=== PATIENT | male | born 1970 | race Caucasian/White ===

== ENCOUNTER 2016-07-13 14:16 | Inpatient (IN) ==
[2016-07-13] MEDS ORDERED: *HR* HYDROmorphone (PF) 1 MG/ML SYRINGE IVP ONE ×3 (14:40→16:44)
[2016-07-13] MEDS ORDERED: Ondansetron 4 MG/2 ML VIAL IVP ONE (14:40)
[2016-07-13] MEDS ORDERED: 0.9 % Sodium Chloride 1,000 ML IVC ONE ×2 (14:41→16:11)
[2016-07-13 15:25] LABS: Basophils % 0.3 %; Hematocrit 45.1 % (37.5-50.1); Hemoglobin 15.1 g/dL (12.9-16.9); Immature Granulocytes % 0.3 % (0-4); Lymphocytes # 0.5 K/mcL (0.6-4.6); Lymphocytes % 5.9 %; Mean Corpuscular HGB Conc 33.5 g/dL (31.6-35.5); Mean Corpuscular Hemoglobin 30.3 pg (28.0-33.3); Mean Corpuscular Volume 90.4 fL (83.0-100.0); Monocytes # 0.3 K/mcL (0.0-1.3); Neutrophils # 7.1 K/mcL (1.6-8.9); Platelet Count 102 K/mcL (140-400); Red Blood Count 4.99 M/mcL (4.19-5.50); Red Cell Distribution Width 13.8 % (11.5-14.5); Segmented Neutrophils % 89.5 %
[2016-07-13 15:40] LABS: Alanine Aminotransferase 288 Units/L (0-55); Albumin 4.1 g/dL (3.5-5.0); Albumin/Globulin Ratio 1.1 (1.1-2.2); Alkaline Phosphatase 495 Units/L (38-126); Aspartate Amino Transferase 506 Units/L (5-34); BUN/Creatinine Ratio 13 (6-26); Bilirubin,Direct 2.6 mg/dL (0.0-0.5); Bilirubin,Indirect 1.1 mg/dL (0.0-1.2); Bilirubin,Total 3.7 mg/dL (0.2-1.2); Blood Urea Nitrogen 11 mg/dL (8-26); Calcium 9.6 mg/dL (8.6-10.8); Carbon Dioxide 24 mEq/L (19-29); Chloride 96 mEq/L (98-109); Globulin 3.6 g/dL (2.4-3.5); Glucose 137 mg/dL (70-99); Lipase 956 Units/L (8-78); Osmolality,Calculated 286 (280-300); Potassium 4.1 mEq/L (3.5-4.5); Sodium 137 mEq/L (136-145); Total Protein 7.7 g/dL (6.0-8.3); eGFR For African Americans > 60 (> 60); eGFR For Non-African Americans > 60 (> 60)
--- NOTE | 2016-07-13 16:20 | Emergency Department Note ---
START Narrative - START START: I personally interviewed and examined this patient and my medical decision- making was reviewed with the ED Resident Physician, Dr. Oconnor. I agree with the documented findings, disposition and treatment plan as described except to the extent set forth below. Patient is a 46-year-old white male with a history of chronic pancreatitis who comes into the emergency department today complaining of a 2 day onset of gradually worsening epigastric pain radiating through to his back. Patient arrives tachycardic and hypertensive, appears uncomfortable with moderate epigastric pain associated with nausea vomiting. Patient states he has had his gallbladder out remotely in the past. Patient's rating pain 10 out of 10 in severity. He is on blood pressure medicine states he has taken his medications but difficult to tell if he absorbed these with the vomiting that he has had home. Patient got moderate tenderness to palpation in the epigastric area with mild guarding. Patient has good bowel sounds. Heart rate is tachycardic but regular , lungs are clear to auscultation bilaterally patient has good pulses throughout equal bilaterally in the upper and lower extremities. Remainder of exams unremarkable. Patient's received 2 L of IV fluids at up to this point has had 2 rounds of IV pain medications has had mild relief but still uncomfortable with pain. His labs show a normal white count, lipase significantly elevated at almost 1000 with elevated LFTs and total bili, this appears as an obstructive picture suggestive of a gallstone pancreatitis although patient has gallbladder out. CT does not show any complications in regards to the pancreatitis but does show stranding and inflammation around the pancreas. No other abnormality seen on CT scan. Case with Dr. Daugherty who is on for GI who states that they will start with an MRCP for further evaluation. Patient will be admitted to the medicine service, for acute pancreatitis, transaminitis, hyperbilirubinemia, sinus tachycardia, elevated blood pressure with history of hypertension..
--- NOTE | 2016-07-13 16:21 | Emergency Department Note ---
Disposition Clinical Impression: Abdominal pain Qualifiers: Abdominal location: epigastric Qualified Code(s): R10.13 - Epigastric pain Acute appendicitis Qualifiers: Acute appendicitis type: unspecified acute appendicitis type Qualified Code(s) : K35.80 - Unspecified acute appendicitis Disposition: Admitted As Inpatient Condition: Good Referrals: Kalia Sheppard MD [Primary Care Provider] - Forms: Work/School Release, ED Satisfaction Letter Time of Disposition: 16:43 Abdominal Pain HPI - General Chief Complaint: ED Abdominal Pain Stated Complaint: "pancreas and kidneys" Time Seen by Provider: 07/13/16 14:28 Source: patient Limitations: no limitations Nursing Notes Reviewed: Yes Vital Signs Reviewed: Yes - History of Present Illness HPI Narrative: Patient presents emergency room with complaint of severe abdominal pain. History of pancreatitis secondary to history of alcohol use and obstructed gallbladder stone. Patient denies any fevers or chills he has had intermittent nausea vomiting and abdominal pain. Denied diarrhea. No other significant medical history according to him. Symptom onset was yesterday and progressively getting worse. Denies any alcohol use or other trauma or injuries. Pt Subjective Complaint: abdominal pain Onset (ago): day(s) Consistency: constant Location: epigastric Pain Severity: severe Pain Scale: 10 Quality: stabbing Migration to: epigastric Improves with: nothing Worsens with: eating, vomiting, movement Associated symptoms: Reports: nausea, vomiting, chills. Denies: diarrhea, fever Treatments prior to arrival: none - Related Data Home Medications Medication Instructions Recorded Confirmed Omeprazole [PriLOSEC] 40 mg PO BID #0 10/23/14 01/18/16 Gabapentin [Neurontin] 300 mg PO TID PRN 02/07/15 01/18/16 Metoprolol Succinate 100 mg PO DAILY 07/13/16 07/13/16 Allergies Allergy/AdvReac Type Severity Reaction Status Date / Time No Known Allergies Allergy Verified 07/13/16 14:22 All systems ED: reviewed and negative except as stated. Constitutional: Denies: fever, chills Cardiovascular: Denies: chest pain, palpitations Gastrointestinal: Reports: abdominal pain, nausea, vomiting. Denies: diarrhea Musculoskeletal: Denies: back pain, neck pain Abdominal Pain PMH - Past Medical History Medical history: Reports: GERD, hypertension, renal disease, other Male Surgical History: Reports: other Psychiatric history: Reports: anxiety - Social History Smoking status: Current some day smoker Alcohol use: Reports: none Drug use: Reports: none Physical Exam - General Limitations: no limitations General appearance: alert, in no apparent distress - Cardiovascular Cardiovascular exam: Present: normal rhythm, tachycardia, normal heart sounds - Abdominal Exam Abdominal exam: Present: soft, tenderness, guarding, normal bowel sounds. Absent: distention, rebound, rigidity, Guerrero's sign, Rovsing's sign, tenderness at McBurney's Point - Extremities Exam Extremities exam: Present: normal inspection, full ROM, normal capillary refill - Neurological Exam Neurological exam: Present: alert, oriented X3 - Skin Skin exam: Present: warm, dry, intact, normal color Course Course Narrative: Patient seen and examined at the time of arrival. See history of present illness. 46-year-old male presents emergency room with evaluation of nausea vomiting abdominal pain. Similar to his previous history of pancreatitis. Patient has had this multiple times the past secondary to previous alcohol abuse and gallstone pancreatitis secondary to cholecystitis. Patient vital signs at presentation are tachycardic he is afebrile. Blood pressure is elevated secondary discomfort. Physical exam shows clear lungs at this regular but tachycardia. Abdomen is tender diffusely with mild guarding no rigidity no peritoneal symptoms. No presents with symptoms on the back. Patient is concerning for an exacerbation of her toes. Previous evaluations reviewed. No recent CT imaging. CT of the abdomen fluids pain control nausea medication labs including lipase and troponin ordered this time. EKG. Patient be provided with fluids and nausea medication pain control. Repeat evaluation is completed. Patient currently denying chest pain shortness of breath headaches vision changes vomiting or diarrhea at this time. Main complaint is of poorly controlled nausea and abdominal pain. Disposition pending treatment course. - Reevaluation(s) Reevaluation #1: Patient found to have elevated lipase and 969. He also is instructed pathology based on elevated to the 2.7 and LFTs. Patient has no gallbladder or visible stone on CT imaging the abdomen. Mild to moderate pancreatitis uncomplicated noted on CT read. Fluids and pain medication to be repeated this time. Patient made nothing by mouth. Consultation placed to the on-call heating unit mechanic Dr. cowan. We reviewed the case he does not think the patient needs any emergent procedure. Recommended conservative therapy including nausea medication and fluids along with pain control. Patient will be admitted to hospitals. Patient was discussed with the hospitalist Dr. anthony reviewed the patient's presentation symptoms medical intervention and presentation here to this emergency room. There have been except in the hospital for treatment of what appears to be pancreatitis. Patient made nothing by mouth and second dose of pain medication given. Patient is stable resting comfortably in the bed. Routine monitors workup and treatment course are completed. Patient to have admission process completed this time. No other recommendations from the hospitalist prior to admission. Time: 16:41 Vital Signs Temperature 97.4 F L 07/13/16 14:19 Pulse Rate 120 07/13/16 14:19 Respiratory Rate 18 07/13/16 14:19 Blood Pressure 181/110 07/13/16 14:19 O2 Sat by Pulse Oximetry 99 07/13/16 14:19 Temperature 97.4 F L 07/13/16 14:19 Pulse Rate 120 07/13/16 14:19 Respiratory Rate 18 07/13/16 14:19 Blood Pressure 181/110 07/13/16 14:19 O2 Sat by Pulse Oximetry 99 07/13/16 14:19 Oxygen Delivery Oxygen Delivery Room Air Abdominal Pain - MDM Narrative Medical decision making narrative: Pancreatitis, abdominal pain, nausea vomiting diarrhea - Medical Records Medical records reviewed: Yes I reviewed the patient's medical records. - Lab Data Lab results reviewed: Yes I reviewed the patient's lab results. Result diagrams: 07/13/16 15:19 07/13/16 15:19 Lab Results 07/13/16 07/13/16 07/13/16 Range/Units 15:19 15:19 15:19 WBC 7.9 (4.3-11.1) K/mcL RBC 4.99 (4.19-5.50) M/mcL Hgb 15.1 (12.9-16.9) g/dL Hct 45.1 (37.5-50.1) % MCV 90.4 (83.0-100.0) fL MCH 30.3 (28.0-33.3) pg MCHC 33.5 (31.6-35.5) g/dL RDW 13.8 (11.5-14.5) % Plt Count 102 L (140-400) K/mcL MPV 12.0 (9.4-12.4) fL Immature Gran % 0.3 (0-4) % Seg Neutrophils % 89.5 % Lymphocytes % 5.9 % Monocytes % 4.0 % Eosinophils % 0.0 % Basophils % 0.3 % Neutrophils # 7.1 (1.6-8.9) K/mcL Lymphocytes # 0.5 L (0.6-4.6) K/mcL Monocytes # 0.3 (0.0-1.3) K/mcL Eosinophils # 0.0 (0.0-0.6) K/mcL Basophils # 0.0 (0.0-0.2) K/mcL Sodium 137 (136-145) mEq/L Potassium 4.1 (3.5-4.5) mEq/L Chloride 96 L (98-109) mEq/L Carbon Dioxide 24 (19-29) mEq/L BUN 11 (8-26) mg/dL Creatinine 0.82 (0.72-1.25) mg/dL Est GFR ( Amer) > 60 (> 60) Est GFR (Non-Af Amer) > 60 (> 60) BUN/Creatinine Ratio 13 (6-26) Glucose 137 H (70-99) mg/dL Calculated Osmolality 286 (280-300) Lactic Acid 0.9 (0.5-2.2) mmol/L Calcium 9.6 (8.6-10.8) mg/dL Total Bilirubin 3.7 H (0.2-1.2) mg/dL Direct Bilirubin 2.6 H (0.0-0.5) mg/dL Indirect Bilirubin 1.1 (0.0-1.2) mg/dL AST 506 H (5-34) Units/L ALT 288 H (0-55) Units/L Alkaline Phosphatase 495 H (38-126) Units/L Troponin I (0-0.03) ng/mL Serum Total Protein 7.7 (6.0-8.3) g/dL Albumin 4.1 (3.5-5.0) g/dL Globulin 3.6 H (2.4-3.5) g/dL Albumin/Globulin Ratio 1.1 (1.1-2.2) Lipase 956 H (8-78) Units/L 07/13/16 Range/Units 15:19 WBC (4.3-11.1) K/mcL RBC (4.19-5.50) M/mcL Hgb (12.9-16.9) g/dL Hct (37.5-50.1) % MCV (83.0-100.0) fL MCH (28.0-33.3) pg MCHC (31.6-35.5) g/dL RDW (11.5-14.5) % Plt Count (140-400) K/mcL MPV (9.4-12.4) fL Immature Gran % (0-4) % Seg Neutrophils % % Lymphocytes % % Monocytes % % Eosinophils % % Basophils % % Neutrophils # (1.6-8.9) K/mcL Lymphocytes # (0.6-4.6) K/mcL Monocytes # (0.0-1.3) K/mcL Eosinophils # (0.0-0.6) K/mcL Basophils # (0.0-0.2) K/mcL Sodium (136-145) mEq/L Potassium (3.5-4.5) mEq/L Chloride (98-109) mEq/L Carbon Dioxide (19-29) mEq/L BUN (8-26) mg/dL Creatinine (0.72-1.25) mg/dL Est GFR ( Amer) (> 60) Est GFR (Non-Af Amer) (> 60) BUN/Creatinine Ratio (6-26) Glucose (70-99) mg/dL Calculated Osmolality (280-300) Lactic Acid (0.5-2.2) mmol/L Calcium (8.6-10.8) mg/dL Total Bilirubin (0.2-1.2) mg/dL Direct Bilirubin (0.0-0.5) mg/dL Indirect Bilirubin (0.0-1.2) mg/dL AST (5-34) Units/L ALT (0-55) Units/L Alkaline Phosphatase (38-126) Units/L Troponin I 0.00 (0-0.03) ng/mL Serum Total Protein (6.0-8.3) g/dL Albumin (3.5-5.0) g/dL Globulin (2.4-3.5) g/dL Albumin/Globulin Ratio (1.1-2.2) Lipase (8-78) Units/L - Radiology Data Radiology results reviewed: Yes I reviewed the patient's radiology results. CT head is consistent with pancreatitis and no obstructive pathology - EKG Data EKG attestation: Yes I reviewed and interpreted this EKG. EKG shows normal: sinus rhythm, axis, intervals, QRS complexes, ST-T waves Rate: tachycardia Rhythm: NSR [place]/QRS: normal When compared to previous EKG there are: no significant changes Interpretation: no acute changes, unchanged when compared to prior tracing (date ) (09/03/15)
[2016-07-13] MEDS ORDERED: Famotidine 20 MG/2 ML VIAL IVP ONE (16:44)
[2016-07-13] MEDS ORDERED: Naloxone 0.4 MG/ML INJ IVP PRN (17:14)
[2016-07-13] MEDS ORDERED: *HR* Morphine 2 MG/ML SYRINGE IVP PRN (17:14)
[2016-07-13] MEDS ORDERED: *HR* LORazepam 2 MG/ML VIAL IVP ONE (17:53)
[2016-07-13] MEDS ORDERED: *HR* HYDROmorphone 2 MG/ML SYRINGE IVP PRN (17:59)
[2016-07-13] MEDS ORDERED: Ketorolac 30 MG/ML VIAL IVP PRN (18:00)
[2016-07-13] MEDS ORDERED: *HR* Promethazine 25 MG/ML VIAL IVP PRN ×2 (18:04→23:29)
[2016-07-13] MEDS: 0.9 % Sodium Chloride 1,000 ML IVC SCH (18:04)
--- NOTE | 2016-07-13 18:15 | Internal Med History&Physical ---
Date of Encounter: 07/13/16 Time of Encounter: 17:45 Assessment and Plan (1) Acute pancreatitis Current visit: Yes Status: Acute Patient with acute pancreatitis and severe intractable abdominal pain. Place patient on hospital. Keep nothing by mouth. IV fluids. We will get MRCP. Patient has had previous cholecystectomy. IV narcotic medications to control pain. High risk for complications due to use of IV narcotic medications. Monitor vital signs closely. Monitor input and output. Qualifiers: Pancreatitis type: other Acute pancreatitis complication: no infection or necrosis Qualified Code(s): K85.80 - Other acute pancreatitis without necrosis or infection (2) Accelerated hypertension Current visit: Yes Status: Acute Blood pressure is severely elevated. Likely due to severe pain. Monitor blood pressure for now and if persistently greater than 160 systolic, will give intravenous medications to control blood pressure. (3) Essential hypertension Current visit: No Status: Chronic (4) Intractable epigastric abdominal pain Current visit: Yes Status: Acute Internal Medicine - H&P: HPI Chief complaint: Abdominal pain Admitted From: Emergency Dept Plans for Post Hospital Care: Home History of present illness: Mr. Howard is a 46 year old male is with a history of prior pancreatitis status post cholecystectomy, essential hypertension who presented to the ER with complaints of severe abdominal pain. This began 3 days back and has been progressively getting worse. Currently it is 10 out of 10 in severity and not responding to her narcotic medications at the patient received in the ER, it radiates to the back and is associated with nausea and vomiting. No fever chills or night sweats. No hemoptysis. No recent alcohol use. Past Med Surg Social Fam HX - Past Medical History Attestation: Yes The following information was validated with the patient. Source: patient Medical history: GERD, hypertension, other (Pancreatitis) Psychiatric history: anxiety - Past Surgical History Surgical History: appendectomy, cholecystectomy, other - Social History Smoking Status: Current some day smoker Smokeless Tobacco Status: No Alcohol use: none Drug use: none - Family History Mother Family Member Ethnicity: Non- Living Status: Hx Family Cardiac Disorders: Yes Hx Family Respiratory Disorders: Yes Hx Family Cancer: Yes Hx Family GI Disorders: Yes Hx Family Endocrine Disorder: No Hx Family Neuromuscular Disorders: No Hx Family Neurologic Disorders: No Hx Family HEENT Disorders: No Hx Family Autoimmune Disorders: No Internal Medicine - H&P: Meds Omeprazole [PriLOSEC] 40 mg PO BID #0 10/23/14 [History] Gabapentin [Neurontin] 300 - 600 mg PO TID 02/07/15 [History] Metoprolol Succinate 100 mg PO DAILY 07/13/16 [History] Allergies No Known Allergies Allergy (Verified 07/13/16 14:22) All Systems PM: A 10-system review of systems was performed and is negative for pertinent findings except as documented above in the HPI. - Constitutional Constitutional: malaise ( ), no chills, no fever(s), no night sweats - EENT Eyes: no change in vision, no discharge, no pain, no photophobia Nose, mouth and throat: no dysphagia, no nasal discharge, no neck pain, no sore throat - Cardiovascular Cardiovascular ROS IM: no chest pain, no diaphoresis, no dyspnea, no lightheadedness, no palpitations, no syncope - Respiratory Respiratory: no cough, no dyspnea, no wheezing, no excessive phlegm production - Gastrointestinal Gastrointestinal: abdominal pain, nausea, vomiting, no diarrhea, no hematemesis , no hematochezia, no melena - Musculoskeletal Musculoskeletal ROS IM: no numbness, no tingling - Integumentary Integumentary IM: no rash, no unusual bruising - Neurological Neurological ROS: no confusion, no convulsions, no focal weakness, no numbness, no tingling, no tremor(s) - Hematologic/Lymphatic Hematologic/Lymphatic: no easy bruising - Constitutional Vitals: Temp Pulse Resp BP Pulse Ox 97.4 F L 114 19 201/119 97 07/13/16 17:38 07/13/16 17:38 07/13/16 17:38 07/13/16 17:38 07/13/16 17:38 General appearance: Present: A&O X 3, severe distress, answers questions appropriately - Eye Eye exam: Present: EOMI, PERRL, conjuntiva pink, sclera anicteric - Neck Neck exam general surgery: Present: supple, trachea midline. Absent: lymphadenopathy - Respiratory Respiratory exam: Present: CTAB. Absent: accessory muscle use, rales, rhonchi, wheezes - Cardiovascular Cardiovascular exam: Present: RRR, +S1, +S2, tachycardia. Absent: diastolic murmur, gallop, rubs, systolic murmur - GI/Abdominal GI/Abdominal exam: Present: normal bowel sounds, tenderness (Epigastric), no peritoneal signs. Absent: distended - Extremities Exam Extremities exam: Present: warm, radial pulses palpable and symetrical. Absent : calf tenderness, cyanotic, pedal edema - Neurological Exam Neurological exam: Present: CN II-XII intact, oriented X3, no focal deficits. Absent: facial droop, speech deficit - Skin Skin exam: Present: dry, intact Internal Med - H&P Results - Labs CBC & Chem 7: 07/13/16 15:19 07/13/16 15:19 - Impressions Impressions Abdomen/Pelvis CT 07/13/16 14:40 IMPRESSION: [id number] uncomplicated acute pancreatitis. D/ / Oral Solorzano MD / Oral Solorzano MD Interpreting Provider: Oral Solorzano MD - Attending Attestation This document has been at least partially created by [employer] voice recognition technology by Dr. Almonte. Errors in grammar, wording or other phrases may exist. If errors are found after the documentation is signed, they will be addressed individually in the addendum section of this document when appropriate.
[2016-07-13] MEDS: Pantoprazole 40 MG VIAL IVP SCH (20:49)
[2016-07-13] MEDS: Gabapentin 300 MG CAPSULE PO SCH (20:50)
[2016-07-13] MEDS: Promethazine 12.5 MG in 0.9 % Sodium Chloride 50 ML IVPB PRN (21:09)
[2016-07-13] MEDS ORDERED: Ipratropium/Albuterol Neb 3 ML IH PRN (23:37)
[2016-07-13] MEDS ORDERED: Benzonatate 100 MG CAPSULE PO PRN (23:37)
[2016-07-13] MEDS ORDERED: traZODone 50 MG TABLET PO PRN (23:37)
[2016-07-13] MEDS: *HR* LORazepam 2 MG/ML VIAL IVP PRN (23:45)
[2016-07-14 00:22] LABS: Basophils % 0.2 %; Hematocrit 39.9 % (37.5-50.1); Hemoglobin 13.8 g/dL (12.9-16.9); Immature Granulocytes % 0.3 % (0-4); Lymphocytes # 0.4 K/mcL (0.6-4.6); Lymphocytes % 3.8 %; Mean Corpuscular HGB Conc 34.6 g/dL (31.6-35.5); Mean Corpuscular Hemoglobin 31.3 pg (28.0-33.3); Mean Corpuscular Volume 90.5 fL (83.0-100.0); Mean Platelet Volume 11.3 fL (9.4-12.4); Monocytes # 0.5 K/mcL (0.0-1.3); Monocytes % 5.4 %; Neutrophils # 8.3 K/mcL (1.6-8.9); Red Blood Count 4.41 M/mcL (4.19-5.50); Red Cell Distribution Width 14.3 % (11.5-14.5); Segmented Neutrophils % 90.3 %
[2016-07-14 00:23] LABS: Platelet Count 79 K/mcL (140-400)
[2016-07-14 00:28] LABS: INR 1.1; Prothrombin Time 11.6 Seconds (9.4-12.1)
[2016-07-14 00:32] LABS: Magnesium 1.6 mg/dL (1.6-2.6)
[2016-07-14 00:38] LABS: BUN/Creatinine Ratio 12 (6-26); Blood Urea Nitrogen 9 mg/dL (8-26); Calcium 8.8 mg/dL (8.6-10.8); Carbon Dioxide 25 mEq/L (19-29); Chloride 99 mEq/L (98-109); Glucose 137 mg/dL (70-99); Osmolality,Calculated 285 (280-300); Potassium 3.9 mEq/L (3.5-4.5); Sodium 137 mEq/L (136-145); eGFR For African Americans > 60 (> 60); eGFR For Non-African Americans > 60 (> 60)
[2016-07-14 00:59] LABS: Thyroid Stimulating Hormone 1.064 mcIU/mL (0.350-4.840)
[2016-07-14 01:01] LABS: Hepatitis A Antibody IgM Nonreactive (Nonreactive); Hepatitis B Core IgM Nonreactive (Nonreactive); Hepatitis B Surface Antigen Nonreactive (Nonreactive); Hepatitis C Virus Antibody Nonreactive (Nonreactive)
[2016-07-14] MEDS: *HR* LORazepam 2 MG/ML VIAL IVP PRN ×9 (01:07→22:37)
[2016-07-14] MEDS: Haloperidol Lactate 5 MG/ML VIAL IVP PRN ×2 (02:24→21:27)
[2016-07-14] MEDS: Melatonin 3 MG TABLET PO SCH ×2 (02:30→20:12)
[2016-07-14 02:49] LABS: Bilirubin,Urine Moderate (Negative); Blood,Urine Negative (Negative); Clarity,Urine Cloudy (Clear); Color,Urine Dark Yellow (Yellow); Glucose,Urine (UA) Normal (Normal); Ketones,Urine 80 mg/dL (Negative); Leukocyte Esterase,Urine Negative (Negative); Nitrite,Urine Negative (Negative); Protein,Urine Trace mg/dL (Neg-Trace); Specific Gravity,Urine 1.022 (1.010-1.025); Urobilinogen,Urine Normal (Normal)
[2016-07-14 02:51] LABS: Hyaline Casts,Urine None Seen per lpf (None-Few); RBC,Urine 0-3 per hpf (0-3); Squamous Epithelial Cell,Urine Few per lpf (None-Few); WBC,Urine 0-3 per hpf (0-3)
[2016-07-14 02:56] LABS: Amphetamine Screen,Urine Negative ng/mL (Cutoff=1000); Barbiturate Screen,Urine Negative ng/mL (Cutoff=200); Benzodiazepines Screen,Urine Negative ng/mL (Cutoff=200); Cannabinoid Screen,Urine Negative ng/mL (Cutoff = 50); Cocaine Screen,Urine Negative ng/mL (Cutoff= 300); Opiate Screen,Urine Positive ng/mL (Cutoff=300); Phencyclidine Screen,Urine Negative ng/mL (Cutoff=25)
[2016-07-14] MEDS ORDERED: Haloperidol Lactate 5 MG/ML VIAL IVP STA (02:56)
[2016-07-14] MEDS ORDERED: PHENobarbital 15 MG TABLET PO STA (02:57)
[2016-07-14 03:00] LABS: Bacteria,Urine Few per hpf (None-Few)
[2016-07-14] MEDS ORDERED: PHENobarbital 65 MG/ML VIAL IVP STA (03:18)
[2016-07-14] MEDS: 0.9 % Sodium Chloride 1,000 ML IVC SCH ×5 (03:48→23:27)
[2016-07-14] MEDS ORDERED: Water for inj. (sterile) 10 ML IV ONE ×2 (04:54→04:55)
[2016-07-14] MEDS ORDERED: Magnesium Sulfate 2 GM in D5% in Water 100 ML IVPB ONE (05:28)
[2016-07-14] MEDS: *HR* Metoprolol 5 MG/5 ML VIAL IVP SCH ×2 (06:58→12:00)
[2016-07-14] MEDS ORDERED: *HR* LORazepam 2 MG/ML VIAL IVP ONE ×2 (07:31→07:41)
--- NOTE | 2016-07-14 07:51 | Internal Med Progress Note ---
Date of Encounter: 07/14/16 Time of Encounter: 07:49 - Assessment and plan (1) Withdrawal symptoms, alcohol Current Visit: Yes Status: Acute Assessment and plan: acute alcohol withdrawal ativan 10 mg stat fall precautions might not be able to take precedex ( too altered) start precedex drip and send to ICU ( Dr Pichardo aware of case) time spent on critical care: 40 min Qualifiers: Complication of substance-induced condition: with delirium Qualified Code(s ): F10.231 - Alcohol dependence with withdrawal delirium (2) Hypokalemia Current Visit: Yes Status: Acute Assessment and plan: replete as needed (3) Hypomagnesemia Current Visit: Yes Status: Acute Assessment and plan: replete as needed (4) Pancreatitis, acute Current Visit: No Status: Acute Assessment and plan: NPO, increase IVF to 250 cc/h Qualifiers: Pancreatitis type: alcohol induced Qualified Code(s): K85.20 - Alcohol induced acute pancreatitis without necrosis or infection (5) Accelerated hypertension Current Visit: Yes Status: Acute Assessment and plan: likely related to DTs (6) History of alcoholism Current Visit: No Status: Chronic - Subjective Interval history: Agitated, hallucinating, tachycardic and unable to provide any history. Review of systems not able to be completed due to patient's confusion - Constitutional Vitals: Temp Pulse Resp BP Pulse Ox 98.7 F 143 26 158/111 95 07/14/16 02:07 07/14/16 05:17 07/14/16 05:17 07/14/16 05:17 07/14/16 05:17 General appearance: Present: A&O X 0, severe distress, answers questions appropriately - Head Head exam: Present: atraumatic, normocephalic - Eye Eye exam: Present: PERRL, conjuntiva pink, sclera anicteric. Absent: EOMI Pupils: Present: PERRL - Neck Neck exam general surgery: Present: supple, trachea midline. Absent: lymphadenopathy - Respiratory Respiratory exam: Present: CTAB. Absent: accessory muscle use, rales, rhonchi, wheezes - Cardiovascular Cardiovascular exam: Present: RRR, +S1, +S2, tachycardia. Absent: diastolic murmur, gallop, rubs, systolic murmur - GI/Abdominal GI/Abdominal exam: Present: normal bowel sounds, soft, no peritoneal signs. Absent: distended, tenderness - Extremities Exam Extremities exam: Present: warm, radial pulses palpable and symetrical. Absent : calf tenderness, cyanotic, pedal edema - Neurological Exam Neurological exam: Present: CN II-XII intact, no focal deficits. Absent: oriented X3, pronater drift, facial droop, speech deficit Additional comments: tremors, agitated. - Skin Skin exam: Present: dry, intact Internal Medicine: Result - Labs CBC & Chem 7: 07/14/16 00:12 07/14/16 00:12 Labs: Short CBC 07/14/16 Range/Units 00:12 WBC 9.2 (4.3-11.1) K/mcL Hgb 13.8 (12.9-16.9) g/dL Hct 39.9 (37.5-50.1) % Plt Count 79 L (140-400) K/mcL Neutrophils # 8.3 (1.6-8.9) K/mcL BMP 07/14/16 00:12 Sodium 137 Potassium 3.9 Chloride 99 Carbon Dioxide 25 BUN 9 Creatinine 0.74 Glucose 137 H Calcium 8.8 Urine 07/14/16 Range/Units 02:30 Urine Color Dark Yellow (Yellow) Urine Clarity Cloudy A (Clear) Urine pH 6.0 (5.0-8.0) pH Units Ur Specific [place] 1.022 (1.010-1.025) Urine Protein Trace (Neg-Trace) mg/dL Urine Glucose (UA) Normal (Normal) mg/dL - ABG Interpretation ABG results: PT/INR, D-dimer PT 11.6 Seconds (9.4-12.1) 07/14/16 00:12 - Impressions Impressions Abdomen MRI 07/13/16 17:19 IMPRESSION: 1. Acute pancreatitis with extensive edema, better characterized by a recent CT. 2. Slight prominence of the biliary ducts likely a result of inflammation at the pancreas. No evidence of intraluminal filling defect. 3. Stable dilatation of proximal pancreatic duct since 2014. This may represent IPMN. A cystic pancreatic lesion cannot be definitively excluded but would be considered less likely. Given prior history, the possibility of chronic pseudocyst may be considered. D/ / Ronn Engel MD / Ronn Engel MD Interpreting Provider: Ronn Engel MD Consult Discharge Plan - Plan Referrals: Kaila Sheppard MD [Primary Care Provider] -
[2016-07-14] MEDS: *HR* Enoxaparin 40 MG/0.4 ML SYRINGE SQ SCH (08:07)
[2016-07-14] MEDS ORDERED: Pantoprazole 40 MG VIAL IVP SCH (09:00)
[2016-07-14] MEDS ORDERED: PHENobarbital 32.4 MG TABLET PO SCH (09:00)
[2016-07-14] MEDS: Gabapentin 300 MG CAPSULE PO SCH ×2 (09:51→16:11)
[2016-07-14] MEDS: Metoprolol XL (24 HR) Succ 50 MG TAB.ER.24H PO SCH (09:51)
[2016-07-14] MEDS: Nicotine 21 MG PATCH.TD24 TD SCH (11:58)
[2016-07-14] MEDS: Pantoprazole 40 MG VIAL IVP SCH ×2 (11:59→20:02)
[2016-07-14] MEDS: Dexmedetomidine HCl 400 MCG/100 ML MLS IVC SCH ×3 (13:30→23:26)
--- NOTE | 2016-07-14 17:06 | Pulmonology Consult Note ---
Date of Encounter: 07/14/16 Time of Encounter: 11:55 Assessment and Plan (1) Encephalopathy Current Visit: Yes Status: Acute Toxic metabolic encephalopathy secondary to alcohol withdrawal. Patient is to continue benzodiazepine, Precedex infusion as well as multivitamin. Given pancreatitis, droopiness fluids will also be provided with careful monitoring of input output and clinical status. Based upon the patient's history, acute pancreatitis is likely related to alcohol as opposed to other etiologies. Furthermore, the patient likely has fatty liver secondary to alcohol abuse and thrombocytopenia also manifestation of alcohol abuse (patient may also have portal hypertension and some splenic sequestration as an alternative etiology of stroke for thrombocytopenia). Continued monitoring the intensive care unit setting Code(s): G93.40 - Encephalopathy, unspecified SNOMED Code(s): 10092020, 294062710 History of Present Illness Consult date: 07/14/16 Chief complaint: Encephalopathy, altered mental status History of present illness: This 46-year-old male active alcohol abuser with pancreatitis was transferred from the floor to the intensive care unit given tachycardia and agitation delirium. It was the impression of the hospitalist service that he was refractory to the benzodiazepine treatment and required Precedex infusion which was initiated upon his arrival to the intensive care unit. I am unable to obtain review of systems from the patient Ren[place] meaningful information in light of his mental status. Past Med Surg Social Fam HX - Past Medical History Medical history: GERD, hypertension, other (Pancreatitis) Psychiatric history: anxiety - Past Surgical History Surgical History: appendectomy, cholecystectomy, other - Social History Smoking Status: Current some day smoker Smokeless Tobacco Status: No Alcohol use: none Drug use: none - Family History Mother Family Member Ethnicity: Non- Living Status: Age at : 75 Cause of : cancer Hx Family Cardiac Disorders: Yes Hx Family Respiratory Disorders: Yes Hx Family Cancer: Yes Hx Family GI Disorders: Yes Hx Family Endocrine Disorder: No Hx Family Neuromuscular Disorders: No Hx Family Neurologic Disorders: No Hx Family HEENT Disorders: No Hx Family Autoimmune Disorders: No Medications and Allergies Omeprazole [PriLOSEC] 40 mg PO BID #0 10/23/14 [History] Gabapentin [Neurontin] 300 - 600 mg PO TID 02/07/15 [History] Metoprolol Succinate 100 mg PO DAILY 07/13/16 [History] Allergies No Known Allergies Allergy (Verified 07/13/16 14:22) ROS unobtainable: due to mental status All Systems: A 10-system review of systems was performed and is negative for pertinent findings except as documented above in the HPI. Physical Examination Vital Signs: Vital Signs, Last 4 Hours Temp Pulse Resp BP Pulse Ox 07/14/16 16:00 24 167/114 94 07/14/16 15:00 99.5 F 119 22 182/115 94 07/14/16 14:09 128 07/14/16 14:00 121 24 162/104 95 General appearance: other (Agitated and delirious mumbles incoherently tachycardic.) Eyes: icteric ENT: oropharynx moist Effort: mildly labored Auscultation: bilateral: diminished breath sounds Cardiovascular: regular rate and rhythm Gastrointestinal: normoactive bowel sounds, tender (Mild epigastric tenderness to palpation.) Extremities: no cyanosis, no edema non-focal exam, motor strength normal and symmetric Results - Laboratory Findings CBC and BMP: 07/14/16 00:12 07/14/16 00:12 PT/INR, D-dimer PT 11.6 Seconds (9.4-12.1) 07/14/16 00:12 Abnormal lab findings: Abnormal lab results Plt Count 79 K/mcL (140-400) L 07/14/16 00:12 Lymphocytes # 0.4 K/mcL (0.6-4.6) L 07/14/16 00:12 Immature Plt Fraction 13.0 % (1.1-6.1) H 07/14/16 00:12 Glucose 137 mg/dL (70-99) H 07/14/16 00:12 POC Glucose 126 (58-89) H 07/14/16 01:30 Total Bilirubin 3.7 mg/dL (0.2-1.2) H 07/13/16 15:19 Direct Bilirubin 2.6 mg/dL (0.0-0.5) H 07/13/16 15:19 AST 506 Units/L (5-34) H 07/13/16 15:19 ALT 288 Units/L (0-55) H 07/13/16 15:19 Alkaline Phosphatase 495 Units/L (38-126) H 07/13/16 15:19 Globulin 3.6 g/dL (2.4-3.5) H 07/13/16 15:19 Amylase 322 Units/L (25-125) H 07/14/16 00:12 Lipase 956 Units/L (8-78) H 07/13/16 15:19 Urine Clarity Cloudy (Clear) A 07/14/16 02:30 Urine Ketones 80 mg/dL (Negative) H 07/14/16 02:30 Urine Bilirubin Moderate (Negative) H 07/14/16 02:30 Urine Opiates Screen Positive ng/mL (Fkpfoe=783) H 07/14/16 02:30 - Clinical Findings Intake & Output: Intake & Output 07/14/16 07/14/16 07/14/16 07:59 15:59 23:59 Intake Total 1000 / 1000 Output Total 1075 / 1075 Balance -75 / -75 Weight 84.5 kg Consult Discharge Plan - Plan Referrals: Kalia Sheppard MD [Primary Care Provider] -
[2016-07-14] MEDS: Thiamine (B-1) 100 MG, Folic Acid 1 MG, MVI, adult with vitamin K 10 ML in 0.9 % Sodi... IVPB SCH (19:40)
[2016-07-15] MEDS: *HR* LORazepam 2 MG/ML VIAL IVP PRN ×4 (00:33→06:59)
[2016-07-15] MEDS: Promethazine 12.5 MG in 0.9 % Sodium Chloride 50 ML IVPB PRN (02:44)
[2016-07-15] MEDS: Dexmedetomidine HCl 400 MCG/100 ML MLS IVC SCH ×2 (03:50→08:27)
[2016-07-15] MEDS: 0.9 % Sodium Chloride 1,000 ML IVC SCH (03:50)
[2016-07-15] MEDS: *HR* Enoxaparin 40 MG/0.4 ML SYRINGE SQ SCH (05:25)
[2016-07-15] MEDS: *HR* Metoprolol 5 MG/5 ML VIAL IVP SCH (05:33)
[2016-07-15] MEDS ORDERED: Furosemide 40 MG/4 ML VIAL IVP ONE (08:19)
[2016-07-15] MEDS ORDERED: Furosemide 40 MG/4 ML VIAL ONE (08:21)
[2016-07-15] MEDS: Haloperidol Lactate 5 MG/ML VIAL IVP PRN (08:27)
[2016-07-15] MEDS ORDERED: Haloperidol Lactate 5 MG/ML VIAL IVP ONE (08:29)
[2016-07-15] MEDS: Nicotine 21 MG PATCH.TD24 TD SCH (08:51)
[2016-07-15] MEDS: Pantoprazole 40 MG VIAL IVP SCH ×2 (08:51→21:49)
[2016-07-15] MEDS ORDERED: 0.9 % Sodium Chloride 500 ML ONE (09:37)
[2016-07-15] MEDS: Furosemide 40 MG/4 ML VIAL IVP SCH ×2 (10:45→21:49)
[2016-07-15] MEDS: Metoprolol XL (24 HR) Succ 50 MG TAB.ER.24H PO SCH (10:45)
[2016-07-15] MEDS: FentaNYL (PF) 1,000 MCG in 0.9 % Sodium Chloride 80 ML IVC SCH ×2 (10:46→15:15)
--- NOTE | 2016-07-15 10:59 | Pulmonology Progress Note ---
Date of Encounter: 07/15/16 Time of Encounter: 09:00 Assessment and Plan (1) Encephalopathy Current Visit: Yes Status: Acute Code(s): G93.40 - Encephalopathy, unspecified SNOMED Code(s): 60457201, 406941902 (2) Acute respiratory failure with hypoxia Current Visit: Yes Status: Acute Acute respiratory failure with hypoxia in this particular individual with altered mental status and metabolic encephalopathy (due to alcohol withdrawal) and concurrent pancreatitis is more than likely related to witnessed aspiration and hence aspiration pneumonitis (versus pneumonia). Given the magnitude of hypoxemia and respiratory distress, the patient will undergo intubation and mechanical ventilatory support. Given the magnitude of hypoxemia, and it is quite likely this patient also has evolving ARDS (possibly related to direct insult of aspiration and to the indirect insult of pancreatitis). Once the patient is intubated, depending upon the PaO2 FiO2 ratio, the patient will require heavy sedation and neuromuscular blockade. Furthermore, it may be advantageous to pronate the patient. Patient will be cultured and given the magnitude of his respiratory failure, empiric broad-spectrum antimicrobial agents will be initiated. It would be my opinion that the antimicrobial agents could be the escalated and/or discontinued within the next 72 hours depending upon results of culture and perhaps depending upon the patient's clinical status. Continue DVT and ulcer prophylaxis OG tube will be placed to decompress the abdomen in light of suspected ileus Supportive medical measures for pancreatitis, may be advantageous to place a small bore postpyloric feeding tube for provision of enteral nutritional support. Patient is critically ill, suffers from life-threatening respiratory failure and likely is developing ARDS. Given the nature of this patient's acute respiratory decline, management today required 35 minutes of my bedside attention devoted to his individual management. Thus, 35 minutes of critical care time were required for management stabilization of this patient's acute respiratory failure. Code(s): J96.01 - Acute respiratory failure with hypoxia SNOMED Code(s): 39610982, 440871581 Subjective Principal diagnosis: Acute respiratory failure with hypoxia Interval history: Overnight, the patient remained agitated and delirious in spite of multiple doses of Ativan and Precedex infusion. Earlier this morning, per discussion with the nursing staff, the patient had several episodes of witnessed emesis ( the nursing staff were unable to place a nasogastric tube in light of the patient's mental status and tenuous respiratory status) and subsequently decline of his respiratory status (progressive hypoxemia, increased work of breathing). Furthermore, I note the patient has received generous administration of IV fluids in part for treatment of pancreatitis and ileus. Objective PUL Vital signs: Last Vital Signs Temp 99.8 F H 07/15/16 07:52 Pulse 157 07/15/16 09:00 Resp 20 07/15/16 09:00 BP 190/113 07/15/16 09:00 Pulse Ox 96 07/15/16 09:00 General appearance: other (Male, appears his stated age, he is not a moderate degree of respiratory distress with notable use of accessory respiratory muscles. Loud harsh coarse breath sounds and difficulty with cough and airway clearance.) Eyes: nonicteric ENT: oropharynx moist, other (Gastric tinged content noted within the mouth) Neck: no lymphadenopathy, JVD Auscultation: bilateral: rales, rhonchi, other (Moderate use of accessory respiratory muscles, abdominal paradox) Cardiovascular: regular rate and rhythm, other (Tachycardic) Gastrointestinal: other (Mildly distended abdomen however soft a few bowel sounds present, mild epigastric tenderness to palpation) Integumentary: normal Extremities: pink and warm, other (Bounding pulses) non-focal exam, motor strength normal and symmetric, other (Patient is confused and mildly agitated) Results - Laboratory Findings CBC and BMP: 07/14/16 00:12 07/14/16 00:12 PT/INR, D-dimer PT 11.6 Seconds (9.4-12.1) 07/14/16 00:12 Abnormal lab findings: Abnormal lab results Plt Count 79 K/mcL (140-400) L 07/14/16 00:12 Lymphocytes # 0.4 K/mcL (0.6-4.6) L 07/14/16 00:12 Immature Plt Fraction 13.0 % (1.1-6.1) H 07/14/16 00:12 Glucose 137 mg/dL (70-99) H 07/14/16 00:12 POC Glucose 114 (58-89) H 07/14/16 23:23 Total Bilirubin 3.7 mg/dL (0.2-1.2) H 07/13/16 15:19 Direct Bilirubin 2.6 mg/dL (0.0-0.5) H 07/13/16 15:19 AST 506 Units/L (5-34) H 07/13/16 15:19 ALT 288 Units/L (0-55) H 07/13/16 15:19 Alkaline Phosphatase 495 Units/L (38-126) H 07/13/16 15:19 Globulin 3.6 g/dL (2.4-3.5) H 07/13/16 15:19 Amylase 322 Units/L (25-125) H 07/14/16 00:12 Lipase 956 Units/L (8-78) H 07/13/16 15:19 Urine Clarity Cloudy (Clear) A 07/14/16 02:30 Urine Ketones 80 mg/dL (Negative) H 07/14/16 02:30 Urine Bilirubin Moderate (Negative) H 07/14/16 02:30 Urine Opiates Screen Positive ng/mL (Zpxmff=176) H 07/14/16 02:30 - Clinical Findings Intake & Output: Intake & Output 07/14/16 07/15/16 07/15/16 23:59 07:59 15:59 Intake Total 2200 / 2200 1661.45 / 1661.45 1100 / 1100 Output Total 400 / 400 550 / 550 Balance 1800 / 1800 1111.45 / 1111.45 1100 / 1100 Consult Discharge Plan - Plan Referrals: Kalia Sheppard MD [Primary Care Provider] -
[2016-07-15] MEDS: Vecuronium 50 MG in 0.9 % Sodium Chloride 150 ML IVC SCH (11:02)
--- NOTE | 2016-07-15 11:50 | Procedure Note ---
Date of procedure: 07/15/16 Pre-op diagnosis: Acute respiratory failure with hypoxia Post-op diagnosis: same Procedure: Patient received sedation with Versed and etomidate. Prior to the administration of sedatives, patient was noted to have several episodes of emesis and furthermore, this worsened following sedation. After evacuation of the oral pharynx with aggressive suctioning and provision of supplemental oxygen , using a glides scope, 7-1/2 oral endotracheal tube was placed under direct visualization without difficulty. End-tidal monitoring auscultation of the chest adjusted appropriate placement. A follow-up chest radiographs pending
--- NOTE | 2016-07-15 11:51 | Procedure Note ---
Date of procedure: 07/15/16 Pre-op diagnosis: Acute respiratory failure with hypoxia, ARDS Post-op diagnosis: same Procedure: Right internal jugular central venous catheter placed emergently given need for venous access. Maximal sterile barrier technique, sterile ultrasound guidance, multilumen catheter placed without difficulty. The device was sutured into position, all ports flushed. Sterile dressing applied. Follow-up chest radiographs pending.
--- NOTE | 2016-07-15 11:53 | Procedure Note ---
Date of procedure: 07/15/16 Pre-op diagnosis: Acute respiratory failure with hypoxia, ARDS Post-op diagnosis: same Procedure: A right femoral arterial line was placed for hemodynamic monitoring purposes in this patient with ARDS. There will maximal barrier technique sterile ultrasound guidance utilized. Single stick, intra-arterial catheter placed without difficulty. The device was reduced which revealed appropriate waveform and sutured into position. No untoward events were noted.
[2016-07-15] MEDS ORDERED: Aminoglycoside Consult 1 EACH MC ONE (13:44)
[2016-07-15] MEDS: Ampicillin/Sulbactam 3,000 MG in 0.9 % Sodium Chloride Mini Bag 100 ML IVPB SCH ×2 (15:11→18:16)
[2016-07-15] MEDS ORDERED: Vancomycin 1 EACH in D5% in Water 250 ML IVPB SCH (17:00)
--- NOTE | 2016-07-15 17:42 | Electrocardiograph Report ---
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
--- NOTE | 2016-07-15 17:47 | Electrocardiograph Report ---
[address] [place] [address] Test Date: 2016-07-14 Pat Name: Erin Howard Department: 111 Room: [facility] Gender: Housing Counselor: [facility] : 1970 Requested By: Channing Muñiz Order Number: [id number] Reading MD: Chrystal Dominguez Measurements Intervals [place] Rate: 140 P: 47 MA: 142 QRS: 16 QRSD: 82 T: 67 QT: 286 QTc: 367 Interpretive Statements SINUS TACHYCARDIA CANNOT EXCLUDE ANTEROSEPTAL MYOCARDIAL INFARCTION, OF INDETERMINATE AGE Electronically Signed On 07-15-2016 17:46:30 EDT by Chrystal Dominguez
--- NOTE | 2016-07-15 17:50 | Electrocardiograph Report ---
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
[2016-07-15] MEDS: Thiamine (B-1) 100 MG, Folic Acid 1 MG, MVI, adult with vitamin K 10 ML in 0.9 % Sodi... IVPB SCH (18:16)
[2016-07-15] MEDS ORDERED: Vancomycin 1,750 MG in D5% in Water 500 ML IVPB ONE (18:38)
[2016-07-15] MEDS: Melatonin 3 MG TABLET PO SCH (19:54)
[2016-07-15 19:55] LABS: eGFR For African Americans > 60 (> 60); eGFR For Non-African Americans 52 (> 60)
[2016-07-15 19:58] LABS: Blood Urea Nitrogen 26 mg/dL (8-26)
[2016-07-16] MEDS: Ampicillin/Sulbactam 3,000 MG in 0.9 % Sodium Chloride Mini Bag 100 ML IVPB SCH ×4 (00:36→17:46)
[2016-07-16] MEDS: FentaNYL (PF) 1,000 MCG in 0.9 % Sodium Chloride 80 ML IVC SCH ×4 (01:19→21:50)
[2016-07-16] MEDS: Vecuronium 50 MG in 0.9 % Sodium Chloride 150 ML IVC SCH ×2 (01:26→19:57)
[2016-07-16] MEDS: *HR* Enoxaparin 40 MG/0.4 ML SYRINGE SQ SCH (06:03)
[2016-07-16 07:24] LABS: ABG Base Excess 1.3 mEq/L (-2.0 to 3.0); ABG HCO3 34.8 mEQ/L (21-27); ABG Oxygen Saturation 99 % (95-98); ABG PO2 160 mmHg (85-104); ABG TCO2 38.2 mEq/L (20-26)
[2016-07-16 07:31] LABS: ABG PCO2 112 mmHg (35-45); Blood Gas FiO2 50 %
[2016-07-16 07:58] LABS: Calcium 8.3 mg/dL (8.6-10.8); Potassium 4.1 mEq/L (3.5-4.5)
[2016-07-16] MEDS ORDERED: Vancomycin 1,500 MG in D5% in Water 250 ML IVPB SCH (08:00)
[2016-07-16 08:43] LABS: Hematocrit 38.1 % (37.5-50.1); Immature Platelets 11.2 % (1.1-6.1); Lymphocytes # 0.4 K/mcL (0.6-4.6); Mean Corpuscular HGB Conc 31.5 g/dL (31.6-35.5); Mean Corpuscular Hemoglobin 31.3 pg (28.0-33.3); Mean Corpuscular Volume 99.2 fL (83.0-100.0); Mean Platelet Volume 9.7 fL (9.4-12.4); Red Blood Count 3.84 M/mcL (4.19-5.50)
[2016-07-16 08:48] LABS: ABG HCO3 31.3 mEQ/L (21-27); ABG Oxygen Saturation 99 % (95-98); ABG PH 7.24 pH Units (7.32-7.45); ABG PO2 170 mmHg (85-104); ABG TCO2 33.5 mEq/L (20-26)
[2016-07-16] MEDS: Pantoprazole 40 MG VIAL IVP SCH (08:48)
[2016-07-16] MEDS: Furosemide 40 MG/4 ML VIAL IVP SCH (08:48)
[2016-07-16] MEDS: Nicotine 21 MG PATCH.TD24 TD SCH (08:48)
[2016-07-16 08:49] LABS: Platelet Count 83 K/mcL (140-400)
[2016-07-16 08:49] LABS: ABG PCO2 73 mmHg (35-45)
[2016-07-16 08:50] LABS: Blood Gas FiO2 50 %
[2016-07-16] MEDS: Metoprolol XL (24 HR) Succ 50 MG TAB.ER.24H PO SCH (09:01)
--- NOTE | 2016-07-16 09:03 | Electrocardiograph Report ---
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
--- NOTE | 2016-07-16 09:12 | Pulmonology Progress Note ---
<Sunday Suero - Last Filed: 07/16/16 09:09> Date of Encounter: 07/16/16 Time of Encounter: 08:20 Assessment and Plan (1) Acute respiratory failure with hypoxia Current Visit: Yes Status: Acute Patient is currently sedated and on a vent. Respiratory failure likely secondary to aspiration event with witnessed emesis. Aspiration pneumonitis vs. aspiration pneumonia. Unasyn Day #2 Sputum cultures: gram negative james and gram negative coccbacilli. (2) Withdrawal symptoms, alcohol Current Visit: Yes Status: Acute The patient is currently sedated with Versed drip, fentanyl, and precedex. Supplemental thiamine is being given. Qualifiers: Complication of substance-induced condition: with delirium Qualified Code(s ): F10.231 - Alcohol dependence with withdrawal delirium (3) Encephalopathy Current Visit: Yes Status: Acute Secondary to alcohol withdrawal. See plan above. (4) EDUARDO (acute kidney injury) Current Visit: No Status: Resolved Vancomycin has been discontinued at this time. Avoid nephrotoxins Continue to monitor. (5) Acute pancreatitis Current Visit: Yes Status: Acute Patient is currently NPO and sedated. Patient has history of gastric outlet obstruction. NG tube was placed with 4L of fluid removed. Unable to scan the patient at this time due to poor status and oxygen requirements. Qualifiers: Pancreatitis type: alcohol induced Acute pancreatitis complication: no infection or necrosis Qualified Code(s): K85.20 - Alcohol induced acute pancreatitis without necrosis or infection (6) DVT prophylaxis Current Visit: No Status: Acute lovenox Protonix for GI prophylaxis. Subjective Principal diagnosis: Acute respiratory failure with hypoxia Interval history: The patient was seen and examined. No acute events overnight. He continues to be sedated and ventilated in a prone position. Objective PUL Vital signs: Last Vital Signs Temp 98.4 F 07/16/16 07:00 Pulse 115 07/16/16 09:02 Resp 26 07/16/16 09:02 BP 116/70 07/16/16 09:02 Pulse Ox 99 07/16/16 09:02 General appearance: other (sedated on a ventilator) Auscultation: bilateral: rales, rhonchi Cardiovascular: regular rate and rhythm, other (limited due to prone position) Gastrointestinal: normoactive bowel sounds Integumentary: other (bruising present over the dorsal aspect of the left hand and forearm) Extremities: no cyanosis Musculoskeletal: no deformities Ventilator Settings Ventilator Settings: Ventilator Settings, Last 8 Hours Ventilator Mode A/C Ventilator Mode A/C Ventilator Mode A/C Ventilator Mode A/C Ventilator Mode A/C Ventilator Mode A/C Ventilator Mode A/C Ventilator Mode A/C Ventilator Mode A/C Ventilator Mode A/C Ventilator Mode A/C Ventilator Mode A/C Ventilator Mode A/C Ventilator Tidal Volume 400 Setting Ventilator Tidal Volume 400 Setting Ventilator Tidal Volume 400 Setting Ventilator Tidal Volume 400 Setting Ventilator Tidal Volume 400 Setting Ventilator Tidal Volume 400 Setting Ventilator Tidal Volume 400 Setting Ventilator Tidal Volume 400 Setting Ventilator Tidal Volume 400 Setting Ventilator Tidal Volume 400 Setting Ventilator Tidal Volume 400 Setting Ventilator Tidal Volume 400 Setting Ventilator Tidal Volume 400 Setting Ventilator Respiratory Rate 26 Setting Ventilator Respiratory Rate 26 Setting Ventilator Respiratory Rate 26 Setting Ventilator Respiratory Rate 18 Setting Ventilator Respiratory Rate 18 Setting Ventilator Respiratory Rate 18 Setting Ventilator Respiratory Rate 18 Setting Ventilator Respiratory Rate 18 Setting Ventilator Respiratory Rate 18 Setting Ventilator Respiratory Rate 18 Setting Ventilator Respiratory Rate 18 Setting Ventilator Respiratory Rate 18 Setting Ventilator Respiratory Rate 18 Setting Actual Respiratory Rate 26 Actual Respiratory Rate 26 Actual Respiratory Rate 18 Actual Respiratory Rate 18 Actual Respiratory Rate 18 Actual Respiratory Rate 18 Actual Respiratory Rate 18 Actual Respiratory Rate 18 Actual Respiratory Rate 18 Actual Respiratory Rate 18 Actual Respiratory Rate 18 Positive End Expiratory 10 Pressure Positive End Expiratory 10 Pressure Positive End Expiratory 10 Pressure Positive End Expiratory 15 Pressure Positive End Expiratory 15 Pressure Positive End Expiratory 15 Pressure Positive End Expiratory 15 Pressure Positive End Expiratory 15 Pressure Positive End Expiratory 15 Pressure Positive End Expiratory 15 Pressure Positive End Expiratory 15 Pressure Positive End Expiratory 15 Pressure Positive End Expiratory 15 Pressure Peak Inspiratory Airway 30 Pressure Peak Inspiratory Airway 28 Pressure Peak Inspiratory Airway 30 Pressure Peak Inspiratory Airway 30 Pressure Peak Inspiratory Airway 29 Pressure Peak Inspiratory Airway 30 Pressure Peak Inspiratory Airway 30 Pressure Peak Inspiratory Airway 30 Pressure Peak Inspiratory Airway 30 Pressure Peak Inspiratory Airway 30 Pressure Peak Inspiratory Airway 30 Pressure Results - Laboratory Findings CBC and BMP: 07/16/16 08:26 07/16/16 07:37 ABG ABG pH 7.24 pH Units (7.32-7.45) L D 07/16/16 08:30 ABG pCO2 73 mmHg (35-45) H* D 07/16/16 08:30 ABG pO2 170 mmHg (85-104) H 07/16/16 08:30 ABG O2 Saturation 99 % (95-98) H 07/16/16 08:30 PT/INR, D-dimer PT 11.6 Seconds (9.4-12.1) 07/14/16 00:12 Abnormal lab findings: Abnormal lab results RBC 3.84 M/mcL (4.19-5.50) L 07/16/16 08:26 Hgb 12.0 g/dL (12.9-16.9) L D 07/16/16 08:26 MCHC 31.5 g/dL (31.6-35.5) L 07/16/16 08:26 Plt Count 83 K/mcL (140-400) L 07/16/16 08:26 Lymphocytes # 0.4 K/mcL (0.6-4.6) L 07/14/16 00:12 Immature Plt Fraction 11.2 % (1.1-6.1) H 07/16/16 08:26 ABG pH 7.24 pH Units (7.32-7.45) L D 07/16/16 08:30 ABG pCO2 73 mmHg (35-45) H* D 07/16/16 08:30 ABG pO2 170 mmHg (85-104) H 07/16/16 08:30 ABG HCO3 31.3 mEQ/L (21-27) H 07/16/16 08:30 ABG Total CO2 33.5 mEq/L (20-26) H 07/16/16 08:30 ABG O2 Saturation 99 % (95-98) H 07/16/16 08:30 Carbon Dioxide 30 mEq/L (19-29) H 07/16/16 07:37 BUN 36 mg/dL (8-26) H D 07/16/16 07:37 Creatinine 2.22 mg/dL (0.72-1.25) H D 07/16/16 07:37 Est GFR ( Amer) 39 (> 60) L 07/16/16 07:37 Est GFR (Non-Af Amer) 32 (> 60) L 07/16/16 07:37 Glucose 128 mg/dL (70-99) H 07/16/16 07:37 POC Glucose 160 (58-89) H 07/16/16 00:19 Calculated Osmolality 306 (280-300) H 07/16/16 07:37 Calcium 8.3 mg/dL (8.6-10.8) L 07/16/16 07:37 Total Bilirubin 3.7 mg/dL (0.2-1.2) H 07/13/16 15:19 Direct Bilirubin 2.6 mg/dL (0.0-0.5) H 07/13/16 15:19 AST 506 Units/L (5-34) H 07/13/16 15:19 ALT 288 Units/L (0-55) H 07/13/16 15:19 Alkaline Phosphatase 495 Units/L (38-126) H 07/13/16 15:19 Globulin 3.6 g/dL (2.4-3.5) H 07/13/16 15:19 Amylase 322 Units/L (25-125) H 07/14/16 00:12 Lipase 956 Units/L (8-78) H 07/13/16 15:19 Urine Clarity Cloudy (Clear) A 07/14/16 02:30 Urine Ketones 80 mg/dL (Negative) H 07/14/16 02:30 Urine Bilirubin Moderate (Negative) H 07/14/16 02:30 Urine Opiates Screen Positive ng/mL ([place]=796) H 07/14/16 02:30 - Microbiology Findings Microbiology Findings: Microbiology, Last 48 Hours 07/15/16 12:20 Sputum Culture - Preliminary Sputum Gram Negative James Gram Negative Coccobacilli - Clinical Findings Intake & Output: Intake & Output 07/15/16 07/16/16 07/16/16 23:59 07:59 15:59 Intake Total 1311.2 / 1311.2 400 / 400 100 / 100 Output Total 900 / 900 300 / 300 150 / 150 Balance 411.2 / 411.2 100 / 100 -50 / -50 Consult Discharge Plan - Plan Referrals: Kalia Sheppard MD [Primary Care Provider] - <Hayden De La Cruz - Last Filed: 07/16/16 13:06> Date of Encounter: 07/16/16 Objective PUL Vital signs: Last Vital Signs Temp 98.4 F 07/16/16 07:00 Pulse 114 07/16/16 10:00 Resp 26 07/16/16 10:00 BP 110/71 07/16/16 10:00 Pulse Ox 99 07/16/16 10:00 Ventilator Settings Ventilator Settings: Ventilator Settings, Last 8 Hours Ventilator Mode A/C Ventilator Mode A/C Ventilator Mode A/C Ventilator Mode A/C Ventilator Mode A/C Ventilator Mode A/C Ventilator Mode A/C Ventilator Mode A/C Ventilator Mode A/C Ventilator Mode A/C Ventilator Mode A/C Ventilator Mode A/C Ventilator Tidal Volume 400 Setting Ventilator Tidal Volume 400 Setting Ventilator Tidal Volume 400 Setting Ventilator Tidal Volume 400 Setting Ventilator Tidal Volume 400 Setting Ventilator Tidal Volume 400 Setting Ventilator Tidal Volume 400 Setting Ventilator Tidal Volume 400 Setting Ventilator Tidal Volume 400 Setting Ventilator Tidal Volume 400 Setting Ventilator Tidal Volume 400 Setting Ventilator Tidal Volume 400 Setting Ventilator Respiratory Rate 26 Setting Ventilator Respiratory Rate 26 Setting Ventilator Respiratory Rate 26 Setting Ventilator Respiratory Rate 26 Setting Ventilator Respiratory Rate 18 Setting Ventilator Respiratory Rate 18 Setting Ventilator Respiratory Rate 18 Setting Ventilator Respiratory Rate 18 Setting Ventilator Respiratory Rate 18 Setting Ventilator Respiratory Rate 18 Setting Ventilator Respiratory Rate 18 Setting Ventilator Respiratory Rate 18 Setting Actual Respiratory Rate 26 Actual Respiratory Rate 26 Actual Respiratory Rate 26 Actual Respiratory Rate 18 Actual Respiratory Rate 18 Actual Respiratory Rate 18 Actual Respiratory Rate 18 Actual Respiratory Rate 18 Actual Respiratory Rate 18 Actual Respiratory Rate 18 Positive End Expiratory 10 Pressure Positive End Expiratory 10 Pressure Positive End Expiratory 10 Pressure Positive End Expiratory 10 Pressure Positive End Expiratory 15 Pressure Positive End Expiratory 15 Pressure Positive End Expiratory 15 Pressure Positive End Expiratory 15 Pressure Positive End Expiratory 15 Pressure Positive End Expiratory 15 Pressure Positive End Expiratory 15 Pressure Positive End Expiratory 15 Pressure Peak Inspiratory Airway 29 Pressure Peak Inspiratory Airway 30 Pressure Peak Inspiratory Airway 28 Pressure Peak Inspiratory Airway 30 Pressure Peak Inspiratory Airway 30 Pressure Peak Inspiratory Airway 29 Pressure Peak Inspiratory Airway 30 Pressure Peak Inspiratory Airway 30 Pressure Peak Inspiratory Airway 30 Pressure Peak Inspiratory Airway 30 Pressure Results - Laboratory Findings CBC and BMP: 07/16/16 08:26 07/16/16 07:37 ABG ABG pH 7.24 pH Units (7.32-7.45) L D 07/16/16 08:30 ABG pCO2 73 mmHg (35-45) H* D 07/16/16 08:30 ABG pO2 170 mmHg (85-104) H 07/16/16 08:30 ABG O2 Saturation 99 % (95-98) H 07/16/16 08:30 PT/INR, D-dimer PT 11.6 Seconds (9.4-12.1) 07/14/16 00:12 Abnormal lab findings: Abnormal lab results RBC 3.84 M/mcL (4.19-5.50) L 07/16/16 08:26 Hgb 12.0 g/dL (12.9-16.9) L D 07/16/16 08:26 MCHC 31.5 g/dL (31.6-35.5) L 07/16/16 08:26 Plt Count 83 K/mcL (140-400) L 07/16/16 08:26 Lymphocytes # 0.4 K/mcL (0.6-4.6) L 07/16/16 08:26 Platelet Estimate Decreased (Normal) L 07/16/16 08:26 Large Platelets Present (Not Present) A 07/16/16 08:26 Immature Plt Fraction 11.2 % (1.1-6.1) H 07/16/16 08:26 ABG pH 7.24 pH Units (7.32-7.45) L D 07/16/16 08:30 ABG pCO2 73 mmHg (35-45) H* D 07/16/16 08:30 ABG pO2 170 mmHg (85-104) H 07/16/16 08:30 ABG HCO3 31.3 mEQ/L (21-27) H 07/16/16 08:30 ABG Total CO2 33.5 mEq/L (20-26) H 07/16/16 08:30 ABG O2 Saturation 99 % (95-98) H 07/16/16 08:30 Carbon Dioxide 30 mEq/L (19-29) H 07/16/16 07:37 BUN 36 mg/dL (8-26) H D 07/16/16 07:37 Creatinine 2.22 mg/dL (0.72-1.25) H D 07/16/16 07:37 Est GFR ( Amer) 39 (> 60) L 07/16/16 07:37 Est GFR (Non-Af Amer) 32 (> 60) L 07/16/16 07:37 Glucose 128 mg/dL (70-99) H 07/16/16 07:37 POC Glucose 160 (58-89) H 07/16/16 00:19 Calculated Osmolality 306 (280-300) H 07/16/16 07:37 Calcium 8.3 mg/dL (8.6-10.8) L 07/16/16 07:37 Total Bilirubin 3.7 mg/dL (0.2-1.2) H 07/13/16 15:19 Direct Bilirubin 2.6 mg/dL (0.0-0.5) H 07/13/16 15:19 AST 506 Units/L (5-34) H 07/13/16 15:19 ALT 288 Units/L (0-55) H 07/13/16 15:19 Alkaline Phosphatase 495 Units/L (38-126) H 07/13/16 15:19 Globulin 3.6 g/dL (2.4-3.5) H 07/13/16 15:19 Amylase 322 Units/L (25-125) H 07/14/16 00:12 Lipase 956 Units/L (8-78) H 07/13/16 15:19 Urine Clarity Cloudy (Clear) A 07/14/16 02:30 Urine Ketones 80 mg/dL (Negative) H 07/14/16 02:30 Urine Bilirubin Moderate (Negative) H 07/14/16 02:30 Urine Opiates Screen Positive ng/mL ([place]ry[place]=245) H 07/14/16 02:30 - Microbiology Findings Microbiology Findings: Microbiology, Last 48 Hours 07/15/16 12:20 Sputum Culture - Preliminary Sputum Gram Negative James Gram Negative Coccobacilli - Clinical Findings Intake & Output: Intake & Output 07/15/16 07/16/16 07/16/16 23:59 07:59 15:59 Intake Total 1311.2 / 1311.2 400 / 400 100 / 100 Output Total 900 / 900 300 / 300 150 / 150 Balance 411.2 / 411.2 100 / 100 -50 / -50 - Attending Attestation I examined this patient and my medical decision-making was reviewed with the [employer]/PA/Advanced Practice Nurse/Resident Physician. I agree with the documented findings, disposition and treatment plan as described except to the extent set forth below. I spent 35min of Critical Care time with this patient. It involved decision making of high complexity to assess, manipulate, and support vital organ system failure and/or to prevent further life threatening deterioration of the patient' s condition. The time involved in the performance of separately reportable procedures was not counted toward critical care time. Patient seen and examined at bedside Labs, radiology, chart personally reviewed. All lines examined without evidence of infection. Neuropsych: Sedated + NMB. Deep sedation for NMB instituted. PEERL on todays exam. History of EtOH abuse. Pulm: Severe refractory acute hypoxemic hypercapnic respiratory failure which is likely secondary to aspiration pneumonia or possibly ARDS secondary to acute pancreatitis. We have instituted neuromuscular blockade steroids for severe pneumonia prone positioning as well as traditional ARDS at recommendations for low tidal volume ventilation with permissive hypercapnia. Patient had an increase in that space ventilation leading to worsening hypercarbia today so RR was increased with improvement in pH subsequently. cont to wean FiO2 then PEEP for goal pao2 >55 overall progress made overnight with this and will re- position patient today in supine position and reassess need for NMB Cards: No evidence of shock at this time and continue to monitor -goal MAP greater than 60 FEN-GI: GI prophylaxis given acute pancreatitis has improved. Patient has a history of gastric outlet obstruction for which we are keeping him nothing by mouth we will attempt to give medications enterally today through his OG tube we will consider trophic tube feedings tomorrow based upon clinical course Renal: Worsening acute kidney injury which is likely secondary to diuresis for ventilatory support. We will hold further diuresis today recheck labs in afternoon would consider small amount of fluid replacement if warranted at that time ID: Severe sepsis secondary to aspiration patient has several bacteria growing in sputum waiting for final speciation he is being broadly covered for aspiration concern with Amp/Sulbactam - will tailor ABx per micro s/s Heme/Onc: DVT prophylaxis Given Endo: Glucose Monitored Integ/MSK: Skin care per ICU protocol to prevent ulcers. CODE: Full Code
[2016-07-16 09:17] LABS: Monocytes # 1.1 K/mcL (0.0-1.3); Neutrophils # 3.6 K/mcL (1.6-8.9)
[2016-07-16 09:18] LABS: Large Platelets Present (Not Present); Platelet Estimate Decreased (Normal)
[2016-07-16] MEDS: Chlorhexidine Rinse 15 ML MOUTHWASH MM SCH ×2 (11:33→20:11)
[2016-07-16 14:10] LABS: ABG Base Excess -0.6 mEq/L (-2.0 to 3.0); ABG HCO3 28.7 mEQ/L (21-27); ABG Oxygen Saturation 82 % (95-98); ABG PCO2 67 mmHg (35-45); ABG PH 7.24 pH Units (7.32-7.45); ABG PO2 55 mmHg (85-104); ABG TCO2 30.8 mEq/L (20-26)
[2016-07-16 14:12] LABS: Blood Gas FiO2 30 %
[2016-07-16 15:10] LABS: Amphetamines NEGATIVE ng/mL (Cutoff 30); Barbiturates NEGATIVE ng/mL (Cutoff 75); Benzodiazepines NEGATIVE ng/mL (Cutoff 75); Cocaine NEGATIVE ng/mL (Cutoff 30); Methadone NEGATIVE ng/mL (Cutoff 40); Methamphetamines NEGATIVE ng/mL (Cutoff 30); Opiates NEGATIVE ng/mL (Cutoff 30); Phencyclidine NEGATIVE ng/mL (Cutoff 15)
[2016-07-16 15:23] LABS: Calcium 8.5 mg/dL (8.6-10.8); Potassium 3.4 mEq/L (3.5-4.5)
[2016-07-16] MEDS: Thiamine (B-1) 100 MG, Folic Acid 1 MG, MVI, adult with vitamin K 10 ML in 0.9 % Sodi... IVPB SCH (17:45)
[2016-07-17] MEDS: Ampicillin/Sulbactam 3,000 MG in 0.9 % Sodium Chloride Mini Bag 100 ML IVPB SCH ×2 (00:17→06:04)
[2016-07-17 03:58] LABS: BUN/Creatinine Ratio 28 (6-26); Blood Urea Nitrogen 42 mg/dL (8-26); Carbon Dioxide 29 mEq/L (19-29); Chloride 112 mEq/L (98-109); Glucose 119 mg/dL (70-99); Osmolality,Calculated 320 (280-300); Potassium 3.1 mEq/L (3.5-4.5); Red Cell Distribution Width 13.9 % (11.5-14.5); Sodium 149 mEq/L (136-145); eGFR For African Americans > 60 (> 60); eGFR For Non-African Americans 50 (> 60)
[2016-07-17 04:00] LABS: Eosinophils % 0.4 %; Hematocrit 30.1 % (37.5-50.1); Immature Granulocytes % 0.2 % (0-4); Immature Platelets 7.3 % (1.1-6.1); Lymphocytes # 0.6 K/mcL (0.6-4.6); Lymphocytes % 13.4 %; Mean Corpuscular HGB Conc 32.2 g/dL (31.6-35.5); Mean Corpuscular Hemoglobin 31.6 pg (28.0-33.3); Mean Platelet Volume 11.7 fL (9.4-12.4); Monocytes # 0.5 K/mcL (0.0-1.3); Monocytes % 11.8 %; Neutrophils # 3.3 K/mcL (1.6-8.9); Red Blood Count 3.07 M/mcL (4.19-5.50); Segmented Neutrophils % 74.2 %
[2016-07-17 04:03] LABS: Platelet Count 96 K/mcL (140-400)
[2016-07-17 04:12] LABS: Hemoglobin 9.7 g/dL (12.9-16.9)
[2016-07-17] MEDS: FentaNYL (PF) 1,000 MCG in 0.9 % Sodium Chloride 80 ML IVC SCH ×2 (04:18→07:49)
[2016-07-17 05:31] LABS: ABG Base Excess 8.1 mEq/L (-2.0 to 3.0); ABG HCO3 33.7 mEQ/L (21-27); ABG Oxygen Saturation 99 % (95-98); ABG PCO2 52 mmHg (35-45); ABG PH 7.42 pH Units (7.32-7.45); ABG PO2 119 mmHg (85-104); ABG TCO2 35.3 mEq/L (20-26); Blood Gas FiO2 40 %
[2016-07-17 05:38] LABS: Magnesium 1.9 mg/dL (1.6-2.6)
[2016-07-17 05:44] LABS: Large Platelets Present (Not Present); Platelet Estimate Decreased (Normal)
[2016-07-17] MEDS: *HR* Enoxaparin 40 MG/0.4 ML SYRINGE SQ SCH (06:04)
[2016-07-17] MEDS ORDERED: Potassium Chloride 40 MEQ/200 ML BAG IVPB ONE (08:09)
--- NOTE | 2016-07-17 08:39 | Pulmonology Progress Note ---
<Sunday Suero - Last Filed: 07/17/16 10:50> Date of Encounter: 07/17/16 Time of Encounter: 08:05 Assessment and Plan (1) Acute respiratory failure with hypoxia Current Visit: Yes Status: Acute Patient is currently sedated and on a vent. Respiratory failure likely secondary to aspiration event with witnessed emesis. Aspiration pneumonitis vs. aspiration pneumonia. Unasyn discontinued. Started cefepime [id number] for appropriate coverage. Sputum cultures: Enterobacter, which is reagan-sensitive. H. Parainfluenzae II with sensitivities pending. Patient has been improving and is back in a supine position. Bowel regimen started. Consulted nutrition to initiate tube feedings. (2) Withdrawal symptoms, alcohol Current Visit: Yes Status: Acute The patient is currently sedated with Versed drip, fentanyl, and precedex. Supplemental thiamine is being given. Qualifiers: Complication of substance-induced condition: with delirium Qualified Code(s ): F10.231 - Alcohol dependence with withdrawal delirium (3) Encephalopathy Current Visit: Yes Status: Acute Secondary to alcohol withdrawal. See plan above. Unable to assess mental status at this time due to sedation. Will reassess after extubation. (4) EDUARDO (acute kidney injury) Current Visit: No Status: Acute Improving Creatinine currently 1.51 Avoid nephrotoxins Continue to monitor. Lasix was discontinued yesterday afternoon. (5) Acute pancreatitis Current Visit: Yes Status: Acute Patient is currently NPO and sedated. Patient has history of gastric outlet obstruction. NG tube was placed with 4L of fluid removed. Unable to scan the patient at this time due to poor status and oxygen requirements. Qualifiers: Pancreatitis type: alcohol induced Acute pancreatitis complication: no infection or necrosis Qualified Code(s): K85.20 - Alcohol induced acute pancreatitis without necrosis or infection (6) DVT prophylaxis Current Visit: No Status: Acute lovenox Protonix for GI prophylaxis. (7) Hypokalemia Current Visit: Yes Status: Acute K 3.1 this morning. Repletion of 40mEq. Will recheck and replete as needed. Subjective Principal diagnosis: Acute respiratory failure with hypoxia Interval history: The patient was seen and examined. Yesterday afternoon he was put back into a supine position. Overnight he had a fever with Tmax of 101.2. He continues to be sedated and ventilated. He awoke briefly this morning and became agitated and a precedex drip was added for sedation. Objective PUL Vital signs: Last Vital Signs Temp 97.6 F 07/17/16 07:44 Pulse 80 07/17/16 08:00 Resp 26 07/17/16 08:00 BP 119/65 07/17/16 08:00 Pulse Ox 100 07/17/16 08:00 General appearance: other (sedated on a vent) Eyes: nonicteric ENT: oropharynx moist Auscultation: bilateral: clear Cardiovascular: regular rate and rhythm Gastrointestinal: normoactive bowel sounds, soft, tender (grimacing with palpation to the abdomen) Integumentary: other (scattered bruising over arms and legs) Extremities: no cyanosis Musculoskeletal: no deformities other (sedated ) Ventilator Settings Ventilator Settings: Ventilator Settings, Last 8 Hours Ventilator Mode A/C Ventilator Mode A/C Ventilator Mode A/C Ventilator Mode A/C Ventilator Mode A/C Ventilator Mode A/C Ventilator Tidal Volume 400 Setting Ventilator Tidal Volume 400 Setting Ventilator Tidal Volume 400 Setting Ventilator Tidal Volume 400 Setting Ventilator Tidal Volume 400 Setting Ventilator Tidal Volume 400 Setting Ventilator Respiratory Rate 26 Setting Ventilator Respiratory Rate 26 Setting Ventilator Respiratory Rate 26 Setting Ventilator Respiratory Rate 26 Setting Ventilator Respiratory Rate 26 Setting Ventilator Respiratory Rate 26 Setting Actual Respiratory Rate 26 Actual Respiratory Rate 26 Actual Respiratory Rate 26 Actual Respiratory Rate 26 Actual Respiratory Rate 26 Positive End Expiratory 10 Pressure Positive End Expiratory 10 Pressure Positive End Expiratory 10 Pressure Positive End Expiratory 10 Pressure Positive End Expiratory 10 Pressure Positive End Expiratory 10 Pressure Peak Inspiratory Airway 22 Pressure Peak Inspiratory Airway 23 Pressure Peak Inspiratory Airway 23 Pressure Peak Inspiratory Airway 23 Pressure Peak Inspiratory Airway 23 Pressure Results - Laboratory Findings CBC and BMP: 07/17/16 03:35 07/17/16 03:35 ABG ABG pH 7.42 pH Units (7.32-7.45) 07/17/16 05:20 ABG pCO2 52 mmHg (35-45) H 07/17/16 05:20 ABG pO2 119 mmHg (85-104) H 07/17/16 05:20 ABG O2 Saturation 99 % (95-98) H 07/17/16 05:20 PT/INR, D-dimer PT 11.6 Seconds (9.4-12.1) 07/14/16 00:12 Abnormal lab findings: Abnormal lab results RBC 3.07 M/mcL (4.19-5.50) L 07/17/16 03:35 Hgb 9.7 g/dL (12.9-16.9) L D 07/17/16 03:35 Hct 30.1 % (37.5-50.1) L 07/17/16 03:35 Plt Count 96 K/mcL (140-400) L 07/17/16 03:35 Platelet Estimate Decreased (Normal) L 07/17/16 03:35 Large Platelets Present (Not Present) A 07/17/16 03:35 Immature Plt Fraction 7.3 % (1.1-6.1) H 07/17/16 03:35 ABG pCO2 52 mmHg (35-45) H 07/17/16 05:20 ABG pO2 119 mmHg (85-104) H 07/17/16 05:20 ABG HCO3 33.7 mEQ/L (21-27) H 07/17/16 05:20 ABG Total CO2 35.3 mEq/L (20-26) H 07/17/16 05:20 ABG O2 Saturation 99 % (95-98) H 07/17/16 05:20 ABG Base Excess 8.1 mEq/L (-2.0 to 3.0) H 07/17/16 05:20 Sodium 149 mEq/L (136-145) H 07/17/16 03:35 Potassium 3.1 mEq/L (3.5-4.5) L 07/17/16 03:35 Chloride 112 mEq/L (98-109) H 07/17/16 03:35 BUN 42 mg/dL (8-26) H 07/17/16 03:35 Creatinine 1.51 mg/dL (0.72-1.25) H 07/17/16 03:35 Est GFR (Non-Af Amer) 50 (> 60) L 07/17/16 03:35 BUN/Creatinine Ratio 28 (6-26) H 07/17/16 03:35 Glucose 119 mg/dL (70-99) H 07/17/16 03:35 POC Glucose 112 (58-89) H 07/16/16 23:16 Calculated Osmolality 320 (280-300) H 07/17/16 03:35 Calcium 8.0 mg/dL (8.6-10.8) L 07/17/16 03:35 Total Bilirubin 3.7 mg/dL (0.2-1.2) H 07/13/16 15:19 Direct Bilirubin 2.6 mg/dL (0.0-0.5) H 07/13/16 15:19 AST 506 Units/L (5-34) H 07/13/16 15:19 ALT 288 Units/L (0-55) H 07/13/16 15:19 Alkaline Phosphatase 495 Units/L (38-126) H 07/13/16 15:19 Globulin 3.6 g/dL (2.4-3.5) H 07/13/16 15:19 Amylase 322 Units/L (25-125) H 07/14/16 00:12 Lipase 956 Units/L (8-78) H 07/13/16 15:19 Urine Clarity Cloudy (Clear) A 07/14/16 02:30 Urine Ketones 80 mg/dL (Negative) H 07/14/16 02:30 Urine Bilirubin Moderate (Negative) H 07/14/16 02:30 Urine Opiates Screen Positive ng/mL (Kycpah=605) H 07/14/16 02:30 - Microbiology Findings Microbiology Findings: Microbiology, Last 48 Hours 07/15/16 12:29 Blood Culture - Preliminary Peripheral Venipuncture No growth. 07/15/16 12:20 Sputum Culture - Final Sputum Enterobacter cloacae Haemophilus parainfluenzae II - Clinical Findings Intake & Output: Intake & Output 07/16/16 07/17/16 07/17/16 23:59 07:59 15:59 Intake Total 911.2 / 911.2 423 / 423 Output Total 500 / 500 525 / 525 Balance 411.2 / 411.2 -102 / -102 Weight 78.1 kg Consult Discharge Plan - Plan Referrals: Kalia Sheppard MD [Primary Care Provider] - <Hayden De La Cruz W - Last Filed: 07/17/16 12:48> Date of Encounter: 07/17/16 Objective PUL Vital signs: Last Vital Signs Temp 97.6 F 07/17/16 07:44 Pulse 80 07/17/16 08:00 Resp 26 07/17/16 09:40 BP 119/65 07/17/16 08:00 Pulse Ox 100 07/17/16 09:40 Ventilator Settings Ventilator Settings: Ventilator Settings, Last 8 Hours Ventilator Mode A/C Ventilator Mode A/C Ventilator Mode A/C Ventilator Mode A/C Ventilator Mode A/C Ventilator Mode A/C Ventilator Mode A/C Ventilator Tidal Volume 400 Setting Ventilator Tidal Volume 400 Setting Ventilator Tidal Volume 400 Setting Ventilator Tidal Volume 400 Setting Ventilator Tidal Volume 400 Setting Ventilator Tidal Volume 400 Setting Ventilator Tidal Volume 400 Setting Ventilator Respiratory Rate 26 Setting Ventilator Respiratory Rate 26 Setting Ventilator Respiratory Rate 26 Setting Ventilator Respiratory Rate 26 Setting Ventilator Respiratory Rate 26 Setting Ventilator Respiratory Rate 26 Setting Ventilator Respiratory Rate 26 Setting Actual Respiratory Rate 26 Actual Respiratory Rate 26 Actual Respiratory Rate 26 Actual Respiratory Rate 26 Actual Respiratory Rate 26 Actual Respiratory Rate 26 Positive End Expiratory 8 Pressure Positive End Expiratory 10 Pressure Positive End Expiratory 10 Pressure Positive End Expiratory 10 Pressure Positive End Expiratory 10 Pressure Positive End Expiratory 10 Pressure Positive End Expiratory 10 Pressure Peak Inspiratory Airway 23 Pressure Peak Inspiratory Airway 22 Pressure Peak Inspiratory Airway 23 Pressure Peak Inspiratory Airway 23 Pressure Peak Inspiratory Airway 23 Pressure Peak Inspiratory Airway 23 Pressure Results - Laboratory Findings CBC and BMP: 07/17/16 11:56 07/17/16 03:35 ABG ABG pH 7.42 pH Units (7.32-7.45) 07/17/16 05:20 ABG pCO2 52 mmHg (35-45) H 07/17/16 05:20 ABG pO2 119 mmHg (85-104) H 07/17/16 05:20 ABG O2 Saturation 99 % (95-98) H 07/17/16 05:20 PT/INR, D-dimer PT 11.6 Seconds (9.4-12.1) 07/14/16 00:12 Abnormal lab findings: Abnormal lab results RBC 3.07 M/mcL (4.19-5.50) L 07/17/16 03:35 Hgb 9.7 g/dL (12.9-16.9) L D 07/17/16 03:35 Hct 30.1 % (37.5-50.1) L 07/17/16 03:35 Plt Count 96 K/mcL (140-400) L 07/17/16 03:35 Platelet Estimate Decreased (Normal) L 07/17/16 03:35 Large Platelets Present (Not Present) A 07/17/16 03:35 Immature Plt Fraction 7.3 % (1.1-6.1) H 07/17/16 03:35 ABG pCO2 52 mmHg (35-45) H 07/17/16 05:20 ABG pO2 119 mmHg (85-104) H 07/17/16 05:20 ABG HCO3 33.7 mEQ/L (21-27) H 07/17/16 05:20 ABG Total CO2 35.3 mEq/L (20-26) H 07/17/16 05:20 ABG O2 Saturation 99 % (95-98) H 07/17/16 05:20 ABG Base Excess 8.1 mEq/L (-2.0 to 3.0) H 07/17/16 05:20 Sodium 149 mEq/L (136-145) H 07/17/16 03:35 Potassium 3.1 mEq/L (3.5-4.5) L 07/17/16 03:35 Chloride 112 mEq/L (98-109) H 07/17/16 03:35 BUN 42 mg/dL (8-26) H 07/17/16 03:35 Creatinine 1.51 mg/dL (0.72-1.25) H 07/17/16 03:35 Est GFR (Non-Af Amer) 50 (> 60) L 07/17/16 03:35 BUN/Creatinine Ratio 28 (6-26) H 07/17/16 03:35 Glucose 119 mg/dL (70-99) H 07/17/16 03:35 POC Glucose 112 (58-89) H 07/16/16 23:16 Calculated Osmolality 320 (280-300) H 07/17/16 03:35 Calcium 8.0 mg/dL (8.6-10.8) L 07/17/16 03:35 Total Bilirubin 3.7 mg/dL (0.2-1.2) H 07/13/16 15:19 Direct Bilirubin 2.6 mg/dL (0.0-0.5) H 07/13/16 15:19 AST 506 Units/L (5-34) H 07/13/16 15:19 ALT 288 Units/L (0-55) H 07/13/16 15:19 Alkaline Phosphatase 495 Units/L (38-126) H 07/13/16 15:19 Globulin 3.6 g/dL (2.4-3.5) H 07/13/16 15:19 Amylase 322 Units/L (25-125) H 07/14/16 00:12 Lipase 956 Units/L (8-78) H 07/13/16 15:19 Urine Clarity Cloudy (Clear) A 07/14/16 02:30 Urine Ketones 80 mg/dL (Negative) H 07/14/16 02:30 Urine Bilirubin Moderate (Negative) H 07/14/16 02:30 Urine Opiates Screen Positive ng/mL (Vhccjm=337) H 07/14/16 02:30 - Microbiology Findings Microbiology Findings: Microbiology, Last 48 Hours 07/15/16 12:29 Blood Culture - Preliminary Peripheral Venipuncture No growth. 07/15/16 12:20 Sputum Culture - Final Sputum Enterobacter cloacae Haemophilus parainfluenzae II - Clinical Findings Intake & Output: Intake & Output 07/16/16 07/17/16 07/17/16 23:59 07:59 15:59 Intake Total 911.2 / 911.2 423 / 423 Output Total 500 / 500 525 / 525 Balance 411.2 / 411.2 -102 / -102 Weight 78.1 kg - Attending Attestation I examined this patient and my medical decision-making was reviewed with the LICENSED BONDSMAN/PA/Advanced Practice Nurse/Resident Physician. I agree with the documented findings, disposition and treatment plan as described except to the extent set forth below. Patient seen and examined at bedside Labs, radiology, chart personally reviewed. All lines examined without evidence of infection. Neuropsych: Sedated for vent but now with periods of agitation after lifting of NMB. PEERL on todays exam. History of EtOH abuse. One episode of "jerking" noted by RN today but not witnessed by MD no focal weakness noted on exam.. EtOH abuse history on sedation. Thiamine given IV. Pulm: Severe refractory acute hypoxemic hypercapnic respiratory failure which is likely secondary to aspiration pneumonia or possibly ARDS secondary to acute pancreatitis. Marked improvement in respiratory status now down to 40% FIo2 and 8 of PEEP. cont ltv ventilation for ARDS PEEk/Plat acceptable Cards: No evidence of shock at this time and continue to monitor -goal MAP greater than 60 FEN-GI: GI prophylaxis start trophic enteral nutrition today. Renal: Worsening acute kidney injury which is likely secondary to diuresis for ventilatory support. Diuresis held ID: Severe sepsis secondary to aspiration Haemophilus and Enterbacer in sputum Pyrexia overnight ABx switched to Cefepime for more appropirate coverage. Heme/Onc: Acute drop in H/H 12-7. No hemodynamic changes. No overt signs of bleeding (OG output or melena noted). All cell lineages are also decreased likely reflects marrow suppression (chronic EtOH, Sepsis, ABx effect) but will obtain NCCT of Abd/Pelvis to r/o evidence of bleeding. and start DIC w/u DVT prophylaxis with SCDs for now. Trend H/H GI consult based upon results of CT and would also start empiric PPI. Endo: Glucose Monitored Integ/MSK: Skin care per ICU protocol to prevent ulcers. CODE: Full Code
[2016-07-17] MEDS: Pantoprazole 40 MG VIAL IVP SCH (09:58)
[2016-07-17] MEDS: Chlorhexidine Rinse 15 ML MOUTHWASH MM SCH ×2 (09:59→20:43)
[2016-07-17] MEDS: Nicotine 21 MG PATCH.TD24 TD SCH (09:59)
[2016-07-17] MEDS: Dexmedetomidine HCl 400 MCG/100 ML MLS IVC SCH ×2 (10:00→19:59)
[2016-07-17 12:08] LABS: Red Cell Distribution Width 13.9 % (11.5-14.5)
[2016-07-17 12:10] LABS: Hemoglobin 7.2 g/dL (12.9-16.9); Immature Platelets 6.2 % (1.1-6.1); Mean Corpuscular HGB Conc 31.3 g/dL (31.6-35.5); Mean Corpuscular Hemoglobin 30.6 pg (28.0-33.3); Mean Corpuscular Volume 97.9 fL (83.0-100.0); Mean Platelet Volume 11.1 fL (9.4-12.4); Red Blood Count 2.35 M/mcL (4.19-5.50)
[2016-07-17] MEDS: FentaNYL (PF) 3,000 MCG in 0.9 % Sodium Chloride 240 ML IVC SCH (13:13)
[2016-07-17] MEDS: Sennosides/Docusate Sodium TABLET PO SCH ×2 (14:50→20:43)
[2016-07-17] MEDS: Cefepime HCl 2,000 MG in D5% in Water (Mini-Bag+) 100 ML IVPB SCH (14:51)
[2016-07-17 15:51] LABS: INR 1.1; Prothrombin Time 11.9 Seconds (9.4-12.1)
[2016-07-17 15:55] LABS: Albumin 2.1 g/dL (3.5-5.0); Albumin/Globulin Ratio 0.6 (1.1-2.2); Bilirubin,Direct 0.9 mg/dL (0.0-0.5); Bilirubin,Indirect 0.3 mg/dL (0.0-1.2); Bilirubin,Total 1.2 mg/dL (0.2-1.2); Globulin 3.4 g/dL (2.4-3.5); Total Protein 5.5 g/dL (6.0-8.3)
[2016-07-17] MEDS: Thiamine (B-1) 100 MG in D5% in Water 50 ML IVPB SCH (16:26)
[2016-07-17] MEDS: Midazolam HCl 100 MG in 0.9 % Sodium Chloride 80 ML IVC SCH (17:33)
[2016-07-17 17:35] LABS: Basophils % 0.3 %; Eosinophils # 0.1 K/mcL (0.0-0.6); Eosinophils % 3.6 %; Hematocrit 30.2 % (37.5-50.1); Immature Granulocytes % 0.3 % (0-4); Lymphocytes # 0.9 K/mcL (0.6-4.6); Lymphocytes % 22.3 %; Mean Corpuscular HGB Conc 32.5 g/dL (31.6-35.5); Mean Corpuscular Hemoglobin 31.3 pg (28.0-33.3); Mean Corpuscular Volume 96.5 fL (83.0-100.0); Monocytes # 0.3 K/mcL (0.0-1.3); Monocytes % 8.8 %; Neutrophils # 2.5 K/mcL (1.6-8.9); Red Blood Count 3.13 M/mcL (4.19-5.50); Red Cell Distribution Width 13.8 % (11.5-14.5); Segmented Neutrophils % 64.7 %
[2016-07-17 17:36] LABS: Hemoglobin 9.8 g/dL (12.9-16.9); Platelet Count 73 K/mcL (140-400)
[2016-07-17 17:57] LABS: Toxic Granulation Present (Not Present)
[2016-07-17 17:58] LABS: Dohle Bodies Present (Not Present)
[2016-07-18] MEDS: Cefepime HCl 2,000 MG in D5% in Water (Mini-Bag+) 100 ML IVPB SCH ×2 (00:11→11:16)
[2016-07-18] MEDS: Midazolam HCl 100 MG in 0.9 % Sodium Chloride 80 ML IVC SCH ×3 (03:22→22:02)
[2016-07-18 05:02] LABS: Hemoglobin 10.3 g/dL (12.9-16.9); Immature Granulocytes % 0.3 % (0-4)
[2016-07-18 05:04] LABS: Eosinophils # 0.2 K/mcL (0.0-0.6); Immature Platelets 7.4 % (1.1-6.1); Lymphocytes # 0.8 K/mcL (0.6-4.6); Lymphocytes % 20.3 %; Mean Corpuscular HGB Conc 32.2 g/dL (31.6-35.5); Mean Corpuscular Hemoglobin 30.7 pg (28.0-33.3); Mean Corpuscular Volume 95.5 fL (83.0-100.0); Mean Platelet Volume 10.8 fL (9.4-12.4); Monocytes # 0.4 K/mcL (0.0-1.3); Neutrophils # 2.5 K/mcL (1.6-8.9); Red Blood Count 3.35 M/mcL (4.19-5.50); Red Cell Distribution Width 13.6 % (11.5-14.5); Segmented Neutrophils % 65.4 %
[2016-07-18 05:10] LABS: Platelet Count 94 K/mcL (140-400)
[2016-07-18 05:13] LABS: BUN/Creatinine Ratio 40 (6-26); Blood Urea Nitrogen 32 mg/dL (8-26); Calcium 8.9 mg/dL (8.6-10.8); Carbon Dioxide 33 mEq/L (19-29); Chloride 113 mEq/L (98-109); Glucose 140 mg/dL (70-99); Osmolality,Calculated 319 (280-300); Potassium 2.8 mEq/L (3.5-4.5); Sodium 150 mEq/L (136-145); eGFR For African Americans > 60 (> 60); eGFR For Non-African Americans > 60 (> 60)
[2016-07-18 06:28] LABS: Large Platelets Present (Not Present); Platelet Estimate Decreased (Normal); Toxic Granulation Present (Not Present)
--- NOTE | 2016-07-18 08:01 | Pulmonology Progress Note ---
<Sunday Suero - Last Filed: 07/18/16 11:09> Date of Encounter: 07/18/16 Time of Encounter: 07:55 Assessment and Plan (1) Acute respiratory failure with hypoxia Current Visit: Yes Status: Acute Patient is currently sedated and on a vent. Respiratory failure likely secondary to aspiration event with witnessed emesis. Aspiration pneumonitis vs. aspiration pneumonia. Continue cefepime 8mT14rs Day #2 Sputum cultures: Enterobacter, which is reagan-sensitive. H. Parainfluenzae II. Patient has been improving and is back in a supine position. Bowel regimen started. Consulted nutrition to initiate tube feedings. (2) Withdrawal symptoms, alcohol Current Visit: Yes Status: Acute The patient is currently sedated with Versed drip, fentanyl, and precedex. Supplemental thiamine is being given. Qualifiers: Complication of substance-induced condition: with delirium Qualified Code(s ): F10.231 - Alcohol dependence with withdrawal delirium (3) Encephalopathy Current Visit: Yes Status: Acute Secondary to alcohol withdrawal. See plan above. Unable to assess mental status at this time due to sedation. Will reassess after extubation. (4) Acute pancreatitis Current Visit: Yes Status: Acute Trickle feeds have been started per nutrition. Will monitor closely. Patient has history of gastric outlet obstruction. Qualifiers: Pancreatitis type: alcohol induced Acute pancreatitis complication: no infection or necrosis Qualified Code(s): K85.20 - Alcohol induced acute pancreatitis without necrosis or infection (5) DVT prophylaxis Current Visit: No Status: Acute lovenox Protonix for GI prophylaxis. (6) Hypokalemia Current Visit: Yes Status: Acute K 2.8 this morning. Repletion of 40mEq. Will recheck and replete as needed. Afternoon BMP ordered. The patient has been started on electrolyte protocol. Subjective Principal diagnosis: Acute respiratory failure with hypoxia Interval history: The patient was seen and examined. Tolerating supine position well, oxygen requirement is continuing to decrease. No repeat fevers overnight. He continues to be sedated and ventilated. Objective PUL Vital signs: Last Vital Signs Temp 97.7 F 07/18/16 04:58 Pulse 62 07/18/16 06:00 Resp 26 07/18/16 07:24 BP 173/87 07/18/16 07:24 Pulse Ox 99 07/18/16 07:24 General appearance: other (sedated on a vent) Eyes: nonicteric ENT: oropharynx moist Effort: normal, other (on a vent) Auscultation: bilateral: clear Cardiovascular: regular rate and rhythm Gastrointestinal: normoactive bowel sounds, soft, non-distended Integumentary: normal Extremities: no cyanosis other (unable to assess due to sedation) Ventilator Settings Ventilator Settings: Ventilator Settings, Last 8 Hours Ventilator Mode A/C Ventilator Mode A/C Ventilator Mode A/C Ventilator Mode A/C Ventilator Mode A/C Ventilator Mode A/C Ventilator Tidal Volume 400 Setting Ventilator Tidal Volume 400 Setting Ventilator Tidal Volume 400 Setting Ventilator Tidal Volume 400 Setting Ventilator Tidal Volume 400 Setting Ventilator Tidal Volume 400 Setting Ventilator Respiratory Rate 26 Setting Ventilator Respiratory Rate 26 Setting Ventilator Respiratory Rate 26 Setting Ventilator Respiratory Rate 26 Setting Ventilator Respiratory Rate 26 Setting Ventilator Respiratory Rate 26 Setting Actual Respiratory Rate 26 Actual Respiratory Rate 26 Actual Respiratory Rate 26 Actual Respiratory Rate 26 Actual Respiratory Rate 26 Actual Respiratory Rate 34 Positive End Expiratory 8 Pressure Positive End Expiratory 8 Pressure Positive End Expiratory 8 Pressure Positive End Expiratory 8 Pressure Positive End Expiratory 8 Pressure Positive End Expiratory 8 Pressure Peak Inspiratory Airway 21 Pressure Peak Inspiratory Airway 23 Pressure Peak Inspiratory Airway 23 Pressure Peak Inspiratory Airway 22 Pressure Peak Inspiratory Airway 23 Pressure Peak Inspiratory Airway 21 Pressure Results - Laboratory Findings CBC and BMP: 07/18/16 04:45 07/18/16 04:45 ABG ABG pH 7.42 pH Units (7.32-7.45) 07/17/16 05:20 ABG pCO2 52 mmHg (35-45) H 07/17/16 05:20 ABG pO2 119 mmHg (85-104) H 07/17/16 05:20 ABG O2 Saturation 99 % (95-98) H 07/17/16 05:20 PT/INR, D-dimer PT 11.9 Seconds (9.4-12.1) 07/17/16 15:33 Abnormal lab findings: Abnormal lab results WBC 3.8 K/mcL (4.3-11.1) L 07/18/16 04:45 RBC 3.35 M/mcL (4.19-5.50) L 07/18/16 04:45 Hgb 10.3 g/dL (12.9-16.9) L 07/18/16 04:45 Hct 32.0 % (37.5-50.1) L 07/18/16 04:45 Plt Count 94 K/mcL (140-400) L 07/18/16 04:45 Toxic Granulation Present (Not Present) A 07/18/16 04:45 Dohle Bodies Present (Not Present) A 07/17/16 17:26 Platelet Estimate Decreased (Normal) L 07/18/16 04:45 Large Platelets Present (Not Present) A 07/18/16 04:45 Immature Plt Fraction 7.4 % (1.1-6.1) H 07/18/16 04:45 Fibrinogen 733 mg/dL (169-393) H* 07/17/16 15:33 ABG pCO2 52 mmHg (35-45) H 07/17/16 05:20 ABG pO2 119 mmHg (85-104) H 07/17/16 05:20 ABG HCO3 33.7 mEQ/L (21-27) H 07/17/16 05:20 ABG Total CO2 35.3 mEq/L (20-26) H 07/17/16 05:20 ABG O2 Saturation 99 % (95-98) H 07/17/16 05:20 ABG Base Excess 8.1 mEq/L (-2.0 to 3.0) H 07/17/16 05:20 Sodium 150 mEq/L (136-145) H 07/18/16 04:45 Potassium 2.8 mEq/L (3.5-4.5) L 07/18/16 04:45 Chloride 113 mEq/L (98-109) H 07/18/16 04:45 Carbon Dioxide 33 mEq/L (19-29) H 07/18/16 04:45 BUN 32 mg/dL (8-26) H D 07/18/16 04:45 BUN/Creatinine Ratio 40 (6-26) H 07/18/16 04:45 Glucose 140 mg/dL (70-99) H 07/18/16 04:45 POC Glucose 105 (58-89) H 07/17/16 23:39 Calculated Osmolality 319 (280-300) H 07/18/16 04:45 Direct Bilirubin 0.9 mg/dL (0.0-0.5) H 07/17/16 15:33 AST 140 Units/L (5-34) H 07/17/16 15:33 ALT 96 Units/L (0-55) H 07/17/16 15:33 Alkaline Phosphatase 200 Units/L (38-126) H 07/17/16 15:33 Serum Total Protein 5.5 g/dL (6.0-8.3) L 07/17/16 15:33 Albumin 2.1 g/dL (3.5-5.0) L 07/17/16 15:33 Albumin/Globulin Ratio 0.6 (1.1-2.2) L 07/17/16 15:33 Amylase 322 Units/L (25-125) H 07/14/16 00:12 Lipase 956 Units/L (8-78) H 07/13/16 15:19 Urine Clarity Cloudy (Clear) A 07/14/16 02:30 Urine Ketones 80 mg/dL (Negative) H 07/14/16 02:30 Urine Bilirubin Moderate (Negative) H 07/14/16 02:30 Urine Opiates Screen Positive ng/mL (Rctkqp=374) H 07/14/16 02:30 - Microbiology Findings Microbiology Findings: Microbiology, Last 48 Hours 07/15/16 12:29 Blood Culture - Preliminary Peripheral Venipuncture No growth. 07/15/16 12:20 Sputum Culture - Final Sputum Enterobacter cloacae Haemophilus parainfluenzae II - Clinical Findings Intake & Output: Intake & Output 07/17/16 07/18/16 07/18/16 23:59 07:59 15:59 Intake Total 551 / 551 750 / 750 Output Total 250 / 250 650 / 650 Balance 301 / 301 100 / 100 Weight 81.692 kg Consult Discharge Plan - Plan Referrals: Kalia Sheppard MD [Primary Care Provider] - <Hayden De La Cruz - Last Filed: 07/18/16 12:03> Date of Encounter: 07/18/16 Objective PUL Vital signs: Last Vital Signs Temp 96.9 F L 07/18/16 08:19 Pulse 60 07/18/16 11:00 Resp 30 07/18/16 11:11 BP 171/86 07/18/16 11:11 Pulse Ox 95 07/18/16 11:11 Ventilator Settings Ventilator Settings: Ventilator Settings, Last 8 Hours Ventilator Mode A/C Ventilator Mode A/C Ventilator Mode A/C Ventilator Mode A/C Ventilator Mode A/C Ventilator Tidal Volume 400 Setting Ventilator Tidal Volume 400 Setting Ventilator Tidal Volume 400 Setting Ventilator Tidal Volume 400 Setting Ventilator Tidal Volume 400 Setting Ventilator Respiratory Rate 26 Setting Ventilator Respiratory Rate 26 Setting Ventilator Respiratory Rate 26 Setting Ventilator Respiratory Rate 26 Setting Ventilator Respiratory Rate 26 Setting Actual Respiratory Rate 26 Actual Respiratory Rate 26 Actual Respiratory Rate 26 Actual Respiratory Rate 26 Actual Respiratory Rate 26 Positive End Expiratory 8 Pressure Positive End Expiratory 8 Pressure Positive End Expiratory 8 Pressure Positive End Expiratory 8 Pressure Positive End Expiratory 8 Pressure Peak Inspiratory Airway 23 Pressure Peak Inspiratory Airway 22 Pressure Peak Inspiratory Airway 21 Pressure Peak Inspiratory Airway 23 Pressure Peak Inspiratory Airway 23 Pressure Results - Laboratory Findings CBC and BMP: 07/18/16 04:45 07/18/16 04:45 ABG ABG pH 7.42 pH Units (7.32-7.45) 07/17/16 05:20 ABG pCO2 52 mmHg (35-45) H 07/17/16 05:20 ABG pO2 119 mmHg (85-104) H 07/17/16 05:20 ABG O2 Saturation 99 % (95-98) H 07/17/16 05:20 PT/INR, D-dimer PT 11.9 Seconds (9.4-12.1) 07/17/16 15:33 Abnormal lab findings: Abnormal lab results WBC 3.8 K/mcL (4.3-11.1) L 07/18/16 04:45 RBC 3.35 M/mcL (4.19-5.50) L 07/18/16 04:45 Hgb 10.3 g/dL (12.9-16.9) L 07/18/16 04:45 Hct 32.0 % (37.5-50.1) L 07/18/16 04:45 Plt Count 94 K/mcL (140-400) L 07/18/16 04:45 Toxic Granulation Present (Not Present) A 07/18/16 04:45 Dohle Bodies Present (Not Present) A 07/17/16 17:26 Platelet Estimate Decreased (Normal) L 07/18/16 04:45 Large Platelets Present (Not Present) A 07/18/16 04:45 Immature Plt Fraction 7.4 % (1.1-6.1) H 07/18/16 04:45 Fibrinogen 733 mg/dL (169-393) H* 07/17/16 15:33 ABG pCO2 52 mmHg (35-45) H 07/17/16 05:20 ABG pO2 119 mmHg (85-104) H 07/17/16 05:20 ABG HCO3 33.7 mEQ/L (21-27) H 07/17/16 05:20 ABG Total CO2 35.3 mEq/L (20-26) H 07/17/16 05:20 ABG O2 Saturation 99 % (95-98) H 07/17/16 05:20 ABG Base Excess 8.1 mEq/L (-2.0 to 3.0) H 07/17/16 05:20 Sodium 150 mEq/L (136-145) H 07/18/16 04:45 Potassium 2.8 mEq/L (3.5-4.5) L 07/18/16 04:45 Chloride 113 mEq/L (98-109) H 07/18/16 04:45 Carbon Dioxide 33 mEq/L (19-29) H 07/18/16 04:45 BUN 32 mg/dL (8-26) H D 07/18/16 04:45 BUN/Creatinine Ratio 40 (6-26) H 07/18/16 04:45 Glucose 140 mg/dL (70-99) H 07/18/16 04:45 POC Glucose 105 (58-89) H 07/17/16 23:39 Calculated Osmolality 319 (280-300) H 07/18/16 04:45 Direct Bilirubin 0.9 mg/dL (0.0-0.5) H 07/17/16 15:33 AST 140 Units/L (5-34) H 07/17/16 15:33 ALT 96 Units/L (0-55) H 07/17/16 15:33 Alkaline Phosphatase 200 Units/L (38-126) H 07/17/16 15:33 Serum Total Protein 5.5 g/dL (6.0-8.3) L 07/17/16 15:33 Albumin 2.1 g/dL (3.5-5.0) L 07/17/16 15:33 Albumin/Globulin Ratio 0.6 (1.1-2.2) L 07/17/16 15:33 Amylase 322 Units/L (25-125) H 07/14/16 00:12 Lipase 956 Units/L (8-78) H 07/13/16 15:19 Urine Clarity Cloudy (Clear) A 07/14/16 02:30 Urine Ketones 80 mg/dL (Negative) H 07/14/16 02:30 Urine Bilirubin Moderate (Negative) H 07/14/16 02:30 Urine Opiates Screen Positive ng/mL (Xpjmpx=497) H 07/14/16 02:30 - Microbiology Findings Microbiology Findings: Microbiology, Last 48 Hours 07/15/16 12:29 Blood Culture - Preliminary Peripheral Venipuncture No growth. 07/15/16 12:20 Sputum Culture - Final Sputum Enterobacter cloacae Haemophilus parainfluenzae II - Clinical Findings Intake & Output: Intake & Output 07/17/16 07/18/16 07/18/16 23:59 07:59 15:59 Intake Total 551 / 551 750 / 750 501 / 501 Output Total 250 / 250 650 / 650 100 / 100 Balance 301 / 301 100 / 100 401 / 401 Weight 81.692 kg - Attending Attestation I examined this patient and my medical decision-making was reviewed with the INFORMATION MANAGER/PA/Advanced Practice Nurse/Resident Physician. I agree with the documented findings, disposition and treatment plan as described except to the extent set forth below. Patient seen and examined at bedside Labs, radiology, chart personally reviewed. All lines examined without evidence of infection. Neuropsych: Sedated for agitation on vent. he is able to follow simple commands and moves all ext's. history of EtOH abuse. Cont analgesia for pancreatitis and benzo for withdrawal. Precedex added to decrease benzo. Pulm: ARDS s/t to PNA (aspiration) and possibly pancreatitis. Now on minimal vent support with acceptable oxygenation/ventilation. mentals status precludes formal PAP trial Cards: No evidence of shock at this time and continue to monitor -goal MAP greater than 60 FEN-GI: GI prophylaxis. CT scan notable for possible developing Pseudocyst he will need surgery/GI f/u for this. Advance enteral nutrition today. advance bowel regimen Renal: Improved EDUARDO with fluids. Good UOP. ID: WBC trending down, no further fevers cont Cefepime fore fecaelis and haemophilus Heme/Onc: H/H increased overnight. CT of abdomen negative for acute bleed. restart DVT coverage. . Endo: Glucose Monitored Integ/MSK: Skin care per ICU protocol to prevent ulcers. CODE: Full Code
[2016-07-18] MEDS: Dexmedetomidine HCl 400 MCG/100 ML MLS IVC SCH ×2 (08:11→18:22)
[2016-07-18] MEDS: FentaNYL (PF) 3,000 MCG in 0.9 % Sodium Chloride 240 ML IVC SCH ×2 (08:45→22:00)
[2016-07-18] MEDS: Pantoprazole 40 MG VIAL IVP SCH (09:11)
[2016-07-18] MEDS: Nicotine 21 MG PATCH.TD24 TD SCH (09:11)
[2016-07-18] MEDS: Sennosides/Docusate Sodium TABLET PO SCH ×2 (09:11→20:33)
[2016-07-18] MEDS: Chlorhexidine Rinse 15 ML MOUTHWASH MM SCH ×2 (09:11→20:33)
[2016-07-18] MEDS: Thiamine (B-1) 100 MG in D5% in Water 50 ML IVPB SCH (09:12)
[2016-07-18] MEDS ORDERED: Potassium Chloride Elixir 20 MEQ/15 ML UDC GTUBE PRN (10:14)
[2016-07-18] MEDS ORDERED: Potassium Chloride 40 MEQ/200 ML BAG IVPB PRN (10:50)
[2016-07-18] MEDS ORDERED: Calcium Gluconate 1,000 MG in D5% in Water 100 ML IVPB PRN (10:50)
[2016-07-18] MEDS ORDERED: Potassium Phosphate 44 MEQ in 0.9 % Sodium Chloride 250 ML IVPB PRN (10:50)
[2016-07-18] MEDS: Potassium Chloride Elixir 20 MEQ/15 ML UDC GTUBE PRN ×2 (11:43→17:00)
[2016-07-18 16:05] LABS: Magnesium 1.8 mg/dL (1.6-2.6)
[2016-07-18 16:30] LABS: BUN/Creatinine Ratio 35 (6-26); Blood Urea Nitrogen 28 mg/dL (8-26); Calcium 8.9 mg/dL (8.6-10.8); Carbon Dioxide 31 mEq/L (19-29); Chloride 113 mEq/L (98-109); Glucose 157 mg/dL (70-99); Osmolality,Calculated 317 (280-300); Potassium 3.1 mEq/L (3.5-4.5); Sodium 149 mEq/L (136-145); eGFR For African Americans > 60 (> 60); eGFR For Non-African Americans > 60 (> 60)
[2016-07-18] MEDS: hydrALAZINE 10 MG TABLET PO SCH (17:00)
[2016-07-18] MEDS: Magnesium Sulfate 2 GM in D5% in Water 100 ML IVPB PRN (18:22)
[2016-07-19] MEDS: hydrALAZINE 10 MG TABLET PO SCH ×5 (00:19→23:42)
[2016-07-19] MEDS: Cefepime HCl 2,000 MG in D5% in Water (Mini-Bag+) 100 ML IVPB SCH ×3 (00:24→23:42)
[2016-07-19 01:07] LABS: Magnesium 2.1 mg/dL (1.6-2.6); Potassium 3.3 mEq/L (3.5-4.5)
[2016-07-19] MEDS: Potassium Chloride 40 MEQ/200 ML BAG IVPB PRN (01:56)
[2016-07-19] MEDS: Dexmedetomidine HCl 400 MCG/100 ML MLS IVC SCH ×3 (02:59→19:30)
[2016-07-19 04:24] LABS: Basophils % 0.5 %; Eosinophils # 0.2 K/mcL (0.0-0.6); Eosinophils % 4.4 %; Hemoglobin 10.6 g/dL (12.9-16.9); Immature Granulocytes % 0.3 % (0-4); Lymphocytes # 1.1 K/mcL (0.6-4.6); Lymphocytes % 30.7 %; Mean Corpuscular HGB Conc 33.1 g/dL (31.6-35.5); Mean Corpuscular Hemoglobin 31.2 pg (28.0-33.3); Mean Corpuscular Volume 94.1 fL (83.0-100.0); Mean Platelet Volume 10.8 fL (9.4-12.4); Monocytes # 0.5 K/mcL (0.0-1.3); Monocytes % 14.2 %; Neutrophils # 1.8 K/mcL (1.6-8.9); Platelet Count 101 K/mcL (140-400); Red Cell Distribution Width 13.6 % (11.5-14.5); Segmented Neutrophils % 49.9 %
[2016-07-19 04:27] LABS: Ionized Calcium 1.3 mmol/L (1.15-1.35)
[2016-07-19 04:34] LABS: BUN/Creatinine Ratio 33 (6-26); Blood Urea Nitrogen 27 mg/dL (8-26); Carbon Dioxide 33 mEq/L (19-29); Chloride 115 mEq/L (98-109); Glucose 164 mg/dL (70-99); Magnesium 1.9 mg/dL (1.6-2.6); Osmolality,Calculated 319 (280-300); Potassium 3.7 mEq/L (3.5-4.5); Sodium 150 mEq/L (136-145); eGFR For African Americans > 60 (> 60); eGFR For Non-African Americans > 60 (> 60)
[2016-07-19 04:41] LABS: Phosphorous 0.7 mg/dL (2.3-4.7)
[2016-07-19] MEDS: Potassium Chloride Elixir 20 MEQ/15 ML UDC GTUBE PRN (04:52)
[2016-07-19] MEDS: Midazolam HCl 100 MG in 0.9 % Sodium Chloride 80 ML IVC SCH ×2 (06:22→13:46)
[2016-07-19] MEDS: Nicotine 21 MG PATCH.TD24 TD SCH (08:30)
[2016-07-19] MEDS: Chlorhexidine Rinse 15 ML MOUTHWASH MM SCH ×2 (08:31→21:34)
[2016-07-19] MEDS: Sennosides/Docusate Sodium TABLET PO SCH ×2 (08:32→21:35)
[2016-07-19] MEDS: Pantoprazole 40 MG VIAL IVP SCH (08:33)
[2016-07-19] MEDS: Thiamine (B-1) 100 MG in D5% in Water 50 ML IVPB SCH (08:40)
--- NOTE | 2016-07-19 11:22 | Pulmonology Progress Note ---
<Sunday Suero - Last Filed: 07/19/16 12:43> Date of Encounter: 07/19/16 Time of Encounter: 07:50 Assessment and Plan (1) Acute respiratory failure with hypoxia Current Visit: Yes Status: Acute Patient is currently sedated and on a vent. Respiratory failure likely secondary to aspiration event with witnessed emesis. Aspiration pneumonitis vs. aspiration pneumonia. Continue cefepime [id number] Day #3 Sputum cultures: Enterobacter, which is reagan-sensitive. H. Parainfluenzae II. Patient has been improving and is back in a supine position. Bowel regimen continued. Nutrition to continue tube feedings, and increase free water to help correct hypernatremia. Begin seroquel 25mg QD for agitation with awakening. (2) Withdrawal symptoms, alcohol Current Visit: Yes Status: Acute The patient is currently sedated with Versed drip, fentanyl, and precedex. Supplemental thiamine is being given. Qualifiers: Complication of substance-induced condition: with delirium Qualified Code(s ): F10.231 - Alcohol dependence with withdrawal delirium (3) Encephalopathy Current Visit: Yes Status: Acute Secondary to alcohol withdrawal. See plan above. (4) Acute pancreatitis Current Visit: Yes Status: Acute Trickle feeds have been started per nutrition. Will monitor closely. Patient has history of gastric outlet obstruction. Qualifiers: Pancreatitis type: alcohol induced Acute pancreatitis complication: no infection or necrosis Qualified Code(s): K85.20 - Alcohol induced acute pancreatitis without necrosis or infection (5) DVT prophylaxis Current Visit: No Status: Acute lovenox Protonix for GI prophylaxis. (6) Hypokalemia Current Visit: Yes Status: Acute Continue electrolyte protocol. Subjective Principal diagnosis: Acute respiratory failure with hypoxia Interval history: The patient was seen and examined. Oxygen requirement is currently stable. No repeat fevers overnight. He continues to be sedated and ventilated. Spontaneous breathing trial today. He continues to be hypernatremia, and free water is being increased per nutrition today. Objective PUL Vital signs: Last Vital Signs Temp 98.4 F 07/19/16 11:00 Pulse 71 07/19/16 11:14 Resp 26 07/19/16 11:10 BP 142/96 07/19/16 11:10 Pulse Ox 100 07/19/16 11:10 General appearance: other (sedated and ventilated. awakens briefly during examination) ENT: oropharynx dry Effort: other (ventillated) Auscultation: bilateral: clear Cardiovascular: regular rate and rhythm Gastrointestinal: normoactive bowel sounds, soft, non-tender, non-distended Extremities: no cyanosis other (unable to assess due to sedation) Ventilator Settings Ventilator Settings: Ventilator Settings, Last 8 Hours Ventilator Mode A/C Ventilator Mode A/C Ventilator Mode A/C Ventilator Mode A/C Ventilator Mode A/C Ventilator Mode A/C Ventilator Mode A/C Ventilator Tidal Volume 400 Setting Ventilator Tidal Volume 400 Setting Ventilator Tidal Volume 400 Setting Ventilator Tidal Volume 400 Setting Ventilator Tidal Volume 400 Setting Ventilator Tidal Volume 400 Setting Ventilator Tidal Volume 400 Setting Ventilator Respiratory Rate 26 Setting Ventilator Respiratory Rate 26 Setting Ventilator Respiratory Rate 26 Setting Ventilator Respiratory Rate 26 Setting Ventilator Respiratory Rate 26 Setting Ventilator Respiratory Rate 26 Setting Ventilator Respiratory Rate 26 Setting Actual Respiratory Rate 26 Actual Respiratory Rate 26 Actual Respiratory Rate 26 Actual Respiratory Rate 26 Actual Respiratory Rate 26 Actual Respiratory Rate 26 Actual Respiratory Rate 26 Positive End Expiratory 5 Pressure Positive End Expiratory 8 Pressure Positive End Expiratory 8 Pressure Positive End Expiratory 8 Pressure Positive End Expiratory 8 Pressure Positive End Expiratory 8 Pressure Positive End Expiratory 8 Pressure Peak Inspiratory Airway 25 Pressure Peak Inspiratory Airway 28 Pressure Peak Inspiratory Airway 30 Pressure Peak Inspiratory Airway 31 Pressure Peak Inspiratory Airway 34 Pressure Peak Inspiratory Airway 36 Pressure Peak Inspiratory Airway 34 Pressure Results - Laboratory Findings CBC and BMP: 07/19/16 03:55 07/19/16 09:30 ABG ABG pH 7.42 pH Units (7.32-7.45) 07/17/16 05:20 ABG pCO2 52 mmHg (35-45) H 07/17/16 05:20 ABG pO2 119 mmHg (85-104) H 07/17/16 05:20 ABG O2 Saturation 99 % (95-98) H 07/17/16 05:20 PT/INR, D-dimer PT 11.9 Seconds (9.4-12.1) 07/17/16 15:33 Abnormal lab findings: Abnormal lab results WBC 3.7 K/mcL (4.3-11.1) L 07/19/16 03:55 RBC 3.40 M/mcL (4.19-5.50) L 07/19/16 03:55 Hgb 10.6 g/dL (12.9-16.9) L 07/19/16 03:55 Hct 32.0 % (37.5-50.1) L 07/19/16 03:55 Plt Count 101 K/mcL (140-400) L 07/19/16 03:55 Toxic Granulation Present (Not Present) A 07/18/16 04:45 Dohle Bodies Present (Not Present) A 07/17/16 17:26 Platelet Estimate Decreased (Normal) L 07/18/16 04:45 Large Platelets Present (Not Present) A 07/18/16 04:45 Immature Plt Fraction 7.4 % (1.1-6.1) H 07/18/16 04:45 Fibrinogen 733 mg/dL (169-393) H* 07/17/16 15:33 ABG pCO2 52 mmHg (35-45) H 07/17/16 05:20 ABG pO2 119 mmHg (85-104) H 07/17/16 05:20 ABG HCO3 33.7 mEQ/L (21-27) H 07/17/16 05:20 ABG Total CO2 35.3 mEq/L (20-26) H 07/17/16 05:20 ABG O2 Saturation 99 % (95-98) H 07/17/16 05:20 ABG Base Excess 8.1 mEq/L (-2.0 to 3.0) H 07/17/16 05:20 Sodium 150 mEq/L (136-145) H 07/19/16 03:55 Chloride 115 mEq/L (98-109) H 07/19/16 03:55 Carbon Dioxide 33 mEq/L (19-29) H 07/19/16 03:55 BUN 27 mg/dL (8-26) H 07/19/16 03:55 BUN/Creatinine Ratio 33 (6-26) H 07/19/16 03:55 Glucose 164 mg/dL (70-99) H 07/19/16 03:55 POC Glucose 168 (58-89) H 07/18/16 23:48 Calculated Osmolality 319 (280-300) H 07/19/16 03:55 Phosphorus 0.7 mg/dL (2.3-4.7) L* 07/19/16 03:55 Direct Bilirubin 0.9 mg/dL (0.0-0.5) H 07/17/16 15:33 AST 140 Units/L (5-34) H 07/17/16 15:33 ALT 96 Units/L (0-55) H 07/17/16 15:33 Alkaline Phosphatase 200 Units/L (38-126) H 07/17/16 15:33 Serum Total Protein 5.5 g/dL (6.0-8.3) L 07/17/16 15:33 Albumin 2.1 g/dL (3.5-5.0) L 07/17/16 15:33 Albumin/Globulin Ratio 0.6 (1.1-2.2) L 07/17/16 15:33 Amylase 322 Units/L (25-125) H 07/14/16 00:12 Lipase 956 Units/L (8-78) H 07/13/16 15:19 Urine Clarity Cloudy (Clear) A 07/14/16 02:30 Urine Ketones 80 mg/dL (Negative) H 07/14/16 02:30 Urine Bilirubin Moderate (Negative) H 07/14/16 02:30 Urine Opiates Screen Positive ng/mL (Mmjoeo=514) H 07/14/16 02:30 - Clinical Findings Intake & Output: Intake & Output 07/18/16 07/19/16 07/19/16 23:59 07:59 15:59 Intake Total 544 / 544 1465 / 1465 800 / 800 Output Total 700 / 700 400 / 400 650 / 650 Balance -156 / -156 1065 / 1065 150 / 150 Weight 81.1 kg Consult Discharge Plan - Plan Referrals: Kalia Sheppard MD [Primary Care Provider] - <Hayden De La Cruz - Last Filed: 07/19/16 13:23> Date of Encounter: 07/19/16 Objective PUL Vital signs: Last Vital Signs Temp 98.4 F 07/19/16 11:00 Pulse 71 07/19/16 12:06 Resp 26 07/19/16 12:00 BP 140/87 07/19/16 12:00 Pulse Ox 98 07/19/16 12:00 Ventilator Settings Ventilator Settings: Ventilator Settings, Last 8 Hours Ventilator Mode A/C Ventilator Mode A/C Ventilator Mode A/C Ventilator Mode A/C Ventilator Tidal Volume 400 Setting Ventilator Tidal Volume 400 Setting Ventilator Tidal Volume 400 Setting Ventilator Tidal Volume 400 Setting Ventilator Respiratory Rate 26 Setting Ventilator Respiratory Rate 26 Setting Ventilator Respiratory Rate 26 Setting Ventilator Respiratory Rate 26 Setting Actual Respiratory Rate 26 Actual Respiratory Rate 26 Actual Respiratory Rate 26 Actual Respiratory Rate 26 Positive End Expiratory 5 Pressure Positive End Expiratory 8 Pressure Positive End Expiratory 8 Pressure Positive End Expiratory 8 Pressure Peak Inspiratory Airway 25 Pressure Peak Inspiratory Airway 28 Pressure Peak Inspiratory Airway 30 Pressure Peak Inspiratory Airway 31 Pressure Results - Laboratory Findings CBC and BMP: 07/19/16 03:55 07/19/16 09:30 ABG ABG pH 7.42 pH Units (7.32-7.45) 07/17/16 05:20 ABG pCO2 52 mmHg (35-45) H 07/17/16 05:20 ABG pO2 119 mmHg (85-104) H 07/17/16 05:20 ABG O2 Saturation 99 % (95-98) H 07/17/16 05:20 PT/INR, D-dimer PT 11.9 Seconds (9.4-12.1) 07/17/16 15:33 Abnormal lab findings: Abnormal lab results WBC 3.7 K/mcL (4.3-11.1) L 07/19/16 03:55 RBC 3.40 M/mcL (4.19-5.50) L 07/19/16 03:55 Hgb 10.6 g/dL (12.9-16.9) L 07/19/16 03:55 Hct 32.0 % (37.5-50.1) L 07/19/16 03:55 Plt Count 101 K/mcL (140-400) L 07/19/16 03:55 Toxic Granulation Present (Not Present) A 07/18/16 04:45 Dohle Bodies Present (Not Present) A 07/17/16 17:26 Platelet Estimate Decreased (Normal) L 07/18/16 04:45 Large Platelets Present (Not Present) A 07/18/16 04:45 Immature Plt Fraction 7.4 % (1.1-6.1) H 07/18/16 04:45 Fibrinogen 733 mg/dL (169-393) H* 07/17/16 15:33 ABG pCO2 52 mmHg (35-45) H 07/17/16 05:20 ABG pO2 119 mmHg (85-104) H 07/17/16 05:20 ABG HCO3 33.7 mEQ/L (21-27) H 07/17/16 05:20 ABG Total CO2 35.3 mEq/L (20-26) H 07/17/16 05:20 ABG O2 Saturation 99 % (95-98) H 07/17/16 05:20 ABG Base Excess 8.1 mEq/L (-2.0 to 3.0) H 07/17/16 05:20 Sodium 150 mEq/L (136-145) H 07/19/16 03:55 Chloride 115 mEq/L (98-109) H 07/19/16 03:55 Carbon Dioxide 33 mEq/L (19-29) H 07/19/16 03:55 BUN 27 mg/dL (8-26) H 07/19/16 03:55 BUN/Creatinine Ratio 33 (6-26) H 07/19/16 03:55 Glucose 164 mg/dL (70-99) H 07/19/16 03:55 POC Glucose 111 (58-89) H 07/19/16 11:58 Calculated Osmolality 319 (280-300) H 07/19/16 03:55 Phosphorus 0.7 mg/dL (2.3-4.7) L* 07/19/16 03:55 Direct Bilirubin 0.9 mg/dL (0.0-0.5) H 07/17/16 15:33 AST 140 Units/L (5-34) H 07/17/16 15:33 ALT 96 Units/L (0-55) H 07/17/16 15:33 Alkaline Phosphatase 200 Units/L (38-126) H 07/17/16 15:33 Serum Total Protein 5.5 g/dL (6.0-8.3) L 07/17/16 15:33 Albumin 2.1 g/dL (3.5-5.0) L 07/17/16 15:33 Albumin/Globulin Ratio 0.6 (1.1-2.2) L 07/17/16 15:33 Amylase 322 Units/L (25-125) H 07/14/16 00:12 Lipase 956 Units/L (8-78) H 07/13/16 15:19 Urine Clarity Cloudy (Clear) A 07/14/16 02:30 Urine Ketones 80 mg/dL (Negative) H 07/14/16 02:30 Urine Bilirubin Moderate (Negative) H 07/14/16 02:30 Urine Opiates Screen Positive ng/mL (Xdwrth=101) H 07/14/16 02:30 - Clinical Findings Intake & Output: Intake & Output 07/18/16 07/19/16 07/19/16 23:59 07:59 15:59 Intake Total 544 / 544 1465 / 1465 1235 / 1235 Output Total 700 / 700 400 / 400 650 / 650 Balance -156 / -156 1065 / 1065 585 / 585 Weight 81.1 kg - Attending Attestation I examined this patient and my medical decision-making was reviewed with the CARPET JOURNEYMAN/PA/Advanced Practice Nurse/Resident Physician. I agree with the documented findings, disposition and treatment plan as described except to the extent set forth below. Patient seen and examined at bedside Labs, radiology, chart personally reviewed. All lines examined without evidence of infection. Neuropsych: Remains delirious. He is currently sedated for agitation on vent. he continues to follow simple commands and moves all ext's punctuated by moments of significant agitation where he are adding Seroquel 2 treat delirium/ agitation we will continue to wean benzodiazepine as able. Pulm: ARDS s/t to PNA (aspiration) and possibly pancreatitis. SBT trial when following commands consistently and less agitated. Acceptable oxygenation and ventilation today Cards: Mildly hypertensive. Scheduled blood pressure coverage with hydralazine has been added FEN-GI: GI prophylaxis. CT scan notable for possible developing Pseudocyst he will need surgery/GI f/u for this. Advance enteral nutrition today. Cont bowel regimen Renal: Improved EDUARDO with fluids. Good UOP. ID: WBC trending down, no further fevers cont Cefepime for .e fecaelis and haemophilus in sputum. Heme/Onc: H/H stablet. DVT prophylaxis given. Endo: Glucose Monitored Integ/MSK: Skin care per ICU protocol to prevent ulcers. CODE: Full Code (ex updated at bedside)
[2016-07-19] MEDS: *HR* Enoxaparin 40 MG/0.4 ML SYRINGE SQ SCH (11:24)
[2016-07-19] MEDS: Ringers Solution, Lactated 1,000 ML IVC SCH ×2 (11:25→21:35)
[2016-07-19] MEDS: Bisacodyl 10 MG RECTAL SUPPOSITORY RC SCH (11:31)
[2016-07-19] MEDS: FentaNYL (PF) 3,000 MCG in 0.9 % Sodium Chloride 240 ML IVC SCH (11:37)
[2016-07-19] MEDS: *HR* Labetalol 20 MG/4 ML SYRINGE IVP PRN (16:40)
[2016-07-19] MEDS: *HR* Metoprolol 5 MG/5 ML VIAL IVP PRN (17:31)
[2016-07-19] MEDS: niCARdipine 40 MG/200 ML MLS IVC SCH (20:20)
[2016-07-20] MEDS: Midazolam HCl 100 MG in 0.9 % Sodium Chloride 80 ML IVC SCH ×2 (01:25→11:25)
[2016-07-20] MEDS: Dexmedetomidine HCl 400 MCG/100 ML MLS IVC SCH ×3 (01:26→17:01)
[2016-07-20] MEDS: FentaNYL (PF) 3,000 MCG in 0.9 % Sodium Chloride 240 ML IVC SCH ×2 (03:31→22:35)
[2016-07-20 03:56] LABS: Basophils % 0.4 %; Eosinophils # 0.2 K/mcL (0.0-0.6); Eosinophils % 3.8 %; Hematocrit 31.7 % (37.5-50.1); Hemoglobin 10.3 g/dL (12.9-16.9); Immature Granulocytes % 0.4 % (0-4); Lymphocytes # 1.4 K/mcL (0.6-4.6); Lymphocytes % 30.4 %; Mean Corpuscular HGB Conc 32.5 g/dL (31.6-35.5); Mean Corpuscular Hemoglobin 30.7 pg (28.0-33.3); Mean Corpuscular Volume 94.6 fL (83.0-100.0); Mean Platelet Volume 10.9 fL (9.4-12.4); Monocytes # 0.7 K/mcL (0.0-1.3); Monocytes % 16.3 %; Neutrophils # 2.2 K/mcL (1.6-8.9); Platelet Count 110 K/mcL (140-400); Red Blood Count 3.35 M/mcL (4.19-5.50); Red Cell Distribution Width 14.1 % (11.5-14.5); Segmented Neutrophils % 48.7 %
[2016-07-20 04:10] LABS: Magnesium 1.5 mg/dL (1.6-2.6); Phosphorous 3.3 mg/dL (2.3-4.7)
[2016-07-20 04:11] LABS: BUN/Creatinine Ratio 24 (6-26); Blood Urea Nitrogen 20 mg/dL (8-26); Calcium 8.8 mg/dL (8.6-10.8); Carbon Dioxide 33 mEq/L (19-29); Chloride 108 mEq/L (98-109); Glucose 122 mg/dL (70-99); Osmolality,Calculated 308 (280-300); Potassium 3.3 mEq/L (3.5-4.5); Sodium 147 mEq/L (136-145); eGFR For African Americans > 60 (> 60); eGFR For Non-African Americans > 60 (> 60)
[2016-07-20 04:28] LABS: Platelet Estimate Decreased (Normal)
[2016-07-20] MEDS: niCARdipine 40 MG/200 ML MLS IVC SCH (05:25)
[2016-07-20] MEDS: Potassium Chloride Elixir 20 MEQ/15 ML UDC GTUBE PRN ×2 (05:25→12:31)
[2016-07-20] MEDS: *HR* Enoxaparin 40 MG/0.4 ML SYRINGE SQ SCH (05:25)
[2016-07-20] MEDS: hydrALAZINE 10 MG TABLET PO SCH (05:25)
[2016-07-20] MEDS: Ringers Solution, Lactated 1,000 ML IVC SCH ×2 (07:35→17:52)
--- NOTE | 2016-07-20 08:11 | Pulmonology Progress Note ---
<Sunday Suero - Last Filed: 07/20/16 11:00> Date of Encounter: 07/20/16 Time of Encounter: 07:30 Assessment and Plan (1) Acute respiratory failure with hypoxia Current Visit: Yes Status: Acute Patient is currently sedated and on a vent. Respiratory failure likely secondary to aspiration event with witnessed emesis. Aspiration pneumonitis vs. aspiration pneumonia. Continue cefepime [id number] Day #4 Sputum cultures: Enterobacter, which is reagan-sensitive. H. Parainfluenzae II. Patient has been improving, but has agitation upon awakening. Bowel regimen continued. Nutrition to continue tube feedings, and increase free water to help correct hypernatremia. Seroquel 25mg given yesterday morning. Now dosing 50mg BID for agitation when sedation is being weaned. (2) Withdrawal symptoms, alcohol Current Visit: Yes Status: Acute The patient is currently sedated with Versed drip, fentanyl, and precedex. Supplemental thiamine is being given. Weaning Versed and seroquel started yesterday. Agitation present when sedation is weaned. Qualifiers: Complication of substance-induced condition: with delirium Qualified Code(s ): F10.231 - Alcohol dependence with withdrawal delirium (3) Acute pancreatitis Current Visit: Yes Status: Acute Trickle feeds have been started per nutrition. Will monitor closely. Patient has history of gastric outlet obstruction. Qualifiers: Pancreatitis type: alcohol induced Acute pancreatitis complication: no infection or necrosis Qualified Code(s): K85.20 - Alcohol induced acute pancreatitis without necrosis or infection (4) DVT prophylaxis Current Visit: No Status: Acute lovenox Protonix for GI prophylaxis. (5) Hypokalemia Current Visit: Yes Status: Acute Continue electrolyte protocol. (6) Essential hypertension Current Visit: Yes Status: Chronic Currently normotensive. Yesterday Hydralazine increased to 25mg TID and lopressor 10mg PRN pushes were added for hypertension. Nicardipene drip is running and will be titrated. Metoprolol 12.5mg BID PO increased to 50mg BID. Subjective Principal diagnosis: Acute respiratory failure with hypoxia Interval history: The patient was seen and examined. Oxygen requirement is currently stable. No repeat fevers overnight. He continues to be sedated and ventilated. The patient continues to have episodes of agitation when his sedation is weaned down. Episodes of hypertension yesterday evening, but currently normotensive at this time. Objective PUL Vital signs: Last Vital Signs Temp 99.8 F H 07/20/16 07:36 Pulse 77 07/20/16 08:00 Resp 20 07/20/16 08:00 BP 105/67 07/20/16 08:00 Pulse Ox 94 07/20/16 08:00 General appearance: other (sedated and on a vent) Eyes: nonicteric ENT: oropharynx moist Effort: other (on a vent) Auscultation: bilateral: clear Cardiovascular: regular rate and rhythm Gastrointestinal: normoactive bowel sounds, soft, non-distended Integumentary: normal Extremities: no cyanosis Musculoskeletal: no deformities other (unable to assess due to sedation. ) other (aggressive behavior when sedation is weaned) Ventilator Settings Ventilator Settings: Ventilator Settings, Last 8 Hours Ventilator Mode A/C Ventilator Mode A/C Ventilator Mode A/C Ventilator Mode A/C Ventilator Mode A/C Ventilator Mode A/C Ventilator Mode A/C Ventilator Mode A/C Ventilator Mode A/C Ventilator Mode A/C Ventilator Mode A/C Ventilator Mode A/C Ventilator Tidal Volume 400 Setting Ventilator Tidal Volume 400 Setting Ventilator Tidal Volume 400 Setting Ventilator Tidal Volume 400 Setting Ventilator Tidal Volume 400 Setting Ventilator Tidal Volume 400 Setting Ventilator Tidal Volume 400 Setting Ventilator Tidal Volume 400 Setting Ventilator Tidal Volume 400 Setting Ventilator Tidal Volume 400 Setting Ventilator Tidal Volume 400 Setting Ventilator Tidal Volume 400 Setting Ventilator Tidal Volume 400 Setting Ventilator Respiratory Rate 16 Setting Ventilator Respiratory Rate 26 Setting Ventilator Respiratory Rate 26 Setting Ventilator Respiratory Rate 26 Setting Ventilator Respiratory Rate 26 Setting Ventilator Respiratory Rate 26 Setting Ventilator Respiratory Rate 26 Setting Ventilator Respiratory Rate 26 Setting Ventilator Respiratory Rate 26 Setting Ventilator Respiratory Rate 26 Setting Ventilator Respiratory Rate 26 Setting Ventilator Respiratory Rate 26 Setting Ventilator Respiratory Rate 26 Setting Actual Respiratory Rate 20 Actual Respiratory Rate 26 Actual Respiratory Rate 26 Actual Respiratory Rate 26 Actual Respiratory Rate 30 Actual Respiratory Rate 28 Actual Respiratory Rate 26 Actual Respiratory Rate 26 Actual Respiratory Rate 26 Actual Respiratory Rate 26 Actual Respiratory Rate 26 Actual Respiratory Rate 26 Actual Respiratory Rate 26 Positive End Expiratory 5 Pressure Positive End Expiratory 5 Pressure Positive End Expiratory 5 Pressure Positive End Expiratory 5 Pressure Positive End Expiratory 5 Pressure Positive End Expiratory 5 Pressure Positive End Expiratory 5 Pressure Positive End Expiratory 5 Pressure Positive End Expiratory 5 Pressure Positive End Expiratory 5 Pressure Positive End Expiratory 5 Pressure Positive End Expiratory 5 Pressure Positive End Expiratory 5 Pressure Peak Inspiratory Airway 22 Pressure Peak Inspiratory Airway 19 Pressure Peak Inspiratory Airway 20 Pressure Peak Inspiratory Airway 22 Pressure Peak Inspiratory Airway 17 Pressure Peak Inspiratory Airway 19 Pressure Peak Inspiratory Airway 23 Pressure Peak Inspiratory Airway 21 Pressure Peak Inspiratory Airway 23 Pressure Peak Inspiratory Airway 20 Pressure Peak Inspiratory Airway 24 Pressure Peak Inspiratory Airway 19 Pressure Peak Inspiratory Airway 20 Pressure Results - Laboratory Findings CBC and BMP: 07/20/16 03:45 07/20/16 03:45 ABG ABG pH 7.42 pH Units (7.32-7.45) 07/17/16 05:20 ABG pCO2 52 mmHg (35-45) H 07/17/16 05:20 ABG pO2 119 mmHg (85-104) H 07/17/16 05:20 ABG O2 Saturation 99 % (95-98) H 07/17/16 05:20 PT/INR, D-dimer PT 11.9 Seconds (9.4-12.1) 07/17/16 15:33 Abnormal lab findings: Abnormal lab results RBC 3.35 M/mcL (4.19-5.50) L 07/20/16 03:45 Hgb 10.3 g/dL (12.9-16.9) L 07/20/16 03:45 Hct 31.7 % (37.5-50.1) L 07/20/16 03:45 Plt Count 110 K/mcL (140-400) L 07/20/16 03:45 Toxic Granulation Present (Not Present) A 07/18/16 04:45 Dohle Bodies Present (Not Present) A 07/17/16 17:26 Platelet Estimate Decreased (Normal) L 07/20/16 03:45 Large Platelets Present (Not Present) A 07/18/16 04:45 Immature Plt Fraction 7.4 % (1.1-6.1) H 07/18/16 04:45 Fibrinogen 733 mg/dL (169-393) H* 07/17/16 15:33 ABG pCO2 52 mmHg (35-45) H 07/17/16 05:20 ABG pO2 119 mmHg (85-104) H 07/17/16 05:20 ABG HCO3 33.7 mEQ/L (21-27) H 07/17/16 05:20 ABG Total CO2 35.3 mEq/L (20-26) H 07/17/16 05:20 ABG O2 Saturation 99 % (95-98) H 07/17/16 05:20 ABG Base Excess 8.1 mEq/L (-2.0 to 3.0) H 07/17/16 05:20 Sodium 147 mEq/L (136-145) H 07/20/16 03:45 Potassium 3.3 mEq/L (3.5-4.5) L 07/20/16 03:45 Carbon Dioxide 33 mEq/L (19-29) H 07/20/16 03:45 Glucose 122 mg/dL (70-99) H 07/20/16 03:45 POC Glucose 113 (58-89) H 07/19/16 23:43 Calculated Osmolality 308 (280-300) H 07/20/16 03:45 Magnesium 1.5 mg/dL (1.6-2.6) L 07/20/16 03:45 Direct Bilirubin 0.9 mg/dL (0.0-0.5) H 07/17/16 15:33 AST 140 Units/L (5-34) H 07/17/16 15:33 ALT 96 Units/L (0-55) H 07/17/16 15:33 Alkaline Phosphatase 200 Units/L (38-126) H 07/17/16 15:33 Serum Total Protein 5.5 g/dL (6.0-8.3) L 07/17/16 15:33 Albumin 2.1 g/dL (3.5-5.0) L 07/17/16 15:33 Albumin/Globulin Ratio 0.6 (1.1-2.2) L 07/17/16 15:33 Amylase 322 Units/L (25-125) H 07/14/16 00:12 Lipase 956 Units/L (8-78) H 07/13/16 15:19 Urine Clarity Cloudy (Clear) A 07/14/16 02:30 Urine Ketones 80 mg/dL (Negative) H 07/14/16 02:30 Urine Bilirubin Moderate (Negative) H 07/14/16 02:30 Urine Opiates Screen Positive ng/mL (Ozvfwb=055) H 07/14/16 02:30 - Clinical Findings Intake & Output: Intake & Output 07/19/16 07/20/16 07/20/16 23:59 07:59 15:59 Intake Total 1904 / 1904 2906 / 2906 Output Total 1000 / 1000 1550 / 1550 Balance 904 / 904 1356 / 1356 Weight 82.2 kg Consult Discharge Plan - Plan Referrals: Kalia Sheppard MD [Primary Care Provider] - <Hayden De La Cruz - Last Filed: 07/20/16 12:10> Date of Encounter: 07/20/16 Objective PUL Vital signs: Last Vital Signs Temp 99.8 F H 07/20/16 07:36 Pulse 77 07/20/16 08:00 Resp 20 07/20/16 08:00 BP 105/67 07/20/16 08:00 Pulse Ox 94 07/20/16 08:00 Ventilator Settings Ventilator Settings: Ventilator Settings, Last 8 Hours Ventilator Mode A/C Ventilator Mode A/C Ventilator Mode A/C Ventilator Mode A/C Ventilator Mode A/C Ventilator Mode A/C Ventilator Mode A/C Ventilator Mode A/C Ventilator Mode A/C Ventilator Mode A/C Ventilator Mode A/C Ventilator Tidal Volume 400 Setting Ventilator Tidal Volume 400 Setting Ventilator Tidal Volume 400 Setting Ventilator Tidal Volume 400 Setting Ventilator Tidal Volume 400 Setting Ventilator Tidal Volume 400 Setting Ventilator Tidal Volume 400 Setting Ventilator Tidal Volume 400 Setting Ventilator Tidal Volume 400 Setting Ventilator Tidal Volume 400 Setting Ventilator Tidal Volume 400 Setting Ventilator Tidal Volume 400 Setting Ventilator Respiratory Rate 16 Setting Ventilator Respiratory Rate 16 Setting Ventilator Respiratory Rate 26 Setting Ventilator Respiratory Rate 26 Setting Ventilator Respiratory Rate 26 Setting Ventilator Respiratory Rate 26 Setting Ventilator Respiratory Rate 26 Setting Ventilator Respiratory Rate 26 Setting Ventilator Respiratory Rate 26 Setting Ventilator Respiratory Rate 26 Setting Ventilator Respiratory Rate 26 Setting Ventilator Respiratory Rate 26 Setting Actual Respiratory Rate 20 Actual Respiratory Rate 26 Actual Respiratory Rate 26 Actual Respiratory Rate 26 Actual Respiratory Rate 30 Actual Respiratory Rate 28 Actual Respiratory Rate 26 Actual Respiratory Rate 26 Actual Respiratory Rate 26 Actual Respiratory Rate 26 Actual Respiratory Rate 26 Positive End Expiratory 5 Pressure Positive End Expiratory 5 Pressure Positive End Expiratory 5 Pressure Positive End Expiratory 5 Pressure Positive End Expiratory 5 Pressure Positive End Expiratory 5 Pressure Positive End Expiratory 5 Pressure Positive End Expiratory 5 Pressure Positive End Expiratory 5 Pressure Positive End Expiratory 5 Pressure Positive End Expiratory 5 Pressure Positive End Expiratory 5 Pressure Peak Inspiratory Airway 22 Pressure Peak Inspiratory Airway 19 Pressure Peak Inspiratory Airway 20 Pressure Peak Inspiratory Airway 22 Pressure Peak Inspiratory Airway 17 Pressure Peak Inspiratory Airway 19 Pressure Peak Inspiratory Airway 23 Pressure Peak Inspiratory Airway 21 Pressure Peak Inspiratory Airway 23 Pressure Peak Inspiratory Airway 20 Pressure Peak Inspiratory Airway 24 Pressure Results - Laboratory Findings CBC and BMP: 07/20/16 03:45 07/20/16 03:45 ABG ABG pH 7.43 pH Units (7.32-7.45) 07/20/16 08:15 ABG pCO2 51 mmHg (35-45) H 07/20/16 08:15 ABG pO2 72 mmHg (85-104) L 07/20/16 08:15 ABG O2 Saturation 95 % (95-98) 07/20/16 08:15 PT/INR, D-dimer PT 11.9 Seconds (9.4-12.1) 07/17/16 15:33 Abnormal lab findings: Abnormal lab results RBC 3.35 M/mcL (4.19-5.50) L 07/20/16 03:45 Hgb 10.3 g/dL (12.9-16.9) L 07/20/16 03:45 Hct 31.7 % (37.5-50.1) L 07/20/16 03:45 Plt Count 110 K/mcL (140-400) L 07/20/16 03:45 Toxic Granulation Present (Not Present) A 07/18/16 04:45 Dohle Bodies Present (Not Present) A 07/17/16 17:26 Platelet Estimate Decreased (Normal) L 07/20/16 03:45 Large Platelets Present (Not Present) A 07/18/16 04:45 Immature Plt Fraction 7.4 % (1.1-6.1) H 07/18/16 04:45 Fibrinogen 733 mg/dL (169-393) H* 07/17/16 15:33 ABG pCO2 51 mmHg (35-45) H 07/20/16 08:15 ABG pO2 72 mmHg (85-104) L 07/20/16 08:15 ABG HCO3 33.9 mEQ/L (21-27) H 07/20/16 08:15 ABG Total CO2 35.5 mEq/L (20-26) H 07/20/16 08:15 ABG Base Excess 8.4 mEq/L (-2.0 to 3.0) H 07/20/16 08:15 Sodium 147 mEq/L (136-145) H 07/20/16 03:45 Potassium 3.3 mEq/L (3.5-4.5) L 07/20/16 03:45 Carbon Dioxide 33 mEq/L (19-29) H 07/20/16 03:45 Glucose 122 mg/dL (70-99) H 07/20/16 03:45 POC Glucose 113 (58-89) H 07/19/16 23:43 Calculated Osmolality 308 (280-300) H 07/20/16 03:45 Magnesium 1.5 mg/dL (1.6-2.6) L 07/20/16 03:45 Direct Bilirubin 0.9 mg/dL (0.0-0.5) H 07/17/16 15:33 AST 140 Units/L (5-34) H 07/17/16 15:33 ALT 96 Units/L (0-55) H 07/17/16 15:33 Alkaline Phosphatase 200 Units/L (38-126) H 07/17/16 15:33 Serum Total Protein 5.5 g/dL (6.0-8.3) L 07/17/16 15:33 Albumin 2.1 g/dL (3.5-5.0) L 07/17/16 15:33 Albumin/Globulin Ratio 0.6 (1.1-2.2) L 07/17/16 15:33 Amylase 322 Units/L (25-125) H 07/14/16 00:12 Lipase 956 Units/L (8-78) H 07/13/16 15:19 Urine Clarity Cloudy (Clear) A 07/14/16 02:30 Urine Ketones 80 mg/dL (Negative) H 07/14/16 02:30 Urine Bilirubin Moderate (Negative) H 07/14/16 02:30 Urine Opiates Screen Positive ng/mL (Aaozii=483) H 07/14/16 02:30 - Clinical Findings Intake & Output: Intake & Output 07/19/16 07/20/16 07/20/16 23:59 07:59 15:59 Intake Total 1904 / 1904 2906 / 2906 Output Total 1000 / 1000 1550 / 1550 Balance 904 / 904 1356 / 1356 Weight 82.2 kg - Attending Attestation I examined this patient and my medical decision-making was reviewed with the SUPERVISOR [employer]/PA/Advanced Practice Nurse/Resident Physician. I agree with the documented findings, disposition and treatment plan as described except to the extent set forth below. Patient seen and examined at bedside Labs, radiology, chart personally reviewed. All lines examined without evidence of infection. Neuropsych: Remains delirious. He is currently sedated for agitation on vent. Increase Seroquel. PMHx of ETOH abuse. Cont to wean continuous sedation Pulm: ARDS s/t to PNA (aspiration) and possibly pancreatitis. SBT trial when following commands consistently and less agitated. Acceptable oxygenation and ventilation today. Cards: Severely Hypertensive (agitation and underlying HTN) Started on Nicardipine gtt. Scheduled blood pressure coverage with hydralazine increase BB wean off nicardipine. . FEN-GI: GI prophylaxis. CT scan notable for possible developing Pseudocyst he will need surgery/GI f/u for this. Cont enteral nutrition. Cont bowel regimen Renal: Improved EDUARDO with fluids. Good UOP. ID: WBC trending down, no further fevers cont Cefepime for .e fecaelis and haemophilus in sputum x 7 days Heme/Onc: H/H stablet. DVT prophylaxis given. Endo: Glucose Monitored Integ/MSK: Skin care per ICU protocol to prevent ulcers. CODE: Full Code
[2016-07-20 08:27] LABS: ABG Base Excess 8.4 mEq/L (-2.0 to 3.0); ABG HCO3 33.9 mEQ/L (21-27); ABG Oxygen Saturation 95 % (95-98); ABG PCO2 51 mmHg (35-45); ABG PH 7.43 pH Units (7.32-7.45); ABG PO2 72 mmHg (85-104); ABG TCO2 35.5 mEq/L (20-26)
[2016-07-20 08:28] LABS: Blood Gas FiO2 40 %
[2016-07-20] MEDS: Bisacodyl 10 MG RECTAL SUPPOSITORY RC SCH (10:23)
[2016-07-20] MEDS: Thiamine (B-1) 100 MG in D5% in Water 50 ML IVPB SCH (10:23)
[2016-07-20] MEDS: Chlorhexidine Rinse 15 ML MOUTHWASH MM SCH ×2 (10:23→20:35)
[2016-07-20] MEDS: Pantoprazole 40 MG VIAL IVP SCH (10:42)
[2016-07-20] MEDS: Sennosides/Docusate Sodium TABLET PO SCH ×2 (10:42→20:37)
[2016-07-20] MEDS: Nicotine 21 MG PATCH.TD24 TD SCH (10:42)
[2016-07-20 12:15] LABS: Magnesium 1.7 mg/dL (1.6-2.6); Potassium 3.7 mEq/L (3.5-4.5)
[2016-07-20] MEDS: hydrALAZINE 25 MG TABLET PO SCH ×3 (12:17→23:09)
[2016-07-20] MEDS: Cefepime HCl 2,000 MG in D5% in Water (Mini-Bag+) 100 ML IVPB SCH ×2 (12:17→23:10)
[2016-07-20] MEDS: Magnesium Sulfate 2 GM in D5% in Water 100 ML IVPB PRN (12:40)
--- NOTE | 2016-07-20 17:40 | Electrocardiograph Report ---
[address] [place] [id number] Test Date: 2016-07-19 Pat Name: Erin Howard Department: 109 Room: [facility] Gender: M [employer]: OCTAVIO : 1970 Requested By: Sunday Suero Order Number: [id number] Reading MD: Chrystal Dominguez Measurements Intervals [place] Rate: 70 P: 14 CA: 167 QRS: 5 QRSD: 80 T: 16 QT: 373 QTc: 393 Interpretive Statements SINUS RHYTHM SEPTAL MYOCARDIAL INFARCTION, OF INDETERMINATE AGE Electronically Signed On 07-20-2016 17:39:00 EDT by Chrystal Dominguez
[2016-07-21] MEDS: Dexmedetomidine HCl 400 MCG/100 ML MLS IVC SCH ×4 (00:50→22:42)
[2016-07-21] MEDS: Midazolam HCl 100 MG in 0.9 % Sodium Chloride 80 ML IVC SCH ×3 (02:37→18:19)
[2016-07-21] MEDS: Ringers Solution, Lactated 1,000 ML IVC SCH (04:16)
[2016-07-21 04:38] LABS: Basophils % 0.5 %; Eosinophils # 0.2 K/mcL (0.0-0.6); Eosinophils % 3.6 %; Hematocrit 31.2 % (37.5-50.1); Immature Granulocytes % 0.7 % (0-4); Lymphocytes # 1.5 K/mcL (0.6-4.6); Lymphocytes % 25.5 %; Mean Corpuscular HGB Conc 32.1 g/dL (31.6-35.5); Mean Corpuscular Hemoglobin 30.1 pg (28.0-33.3); Mean Platelet Volume 11.4 fL (9.4-12.4); Monocytes % 17.1 %; Neutrophils # 3.1 K/mcL (1.6-8.9); Platelet Count 154 K/mcL (140-400); Red Blood Count 3.32 M/mcL (4.19-5.50); Red Cell Distribution Width 14.4 % (11.5-14.5); Segmented Neutrophils % 52.6 %
[2016-07-21 04:52] LABS: BUN/Creatinine Ratio 23 (6-26); Blood Urea Nitrogen 22 mg/dL (8-26); Calcium 8.7 mg/dL (8.6-10.8); Carbon Dioxide 31 mEq/L (19-29); Chloride 105 mEq/L (98-109); Glucose 121 mg/dL (70-99); Magnesium 1.7 mg/dL (1.6-2.6); Osmolality,Calculated 299 (280-300); Phosphorous 3.6 mg/dL (2.3-4.7); Potassium 3.7 mEq/L (3.5-4.5); Sodium 142 mEq/L (136-145); eGFR For African Americans > 60 (> 60); eGFR For Non-African Americans > 60 (> 60)
[2016-07-21] MEDS: Potassium Chloride Elixir 20 MEQ/15 ML UDC GTUBE PRN ×2 (05:24→12:39)
[2016-07-21] MEDS: hydrALAZINE 25 MG TABLET PO SCH (05:24)
[2016-07-21] MEDS: *HR* Enoxaparin 40 MG/0.4 ML SYRINGE SQ SCH (05:24)
[2016-07-21] MEDS: Magnesium Sulfate 2 GM in D5% in Water 100 ML IVPB PRN (06:03)
[2016-07-21] MEDS: niCARdipine 40 MG/200 ML MLS IVC SCH ×2 (07:07→09:04)
[2016-07-21] MEDS: Pantoprazole 40 MG VIAL IVP SCH (07:14)
[2016-07-21] MEDS: Haloperidol Lactate 5 MG/ML VIAL IVP PRN (07:14)
[2016-07-21] MEDS: Chlorhexidine Rinse 15 ML MOUTHWASH MM SCH ×2 (07:14→19:59)
[2016-07-21] MEDS: Nicotine 21 MG PATCH.TD24 TD SCH (07:15)
[2016-07-21] MEDS: Sennosides/Docusate Sodium TABLET PO SCH (07:16)
[2016-07-21] MEDS: Bisacodyl 10 MG RECTAL SUPPOSITORY RC SCH (07:16)
[2016-07-21] MEDS: Thiamine (B-1) 100 MG in D5% in Water 50 ML IVPB SCH (07:46)
--- NOTE | 2016-07-21 07:54 | Pulmonology Progress Note ---
<Sunday Suero - Last Filed: 07/21/16 07:58> Date of Encounter: 07/21/16 Time of Encounter: 07:30 Assessment and Plan (1) Acute respiratory failure with hypoxia Current Visit: Yes Status: Acute Patient is currently sedated and on a vent. Respiratory failure likely secondary to aspiration event with witnessed emesis. Aspiration pneumonitis vs. aspiration pneumonia. Continue cefepime [id number] Day #5 Sputum cultures: Enterobacter, which is reagan-sensitive. H. Parainfluenzae II. Patient has been improving, but has agitation upon awakening. Bowel regimen continued. Nutrition to continue tube feedings, and increase free water to help correct hypernatremia. Continue Seroquel 50mg BID for agitation when sedation is being weaned. (2) Withdrawal symptoms, alcohol Current Visit: Yes Status: Acute The patient is currently sedated with Versed drip, fentanyl, and precedex. Supplemental thiamine is being given. Weaning Versed and seroquel started 07/19. Agitation continues to be present when sedation is weaned. The patient received a dose of Librium as well this morning. Qualifiers: Complication of substance-induced condition: with delirium Qualified Code(s ): F10.231 - Alcohol dependence with withdrawal delirium (3) Acute pancreatitis Current Visit: Yes Status: Acute Tube feedings have been tolerated well. Continue to monitor. Qualifiers: Pancreatitis type: alcohol induced Acute pancreatitis complication: no infection or necrosis Qualified Code(s): K85.20 - Alcohol induced acute pancreatitis without necrosis or infection (4) DVT prophylaxis Current Visit: No Status: Acute lovenox Protonix for GI prophylaxis. (5) Hypokalemia Current Visit: Yes Status: Resolved Continue electrolyte protocol. (6) Essential hypertension Current Visit: Yes Status: Chronic Currently normotensive. Yesterday Hydralazine increased to 25mg TID and lopressor 10mg PRN pushes were added for hypertension. Nicardipene drip has been discontinued and the patient is now normotensive without continuous infusion. Metoprolol 12.5mg BID PO increased to 50mg BID. Subjective Principal diagnosis: Acute respiratory failure with hypoxia Interval history: The patient was seen and examined. Oxygen requirement is currently stable. Low grade fevers of 100.5 and 100.4 overnight. He continues to be sedated and ventilated. The patient continues to have episodes of agitation when his sedation is weaned down, and acts violent towards nursing staff. The patient is off of cardene drip and his blood pressure is now well controlled. Objective PUL Vital signs: Last Vital Signs Temp 99.2 F 07/21/16 07:49 Pulse 80 07/21/16 07:30 Resp 19 07/21/16 07:00 BP 123/74 07/21/16 07:00 Pulse Ox 93 07/21/16 07:00 General appearance: other (sedated and on a vent.) Eyes: nonicteric ENT: oropharynx moist Effort: other (on a vent) Auscultation: bilateral: clear Cardiovascular: regular rate and rhythm Gastrointestinal: normoactive bowel sounds, soft, non-tender, non-distended Integumentary: normal Extremities: edema (trace edema bilaterally on the lower extremities) Musculoskeletal: no deformities other (unable to assess due to sedation, continues to be agitated upon awakening ) Ventilator Settings Ventilator Settings: Ventilator Settings, Last 8 Hours Ventilator Mode A/C Ventilator Mode A/C Ventilator Mode A/C Ventilator Mode A/C Ventilator Mode A/C Ventilator Tidal Volume 400 Setting Ventilator Tidal Volume 400 Setting Ventilator Tidal Volume 400 Setting Ventilator Tidal Volume 400 Setting Ventilator Tidal Volume 400 Setting Ventilator Respiratory Rate 16 Setting Ventilator Respiratory Rate 16 Setting Ventilator Respiratory Rate 16 Setting Ventilator Respiratory Rate 16 Setting Ventilator Respiratory Rate 16 Setting Actual Respiratory Rate 19 Actual Respiratory Rate 19 Actual Respiratory Rate 20 Actual Respiratory Rate 19 Positive End Expiratory 5 Pressure Positive End Expiratory 5 Pressure Positive End Expiratory 5 Pressure Positive End Expiratory 5 Pressure Positive End Expiratory 5 Pressure Peak Inspiratory Airway 15 Pressure Peak Inspiratory Airway 25 Pressure Peak Inspiratory Airway 26 Pressure Peak Inspiratory Airway 32 Pressure Peak Inspiratory Airway 33 Pressure Results - Laboratory Findings CBC and BMP: 07/21/16 04:20 07/21/16 04:20 ABG ABG pH 7.43 pH Units (7.32-7.45) 07/20/16 08:15 ABG pCO2 51 mmHg (35-45) H 07/20/16 08:15 ABG pO2 72 mmHg (85-104) L 07/20/16 08:15 ABG O2 Saturation 95 % (95-98) 07/20/16 08:15 PT/INR, D-dimer PT 11.9 Seconds (9.4-12.1) 07/17/16 15:33 Abnormal lab findings: Abnormal lab results RBC 3.32 M/mcL (4.19-5.50) L 07/21/16 04:20 Hgb 10.0 g/dL (12.9-16.9) L 07/21/16 04:20 Hct 31.2 % (37.5-50.1) L 07/21/16 04:20 Toxic Granulation Present (Not Present) A 07/18/16 04:45 Dohle Bodies Present (Not Present) A 07/17/16 17:26 Platelet Estimate Decreased (Normal) L 07/20/16 03:45 Large Platelets Present (Not Present) A 07/18/16 04:45 Immature Plt Fraction 7.4 % (1.1-6.1) H 07/18/16 04:45 Fibrinogen 733 mg/dL (169-393) H* 07/17/16 15:33 ABG pCO2 51 mmHg (35-45) H 07/20/16 08:15 ABG pO2 72 mmHg (85-104) L 07/20/16 08:15 ABG HCO3 33.9 mEQ/L (21-27) H 07/20/16 08:15 ABG Total CO2 35.5 mEq/L (20-26) H 07/20/16 08:15 ABG Base Excess 8.4 mEq/L (-2.0 to 3.0) H 07/20/16 08:15 Carbon Dioxide 31 mEq/L (19-29) H 07/21/16 04:20 Glucose 121 mg/dL (70-99) H 07/21/16 04:20 POC Glucose 133 (58-89) H 07/20/16 23:37 Direct Bilirubin 0.9 mg/dL (0.0-0.5) H 07/17/16 15:33 AST 140 Units/L (5-34) H 07/17/16 15:33 ALT 96 Units/L (0-55) H 07/17/16 15:33 Alkaline Phosphatase 200 Units/L (38-126) H 07/17/16 15:33 Serum Total Protein 5.5 g/dL (6.0-8.3) L 07/17/16 15:33 Albumin 2.1 g/dL (3.5-5.0) L 07/17/16 15:33 Albumin/Globulin Ratio 0.6 (1.1-2.2) L 07/17/16 15:33 Amylase 322 Units/L (25-125) H 07/14/16 00:12 Lipase 956 Units/L (8-78) H 07/13/16 15:19 Urine Clarity Cloudy (Clear) A 07/14/16 02:30 Urine Ketones 80 mg/dL (Negative) H 07/14/16 02:30 Urine Bilirubin Moderate (Negative) H 07/14/16 02:30 Urine Opiates Screen Positive ng/mL (Wwtyxs=090) H 07/14/16 02:30 - Microbiology Findings Microbiology Findings: Microbiology, Last 48 Hours 07/15/16 12:29 Blood Culture - Final Peripheral Venipuncture No growth. - Clinical Findings Intake & Output: Intake & Output 07/20/16 07/20/16 07/21/16 15:59 23:59 07:59 Intake Total 1487 / 1487 2609 / 2609 3388 / 3388 Output Total 675 / 675 825 / 825 1500 / 1500 Balance 812 / 812 1784 / 1784 1888 / 1888 Weight 89.7 kg Consult Discharge Plan - Plan Referrals: Kalia Sheppard MD [Primary Care Provider] - <Hayedn De La Cruz - Last Filed: 07/21/16 12:12> Date of Encounter: 07/21/16 Objective PUL Vital signs: Last Vital Signs Temp 98.0 F 07/21/16 11:50 Pulse 71 07/21/16 12:00 Resp 22 07/21/16 12:00 BP 121/82 07/21/16 12:00 Pulse Ox 99 07/21/16 12:00 Ventilator Settings Ventilator Settings: Ventilator Settings, Last 8 Hours Ventilator Mode A/C Ventilator Mode A/C Ventilator Mode A/C Ventilator Mode A/C Ventilator Mode A/C Ventilator Mode A/C Ventilator Mode A/C Ventilator Mode A/C Ventilator Mode A/C Ventilator Tidal Volume 400 Setting Ventilator Tidal Volume 400 Setting Ventilator Tidal Volume 400 Setting Ventilator Tidal Volume 400 Setting Ventilator Tidal Volume 400 Setting Ventilator Tidal Volume 400 Setting Ventilator Tidal Volume 400 Setting Ventilator Tidal Volume 400 Setting Ventilator Tidal Volume 400 Setting Ventilator Respiratory Rate 16 Setting Ventilator Respiratory Rate 16 Setting Ventilator Respiratory Rate 16 Setting Ventilator Respiratory Rate 16 Setting Ventilator Respiratory Rate 16 Setting Ventilator Respiratory Rate 16 Setting Ventilator Respiratory Rate 16 Setting Ventilator Respiratory Rate 16 Setting Ventilator Respiratory Rate 16 Setting Actual Respiratory Rate 19 Actual Respiratory Rate 18 Actual Respiratory Rate 18 Actual Respiratory Rate 16 Actual Respiratory Rate 21 Actual Respiratory Rate 18 Actual Respiratory Rate 19 Actual Respiratory Rate 19 Actual Respiratory Rate 19 Positive End Expiratory 5 Pressure Positive End Expiratory 5 Pressure Positive End Expiratory 5 Pressure Positive End Expiratory 5 Pressure Positive End Expiratory 5 Pressure Positive End Expiratory 5 Pressure Positive End Expiratory 5 Pressure Positive End Expiratory 5 Pressure Positive End Expiratory 5 Pressure Peak Inspiratory Airway 28 Pressure Peak Inspiratory Airway 28 Pressure Peak Inspiratory Airway 33 Pressure Peak Inspiratory Airway 34 Pressure Peak Inspiratory Airway 33 Pressure Peak Inspiratory Airway 29 Pressure Peak Inspiratory Airway 23 Pressure Peak Inspiratory Airway 15 Pressure Peak Inspiratory Airway 25 Pressure Results - Laboratory Findings CBC and BMP: 07/21/16 04:20 07/21/16 04:20 ABG ABG pH 7.43 pH Units (7.32-7.45) 07/20/16 08:15 ABG pCO2 51 mmHg (35-45) H 07/20/16 08:15 ABG pO2 72 mmHg (85-104) L 07/20/16 08:15 ABG O2 Saturation 95 % (95-98) 07/20/16 08:15 PT/INR, D-dimer PT 11.9 Seconds (9.4-12.1) 07/17/16 15:33 Abnormal lab findings: Abnormal lab results RBC 3.32 M/mcL (4.19-5.50) L 07/21/16 04:20 Hgb 10.0 g/dL (12.9-16.9) L 07/21/16 04:20 Hct 31.2 % (37.5-50.1) L 07/21/16 04:20 Toxic Granulation Present (Not Present) A 07/18/16 04:45 Dohle Bodies Present (Not Present) A 07/17/16 17:26 Platelet Estimate Decreased (Normal) L 07/20/16 03:45 Large Platelets Present (Not Present) A 07/18/16 04:45 Immature Plt Fraction 7.4 % (1.1-6.1) H 07/18/16 04:45 Fibrinogen 733 mg/dL (169-393) H* 07/17/16 15:33 ABG pCO2 51 mmHg (35-45) H 07/20/16 08:15 ABG pO2 72 mmHg (85-104) L 07/20/16 08:15 ABG HCO3 33.9 mEQ/L (21-27) H 07/20/16 08:15 ABG Total CO2 35.5 mEq/L (20-26) H 07/20/16 08:15 ABG Base Excess 8.4 mEq/L (-2.0 to 3.0) H 07/20/16 08:15 Carbon Dioxide 31 mEq/L (19-29) H 07/21/16 04:20 Glucose 121 mg/dL (70-99) H 07/21/16 04:20 POC Glucose 133 (58-89) H 07/20/16 23:37 Direct Bilirubin 0.9 mg/dL (0.0-0.5) H 07/17/16 15:33 AST 140 Units/L (5-34) H 07/17/16 15:33 ALT 96 Units/L (0-55) H 07/17/16 15:33 Alkaline Phosphatase 200 Units/L (38-126) H 07/17/16 15:33 Serum Total Protein 5.5 g/dL (6.0-8.3) L 07/17/16 15:33 Albumin 2.1 g/dL (3.5-5.0) L 07/17/16 15:33 Albumin/Globulin Ratio 0.6 (1.1-2.2) L 07/17/16 15:33 Amylase 322 Units/L (25-125) H 07/14/16 00:12 Lipase 956 Units/L (8-78) H 07/13/16 15:19 Urine Clarity Cloudy (Clear) A 07/14/16 02:30 Urine Ketones 80 mg/dL (Negative) H 07/14/16 02:30 Urine Bilirubin Moderate (Negative) H 07/14/16 02:30 Urine Opiates Screen Positive ng/mL (Cvijil=[id number]) H 07/14/16 02:30 - Microbiology Findings Microbiology Findings: Microbiology, Last 48 Hours 07/15/16 12:29 Blood Culture - Final Peripheral Venipuncture No growth. - Clinical Findings Intake & Output: Intake & Output 07/20/16 07/21/16 07/21/16 23:59 07:59 15:59 Intake Total 2609 / 2609 3388 / 3388 1150 / 1150 Output Total 825 / 825 1500 / 1500 1350 / 1350 Balance 1784 / 1784 1888 / 1888 -200 / -200 Weight 89.7 kg - Attending Attestation I examined this patient and my medical decision-making was reviewed with the BIOLOGY SPECIALIST/PA/Advanced Practice Nurse/Resident Physician. I agree with the documented findings, disposition and treatment plan as described except to the extent set forth below. Patient seen and examined at bedside Labs, radiology, chart personally reviewed. All lines examined without evidence of infection. Neuropsych: Remains delirious and agitated/combative off of sedation.Cont sedated for agitation on vent (goal SEQUEIRA 3). Increase dose of Seroquel. PMHx of ETOH abuse. Pulm: ARDS s/t to PNA (aspiration) and possibly pancreatitis. SBT/Liberation precluded by level of agitation and sedation requirements. Acceptable oxygenation/ventilation abandoned minimal ventilatory support Cards: BP better controlled with titration of internal antihypertensives. . FEN-GI: GI prophylaxis given. CT scan notable for possible developing Pseudocyst he will need surgery/GI f/u for this. Cont enteral nutrition. Slow bowel regimen as patient has had several large bowel movements. Renal: Improved EDUARDO with fluids. Diurese today. Will need daily electrolyte panel and replace per protocol ID: WBC trending down, no further fevers cont Cefepime for .e fecaelis and haemophilus in sputum x 7 days (d/c tomorrow) Heme/Onc: H/H stable. DVT prophylaxis given. Endo: Glucose Monitored Integ/MSK: Skin care per ICU protocol to prevent ulcers. CODE: Full Code I updated his at bedside today all questions answered
[2016-07-21] MEDS ORDERED: Bisacodyl 10 MG RECTAL SUPPOSITORY RC PRN (08:03)
[2016-07-21] MEDS ORDERED: Sennosides/Docusate Sodium TABLET PO PRN (08:03)
[2016-07-21] MEDS ORDERED: Furosemide 20 MG/2 ML VIAL IVP ONE (09:44)
[2016-07-21] MEDS: FentaNYL (PF) 3,000 MCG in 0.9 % Sodium Chloride 240 ML IVC SCH (10:40)
[2016-07-21] MEDS: Cefepime HCl 2,000 MG in D5% in Water (Mini-Bag+) 100 ML IVPB SCH ×2 (11:00→23:28)
[2016-07-21 12:18] LABS: Potassium 3.9 mEq/L (3.5-4.5)
[2016-07-21 12:49] LABS: INR 1.2; Prothrombin Time 12.5 Seconds (9.4-12.1)
[2016-07-22 03:45] LABS: Basophils % 0.3 %; Eosinophils # 0.3 K/mcL (0.0-0.6); Eosinophils % 3.8 %; Hematocrit 30.4 % (37.5-50.1); Hemoglobin 9.9 g/dL (12.9-16.9); Immature Granulocytes % 0.7 % (0-4); Lymphocytes # 1.3 K/mcL (0.6-4.6); Lymphocytes % 18.3 %; Mean Corpuscular HGB Conc 32.6 g/dL (31.6-35.5); Mean Corpuscular Hemoglobin 30.8 pg (28.0-33.3); Mean Corpuscular Volume 94.7 fL (83.0-100.0); Mean Platelet Volume 11.9 fL (9.4-12.4); Monocytes # 0.9 K/mcL (0.0-1.3); Monocytes % 12.5 %; Neutrophils # 4.4 K/mcL (1.6-8.9); Platelet Count 168 K/mcL (140-400); Red Blood Count 3.21 M/mcL (4.19-5.50); Red Cell Distribution Width 14.3 % (11.5-14.5); Segmented Neutrophils % 64.4 %
[2016-07-22] MEDS: FentaNYL (PF) 3,000 MCG in 0.9 % Sodium Chloride 240 ML IVC SCH (03:45)
[2016-07-22 03:49] LABS: Ionized Calcium 1.2 mmol/L (1.15-1.35)
[2016-07-22 03:57] LABS: Magnesium 1.7 mg/dL (1.6-2.6); Phosphorous 3.8 mg/dL (2.3-4.7)
[2016-07-22 03:58] LABS: BUN/Creatinine Ratio 24 (6-26); Blood Urea Nitrogen 23 mg/dL (8-26); Calcium 8.6 mg/dL (8.6-10.8); Carbon Dioxide 29 mEq/L (19-29); Chloride 108 mEq/L (98-109); Glucose 128 mg/dL (70-99); Osmolality,Calculated 301 (280-300); Potassium 3.7 mEq/L (3.5-4.5); Sodium 143 mEq/L (136-145); eGFR For African Americans > 60 (> 60); eGFR For Non-African Americans > 60 (> 60)
[2016-07-22 04:06] LABS: Platelet Estimate Normal (Normal)
[2016-07-22] MEDS: Magnesium Sulfate 2 GM in D5% in Water 100 ML IVPB PRN ×2 (04:24→11:38)
[2016-07-22] MEDS: Potassium Chloride 40 MEQ/200 ML BAG IVPB PRN ×2 (04:24→11:26)
[2016-07-22] MEDS: Midazolam HCl 100 MG in 0.9 % Sodium Chloride 80 ML IVC SCH (04:31)
[2016-07-22] MEDS: *HR* Enoxaparin 40 MG/0.4 ML SYRINGE SQ SCH (05:29)
[2016-07-22] MEDS: Dexmedetomidine HCl 400 MCG/100 ML MLS IVC SCH ×5 (05:31→23:27)
[2016-07-22] MEDS: Pantoprazole 40 MG VIAL IVP SCH (07:09)
[2016-07-22] MEDS: Nicotine 21 MG PATCH.TD24 TD SCH (07:09)
[2016-07-22] MEDS: Chlorhexidine Rinse 15 ML MOUTHWASH MM SCH ×2 (07:09→20:08)
[2016-07-22] MEDS ORDERED: Furosemide 20 MG/2 ML VIAL IVP ONE (07:50)
[2016-07-22] MEDS: Thiamine (B-1) 100 MG in D5% in Water 50 ML IVPB SCH (08:25)
--- NOTE | 2016-07-22 08:55 | Pulmonology Progress Note ---
<Sunday Suero - Last Filed: 07/22/16 09:32> Date of Encounter: 07/22/16 Time of Encounter: 07:55 Assessment and Plan (1) Acute respiratory failure with hypoxia Current Visit: Yes Status: Acute Extubated this morning at 8AM. Continue cefepime [id number] Day #6. Will discontinue tomorrow. Sputum cultures: Enterobacter, which is reagan-sensitive. H. Parainfluenzae II. Patient was less agitated this morning and able to follow commands. Bowel regimen continued. Continue Seroquel 50mg BID for agitation. Will change medications for agitation/sedation. Continue precedex. Valium 5mg TID. Ativan 1mg/hr PRN. Dilaudid 1mg Q3hr PRN. Albuterol nebulizer Q4hr. (2) Withdrawal symptoms, alcohol Current Visit: Yes Status: Acute Continue precedex. Supplemental thiamine is being given. Seroquel started 07/19. Continue Librium. See additional sedation meds above. Qualifiers: Complication of substance-induced condition: with delirium Qualified Code(s ): F10.231 - Alcohol dependence with withdrawal delirium (3) Acute pancreatitis Current Visit: Yes Status: Acute Continue to monitor. Will adjust diet as tolerated. Qualifiers: Pancreatitis type: alcohol induced Acute pancreatitis complication: no infection or necrosis Qualified Code(s): K85.20 - Alcohol induced acute pancreatitis without necrosis or infection (4) DVT prophylaxis Current Visit: No Status: Acute lovenox Protonix for GI prophylaxis. (5) Hypokalemia Current Visit: Yes Status: Resolved Continue electrolyte protocol. (6) Essential hypertension Current Visit: Yes Status: Chronic Currently normotensive. Continue current regimen. Subjective Principal diagnosis: Acute respiratory failure with hypoxia Interval history: The patient was seen and examined. The patient was extubated this morning at 8AM. He has been calmer today and is following commands. He is continuing to saturate well via nasal cannula at this time. Objective PUL Vital signs: Last Vital Signs Temp 98.7 F 07/22/16 08:02 Pulse 74 07/22/16 07:15 Resp 19 07/22/16 07:00 BP 133/78 07/22/16 07:00 Pulse Ox 97 07/22/16 07:00 General appearance: no acute distress Eyes: icteric ENT: oropharynx moist Neck: supple Effort: normal Auscultation: bilateral: rales Cardiovascular: regular rate and rhythm Gastrointestinal: normoactive bowel sounds, soft, non-tender, non-distended Integumentary: normal Extremities: no cyanosis Musculoskeletal: no deformities non-focal exam, other (patient move all 4 extremities spontaneously and follows commands. ) Ventilator Settings Ventilator Settings: Ventilator Settings, Last 8 Hours Ventilator Mode A/C Ventilator Mode A/C Ventilator Mode A/C Ventilator Mode A/C Ventilator Mode A/C Ventilator Mode A/C Ventilator Mode A/C Ventilator Mode A/C Ventilator Mode A/C Ventilator Mode A/C Ventilator Tidal Volume 400 Setting Ventilator Tidal Volume 400 Setting Ventilator Tidal Volume 400 Setting Ventilator Tidal Volume 400 Setting Ventilator Tidal Volume 400 Setting Ventilator Tidal Volume 400 Setting Ventilator Tidal Volume 400 Setting Ventilator Tidal Volume 400 Setting Ventilator Tidal Volume 400 Setting Ventilator Tidal Volume 400 Setting Ventilator Respiratory Rate 16 Setting Ventilator Respiratory Rate 16 Setting Ventilator Respiratory Rate 16 Setting Ventilator Respiratory Rate 16 Setting Ventilator Respiratory Rate 16 Setting Ventilator Respiratory Rate 16 Setting Ventilator Respiratory Rate 16 Setting Ventilator Respiratory Rate 16 Setting Ventilator Respiratory Rate 16 Setting Ventilator Respiratory Rate 16 Setting Actual Respiratory Rate 19 Actual Respiratory Rate 18 Actual Respiratory Rate 18 Actual Respiratory Rate 20 Actual Respiratory Rate 20 Actual Respiratory Rate 19 Actual Respiratory Rate 21 Actual Respiratory Rate 22 Actual Respiratory Rate 22 Actual Respiratory Rate 22 Positive End Expiratory 5 Pressure Positive End Expiratory 5 Pressure Positive End Expiratory 5 Pressure Positive End Expiratory 5 Pressure Positive End Expiratory 5 Pressure Positive End Expiratory 5 Pressure Positive End Expiratory 5 Pressure Positive End Expiratory 5 Pressure Positive End Expiratory 5 Pressure Positive End Expiratory 5 Pressure Peak Inspiratory Airway 26 Pressure Peak Inspiratory Airway 36 Pressure Peak Inspiratory Airway 36 Pressure Peak Inspiratory Airway 39 Pressure Peak Inspiratory Airway 20 Pressure Peak Inspiratory Airway 20 Pressure Peak Inspiratory Airway 20 Pressure Peak Inspiratory Airway 21 Pressure Peak Inspiratory Airway 21 Pressure Peak Inspiratory Airway 20 Pressure Results - Laboratory Findings CBC and BMP: 07/22/16 03:25 07/22/16 03:25 ABG ABG pH 7.43 pH Units (7.32-7.45) 07/20/16 08:15 ABG pCO2 51 mmHg (35-45) H 07/20/16 08:15 ABG pO2 72 mmHg (85-104) L 07/20/16 08:15 ABG O2 Saturation 95 % (95-98) 07/20/16 08:15 PT/INR, D-dimer PT 12.5 Seconds (9.4-12.1) H 07/21/16 11:55 Abnormal lab findings: Abnormal lab results RBC 3.21 M/mcL (4.19-5.50) L 07/22/16 03:25 Hgb 9.9 g/dL (12.9-16.9) L 07/22/16 03:25 Hct 30.4 % (37.5-50.1) L 07/22/16 03:25 Toxic Granulation Present (Not Present) A 07/18/16 04:45 Dohle Bodies Present (Not Present) A 07/17/16 17:26 Large Platelets Present (Not Present) A 07/18/16 04:45 Immature Plt Fraction 7.4 % (1.1-6.1) H 07/18/16 04:45 PT 12.5 Seconds (9.4-12.1) H 07/21/16 11:55 Fibrinogen 733 mg/dL (169-393) H* 07/17/16 15:33 ABG pCO2 51 mmHg (35-45) H 07/20/16 08:15 ABG pO2 72 mmHg (85-104) L 07/20/16 08:15 ABG HCO3 33.9 mEQ/L (21-27) H 07/20/16 08:15 ABG Total CO2 35.5 mEq/L (20-26) H 07/20/16 08:15 ABG Base Excess 8.4 mEq/L (-2.0 to 3.0) H 07/20/16 08:15 Glucose 128 mg/dL (70-99) H 07/22/16 03:25 POC Glucose 145 (58-89) H 07/21/16 23:23 Calculated Osmolality 301 (280-300) H 07/22/16 03:25 Direct Bilirubin 0.9 mg/dL (0.0-0.5) H 07/17/16 15:33 AST 140 Units/L (5-34) H 07/17/16 15:33 ALT 96 Units/L (0-55) H 07/17/16 15:33 Alkaline Phosphatase 200 Units/L (38-126) H 07/17/16 15:33 Serum Total Protein 5.5 g/dL (6.0-8.3) L 07/17/16 15:33 Albumin 2.1 g/dL (3.5-5.0) L 07/17/16 15:33 Albumin/Globulin Ratio 0.6 (1.1-2.2) L 07/17/16 15:33 Amylase 322 Units/L (25-125) H 07/14/16 00:12 Lipase 956 Units/L (8-78) H 07/13/16 15:19 Urine Clarity Cloudy (Clear) A 07/14/16 02:30 Urine Ketones 80 mg/dL (Negative) H 07/14/16 02:30 Urine Bilirubin Moderate (Negative) H 07/14/16 02:30 Urine Opiates Screen Positive ng/mL (Hxmoqf=306) H 07/14/16 02:30 - Microbiology Findings Microbiology Findings: Microbiology, Last 48 Hours 07/15/16 12:29 Blood Culture - Final Peripheral Venipuncture No growth. - Clinical Findings Intake & Output: Intake & Output 07/21/16 07/22/16 07/22/16 23:59 07:59 15:59 Intake Total 533 / 533 1268 / 1268 200 / 200 Output Total 2024 / 2024 600 / 600 300 / 300 Balance -1492 / -1492 668 / 668 -100 / -100 Consult Discharge Plan - Plan Referrals: Kalia Sheppard MD [Primary Care Provider] - <Hayden De La Cruz - Last Filed: 07/22/16 10:20> Date of Encounter: 07/22/16 Objective PUL Vital signs: Last Vital Signs Temp 98.7 F 07/22/16 08:02 Pulse 82 07/22/16 09:00 Resp 20 07/22/16 09:00 BP 146/77 07/22/16 09:35 Pulse Ox 97 07/22/16 09:35 Ventilator Settings Ventilator Settings: Ventilator Settings, Last 8 Hours Ventilator Mode A/C Ventilator Mode A/C Ventilator Mode A/C Ventilator Mode A/C Ventilator Mode A/C Ventilator Mode A/C Ventilator Mode A/C Ventilator Tidal Volume 400 Setting Ventilator Tidal Volume 400 Setting Ventilator Tidal Volume 400 Setting Ventilator Tidal Volume 400 Setting Ventilator Tidal Volume 400 Setting Ventilator Tidal Volume 400 Setting Ventilator Tidal Volume 400 Setting Ventilator Respiratory Rate 16 Setting Ventilator Respiratory Rate 16 Setting Ventilator Respiratory Rate 16 Setting Ventilator Respiratory Rate 16 Setting Ventilator Respiratory Rate 16 Setting Ventilator Respiratory Rate 16 Setting Ventilator Respiratory Rate 16 Setting Actual Respiratory Rate 19 Actual Respiratory Rate 18 Actual Respiratory Rate 18 Actual Respiratory Rate 20 Actual Respiratory Rate 20 Actual Respiratory Rate 19 Actual Respiratory Rate 21 Positive End Expiratory 5 Pressure Positive End Expiratory 5 Pressure Positive End Expiratory 5 Pressure Positive End Expiratory 5 Pressure Positive End Expiratory 5 Pressure Positive End Expiratory 5 Pressure Positive End Expiratory 5 Pressure Peak Inspiratory Airway 26 Pressure Peak Inspiratory Airway 36 Pressure Peak Inspiratory Airway 36 Pressure Peak Inspiratory Airway 39 Pressure Peak Inspiratory Airway 20 Pressure Peak Inspiratory Airway 20 Pressure Peak Inspiratory Airway 20 Pressure Results - Laboratory Findings CBC and BMP: 07/22/16 03:25 07/22/16 03:25 ABG ABG pH 7.43 pH Units (7.32-7.45) 07/20/16 08:15 ABG pCO2 51 mmHg (35-45) H 07/20/16 08:15 ABG pO2 72 mmHg (85-104) L 07/20/16 08:15 ABG O2 Saturation 95 % (95-98) 07/20/16 08:15 PT/INR, D-dimer PT 12.5 Seconds (9.4-12.1) H 07/21/16 11:55 Abnormal lab findings: Abnormal lab results RBC 3.21 M/mcL (4.19-5.50) L 07/22/16 03:25 Hgb 9.9 g/dL (12.9-16.9) L 07/22/16 03:25 Hct 30.4 % (37.5-50.1) L 07/22/16 03:25 Toxic Granulation Present (Not Present) A 07/18/16 04:45 Dohle Bodies Present (Not Present) A 07/17/16 17:26 Large Platelets Present (Not Present) A 07/18/16 04:45 Immature Plt Fraction 7.4 % (1.1-6.1) H 07/18/16 04:45 PT 12.5 Seconds (9.4-12.1) H 07/21/16 11:55 Fibrinogen 733 mg/dL (169-393) H* 07/17/16 15:33 ABG pCO2 51 mmHg (35-45) H 07/20/16 08:15 ABG pO2 72 mmHg (85-104) L 07/20/16 08:15 ABG HCO3 33.9 mEQ/L (21-27) H 07/20/16 08:15 ABG Total CO2 35.5 mEq/L (20-26) H 07/20/16 08:15 ABG Base Excess 8.4 mEq/L (-2.0 to 3.0) H 07/20/16 08:15 Glucose 128 mg/dL (70-99) H 07/22/16 03:25 POC Glucose 145 (58-89) H 07/21/16 23:23 Calculated Osmolality 301 (280-300) H 07/22/16 03:25 Direct Bilirubin 0.9 mg/dL (0.0-0.5) H 07/17/16 15:33 AST 140 Units/L (5-34) H 07/17/16 15:33 ALT 96 Units/L (0-55) H 07/17/16 15:33 Alkaline Phosphatase 200 Units/L (38-126) H 07/17/16 15:33 Serum Total Protein 5.5 g/dL (6.0-8.3) L 07/17/16 15:33 Albumin 2.1 g/dL (3.5-5.0) L 07/17/16 15:33 Albumin/Globulin Ratio 0.6 (1.1-2.2) L 07/17/16 15:33 Amylase 322 Units/L (25-125) H 07/14/16 00:12 Lipase 956 Units/L (8-78) H 07/13/16 15:19 Urine Clarity Cloudy (Clear) A 07/14/16 02:30 Urine Ketones 80 mg/dL (Negative) H 07/14/16 02:30 Urine Bilirubin Moderate (Negative) H 07/14/16 02:30 Urine Opiates Screen Positive ng/mL (Shtwly=218) H 07/14/16 02:30 - Microbiology Findings Microbiology Findings: Microbiology, Last 48 Hours 07/15/16 12:29 Blood Culture - Final Peripheral Venipuncture No growth. - Clinical Findings Intake & Output: Intake & Output 07/21/16 07/22/16 07/22/16 23:59 07:59 15:59 Intake Total 533 / 533 1268 / 1268 251 / 251 Output Total 2024 600 / 600 300 / 300 Balance -1492 / -1492 668 / 668 -49 / -49 - Attending Attestation I examined this patient and my medical decision-making was reviewed with the ELECTRICAL CONTROLS DESIGNER/PA/Advanced Practice Nurse/Resident Physician. I agree with the documented findings, disposition and treatment plan as described except to the extent set forth below. Patient seen and examined at bedside Labs, radiology, chart personally reviewed. All lines examined without evidence of infection. Neuropsych: Remains delirious continued to give Librium Seroquel and decreased dose of benzodiazepine. Pulm: ARDS s/t to PNA (aspiration) and possibly pancreatitis. Successful liberated from Ventilator today. Cont. to wean FiO2 to keep saturations around 92% diuresis for pulmonary edema Cards: Antihypertensives given titrate as needed FEN-GI: Acute pancreatitis resolving he does have evidence Pseudocyst he will need surgery/GI f/u for this. Okay to advance diet as tolerated after bedside speech/swallow eval Renal: Continue diuresis and daily electrolyte panel replace per protocol ID:cont Cefepime for .e fecaelis and haemophilus in sputum x 7 days Heme/Onc: H/H stable. DVT prophylaxis given. Endo: Glucose Monitored Integ/MSK: Skin care per ICU protocol to prevent ulcers. CODE: Full Code; seen at bedside and updated
[2016-07-22] MEDS: *HR* HYDROmorphone (PF) 1 MG/ML SYRINGE IVP PRN ×2 (08:57→16:15)
[2016-07-22] MEDS ORDERED: Albuterol 2.5 MG/3 ML NEBULIZER IH PRN (09:31)
[2016-07-22] MEDS: *HR* Metoprolol 5 MG/5 ML VIAL IVP PRN ×2 (10:34→22:35)
[2016-07-22] MEDS: *HR* LORazepam 2 MG/ML VIAL IVP PRN ×3 (10:34→17:00)
[2016-07-22 10:59] LABS: Magnesium 1.7 mg/dL (1.6-2.6); Potassium 3.6 mEq/L (3.5-4.5)
[2016-07-22] MEDS: Cefepime HCl 2,000 MG in D5% in Water (Mini-Bag+) 100 ML IVPB SCH ×2 (11:00→23:18)
[2016-07-22] MEDS: diazePAM 10 MG/2 ML SYRINGE IVP SCH (15:35)
[2016-07-22] MEDS ORDERED: *HR* Promethazine 25 MG/ML VIAL IVP PRN (17:27)
[2016-07-23 03:57] LABS: Hematocrit 30.8 % (37.5-50.1); Hemoglobin 10.2 g/dL (12.9-16.9); Mean Corpuscular HGB Conc 33.1 g/dL (31.6-35.5); Mean Corpuscular Hemoglobin 30.8 pg (28.0-33.3); Mean Corpuscular Volume 93.1 fL (83.0-100.0); Mean Platelet Volume 11.5 fL (9.4-12.4); Platelet Count 232 K/mcL (140-400); Red Blood Count 3.31 M/mcL (4.19-5.50); Red Cell Distribution Width 14.3 % (11.5-14.5)
[2016-07-23 04:03] LABS: Ionized Calcium 1.13 mmol/L (1.15-1.35)
[2016-07-23 04:10] LABS: BUN/Creatinine Ratio 21 (6-26); Blood Urea Nitrogen 19 mg/dL (8-26); Calcium 8.9 mg/dL (8.6-10.8); Carbon Dioxide 29 mEq/L (19-29); Chloride 106 mEq/L (98-109); Glucose 116 mg/dL (70-99); Osmolality,Calculated 299 (280-300); Potassium 3.7 mEq/L (3.5-4.5); Sodium 143 mEq/L (136-145); eGFR For African Americans > 60 (> 60); eGFR For Non-African Americans > 60 (> 60)
[2016-07-23 04:11] LABS: Magnesium 1.8 mg/dL (1.6-2.6); Phosphorous 3.4 mg/dL (2.3-4.7)
[2016-07-23 04:31] LABS: Large Platelets Present (Not Present); Lymphocytes # 0.4 K/mcL (0.6-4.6); Monocytes # 0.9 K/mcL (0.0-1.3); Neutrophils # 9.5 K/mcL (1.6-8.9); Platelet Estimate Normal (Normal); Reactive Lymphocytes Present (Not Present)
[2016-07-23] MEDS: diazePAM 10 MG/2 ML SYRINGE IVP SCH ×2 (04:57→08:16)
[2016-07-23] MEDS: Dexmedetomidine HCl 400 MCG/100 ML MLS IVC SCH (05:47)
[2016-07-23] MEDS: Magnesium Sulfate 2 GM in D5% in Water 100 ML IVPB PRN ×2 (05:48→16:24)
[2016-07-23] MEDS: Potassium Chloride 40 MEQ/200 ML BAG IVPB PRN ×2 (05:48→16:24)
[2016-07-23] MEDS: *HR* Enoxaparin 40 MG/0.4 ML SYRINGE SQ SCH (05:51)
[2016-07-23] MEDS: Chlorhexidine Rinse 15 ML MOUTHWASH MM SCH (08:16)
[2016-07-23] MEDS: Pantoprazole 40 MG VIAL IVP SCH (08:16)
[2016-07-23] MEDS: Nicotine 21 MG PATCH.TD24 TD SCH (08:16)
[2016-07-23] MEDS: Thiamine (B-1) 100 MG in D5% in Water 50 ML IVPB SCH (08:38)
--- NOTE | 2016-07-23 08:39 | Pulmonology Progress Note ---
<Estrellita Capellan - Last Filed: 07/23/16 15:01> Date of Encounter: 07/23/16 Time of Encounter: 08:37 Assessment and Plan (1) Acute pancreatitis Current Visit: Yes Status: Acute CT A/P from 07/17 showed acute pancreatitis with increased inflammation from prior CT, interval development of probable pseudocyst at pancreatic head. No evidence of hemorrhage or hematoma, bilateral pleural effusion and patchy consolidation in lower lungs. Etiology likely secondary to alcohol abuse. Plan: Currently NPO concern for aspiration- will get speech/swallow eval. advance diet as tolerated after speech/swallow eval. patient febrile this morning, concern for infection. will get ultrasound of liver/GB. will get ammonia levels and re check LFTs, get lipase levels. Qualifiers: Pancreatitis type: alcohol induced Acute pancreatitis complication: no infection or necrosis Qualified Code(s): K85.20 - Alcohol induced acute pancreatitis without necrosis or infection (2) Withdrawal symptoms, alcohol Current Visit: Yes Status: Acute patient is minimally responsive. CT head showed no evidence of hemorrhage or mass. Significant for mild atrophy with mild periventricular and scattered frontal parietal white matter disease, likely due to small vessel ischemic changes. Plan: continue supplemental thiamine. precedex drip as needed for withdrawal. changed valium from scheduled to PRN. Seroquel PRN for agitation. Qualifiers: Complication of substance-induced condition: with delirium Qualified Code(s ): F10.231 - Alcohol dependence with withdrawal delirium (3) Acute respiratory failure with hypoxia Current Visit: Yes Status: Resolved Resolved. Patient extubated yesterday. Etiology likely multifactorial insetting of alcohol abuse, possible aspiration pneumonia. sputum cultuer grew enterobacter cloacae, positive for H.parainfluenza II Urine culture no growth blood culture no growth. Plan: Cefepime Day 7- discontinue today. (4) Tobacco abuse Current Visit: Yes Status: Acute nicotine patch. (5) Essential hypertension Current Visit: Yes Status: Chronic patient is currently normotensive. continue PRN antihypertensive meds (6) DVT prophylaxis Current Visit: No Status: Acute Lovenox SQ protonix for GI prophylaxis. Neuro/sedation: alcohol withdrawal precautions. patient is alert but minimally responsive, continue supplemental thiamine, precedex drip as needed for withdrawal, changed valium from scheduled to PRN. D/C Seroquel. Pulm: extubated yesterday. Had ARF secondary to aspiration pneumonia. Cefepime day 7, will discontinue today. Cardio: currently normotensive. Hypertensive meds PRN GI: pancreatitis with pseudocysts likely secondary to alcohol abuse. getting speech/swallow eval. advance diet as tolerated if applicable. Renal: continue electrolyte protocol. ID: sputum culture positive for Enterobacter cloacae, Haemophilus Influenza II. Last day of cefepime. Heme/onc: H/H stable. continue to monitor. Lovenox SQ for DVT prophylaxis. Endo: continue to monitor blood glucose. integ/MSK: skin care per ICU protocol. Subjective Principal diagnosis: Acute respiratory failure with hypoxia Interval history: 46 year old male evaluated at bedside. Patient is laying in bed quietly. He is minimally responsive. He answers some questions with yes/no answers, and responds to pain. He also follows some commands. He has difficulty speaking and does not appear to be in pain. Objective PUL Vital signs: Last Vital Signs Temp 98.8 F 07/23/16 08:25 Pulse 87 07/23/16 07:00 Resp 20 07/23/16 07:00 BP 149/93 07/23/16 07:00 Pulse Ox 97 07/23/16 07:00 General appearance: alert, lethargic Eyes: nonicteric ENT: oropharynx moist Neck: supple, no lymphadenopathy, no JVD Auscultation: bilateral: rales, rhonchi Cardiovascular: regular rate and rhythm Gastrointestinal: normoactive bowel sounds, tender (severe tenderness to palpation) Extremities: no cyanosis, no edema, no clubbing non-focal exam, other anxious, depressed decreased motor and muscle strength. Results - Laboratory Findings CBC and BMP: 07/23/16 03:40 07/23/16 03:40 ABG ABG pH 7.43 pH Units (7.32-7.45) 07/20/16 08:15 ABG pCO2 51 mmHg (35-45) H 07/20/16 08:15 ABG pO2 72 mmHg (85-104) L 07/20/16 08:15 ABG O2 Saturation 95 % (95-98) 07/20/16 08:15 PT/INR, D-dimer PT 12.5 Seconds (9.4-12.1) H 07/21/16 11:55 Abnormal lab findings: Abnormal lab results RBC 3.31 M/mcL (4.19-5.50) L 07/23/16 03:40 Hgb 10.2 g/dL (12.9-16.9) L 07/23/16 03:40 Hct 30.8 % (37.5-50.1) L 07/23/16 03:40 Neutrophils # 9.5 K/mcL (1.6-8.9) H 07/23/16 03:40 Lymphocytes # 0.4 K/mcL (0.6-4.6) L 07/23/16 03:40 Reactive Lymphocytes Present (Not Present) A 07/23/16 03:40 Toxic Granulation Present (Not Present) A 07/18/16 04:45 Dohle Bodies Present (Not Present) A 07/17/16 17:26 Large Platelets Present (Not Present) A 07/23/16 03:40 Immature Plt Fraction 7.4 % (1.1-6.1) H 07/18/16 04:45 PT 12.5 Seconds (9.4-12.1) H 07/21/16 11:55 Fibrinogen 733 mg/dL (169-393) H* 07/17/16 15:33 ABG pCO2 51 mmHg (35-45) H 07/20/16 08:15 ABG pO2 72 mmHg (85-104) L 07/20/16 08:15 ABG HCO3 33.9 mEQ/L (21-27) H 07/20/16 08:15 ABG Total CO2 35.5 mEq/L (20-26) H 07/20/16 08:15 ABG Base Excess 8.4 mEq/L (-2.0 to 3.0) H 07/20/16 08:15 Glucose 116 mg/dL (70-99) H 07/23/16 03:40 POC Glucose 145 (58-89) H 07/21/16 23:23 Ionized Calcium 1.13 mmol/L (1.15-1.35) L 07/23/16 03:40 Direct Bilirubin 0.9 mg/dL (0.0-0.5) H 07/17/16 15:33 AST 140 Units/L (5-34) H 07/17/16 15:33 ALT 96 Units/L (0-55) H 07/17/16 15:33 Alkaline Phosphatase 200 Units/L (38-126) H 07/17/16 15:33 Serum Total Protein 5.5 g/dL (6.0-8.3) L 07/17/16 15:33 Albumin 2.1 g/dL (3.5-5.0) L 07/17/16 15:33 Albumin/Globulin Ratio 0.6 (1.1-2.2) L 07/17/16 15:33 Amylase 322 Units/L (25-125) H 07/14/16 00:12 Lipase 956 Units/L (8-78) H 07/13/16 15:19 Urine Clarity Cloudy (Clear) A 07/14/16 02:30 Urine Ketones 80 mg/dL (Negative) H 07/14/16 02:30 Urine Bilirubin Moderate (Negative) H 07/14/16 02:30 Urine Opiates Screen Positive ng/mL (Auazhj=620) H 07/14/16 02:30 - Clinical Findings Intake & Output: Intake & Output 07/22/16 07/23/16 07/23/16 23:59 07:59 15:59 Intake Total 200 / 200 200 / 200 Output Total 700 / 700 1250 / 1250 450 / 450 Balance -500 / -500 -1050 / -1050 -450 / -450 Weight 84.9 kg Consult Discharge Plan - Plan Referrals: Kalia Sheppard MD [Primary Care Provider] - <Kandi Carver - Last Filed: 07/23/16 15:42> Date of Encounter: 07/23/16 Objective PUL Vital signs: Last Vital Signs Temp 98.2 F 07/23/16 12:28 Pulse 104 07/23/16 14:00 Resp 27 07/23/16 14:00 BP 163/93 07/23/16 14:00 Pulse Ox 95 07/23/16 14:00 Results - Laboratory Findings CBC and BMP: 07/23/16 03:40 07/23/16 14:53 ABG ABG pH 7.43 pH Units (7.32-7.45) 07/20/16 08:15 ABG pCO2 51 mmHg (35-45) H 07/20/16 08:15 ABG pO2 72 mmHg (85-104) L 07/20/16 08:15 ABG O2 Saturation 95 % (95-98) 07/20/16 08:15 PT/INR, D-dimer PT 12.5 Seconds (9.4-12.1) H 07/21/16 11:55 Abnormal lab findings: Abnormal lab results RBC 3.31 M/mcL (4.19-5.50) L 07/23/16 03:40 Hgb 10.2 g/dL (12.9-16.9) L 07/23/16 03:40 Hct 30.8 % (37.5-50.1) L 07/23/16 03:40 Neutrophils # 9.5 K/mcL (1.6-8.9) H 07/23/16 03:40 Lymphocytes # 0.4 K/mcL (0.6-4.6) L 07/23/16 03:40 Reactive Lymphocytes Present (Not Present) A 07/23/16 03:40 Toxic Granulation Present (Not Present) A 07/18/16 04:45 Dohle Bodies Present (Not Present) A 07/17/16 17:26 Large Platelets Present (Not Present) A 07/23/16 03:40 Immature Plt Fraction 7.4 % (1.1-6.1) H 07/18/16 04:45 PT 12.5 Seconds (9.4-12.1) H 07/21/16 11:55 Fibrinogen 733 mg/dL (169-393) H* 07/17/16 15:33 ABG pCO2 51 mmHg (35-45) H 07/20/16 08:15 ABG pO2 72 mmHg (85-104) L 07/20/16 08:15 ABG HCO3 33.9 mEQ/L (21-27) H 07/20/16 08:15 ABG Total CO2 35.5 mEq/L (20-26) H 07/20/16 08:15 ABG Base Excess 8.4 mEq/L (-2.0 to 3.0) H 07/20/16 08:15 Glucose 116 mg/dL (70-99) H 07/23/16 03:40 POC Glucose 145 (58-89) H 07/21/16 23:23 Ionized Calcium 1.13 mmol/L (1.15-1.35) L 07/23/16 03:40 Direct Bilirubin 0.7 mg/dL (0.0-0.5) H 07/23/16 14:53 AST 91 Units/L (5-34) H 07/23/16 14:53 ALT 111 Units/L (0-55) H 07/23/16 14:53 Alkaline Phosphatase 293 Units/L (38-126) H 07/23/16 14:53 Serum Total Protein 5.9 g/dL (6.0-8.3) L 07/23/16 14:53 Albumin 2.2 g/dL (3.5-5.0) L 07/23/16 14:53 Globulin 3.7 g/dL (2.4-3.5) H 07/23/16 14:53 Albumin/Globulin Ratio 0.6 (1.1-2.2) L 07/23/16 14:53 Amylase 322 Units/L (25-125) H 07/14/16 00:12 Lipase 174 Units/L (8-78) H 07/23/16 14:53 Urine Clarity Cloudy (Clear) A 07/14/16 02:30 Urine Ketones 80 mg/dL (Negative) H 07/14/16 02:30 Urine Bilirubin Moderate (Negative) H 07/14/16 02:30 Urine Opiates Screen Positive ng/mL (Chjqph=109) H 07/14/16 02:30 - Clinical Findings Intake & Output: Intake & Output 07/22/16 07/23/16 07/23/16 23:59 07:59 15:59 Intake Total 200 / 200 200 / 200 Output Total 700 / 700 1250 / 1250 1075 / 1075 Balance -500 / -500 -1050 / -1050 -1075 / -1075 Weight 84.9 kg - Attending Attestation I examined this patient and my medical decision-making was reviewed with the STOREHOUSE CLERK/PA/Advanced Practice Nurse/Resident Physician. I agree with the documented findings, disposition and treatment plan as described except to the extent set forth below. Patient seen and examined. Labs, radiology, chart personally reviewed. Agree with resident's history and physical, assessment, plan with following comments: HEAT TREAT TECHNICIAN: Patient follows simple commands, he remained agitated and confused. CT of the head was done without significant abnormalities. I still suspect this is related to his history of abuse of alcohol. He remains at risk of aspiration and speech evaluation. Pulmonary: Acceptable oxygenation and ventilation Cardiovascular: stable GI: Nutrition per dietary and GI prophylaxis per routine Heme: DVT prophylaxis per routine ID: Low-grade fever could be multifactorial and if continue will consider CT abdomen. Renal; urine out put and renal funtion reviewed Endorcine: blood glucose is monitored Lines: all lines checked and no evidence of infections Skin: skin care to prevent pressure ulcers per nursing routine care
[2016-07-23] MEDS ORDERED: diazePAM 10 MG/2 ML SYRINGE IVP PRN (11:29)
[2016-07-23] MEDS ORDERED: Ketorolac 15 MG/ML VIAL IVP ONE (12:59)
[2016-07-23] MEDS: Cefepime HCl 2,000 MG in D5% in Water (Mini-Bag+) 100 ML IVPB SCH (14:24)
[2016-07-23 15:19] LABS: Albumin 2.2 g/dL (3.5-5.0); Albumin/Globulin Ratio 0.6 (1.1-2.2); Bilirubin,Direct 0.7 mg/dL (0.0-0.5); Bilirubin,Indirect 0.4 mg/dL (0.0-1.2); Bilirubin,Total 1.1 mg/dL (0.2-1.2); Globulin 3.7 g/dL (2.4-3.5); Total Protein 5.9 g/dL (6.0-8.3)
[2016-07-23] MEDS: *HR* Metoprolol 5 MG/5 ML VIAL IVP PRN (16:24)
[2016-07-23] MEDS: *HR* HYDROmorphone (PF) 1 MG/ML SYRINGE IVP PRN (20:25)
[2016-07-24] MEDS: Cefepime HCl 2,000 MG in D5% in Water (Mini-Bag+) 100 ML IVPB SCH (01:39)
[2016-07-24] MEDS: *HR* Labetalol 20 MG/4 ML SYRINGE IVP PRN (02:38)
[2016-07-24 04:49] LABS: Basophils % 0.4 %; Eosinophils # 0.2 K/mcL (0.0-0.6); Hemoglobin 10.1 g/dL (12.9-16.9); Immature Granulocytes % 0.4 % (0-4); Lymphocytes # 1.4 K/mcL (0.6-4.6); Lymphocytes % 15.7 %; Mean Corpuscular HGB Conc 32.6 g/dL (31.6-35.5); Mean Corpuscular Hemoglobin 30.1 pg (28.0-33.3); Mean Corpuscular Volume 92.3 fL (83.0-100.0); Mean Platelet Volume 11.6 fL (9.4-12.4); Monocytes # 0.6 K/mcL (0.0-1.3); Monocytes % 6.7 %; Neutrophils # 6.7 K/mcL (1.6-8.9); Platelet Count 295 K/mcL (140-400); Red Blood Count 3.36 M/mcL (4.19-5.50); Red Cell Distribution Width 14.1 % (11.5-14.5); Segmented Neutrophils % 74.8 %
[2016-07-24 04:59] LABS: BUN/Creatinine Ratio 14 (6-26); Blood Urea Nitrogen 13 mg/dL (8-26); Calcium 8.9 mg/dL (8.6-10.8); Carbon Dioxide 30 mEq/L (19-29); Chloride 106 mEq/L (98-109); Glucose 128 mg/dL (70-99); Magnesium 1.9 mg/dL (1.6-2.6); Osmolality,Calculated 298 (280-300); Phosphorous 3.4 mg/dL (2.3-4.7); Potassium 3.5 mEq/L (3.5-4.5); Sodium 143 mEq/L (136-145); eGFR For African Americans > 60 (> 60); eGFR For Non-African Americans > 60 (> 60)
[2016-07-24 05:14] LABS: Ionized Calcium 1.18 mmol/L (1.15-1.35)
[2016-07-24] MEDS: *HR* Metoprolol 5 MG/5 ML VIAL IVP PRN (05:26)
[2016-07-24] MEDS: *HR* Enoxaparin 40 MG/0.4 ML SYRINGE SQ SCH (05:26)
--- NOTE | 2016-07-24 06:03 | Pulmonology Progress Note ---
<Estrellita Capellan - Last Filed: 07/24/16 15:27> Date of Encounter: 07/24/16 Time of Encounter: 10:00 Assessment and Plan (1) Acute pancreatitis Current Visit: Yes Status: Acute CT A/P from 07/17 showed acute pancreatitis with increased inflammation from prior CT, interval development of probable pseudocyst at pancreatic head. No evidence of hemorrhage or hematoma, bilateral pleural effusion and patchy consolidation in lower lungs. Etiology likely secondary to alcohol abuse. full abdominal ultrasound sound no acute abnormalities. Plan: s/p speech/swallow eval. soft diet, meds crushed in pureed, assist with feeds. ammonia, LFTs trending down. patient will need follow up outpatient for pancreatitis with pseudocysts. Qualifiers: Pancreatitis type: alcohol induced Acute pancreatitis complication: no infection or necrosis Qualified Code(s): K85.20 - Alcohol induced acute pancreatitis without necrosis or infection (2) Withdrawal symptoms, alcohol Current Visit: Yes Status: Acute patient is minimally responsive. CT head showed no evidence of hemorrhage or mass. Significant for mild atrophy with mild periventricular and scattered frontal parietal white matter disease, likely due to small vessel ischemic changes. Plan: continue supplemental thiamine, folate, multivitamin precedex drip discontinued changed valium from scheduled to PRN for alcohol withdrawal. Qualifiers: Complication of substance-induced condition: with delirium Qualified Code(s ): F10.231 - Alcohol dependence with withdrawal delirium (3) Acute respiratory failure with hypoxia Current Visit: Yes Status: Resolved Resolved. Patient extubated yesterday. Etiology likely multifactorial insetting of alcohol abuse, possible aspiration pneumonia. sputum culture grew enterobacter cloacae, positive for H.parainfluenza II Urine culture no growth blood culture no growth. Plan: patient has already finished a 7 day course of cefepime. (4) Tobacco abuse Current Visit: Yes Status: Acute nicotine patch. (5) Essential hypertension Current Visit: Yes Status: Chronic patient is currently normotensive. continue PRN antihypertensive meds metoprolol 50mg BID (6) DVT prophylaxis Current Visit: No Status: Acute Lovenox SQ protonix for GI prophylaxis. Neuro/sedation: alcohol withdrawal precautions. patient is more alert and conversing more today. withdrawal. Patient has valium PRN for alcohol withdrawal. Pulm: extubated 07/22. Had ARF secondary to aspiration pneumonia. Finished 7 day course of cefepime. Cardio: currently normotensive. Continue metoprolol 50mg BID home med. Hypertensive meds PRN GI: pancreatitis with pseudocysts likely secondary to alcohol abuse. s/p speech/ swallow eval. soft/pureed diet with crushed meds. Renal: continue replacing electrolytes as needed. ID: sputum culture positive for Enterobacter cloacae, Haemophilus Influenza II. 7 day cefepime course completed. Heme/onc: H/H stable. continue to monitor. Lovenox SQ for DVT prophylaxis. Endo: continue to monitor blood glucose. integ/MSK: skin care per ICU protocol. Subjective Principal diagnosis: Acute respiratory failure with hypoxia Interval history: 46 year old male evaluated at bedside. His clinical status has greatly improved from yesterday. He is alert and oriented x3, no acute distress. Patient is sitting up in bed eating with help. there were no acute events overnight except that he constantly tried to climb out of bed. Patient states he feels a little sick this morning but has no further complaints. Objective PUL Vital signs: Last Vital Signs Temp 98.1 F 07/24/16 04:50 Pulse 84 07/24/16 06:02 Resp 22 07/24/16 06:02 BP 141/108 07/24/16 06:02 Pulse Ox 98 07/24/16 06:02 General appearance: no acute distress, alert, lethargic Eyes: nonicteric ENT: oropharynx moist Effort: normal Auscultation: bilateral: rales (mild bilateral lower lobe rales. ) Cardiovascular: regular rate and rhythm Gastrointestinal: normoactive bowel sounds, soft, tender Integumentary: normal Extremities: no cyanosis, no edema Musculoskeletal: no deformities non-focal exam mood appropriate, depressed Results - Laboratory Findings CBC and BMP: 07/24/16 04:31 07/24/16 04:31 ABG ABG pH 7.43 pH Units (7.32-7.45) 07/20/16 08:15 ABG pCO2 51 mmHg (35-45) H 07/20/16 08:15 ABG pO2 72 mmHg (85-104) L 07/20/16 08:15 ABG O2 Saturation 95 % (95-98) 07/20/16 08:15 PT/INR, D-dimer PT 12.5 Seconds (9.4-12.1) H 07/21/16 11:55 Abnormal lab findings: Abnormal lab results RBC 3.36 M/mcL (4.19-5.50) L 07/24/16 04:31 Hgb 10.1 g/dL (12.9-16.9) L 07/24/16 04:31 Hct 31.0 % (37.5-50.1) L 07/24/16 04:31 Reactive Lymphocytes Present (Not Present) A 07/23/16 03:40 Toxic Granulation Present (Not Present) A 07/18/16 04:45 Dohle Bodies Present (Not Present) A 07/17/16 17:26 Large Platelets Present (Not Present) A 07/23/16 03:40 Immature Plt Fraction 7.4 % (1.1-6.1) H 07/18/16 04:45 PT 12.5 Seconds (9.4-12.1) H 07/21/16 11:55 Fibrinogen 733 mg/dL (169-393) H* 07/17/16 15:33 ABG pCO2 51 mmHg (35-45) H 07/20/16 08:15 ABG pO2 72 mmHg (85-104) L 07/20/16 08:15 ABG HCO3 33.9 mEQ/L (21-27) H 07/20/16 08:15 ABG Total CO2 35.5 mEq/L (20-26) H 07/20/16 08:15 ABG Base Excess 8.4 mEq/L (-2.0 to 3.0) H 07/20/16 08:15 Carbon Dioxide 30 mEq/L (19-29) H 07/24/16 04:31 Glucose 128 mg/dL (70-99) H 07/24/16 04:31 POC Glucose 108 (58-89) H 07/23/16 11:44 Direct Bilirubin 0.7 mg/dL (0.0-0.5) H 07/23/16 14:53 AST 91 Units/L (5-34) H 07/23/16 14:53 ALT 111 Units/L (0-55) H 07/23/16 14:53 Alkaline Phosphatase 293 Units/L (38-126) H 07/23/16 14:53 Serum Total Protein 5.9 g/dL (6.0-8.3) L 07/23/16 14:53 Albumin 2.2 g/dL (3.5-5.0) L 07/23/16 14:53 Globulin 3.7 g/dL (2.4-3.5) H 07/23/16 14:53 Albumin/Globulin Ratio 0.6 (1.1-2.2) L 07/23/16 14:53 Amylase 322 Units/L (25-125) H 07/14/16 00:12 Lipase 174 Units/L (8-78) H 07/23/16 14:53 Urine Clarity Cloudy (Clear) A 07/14/16 02:30 Urine Ketones 80 mg/dL (Negative) H 07/14/16 02:30 Urine Bilirubin Moderate (Negative) H 07/14/16 02:30 Urine Opiates Screen Positive ng/mL (Ugjpbb=151) H 07/14/16 02:30 - Clinical Findings Intake & Output: Intake & Output 07/23/16 07/23/16 07/24/16 15:59 23:59 07:59 Intake Total 100 / 100 504 / 504 100 / 100 Output Total 1075 / 1075 675 / 675 1100 / 1100 Balance -975 / -975 -171 / -171 -1000 / -1000 Weight 84 kg Consult Discharge Plan - Plan Referrals: Kalia Sheppard MD [Primary Care Provider] - 08/01/16 3:00 pm <Kandi Carver - Last Filed: 07/24/16 20:13> Date of Encounter: 07/24/16 Objective PUL Vital signs: Last Vital Signs Temp 98.4 F 07/24/16 17:07 Pulse 79 07/24/16 17:07 Resp 16 07/24/16 17:07 BP 157/90 07/24/16 17:07 Pulse Ox 96 07/24/16 17:07 Results - Laboratory Findings CBC and BMP: 07/24/16 04:31 07/24/16 04:31 ABG ABG pH 7.43 pH Units (7.32-7.45) 07/20/16 08:15 ABG pCO2 51 mmHg (35-45) H 07/20/16 08:15 ABG pO2 72 mmHg (85-104) L 07/20/16 08:15 ABG O2 Saturation 95 % (95-98) 07/20/16 08:15 PT/INR, D-dimer PT 12.5 Seconds (9.4-12.1) H 07/21/16 11:55 Abnormal lab findings: Abnormal lab results RBC 3.36 M/mcL (4.19-5.50) L 07/24/16 04:31 Hgb 10.1 g/dL (12.9-16.9) L 07/24/16 04:31 Hct 31.0 % (37.5-50.1) L 07/24/16 04:31 Reactive Lymphocytes Present (Not Present) A 07/23/16 03:40 Toxic Granulation Present (Not Present) A 07/18/16 04:45 Dohle Bodies Present (Not Present) A 07/17/16 17:26 Large Platelets Present (Not Present) A 07/23/16 03:40 Immature Plt Fraction 7.4 % (1.1-6.1) H 07/18/16 04:45 PT 12.5 Seconds (9.4-12.1) H 07/21/16 11:55 Fibrinogen 733 mg/dL (169-393) H* 07/17/16 15:33 ABG pCO2 51 mmHg (35-45) H 07/20/16 08:15 ABG pO2 72 mmHg (85-104) L 07/20/16 08:15 ABG HCO3 33.9 mEQ/L (21-27) H 07/20/16 08:15 ABG Total CO2 35.5 mEq/L (20-26) H 07/20/16 08:15 ABG Base Excess 8.4 mEq/L (-2.0 to 3.0) H 07/20/16 08:15 Carbon Dioxide 30 mEq/L (19-29) H 07/24/16 04:31 Glucose 128 mg/dL (70-99) H 07/24/16 04:31 POC Glucose 108 (58-89) H 07/23/16 11:44 Direct Bilirubin 0.7 mg/dL (0.0-0.5) H 07/23/16 14:53 AST 91 Units/L (5-34) H 07/23/16 14:53 ALT 111 Units/L (0-55) H 07/23/16 14:53 Alkaline Phosphatase 293 Units/L (38-126) H 07/23/16 14:53 Serum Total Protein 5.9 g/dL (6.0-8.3) L 07/23/16 14:53 Albumin 2.2 g/dL (3.5-5.0) L 07/23/16 14:53 Globulin 3.7 g/dL (2.4-3.5) H 07/23/16 14:53 Albumin/Globulin Ratio 0.6 (1.1-2.2) L 07/23/16 14:53 Amylase 322 Units/L (25-125) H 07/14/16 00:12 Lipase 174 Units/L (8-78) H 07/23/16 14:53 Urine Clarity Cloudy (Clear) A 07/14/16 02:30 Urine Ketones 80 mg/dL (Negative) H 07/14/16 02:30 Urine Bilirubin Moderate (Negative) H 07/14/16 02:30 Urine Opiates Screen Positive ng/mL (Mvaelt=164) H 07/14/16 02:30 - Clinical Findings Intake & Output: Intake & Output 07/24/16 07/24/16 07/24/16 07:59 15:59 23:59 Intake Total 200 / 200 540 / 540 0 / 0 Output Total 1500 / 1500 25 / 25 0 / 0 Balance -1300 / -1300 515 / 515 0 / 0 Weight 84 kg - Attending Attestation I examined this patient and my medical decision-making was reviewed with the FIREWOR[employer] ASSEMBLY SUPERVISOR/PA/Advanced Practice Nurse/Resident Physician. I agree with the documented findings, disposition and treatment plan as described except to the extent set forth below. Patient seen and examined. Labs, radiology, chart personally reviewed. 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 Pulmonary: Acceptable oxygenation and ventilation Cardiovascular: HTN, I feel once he is on his oral medication, his BP will be under better control. GI: Nutrition per dietary and GI prophylaxis per routine. Patient need nutrition Heme: DVT prophylaxis per routine ID: Completed course of antibiotic. Renal; urine out put and renal funtion reviewed. Replace electrolytes. Endorcine: blood glucose is monitored Lines: all lines checked and no evidence of infections Skin: skin care to prevent pressure ulcers per nursing routine care
[2016-07-24] MEDS: Magnesium Sulfate 2 GM in D5% in Water 100 ML IVPB PRN (06:37)
[2016-07-24] MEDS ORDERED: Ketorolac 30 MG/ML VIAL IVP ONE (08:53)
[2016-07-24] MEDS ORDERED: Acetaminophen 325 MG TABLET PO ONE (08:54)
[2016-07-24] MEDS: Pantoprazole 40 MG VIAL IVP SCH (09:12)
[2016-07-24] MEDS: Nicotine 21 MG PATCH.TD24 TD SCH (09:33)
[2016-07-24] MEDS: Potassium Chloride Elixir 20 MEQ/15 ML UDC GTUBE PRN (09:34)
[2016-07-24] MEDS: Thiamine (B-1) 100 MG in D5% in Water 50 ML IVPB SCH (09:34)
[2016-07-24] MEDS ORDERED: Sennosides/Docusate Sodium TABLET PO PRN (12:53)
[2016-07-24] MEDS ORDERED: traZODone 50 MG TABLET PO PRN (12:53)
[2016-07-24] MEDS ORDERED: Bisacodyl 10 MG RECTAL SUPPOSITORY RC PRN (12:53)
[2016-07-24] MEDS ORDERED: diazePAM 10 MG/2 ML SYRINGE IVP PRN (12:53)
[2016-07-24] MEDS ORDERED: *HR* Metoprolol 5 MG/5 ML VIAL IVP PRN (12:53)
[2016-07-24] MEDS ORDERED: Naloxone 0.4 MG/ML INJ IVP PRN (12:53)
[2016-07-24] MEDS ORDERED: Ipratropium/Albuterol Neb 3 ML IH PRN (12:53)
[2016-07-24] MEDS ORDERED: Albuterol 2.5 MG/3 ML NEBULIZER IH PRN (12:53)
[2016-07-24] MEDS: Acetaminophen 325 MG TABLET PO PRN ×2 (16:27→22:44)
[2016-07-25] MEDS: *HR* LORazepam 2 MG/ML VIAL IVP PRN ×2 (02:09→20:15)
[2016-07-25 04:52] LABS: Ionized Calcium 1.19 mmol/L (1.15-1.35)
[2016-07-25 05:03] LABS: BUN/Creatinine Ratio 10 (6-26); Blood Urea Nitrogen 10 mg/dL (8-26); Calcium 8.6 mg/dL (8.6-10.8); Carbon Dioxide 26 mEq/L (19-29); Chloride 109 mEq/L (98-109); Glucose 128 mg/dL (70-99); Magnesium 1.7 mg/dL (1.6-2.6); Osmolality,Calculated 297 (280-300); Phosphorous 3.6 mg/dL (2.3-4.7); Potassium 3.8 mEq/L (3.5-4.5); Sodium 143 mEq/L (136-145); eGFR For African Americans > 60 (> 60); eGFR For Non-African Americans > 60 (> 60)
[2016-07-25] MEDS: *HR* Enoxaparin 40 MG/0.4 ML SYRINGE SQ SCH (05:15)
[2016-07-25] MEDS: Acetaminophen 325 MG TABLET PO PRN (05:15)
[2016-07-25] MEDS: *HR* Promethazine 25 MG/ML VIAL IVP PRN ×2 (05:16→14:16)
[2016-07-25 06:33] LABS: Basophils # 0.1 K/mcL (0.0-0.2); Basophils % 0.6 %; Eosinophils # 0.4 K/mcL (0.0-0.6); Eosinophils % 2.8 %; Hematocrit 29.7 % (37.5-50.1); Hemoglobin 10.1 g/dL (12.9-16.9); Immature Granulocytes % 0.3 % (0-4); Lymphocytes # 1.9 K/mcL (0.6-4.6); Lymphocytes % 14.1 %; Mean Corpuscular Hemoglobin 31.1 pg (28.0-33.3); Mean Corpuscular Volume 91.4 fL (83.0-100.0); Mean Platelet Volume 11.2 fL (9.4-12.4); Monocytes # 0.7 K/mcL (0.0-1.3); Monocytes % 5.4 %; Neutrophils # 10.3 K/mcL (1.6-8.9); Platelet Count 337 K/mcL (140-400); Red Blood Count 3.25 M/mcL (4.19-5.50); Red Cell Distribution Width 14.1 % (11.5-14.5); Segmented Neutrophils % 76.8 %
[2016-07-25] MEDS: Thiamine (B-1) 100 MG TABLET PO SCH (08:23)
[2016-07-25] MEDS: Multivit/Ca/Min/Fe/FA 1 TAB TABLET PO SCH (08:23)
[2016-07-25] MEDS: Folic Acid 1 MG TABLET PO SCH (08:23)
[2016-07-25] MEDS: Nicotine 21 MG PATCH.TD24 TD SCH (08:24)
[2016-07-25] MEDS ORDERED: OxyCODONE CONC 5 MG/0.25 ML ORAL.SYG PO PRN ×2 (10:40)
--- NOTE | 2016-07-25 10:43 | Internal Med Progress Note ---
Date of Encounter: 07/25/16 Time of Encounter: 10:39 - Assessment and plan (1) Acute respiratory failure with hypoxia Current Visit: Yes Status: Resolved Assessment and plan: secondary to aspiration pneumonia sputum culture grew Enterobacter cloacae and Haemophilus parainfluenza II completed antibiotics was given Unasyn initially and completed [address] of the abdomen showed bilateral infiltrates resolved extubated (2) Pancreatitis, acute Current Visit: No Status: Acute Assessment and plan: ETOH related, recurrent CT showed also a pseudocyst in the head of the pancrease folsourav with Dr De La Vega as outpatient Qualifiers: Pancreatitis type: alcohol induced Qualified Code(s): K85.20 - Alcohol induced acute pancreatitis without necrosis or infection (3) Withdrawal symptoms, alcohol Current Visit: Yes Status: Acute Assessment and plan: acute alcohol withdrawal was given ativan and precedex in the ICU now just on ativan for agitation drinks 12 pack of beer a day or more Qualifiers: Complication of substance-induced condition: with delirium Qualified Code(s ): F10.231 - Alcohol dependence with withdrawal delirium (4) Hypokalemia Current Visit: Yes Status: Resolved Assessment and plan: replete as needed (5) Hypomagnesemia Current Visit: Yes Status: Acute Assessment and plan: repleted (6) Accelerated hypertension Current Visit: Yes Status: Acute Assessment and plan: stable (7) History of alcoholism Current Visit: No Status: Chronic (8) Aspiration pneumonia Current Visit: Yes Status: Acute Qualifiers: Aspiration pneumonia type: due to vomit Laterality: bilateral Lung location: lower lobe of lung Qualified Code(s): J69.0 - Pneumonitis due to inhalation of food and vomit (9) EDUARDO (acute kidney injury) Current Visit: No Status: Acute Assessment and plan: resolved , creat was 2.22 - Subjective Interval history: denies CP or SOB, has epigastric pain 6/10, no nausea, no dysuria, oriented, no diarrhea - Constitutional Vitals: Temp Pulse Resp BP Pulse Ox 98.2 F 63 18 134/81 96 07/25/16 08:10 07/25/16 08:10 07/25/16 08:10 07/25/16 08:10 07/25/16 08:10 General appearance: Present: A&O X 3, severe distress, answers questions appropriately - Head Head exam: Present: atraumatic, normocephalic - Eye Eye exam: Present: PERRL, conjuntiva pink, sclera anicteric Pupils: Present: PERRL - Neck Neck exam general surgery: Present: supple, trachea midline. Absent: lymphadenopathy - Respiratory Respiratory exam: Present: CTAB. Absent: accessory muscle use, rales, rhonchi, wheezes - Cardiovascular Cardiovascular exam: Present: RRR, +S1, +S2. Absent: diastolic murmur, gallop, rubs, systolic murmur - GI/Abdominal GI/Abdominal exam: Present: normal bowel sounds, soft, tenderness (epigastric), no peritoneal signs. Absent: distended - Extremities Exam Extremities exam: Present: warm, radial pulses palpable and symetrical. Absent : calf tenderness, cyanotic, pedal edema - Neurological Exam Neurological exam: Present: CN II-XII intact, oriented X3, no focal deficits. Absent: pronater drift, facial droop, speech deficit Additional comments: no tremors - Skin Skin exam: Present: dry, intact Internal Medicine: Result - Labs CBC & Chem 7: 07/25/16 06:20 07/25/16 04:16 Labs: Short CBC 07/25/16 Range/Units 06:20 WBC 13.4 H (4.3-11.1) K/mcL Hgb 10.1 L (12.9-16.9) g/dL Hct 29.7 L (37.5-50.1) % Plt Count 337 (140-400) K/mcL Neutrophils # 10.3 H (1.6-8.9) K/mcL BMP 07/25/16 04:16 Sodium 143 Potassium 3.8 Chloride 109 Carbon Dioxide 26 BUN 10 Creatinine 0.96 Glucose 128 H Calcium 8.6 - ABG Interpretation ABG results: ABG ABG pH 7.43 pH Units (7.32-7.45) 07/20/16 08:15 ABG pCO2 51 mmHg (35-45) H 07/20/16 08:15 ABG pO2 72 mmHg (85-104) L 07/20/16 08:15 ABG O2 Saturation 95 % (95-98) 07/20/16 08:15 PT/INR, D-dimer PT 12.5 Seconds (9.4-12.1) H 07/21/16 11:55 - VTE Documentation of Mechanical Device: Graduated compression elastic hosiery Consult Discharge Plan - Plan Referrals: Kalia Sheppard MD [Primary Care Provider] - 08/01/16 3:00 pm
[2016-07-25] MEDS ORDERED: *HR* OxyCODONE Immed Rel 5 MG TABLET PO PRN (12:20)
[2016-07-25] MEDS: *HR* OxyCODONE Immed Rel 5 MG TABLET PO PRN ×2 (14:09→20:11)
[2016-07-26] MEDS: *HR* OxyCODONE Immed Rel 5 MG TABLET PO PRN (02:45)
[2016-07-26] MEDS: *HR* Enoxaparin 40 MG/0.4 ML SYRINGE SQ SCH (05:40)
[2016-07-26] MEDS: *HR* LORazepam 2 MG/ML VIAL IVP PRN (05:44)
[2016-07-26 06:43] VITALS: BP 142/88
--- NOTE | 2016-07-26 07:32 | Discharge Summary ---
Date of Encounter: 07/26/16 Time of Encounter: 07:27 - Discharge Diagnosis (1) Acute respiratory failure with hypoxia Priority: Primary Status: Resolved Comments: secondary to aspiration pneumonia sputum culture grew Enterobacter cloacae and Haemophilus parainfluenza II (2) Pancreatitis, acute Priority: Primary Status: Acute Qualifiers: Pancreatitis type: alcohol induced Qualified Code(s): K85.20 - Alcohol induced acute pancreatitis without necrosis or infection (3) Withdrawal symptoms, alcohol Priority: Primary Status: Acute Qualifiers: Complication of substance-induced condition: with delirium Qualified Code(s ): F10.231 - Alcohol dependence with withdrawal delirium (4) Hypokalemia Priority: Secondary Status: Resolved (5) Hypomagnesemia Priority: Secondary Status: Acute (6) Accelerated hypertension Priority: Secondary Status: Acute (7) History of alcoholism Priority: Secondary Status: Chronic (8) Aspiration pneumonia Priority: Primary Status: Acute Qualifiers: Aspiration pneumonia type: due to vomit Laterality: bilateral Lung location: lower lobe of lung Qualified Code(s): J69.0 - Pneumonitis due to inhalation of food and vomit (9) EDUARDO (acute kidney injury) Priority: Secondary Status: Acute - Discharge Medications Prescriptions: OxyCODONE Immed Rel [Roxicodone 5 MG] 10 mg PO Q6HR PRN #20 tablet PRN Reason: Severe Pain 8-10 LORazepam [Ativan] 0.5 mg PO BID PRN #30 tablet PRN Reason: Anxiety traZODone [TraZODone] 50 mg PO HS PRN #30 tablet PRN Reason: Insomnia Home Medications: Omeprazole [PriLOSEC] 40 mg PO BID #0 10/23/14 [History] Gabapentin [Neurontin] 300 - 600 mg PO TID 02/07/15 [History] Metoprolol Succinate 100 mg PO DAILY 07/13/16 [History] Folic Acid 1 mg PO DAILY tablet 07/26/16 [Rx] LORazepam [Ativan] 0.5 mg PO BID PRN #30 tablet 07/26/16 [Rx] Multivit/Ca/Min/Fe/FA [Thera M Plus] 1 tab PO DAILY tablet 07/26/16 [Rx] OxyCODONE Immed Rel [Roxicodone 5 MG] 10 mg PO Q6HR PRN #20 tablet 07/26/16 [Rx] Thiamine (B-1) [Vitamin B-1] 100 mg PO DAILY tablet 07/26/16 [Rx] traZODone [TraZODone] 50 mg PO HS PRN #30 tablet 07/26/16 [Rx] Allergies/Adverse Reactions: Allergies No Known Allergies Allergy (Verified 07/13/16 14:22) Procedures/tests Complete & Pending: Procedures Performed prior 72 hours Category Date Time Status CT head/brain wo con [CT] Routine Cat Scan 07/23/16 09:00 Completed US abdomen complete [US] Routine Exams 07/23/16 19:00 Completed Date of admission: 07/14/16 09:15 Primary care physician: Kalia Sheppard MD Consults: 07/15/16 07:28 Consult to Pulmonology [CONS] Routine Consulting Provider: Pulm [facility] [place] Reason for Consult: respiratory failure Call Completed: Yes 07/17/16 10:49 Consult to Nutrition [CONS] Stat Comment: Consulting Provider: NUTRITION Reason for Dietary Consult: TF Start and Manage 07/20/16 11:05 Consult to Invasive Line Access Team [CONS] Routine Reason for Consult: poor access Line Type: EPIV 07/23/16 11:31 Consult to Speech Therapy [CONS] Routine Comment: Evaluate, develop and implement POC Reason for Consult: hx of alcohol abuse, aspiration pneumonia. need to evaluate speech, and evaluate if safe to eat. Call Completed: No 07/25/16 10:43 Consult to Occupational Therapy [CONS] Routine Comment: Evaluate, develop and implement POC Reason for Consult: placement Consult to Physical Therapy [CONS] Routine Comment: Evaluate, develop and implement POC Reason for Consult: placement - Patient Status Disposition: Transfer SNF Condition: Good Overall status at discharge: patient is progressing back to baseline - Discharge Instructions Follow Up With: Kalia Sheppard MD [Primary Care Provider] - 08/01/16 3:00 pm Additional Instructions: COntinue rehabilitation. Ativan as needed, multivitamins. Follow with primary care physician after being discharged from rehabilitation. Avoid drinking alcohol. Follow with Dr De La Vega/GI within the next 3 weeks - Diet and Activity Activity: as per physical therapy, increase activity as tolerated Diet: regular diet Hospital course: Mr. Howard is a 46 year old male with a history of prior pancreatitis status post cholecystectomy, essential hypertension who presented to the ER with complaints of severe abdominal pain. This began 3 days before admission and got worse. 10 out of 10 in severity and not responding to his narcotic medications at the patient received in the ER, it radiated to the back and is associated with nausea and vomiting. No fever chills or night sweats. No hemoptysis. No recent alcohol use. Developed acute alcohol withdrawal was given ativan and precedex in the ICU, drinks at least 12 beers a day. t Was also diagnosed with sepsis due to aspiration pneumonia, was intubated. sputum culture grew Enterobacter cloacae and Haemophilus parainfluenza II, CT of the abdomen showed bilateral infiltrates creatinine was 2.22 completed antibiotics was given Unasyn initially and completed [address] showed also a pseudocyst in the head of the pancrease follow with Dr De La Vega as outpatient. Now recovering and willing to go to rehab. Time spent discussing smoking cessation with patient: 3 to 10 minutes - Time Spent with Patient Total time spent providing and/or coordinating discharge services: Greater than 30 minutes (40 min) - Constitutional Vitals: Temp Pulse Resp BP Pulse Ox 98.3 F 77 16 142/88 96 07/26/16 06:41 07/26/16 06:41 07/26/16 06:41 07/26/16 06:41 07/26/16 06:41 General appearance: Present: A&O X 3, severe distress, answers questions appropriately - Head Head exam: Present: atraumatic, normocephalic - Eye Eye exam: Present: PERRL, conjuntiva pink, sclera anicteric Pupils: Present: PERRL - Neck Neck exam general surgery: Present: supple, trachea midline. Absent: lymphadenopathy - Respiratory Respiratory exam: Present: CTAB. Absent: accessory muscle use, rales, rhonchi, wheezes - Cardiovascular Cardiovascular exam: Present: RRR, +S1, +S2. Absent: diastolic murmur, gallop, rubs, systolic murmur - GI/Abdominal GI/Abdominal exam: Present: normal bowel sounds, soft, no peritoneal signs. Absent: distended, tenderness - Extremities Exam Extremities exam: Present: warm, radial pulses palpable and symetrical. Absent : calf tenderness, cyanotic, pedal edema - Neurological Exam Neurological exam: Present: CN II-XII intact, oriented X3, no focal deficits. Absent: pronater drift, facial droop, speech deficit Additional comments: no tremors - Skin Skin exam: Present: dry, intact - VTE Documentation of Mechanical Device: Graduated compression elastic hosiery
--- NOTE | 2016-07-26 07:39 | Physician Discharge Referral ---
[facility] Referral Info Provider in Charge after Transfer: PCP Institutional Level of Care: Skilled - Diagnosis (1) Acute respiratory failure with hypoxia Status: Resolved (2) Pancreatitis, acute Status: Acute (3) Withdrawal symptoms, alcohol Status: Acute (4) Hypokalemia Status: Resolved (5) Hypomagnesemia Status: Acute (6) Accelerated hypertension Status: Acute (7) History of alcoholism Status: Chronic (8) Aspiration pneumonia Status: Acute (9) EDUARDO (acute kidney injury) Status: Acute - Transfer Medications Prescriptions: OxyCODONE Immed Rel [Roxicodone 5 MG] 10 mg PO Q6HR PRN #20 tablet PRN Reason: Severe Pain 8-10 LORazepam [Ativan] 0.5 mg PO BID PRN #30 tablet PRN Reason: Anxiety traZODone [TraZODone] 50 mg PO HS PRN #30 tablet PRN Reason: Insomnia Home Medications: Omeprazole [PriLOSEC] 40 mg PO BID #0 10/23/14 [History] Gabapentin [Neurontin] 300 - 600 mg PO TID 02/07/15 [History] Metoprolol Succinate 100 mg PO DAILY 07/13/16 [History] Folic Acid 1 mg PO DAILY tablet 07/26/16 [Rx] LORazepam [Ativan] 0.5 mg PO BID PRN #30 tablet 07/26/16 [Rx] Multivit/Ca/Min/Fe/FA [Thera M Plus] 1 tab PO DAILY tablet 07/26/16 [Rx] OxyCODONE Immed Rel [Roxicodone 5 MG] 10 mg PO Q6HR PRN #20 tablet 07/26/16 [Rx] Thiamine (B-1) [Vitamin B-1] 100 mg PO DAILY tablet 07/26/16 [Rx] traZODone [TraZODone] 50 mg PO HS PRN #30 tablet 07/26/16 [Rx] Allergies/Adverse Reactions: Allergies No Known Allergies Allergy (Verified 07/13/16 14:22) - Respiratory Orders Smoking Cessation: Smoking cessation has been advised. For more information, call the [place] Tobacco Quit Line at 1-757-VSYH-NOW. - Advance Directives Code Status: Full Code - Treatments List/Other: COntinue rehabilitation. Ativan as needed, multivitamins. Follow with primary care physician after being discharged from rehabilitation. Avoid drinking alcohol. Follow with Dr De La Vega/[facility] within the next 3 weeks - Diet Orders Regular (low fat) CERTIFICATION: I certify that the transfer of the above named patient to an Extended Care Facility is necessary for the continuing treatment of the diagnosis listed. The above information is true and accurate reflection of patient's current condition. Confidential - Redisclosure prohibited without a patient's written consent.
[2016-07-26] MEDS: Thiamine (B-1) 100 MG TABLET PO SCH (07:43)
[2016-07-26] MEDS: Folic Acid 1 MG TABLET PO SCH (07:44)
[2016-07-26] MEDS: Nicotine 21 MG PATCH.TD24 TD SCH (07:44)
[2016-07-26] MEDS: Multivit/Ca/Min/Fe/FA 1 TAB TABLET PO SCH (07:44)
== END 2016-07-26 09:30 | disposition home or self-care (01) | DRG 438 ==
LOC: EMEROO 14:16 → 3BNU 14:16 → SUATTDRO 16:24 → 3BNU 17:29 → 2NENU 07-14 01:50 → ICNU 07-14 09:13 → SUATTDRO 07-14 09:15 → 3ANU 07-24 12:48
PROVIDERS: ADMIT Internal Medicine; ATTEND Internal Medicine

== ENCOUNTER 2017-02-01 04:59 | Inpatient (IN) ==
--- NOTE | 2017-02-01 05:13 | Emergency Department Note ---
START Narrative - START START: I examined this patient and my medical decision-making was reviewed with the emergency medicine resident. I agree with the documented findings, disposition and treatment plan as described except to the extent set forth below. Patient seen with emergency medicine resident Dr. Macario Wetzel, Please see a copy of his note for details of the H&P, ED evaluation, management and disposition. I have independently evaluated the patient and confirmed appropriate portions of the history and physical exam. Briefly: 2-year-old male history of alcohol abuse in the past has not drank since June and that stopped he relapsed 3 days ago history of pancreatitis says it feels just like that patient is in mild to moderate distress. Abdomen is surgically benign. Patient in abdominal pelvic CT IV fluids IV analgesics and screening labs and EKG. Disposition pending.
[2017-02-01] MEDS ORDERED: *HR* HYDROmorphone (PF) 1 MG/ML SYRINGE IVP ONE ×2 (05:16→06:03)
[2017-02-01] MEDS ORDERED: 0.9 % Sodium Chloride 1,000 ML IVC ONE ×2 (05:16→12:52)
--- NOTE | 2017-02-01 05:18 | Emergency Department Note ---
Disposition Clinical Impression: Bladder wall thickening Pancreatitis Qualifiers: Chronicity: acute Pancreatitis type: alcohol induced Acute pancreatitis complication: unspecified Qualified Code(s): K85.20 - Alcohol induced acute pancreatitis without necrosis or infection Disposition: Admitted As Inpatient Condition: Undetermined Referrals: Kalia Sheppard MD [Primary Care Provider] - Forms: ED Satisfaction Letter, Work/School Release Time of Disposition: 06:16 Abdominal Pain HPI - General Chief Complaint: ED Abdominal Pain Stated Complaint: abdominal pain Time Seen by Provider: 02/01/17 05:07 Source: patient Mode of arrival: ambulatory Limitations: no limitations Nursing Notes Reviewed: Yes Vital Signs Reviewed: Yes - History of Present Illness HPI Narrative: 46-year-old male with history of chronic pancreatitis and previous alcohol abuse , arrives to [facility] emergency department with abdominal pain that started roughly 24-48 hours ago. The patient states this progressively got worse. The patient states this feels that his previous pancreatitis. His states that there is a history of cyst on his duodenum/ pancreas and is currently watching. The patient last drank alcohol 3 days ago, previous to this it was June, 7 months ago. The patient denies any other complaints at this time other than upper abdominal pain. The patient is in moderate distress due to the amount of pain. He is shivering in the room due to pain. The patient states he does have a history of alcohol withdrawal symptoms but states he is not withdrawing right now as he only had a 12 pack 3 days ago. The patient denies any other complaints at this time. Pt Subjective Complaint: abdominal pain Onset (ago): day(s) (1-2) Consistency: constant, Worsening Location: epigastric Pain Severity: moderate, severe Pain Scale: 10 Quality: stabbing Radiation: back Migration to: no migration Improves with: nothing Worsens with: nothing Context: history of similar episodes Associated symptoms: Reports: nausea, vomiting Treatments prior to arrival: none - Related Data Home Medications Medication Instructions Recorded Confirmed Omeprazole [PriLOSEC] 40 mg PO BID #0 10/23/14 07/13/16 Gabapentin [Neurontin] 300 - 600 mg PO TID 02/07/15 07/13/16 Metoprolol Succinate 100 mg PO DAILY 07/13/16 07/13/16 Previous Rx's Medication Instructions Recorded Folic Acid 1 mg PO DAILY tablet 07/26/16 LORazepam [Ativan] 0.5 mg PO BID PRN #30 tablet 07/26/16 Multivit/Ca/Min/Fe/FA [Thera M 1 tab PO DAILY tablet 07/26/16 Plus] OxyCODONE Immed Rel [Roxicodone 5 10 mg PO Q6HR PRN #20 tablet 07/26/16 MG] Thiamine (B-1) [Vitamin B-1] 100 mg PO DAILY tablet 07/26/16 traZODone [TraZODone] 50 mg PO HS PRN #30 tablet 07/26/16 Allergies Allergy/AdvReac Type Severity Reaction Status Date / Time No Known Allergies Allergy Verified 07/13/16 14:22 All systems ED: reviewed and negative except as stated. Constitutional: Reports: chills. Denies: fever, weakness ENT ED: Denies: congestion Cardiovascular: Denies: chest pain Respiratory: Denies: dyspnea Gastrointestinal: Reports: abdominal pain, nausea, vomiting. Denies: diarrhea, constipation, hematemesis, melena, hematochezia Genitourinary: Denies: urgency, dysuria Musculoskeletal: Reports: back pain. Denies: arthralgia, myalgia Integumentary: Denies: rash Neurological: Denies: headache Abdominal Pain PMH - Past Medical History Medical history: Reports: GERD, hypertension, other Male Surgical History: Reports: orthopedic, other Psychiatric history: Reports: anxiety - Social History Smoking status: Current some day smoker Alcohol use: Reports: occasionally Drug use: Reports: none Physical Exam - General Limitations: no limitations General appearance: alert, in no apparent distress - Head Head exam: atraumatic, normocephalic, normal inspection - Eye Eye exam: Present: normal appearance, PERRL, EOMI - ENT ENT exam: normal exam, normal oropharynx, mucous membranes moist - Neck Neck exam: Present: normal inspection, full ROM, trachea midline - Chest Chest inspection: Present: normal inspection, symmetric chest wall rise - Respiratory Respiratory exam: Present: normal lung sounds bilaterally - Cardiovascular Cardiovascular exam: Present: normal rhythm, tachycardia, normal heart sounds - Abdominal Exam Abdominal exam: Present: soft, tenderness (Diffuse, upper abdomen), guarding. Absent: distention, rebound, rigidity - Extremities Exam Extremities exam: Present: normal inspection, full ROM. Absent: tenderness, pedal edema Course Vital Signs Temperature 97.4 F L 02/01/17 05:03 Pulse Rate 104 02/01/17 05:03 Respiratory Rate 18 02/01/17 05:03 Blood Pressure 183/110 02/01/17 05:03 O2 Sat by Pulse Oximetry 99 02/01/17 05:03 Temperature 97.4 F L 02/01/17 05:03 Pulse Rate 104 02/01/17 05:03 Respiratory Rate 18 02/01/17 05:03 Blood Pressure 183/110 02/01/17 05:03 O2 Sat by Pulse Oximetry 99 02/01/17 05:03 Oxygen Delivery Oxygen Delivery Room Air Abdominal Pain - MDM Narrative Medical decision making narrative: Workup in the emergency department demonstrates findings consistent with acute pancreatitis. The patient's CT scan demonstrates similar findings. The patient also was noted to have bladder wall thickening with concern for possible infectious etiology versus bladder carcinoma. The patient's lipase is elevated as well as his T bili. The patient has a leukocytosis. Pain is controlled with IV Dilaudid. We will admit the patient to the hospitalist. He has received 1 L IV fluids and is nothing by mouth at this time. Accepted by Dr. Delgado. - Lab Data Lab results reviewed: Yes I reviewed the patient's lab results. Result diagrams: 02/01/17 05:20 02/01/17 05:20 Lab Results 02/01/17 02/01/17 02/01/17 Range/Units 05:20 05:20 05:20 WBC 12.2 H (4.3-11.1) K/mcL RBC 4.91 (4.19-5.50) M/mcL Hgb 16.4 (12.9-16.9) g/dL Hct 45.4 (37.5-50.1) % MCV 92.5 (83.0-100.0) fL MCH 33.4 H (28.0-33.3) pg MCHC 36.1 H (31.6-35.5) g/dL RDW 12.3 (11.5-14.5) % Plt Count 108 L (140-400) K/mcL MPV 11.4 (9.4-12.4) fL Immature Gran % 0.4 (0-4) % Seg Neutrophils % 79.8 % Lymphocytes % 13.3 % Monocytes % 6.1 % Eosinophils % 0.1 % Basophils % 0.3 % Neutrophils # 9.7 H (1.6-8.9) K/mcL Lymphocytes # 1.6 (0.6-4.6) K/mcL Monocytes # 0.7 (0.0-1.3) K/mcL Eosinophils # 0.0 (0.0-0.6) K/mcL Basophils # 0.0 (0.0-0.2) K/mcL Sodium 139 (136-145) mEq/L Potassium 4.5 (3.5-4.5) mEq/L Chloride 96 L (98-109) mEq/L Carbon Dioxide 24 (19-29) mEq/L BUN 10 (8-26) mg/dL Creatinine 0.91 (0.72-1.25) mg/dL Est GFR ( Amer) > 60 (> 60) Est GFR (Non-Af Amer) > 60 (> 60) BUN/Creatinine Ratio 11 (6-26) Glucose 151 H (70-99) mg/dL Calculated Osmolality 290 (280-300) Calcium 10.1 (8.6-10.8) mg/dL Total Bilirubin 4.0 H (0.2-1.2) mg/dL AST 227 H (5-34) Units/L ALT 153 H (0-55) Units/L Alkaline Phosphatase 533 H (38-126) Units/L Troponin I 0.00 (0-0.03) ng/mL Serum Total Protein 8.5 H (6.0-8.3) g/dL Albumin 4.5 (3.5-5.0) g/dL Globulin 4.0 H (2.4-3.5) g/dL Albumin/Globulin Ratio 1.1 (1.1-2.2) Lipase 1144 H (8-78) Units/L - Radiology Data Radiology results reviewed: Yes I reviewed the patient's radiology results. - EKG Data EKG attestation: Yes I reviewed and interpreted this EKG. EKG results narrative: Heart rate 10 9 bpm. GA interval 155 ms. QTc 381 ms. Normal axis. Sinus tachycardia. No ST elevation or ST depression noted. EKG similar to previous EKG from 07/19/2016. No acute changes noted.
[2017-02-01 05:33] LABS: Basophils % 0.3 %; Eosinophils % 0.1 %; Hematocrit 45.4 % (37.5-50.1); Hemoglobin 16.4 g/dL (12.9-16.9); Immature Granulocytes % 0.4 % (0-4); Lymphocytes # 1.6 K/mcL (0.6-4.6); Lymphocytes % 13.3 %; Mean Corpuscular HGB Conc 36.1 g/dL (31.6-35.5); Mean Corpuscular Hemoglobin 33.4 pg (28.0-33.3); Mean Corpuscular Volume 92.5 fL (83.0-100.0); Mean Platelet Volume 11.4 fL (9.4-12.4); Monocytes # 0.7 K/mcL (0.0-1.3); Monocytes % 6.1 %; Neutrophils # 9.7 K/mcL (1.6-8.9); Platelet Count 108 K/mcL (140-400); Red Blood Count 4.91 M/mcL (4.19-5.50); Red Cell Distribution Width 12.3 % (11.5-14.5); Segmented Neutrophils % 79.8 %
[2017-02-01 05:49] LABS: Alanine Aminotransferase 153 Units/L (0-55); Albumin 4.5 g/dL (3.5-5.0); Albumin/Globulin Ratio 1.1 (1.1-2.2); Alkaline Phosphatase 533 Units/L (38-126); Aspartate Amino Transferase 227 Units/L (5-34); BUN/Creatinine Ratio 11 (6-26); Blood Urea Nitrogen 10 mg/dL (8-26); Calcium 10.1 mg/dL (8.6-10.8); Carbon Dioxide 24 mEq/L (19-29); Chloride 96 mEq/L (98-109); Glucose 151 mg/dL (70-99); Lipase 1144 Units/L (8-78); Osmolality,Calculated 290 (280-300); Potassium 4.5 mEq/L (3.5-4.5); Sodium 139 mEq/L (136-145); Total Protein 8.5 g/dL (6.0-8.3); eGFR For African Americans > 60 (> 60); eGFR For Non-African Americans > 60 (> 60)
[2017-02-01] MEDS ORDERED: *HR* HYDROcodone/Acet 5/325 mg TABLET PO ONE (05:55)
[2017-02-01] MEDS ORDERED: *HR* FentaNYL (PF) 100 MCG/2 ML VIAL IVP ONE (05:56)
[2017-02-01] MEDS ORDERED: Ondansetron 4 MG/2 ML VIAL IVP ONE (06:03)
[2017-02-01] MEDS ORDERED: hydrALAZINE 10 MG TABLET PO ONE (06:25)
[2017-02-01 06:32] LABS: Bilirubin,Urine Large (Negative); Blood,Urine Trace (Negative); Clarity,Urine Clear (Clear); Color,Urine Orange (Yellow); Glucose,Urine (UA) Normal (Normal); Ketones,Urine >=160 mg/dL (Negative); Leukocyte Esterase,Urine Negative (Negative); Nitrite,Urine Negative (Negative); Protein,Urine >=300 mg/dL (Neg-Trace); Specific Gravity,Urine 1.025 (1.010-1.025); Urobilinogen,Urine Normal (Normal)
[2017-02-01 06:33] LABS: Bacteria,Urine None Seen per hpf (None-Few); Hyaline Casts,Urine None Seen per lpf (None-Few); RBC,Urine 0-3 per hpf (0-3); Squamous Epithelial Cell,Urine Few per lpf (None-Few); WBC,Urine 0-3 per hpf (0-3)
[2017-02-01] MEDS ORDERED: *HR* HYDROmorphone (PF) 1 MG/ML SYRINGE IVP PRN (07:28)
[2017-02-01] MEDS ORDERED: Ondansetron 4 MG/2 ML VIAL IVP PRN (07:28)
[2017-02-01] MEDS ORDERED: Naloxone 0.4 MG/ML INJ IVP PRN (07:28)
[2017-02-01] MEDS ORDERED: *HR* LORazepam 2 MG/ML VIAL IVP PRN ×3 (07:31)
--- NOTE | 2017-02-01 07:38 | Internal Med History&Physical ---
Date of Encounter: 02/01/17 Time of Encounter: 07:30 Assessment and Plan (1) Pancreatitis, acute Current visit: No Status: Acute History of alcoholic pancreatitis, patient admits to drinking alcohol. Lipase markedly elevated with elevated bilirubin, transaminases and alk phos. Most recent MRCP 06/2016 with concern for chronic pseudocyst. - Aggressive IV fluid resuscitation - 500ccs/hr for 6 hours then decrease to 250ccs thereafter - IV dilaudid for pain control - RUQ US - consult GI if concern for biliary ductal dilation - Trend LFTs - NPO - Encourage alcohol cessation Qualifiers: Pancreatitis type: alcohol induced Acute pancreatitis complication: unspecified Qualified Code(s): K85.20 - Alcohol induced acute pancreatitis without necrosis or infection (2) History of alcoholism Current visit: No Status: Chronic Patient admits to drinking alcohol. Has had severe withdrawal in past, currently without symptoms of withdrawal. - CIWA protocol in place - IV thiamine, folate, MVI (3) Essential hypertension Current visit: No Status: Chronic BP markedly elevated. Patient has missed his PO antihypertensive meds ( metoprolol 100mg BID), and is having severe pain - Control pain as above - IV labetolol PRN - Continue home antihypertensive regimen (4) DVT prophylaxis Current visit: No Status: Acute SQ heparin Internal Medicine - H&P: HPI Chief complaint: Abdominal pain Admitted From: Emergency Dept Plans for Post Hospital Care: Home History of present illness: Mr. Howard is a 46 year old male with history of alcohol abuse, pancreatitis and hypertension who presented to the ED this morning with complaint of abdominal pain which began yesterday morning. He states that he had stopped drinking alcohol for several months after his last hospitalization (06/2016 for alcoholic pancreatitis, complicated by severe alcohol withdrawal requiring precedex drip in ICU), but then began drinking again several weeks ago. He states that he has only drank 5-6 times, but did consume a large amount of beer two nights ago, then woke in the morning with severe epigastric pain. The pain worsened throughout the day yesterday and he had several episodes of nonbloody emesis. When the pain became intolerable overnight he came to the ED for evaluation. In the ED he was found to have elevated lipase and bilirubin. He denies chest pain or shortness of breath. He denies dysuria or frequency. Past Med Surg Social Fam HX - Past Medical History Medical history: GERD, hypertension, other (pancreatitis, concern for chronic pancreatic pseudocyst on previous imaging) Psychiatric history: anxiety - Past Surgical History Surgical History: appendectomy, cholecystectomy, other - Social History Smoking Status: Current some day smoker Smokeless Tobacco Status: No Alcohol use: occasionally Drug use: none - Family History Mother Family Member Ethnicity: Non- Living Status: Hx Family Cardiac Disorders: Yes Hx Family Respiratory Disorders: Yes Hx Family Cancer: Yes Hx Family GI Disorders: Yes Hx Family Endocrine Disorder: No Hx Family Neuromuscular Disorders: No Hx Family Neurologic Disorders: No Hx Family HEENT Disorders: No Hx Family Autoimmune Disorders: No Internal Medicine - H&P: Meds Omeprazole [PriLOSEC] 40 mg PO BID #0 10/23/14 [History] Gabapentin [Neurontin] 300 - 600 mg PO TID 02/07/15 [History] Metoprolol Succinate 100 mg PO DAILY 07/13/16 [History] LORazepam [Ativan] 0.5 mg PO BID PRN #30 tablet 07/26/16 [Rx] Multivit/Ca/Min/Fe/FA [Thera M Plus] 1 tab PO DAILY tablet 07/26/16 [Rx] traZODone [TraZODone] 50 mg PO HS PRN #30 tablet 07/26/16 [Rx] Ondansetron HCl [Ondansetron HCl] 4 - 8 mg PO TID PRN 02/01/17 [History] 3 Allergy/AdvReac Type Severity Reaction Status Date / Time No Known Allergies Allergy Verified 02/01/17 08:41 All Systems PM: A 10-system review of systems was performed and is negative for pertinent findings except as documented above in the HPI. - Constitutional Constitutional: chills - EENT Eyes: no change in vision - Cardiovascular Cardiovascular ROS IM: no chest pain, no dyspnea - Respiratory Respiratory: no dyspnea, no hemoptysis - Gastrointestinal Gastrointestinal: abdominal pain, vomiting - Genitourinary Genitourinary ROS male: no difficulty urinating, no dysuria - Musculoskeletal Musculoskeletal ROS IM: no muscle weakness - Integumentary Integumentary IM: no rash - Neurological Neurological ROS: no confusion - Psychiatric Psychiatric: no confusion - Constitutional Vitals: Temp Pulse Resp BP Pulse Ox 97.4 F L 95 14 190/114 95 02/01/17 05:03 02/01/17 06:21 02/01/17 06:21 02/01/17 06:21 02/01/17 06:21 General appearance: Present: A&O X 3, pleasant - Head Head exam: Present: atraumatic - Eye Eye exam: Present: EOMI, sclera anicteric - ENT ENT exam: Present: mucous membranes dry - Neck Neck exam general surgery: Present: supple - Respiratory Respiratory exam: Present: CTAB - Cardiovascular Cardiovascular exam: Present: RRR. Absent: diastolic murmur, gallop, rubs, systolic murmur - GI/Abdominal GI/Abdominal exam: Present: normal bowel sounds, soft (tender throuhgout with voluntary guarding.). Absent: rebound - Extremities Exam Extremities exam: Absent: pedal edema - Neurological Exam Neurological exam: Present: no focal deficits - Skin Skin exam: Absent: rash Internal Med - H&P Results - Labs CBC & Chem 7: 02/01/17 05:20 02/01/17 05:20
[2017-02-01] MEDS: 0.9 % Sodium Chloride 1,000 ML IVC SCH ×4 (08:26→21:10)
[2017-02-01] MEDS ORDERED: *HR* Labetalol 20 MG/4 ML SYRINGE IVP PRN (09:10)
[2017-02-01] MEDS: *HR* HYDROmorphone (PF) 1 MG/ML SYRINGE IVP PRN ×7 (09:52→23:23)
[2017-02-01] MEDS: *HR* LORazepam 0.5 MG TABLET PO PRN (11:59)
[2017-02-01] MEDS ORDERED: 0.9 % Sodium Chloride 1,000 ML ONE (13:06)
[2017-02-01] MEDS: Gabapentin 300 MG CAPSULE PO SCH ×2 (15:48→21:10)
[2017-02-01] MEDS: Thiamine (B-1) 100 MG, Folic Acid 1 MG, MVI, adult with vitamin K 10 ML in 0.9 % Sodi... IVPB SCH (17:36)
[2017-02-01] MEDS: *HR* Heparin 5,000 UNIT/ML VIAL SQ SCH (17:38)
--- NOTE | 2017-02-01 18:30 | Electrocardiograph Report ---
[place] [id number] Test Date: 2017-02-01 Pat Name: Erin Howard Department: 104 Room: 2A Gender: M [employer]: : 1970 Requested By: Raul Wetzel Order Number: [id number] Reading MD: Omkar Todd MD Measurements Intervals [place] Rate: 109 P: 60 CT: 155 QRS: 12 QRSD: 90 T: 67 QT: 317 QTc: 381 Interpretive Statements SINUS TACHYCARDIA Electronically Signed On 02-01-2017 18:28:36 EST by Omkar Todd MD
[2017-02-02] MEDS: 0.9 % Sodium Chloride 1,000 ML IVC SCH ×7 (01:11→23:34)
[2017-02-02] MEDS: *HR* HYDROmorphone (PF) 1 MG/ML SYRINGE IVP PRN ×7 (01:28→22:44)
[2017-02-02 05:10] LABS: Basophils % 0.3 %; Eosinophils # 0.1 K/mcL (0.0-0.6); Eosinophils % 0.8 %; Hematocrit 39.4 % (37.5-50.1); Immature Granulocytes % 0.4 % (0-4); Immature Platelets 10.9 % (1.1-6.1); Lymphocytes # 1.4 K/mcL (0.6-4.6); Lymphocytes % 18.5 %; Mean Corpuscular HGB Conc 35.5 g/dL (31.6-35.5); Mean Corpuscular Hemoglobin 32.7 pg (28.0-33.3); Mean Corpuscular Volume 92.1 fL (83.0-100.0); Mean Platelet Volume 11.6 fL (9.4-12.4); Monocytes # 0.4 K/mcL (0.0-1.3); Monocytes % 5.3 %; Neutrophils # 5.6 K/mcL (1.6-8.9); Nucleated Red Blood Cells 0.3 /100 WBC (0); Red Blood Count 4.28 M/mcL (4.19-5.50); Red Cell Distribution Width 11.9 % (11.5-14.5); Segmented Neutrophils % 74.7 %
[2017-02-02] MEDS: *HR* Heparin 5,000 UNIT/ML VIAL SQ SCH (05:27)
[2017-02-02 05:37] LABS: Alanine Aminotransferase 172 Units/L (0-55); Alkaline Phosphatase 477 Units/L (38-126); Aspartate Amino Transferase 356 Units/L (5-34); BUN/Creatinine Ratio 8 (6-26); Carbon Dioxide 26 mEq/L (19-29); Chloride 99 mEq/L (98-109); Globulin 3.3 g/dL (2.4-3.5); Glucose 105 mg/dL (70-99); Osmolality,Calculated 280 (280-300); Sodium 136 mEq/L (136-145); eGFR For African Americans > 60 (> 60); eGFR For Non-African Americans > 60 (> 60)
[2017-02-02 05:44] LABS: Platelet Count 66 K/mcL (140-400)
[2017-02-02 05:57] LABS: Large Platelets Present (Not Present); Platelet Estimate Decreased (Normal)
[2017-02-02 05:58] LABS: Anisocytosis 1+ (Not Present)
[2017-02-02 06:14] LABS: Albumin 3.3 g/dL (3.5-5.0); Bilirubin,Total 5.7 mg/dL (0.2-1.2); Blood Urea Nitrogen 5 mg/dL (8-26); Calcium 7.8 mg/dL (8.6-10.8); Potassium 3.3 mEq/L (3.5-4.5); Total Protein 6.6 g/dL (6.0-8.3)
[2017-02-02] MEDS ORDERED: Potassium Chloride 20 MEQ, Lidocaine 1% 2 ML in D5% in Water 250 ML IVPB ONE (08:10)
[2017-02-02 08:30] LABS: Magnesium 1.2 mg/dL (1.6-2.6); Phosphorous 1.8 mg/dL (2.3-4.7)
[2017-02-02] MEDS ORDERED: Metoprolol XL (24 HR) Succ 50 MG TAB.ER.24H PO SCH (09:00)
[2017-02-02] MEDS: Metoprolol XL (24 HR) Succ 50 MG TAB.ER.24H PO SCH (09:24)
[2017-02-02] MEDS: Gabapentin 300 MG CAPSULE PO SCH ×3 (09:24→20:04)
--- NOTE | 2017-02-02 14:43 | Internal Med Progress Note ---
Date of Encounter: 02/02/17 Time of Encounter: 14:15 - Assessment and plan (1) Pancreatitis, acute Current Visit: No Status: Acute Assessment and plan: Secondary alcohol abuse ABD US negative for any biliary obstruction continue supportive care IV fluids pain control NPO alcohol cessation advised, patient willing to seek help at this time. social service consultation requested Qualifiers: Pancreatitis type: alcohol induced Acute pancreatitis complication: unspecified Qualified Code(s): K85.20 - Alcohol induced acute pancreatitis without necrosis or infection (2) History of alcoholism Current Visit: No Status: Chronic Assessment and plan: continue to closely monitor for alcohol withdrawals CIWA score Lorazepam prn thiamine, folate, MVI (3) Withdrawal symptoms, alcohol Current Visit: No Status: Acute Assessment and plan: as listed above Qualifiers: Complication of substance-induced condition: with delirium Qualified Code(s ): F10.231 - Alcohol dependence with withdrawal delirium (4) DVT prophylaxis Current Visit: No Status: Acute Assessment and plan: noted to have worsening of thrombocytopenia d/c heparin sq start ICD for dvt ppx (5) Essential hypertension Current Visit: No Status: Chronic Assessment and plan: continue home meds added Hydralazine 10mg IV q6h prn SBP>160 (6) Hypokalemia Current Visit: No Status: Acute Assessment and plan: K supplemented continue to monitor electrolytes and replace as needed - Subjective Interval history: Patient seen and examined at bedside. Resting in bed and reports of feeling mildly better compared to previous day. Reports of diffuse abdominal pain but denies any nausea or vomiting at this time - Constitutional Vitals: Temp Pulse Resp BP Pulse Ox 99.2 F 91 18 157/90 93 02/02/17 11:19 02/02/17 11:19 02/02/17 11:19 02/02/17 11:19 02/02/17 11:19 General appearance: Present: mild distress (diffuse abd discomfort), A&O X 3, pleasant, answers questions appropriately - Head Head exam: Present: atraumatic, normocephalic - Eye Eye exam: Present: conjuntiva pink, sclera anicteric - Respiratory Respiratory exam: Present: CTAB. Absent: accessory muscle use, rales, rhonchi, wheezes - Cardiovascular Cardiovascular exam: Present: RRR, +S1, +S2. Absent: diastolic murmur, gallop, rubs, systolic murmur - GI/Abdominal GI/Abdominal exam: Present: normal bowel sounds, soft, no peritoneal signs. Absent: distended, tenderness - Extremities Exam Extremities exam: Present: warm, radial pulses palpable and symmetrical. Absent : calf tenderness, cyanotic, pedal edema - Neurological Exam Neurological exam: Present: alert, oriented X3 Internal Medicine: Result - Labs CBC & Chem 7: 02/02/17 04:16 02/02/17 04:16 Labs: Short CBC 02/02/17 Range/Units 04:16 WBC 7.5 (4.3-11.1) K/mcL Hgb 14.0 D (12.9-16.9) g/dL Hct 39.4 (37.5-50.1) % Plt Count 66 L (140-400) K/mcL Neutrophils # 5.6 (1.6-8.9) K/mcL BMP 02/02/17 04:16 Sodium 136 Potassium 3.3 L D Chloride 99 Carbon Dioxide 26 BUN 5 L Creatinine 0.63 L Glucose 105 H Calcium 7.8 L D Liver Function 02/02/17 Range/Units 04:16 Total Bilirubin 5.7 H (0.2-1.2) mg/dL AST 356 H (5-34) Units/L ALT 172 H (0-55) Units/L Alkaline Phosphatase 477 H (38-126) Units/L Albumin 3.3 L D (3.5-5.0) g/dL - Impressions Impressions Abdomen Ultrasound 02/01/17 14:00 IMPRESSION: Prominent fatty infiltration of the liver. Status post cholecystectomy. Otherwise unremarkable right upper quadrant ultrasound. D/ / Michael Levin MD / Michael Levin MD Interpreting Provider: Michael Levin MD Consult Discharge Plan - Plan Referrals: Kalia Sheppard MD [Primary Care Provider] -
[2017-02-02] MEDS: Thiamine (B-1) 100 MG, Folic Acid 1 MG, MVI, adult with vitamin K 10 ML in 0.9 % Sodi... IVPB SCH (16:45)
[2017-02-02] MEDS: *HR* Morphine 2 MG/ML SYRINGE IVP PRN ×2 (17:10→20:10)
[2017-02-03] MEDS: *HR* Morphine 2 MG/ML SYRINGE IVP PRN (03:14)
[2017-02-03 04:39] LABS: Immature Granulocytes % 0.3 % (0-4); Red Cell Distribution Width 11.8 % (11.5-14.5)
[2017-02-03 04:41] LABS: Basophils % 0.4 %; Eosinophils # 0.2 K/mcL (0.0-0.6); Hematocrit 36.4 % (37.5-50.1); Hemoglobin 13.4 g/dL (12.9-16.9); Immature Platelets 12.7 % (1.1-6.1); Lymphocytes # 1.6 K/mcL (0.6-4.6); Lymphocytes % 24.2 %; Mean Corpuscular HGB Conc 36.8 g/dL (31.6-35.5); Mean Corpuscular Hemoglobin 33.7 pg (28.0-33.3); Mean Corpuscular Volume 91.5 fL (83.0-100.0); Mean Platelet Volume 12.1 fL (9.4-12.4); Monocytes # 0.4 K/mcL (0.0-1.3); Monocytes % 5.4 %; Neutrophils # 4.5 K/mcL (1.6-8.9); Red Blood Count 3.98 M/mcL (4.19-5.50); Segmented Neutrophils % 66.7 %
[2017-02-03 04:45] LABS: Platelet Count 56 K/mcL (140-400)
[2017-02-03] MEDS: 0.9 % Sodium Chloride 1,000 ML IVC SCH ×2 (04:56→10:32)
[2017-02-03 05:01] LABS: Alanine Aminotransferase 254 Units/L (0-55); Albumin 3.3 g/dL (3.5-5.0); Albumin/Globulin Ratio 1.1 (1.1-2.2); Alkaline Phosphatase 565 Units/L (38-126); Aspartate Amino Transferase 481 Units/L (5-34); BUN/Creatinine Ratio 9 (6-26); Blood Urea Nitrogen 6 mg/dL (8-26); Calcium 8.2 mg/dL (8.6-10.8); Carbon Dioxide 27 mEq/L (19-29); Chloride 95 mEq/L (98-109); Globulin 3.1 g/dL (2.4-3.5); Glucose 96 mg/dL (70-99); Magnesium 1.2 mg/dL (1.6-2.6); Osmolality,Calculated 271 (280-300); Phosphorous 1.7 mg/dL (2.3-4.7); Potassium 2.9 mEq/L (3.5-4.5); Sodium 132 mEq/L (136-145); Total Protein 6.4 g/dL (6.0-8.3); eGFR For African Americans > 60 (> 60); eGFR For Non-African Americans > 60 (> 60)
[2017-02-03] MEDS: *HR* HYDROmorphone (PF) 1 MG/ML SYRINGE IVP PRN ×3 (05:02→10:47)
[2017-02-03 05:04] LABS: Bilirubin,Total 9.2 mg/dL (0.2-1.2)
[2017-02-03] MEDS ORDERED: Potassium Chloride 40 MEQ, Lidocaine 1% 2 ML in D5% in Water 500 ML IVPB ONE (06:54)
[2017-02-03 07:38] VITALS: BP 170/93
[2017-02-03] MEDS ORDERED: Potassium Phosphate 44 MEQ in 0.9 % Sodium Chloride 250 ML IVPB ONE (07:44)
[2017-02-03] MEDS: Metoprolol XL (24 HR) Succ 50 MG TAB.ER.24H PO SCH (08:32)
[2017-02-03] MEDS: Gabapentin 300 MG CAPSULE PO SCH (08:33)
[2017-02-03] MEDS: *HR* LORazepam 0.5 MG TABLET PO PRN (09:30)
[2017-02-03] MEDS ORDERED: Piperacillin/Tazobactam 3.375 GM in D5% in Water 50 ML IVPB SCH (10:00)
--- NOTE | 2017-02-03 10:53 | Transfer Summary ---
Date of Encounter: 02/03/17 Time of Encounter: 09:22 Transfer Discharge Sum: Diag - Discharge Diagnosis (1) Pancreatitis, acute Status: Acute (2) History of alcoholism Status: Chronic (3) Withdrawal symptoms, alcohol Status: Acute (4) DVT prophylaxis Status: Acute (5) Essential hypertension Status: Chronic (6) Hypokalemia Status: Acute Transfer Discharge Sum: Med - Medications Active and Home Medications: Home Medications Omeprazole [PriLOSEC] 40 mg PO BID #0 10/23/14 [History Confirmed 02/01/17] Gabapentin [Neurontin] 300 - 600 mg PO TID 02/07/15 [History Confirmed 02/01/17] Metoprolol Succinate 100 mg PO DAILY 07/13/16 [History Confirmed 02/01/17] LORazepam [Ativan] 0.5 mg PO BID PRN #30 tablet 07/26/16 [Rx Confirmed 02/01/17] Multivit/Ca/Min/Fe/FA [Thera M Plus] 1 tab PO DAILY tablet 07/26/16 [Rx Confirmed 02/01/17] traZODone [TraZODone] 50 mg PO HS PRN #30 tablet 07/26/16 [Rx Confirmed 02/01/17 ] Ondansetron HCl [Ondansetron HCl] 4 - 8 mg PO TID PRN 02/01/17 [History Confirmed 02/01/17] Active Medications Gabapentin (Neurontin) 300 mg PO TID [facility] Stop: 08/03/17 15:01 Last Admin: 02/03/17 08:33 Dose: 300 mg Hydralazine HCl (Hydralazine) 10 mg IVP Q6HR PRN PRN Reason: SBP>160 Stop: 08/04/17 08:12 Hydromorphone HCl (Dilaudid) 1 mg IVP Q2H PRN PRN Reason: Severe Pain (7-10) Stop: 08/03/17 07:29 Last Admin: 02/03/17 10:47 Dose: 1 mg Thiamine HCl 100 mg/ Folic Acid 1 mg/ Multivitamins 10 ml / Sodium Chloride 511.2 mls @ 85.2 mls/hr IVPB DAILY@1800 [facility] Stop: 02/03/17 23:59 Last Infusion: 02/02/17 23:35 Dose: Infused Sodium Chloride (0.9 % Sodium Chloride) 1,000 mls @ 200 mls/hr IVC .Q5H [facility] Stop: 08/04/17 14:13 Last Admin: 02/03/17 10:32 Dose: 200 mls/hr Potassium Chloride 40 meq/ (Lidocaine 2 ml/ Dextrose) 522 mls @ 130.5 mls/hr IVPB ONCE ONE Stop: 02/03/17 10:53 Last Admin: 02/03/17 08:34 Dose: 130.5 mls/hr Potassium Phosphate 44 meq/ (Sodium Chloride) 260 mls @ 40 mls/hr IVPB ONCE ONE Stop: 02/03/17 14:13 Piperacillin Sod/Tazobactam (Sod 3.375 gm/ Dextrose) 50 mls @ 12.5 mls/hr IVPB Q8H [facility] Stop: 08/05/17 10:01 Last Admin: 02/03/17 10:22 Dose: 12.5 mls/hr Labetalol HCl (Labetalol) 10 mg IVP Q1H PRN PRN Reason: Hypertension Stop: 08/03/17 09:11 Last Admin: 02/01/17 10:15 Dose: 10 mg Lorazepam (Ativan) 1 mg IVP Q1H PRN PRN Reason: Alcohol Withdrawal Stop: 08/03/17 07:32 Lorazepam (Ativan) 2 mg IVP Q4HR PRN PRN Reason: CIWA Score of 10-21 Stop: 08/03/17 07:32 Last Admin: 02/01/17 13:07 Dose: 2 mg Lorazepam (Ativan) 4 mg IVP Q4HR PRN PRN Reason: CIWA Score of 22-45 Stop: 08/03/17 07:32 Lorazepam (Ativan) 0.5 mg PO BID PRN PRN Reason: Anxiety Stop: 08/03/17 09:06 Last Admin: 02/03/17 09:30 Dose: 0.5 mg Metoprolol Succinate (Toprol Xl) 100 mg PO DAILY [facility] Stop: 08/04/17 08:16 Last Admin: 02/03/17 08:32 Dose: 100 mg Morphine Sulfate (Morphine Sulfate) 4 mg IVP Q4HR PRN PRN Reason: Moderate Pain Stop: 08/04/17 14:51 Last Admin: 02/03/17 03:14 Dose: 4 mg Naloxone HCl (Narcan) 0.4 mg IVP Q2MIN PRN PRN Reason: Opioid Reversal Stop: 08/03/17 07:29 Ondansetron HCl (Zofran) 4 mg IVP Q8HR PRN PRN Reason: Nausea And Vomiting Stop: 08/03/17 07:29 Last Admin: 02/02/17 05:39 Dose: 4 mg Transfer Discharge Sum: Data Procedures and tests throughout hospitalization: Pending Orders 02/03/17 06:54 Potassium Chloride [KCl] 40 meq Lidocaine 1% [Xylocaine] 2 ml D5% in Water [ Dextrose 5%] 500 ml IVPB ONCE 02/03/17 07:44 Potassium Phosphate 44 meq 0.9 % Sodium Chloride 250 ml IVPB ONCE 02/03/17 07:45 Consult to Gastroenterology [CONS] Stat 02/03/17 09:22 MR MRCP [MR abdomen wo con] [MR] Stat 02/03/17 10:00 Piperacillin/Tazobactam [Zosyn] 3.375 gm D5% in Water [Dextrose 5% (ADD- [place])] 50 ml IVPB Q8H Transfer Discharge Sum: Prov Date of admission: 02/02/17 16:35 Primary care physician: Kalia Sheppard MD Consults: 02/03/17 07:45 Consult to Gastroenterology [CONS] Stat Consulting Provider: Gastroenterology Ana Reason for Consult: Elevated transaminases, acute pancreatitis Call Completed: Yes Discharging clinician: Lovely Rush Transfer Discharge Sum: A/P - Plan Functional capacity at transfer: independent ambulation Disposition: Transfer Other Transfer Discharge Sum: Hosp Hospital course: Mr. Howard is a 47 year old male with PMH Of alcohol abuse and hypertension who was admitted for acute pancreatitis and elevated transaminases. He was started on supportive care however continued to have worsening of LFTs and T- bili. His pain persisted with worsening of his transaminases. He was closely monitored for signs of alcohol withdrawal and CIWA monitoring. No GI support available due to which [facility] was called for transfer. Pt was accepted by Dr. Silverman under the hepatology service. pt in agreement to transfer. - Time Spent with Patient Total time spent providing and/or coordinating transfer services: Greater than 30 minutes Transfer Discharge Sum: Exam - Constitutional Vitals: Vital Signs Temp Pulse Resp BP Pulse Ox 02/03/17 08:41 94 02/03/17 07:36 98.8 F 91 18 170/93 94 02/03/17 03:51 98.7 F 89 18 170/98 97 02/03/17 00:16 99.1 F 86 17 95 02/02/17 19:52 100.4 F H 95 16 166/100 95 Intake and Output 02/02/17 02/03/17 02/03/17 23:59 07:59 15:59 Intake Total 1511.2 / 1511.2 1000 / 1000 1050 / 1050 Output Total 1550 / 1550 2175 / 2175 0 / 0 Balance -38.8 / -38.8 -1175 / -1175 1050 / 1050 Intake: IV Fluids 1511.2 / 1511.2 1000 / 1000 1050 / 1050 0.9 % Sodium Chloride 1,000 ML 1000 / 1000 1000 / 1000 1000 / 1000 @ 200 mls/hr IVC .Q5H [facility] Rx#: [id number] Magnesium Sulfate Premix 2gm/ 50 / 50 50mL 2 gm In 50 ml @ 50 mls/hr IVPB Q2H [facility] Rx#:[id number] Vitamin B-1 100 MG Folvite 1 MG 511.2 / 511.2 M.v.i. Adult 10 ml In 0.9 % Sodium Chloride 500 ML @ 85.2 mls/hr IVPB DAILY@1800 [facility] Rx#: [id number] Output: Urine 1550 / 1550 2175 / 2175 0 / 0 Other: # Voids 2 Weight 81.221 kg Blood Glucose* 110 112 Patient Weight 02/03/17 23:59 Weight 81.221 kg General appearance: no acute distress - Head Head exam: Present: atraumatic, normocephalic - Eye Eye exam: Present: scleral icterus. Absent: conjuntiva pink - Respiratory Respiratory exam: Present: CTAB. Absent: respiratory distress, wheezes - Cardiovascular Cardiovascular exam: Present: +S1, +S2, tachycardia - GI/Abdominal GI/Abdominal exam: Present: normal bowel sounds, soft, tenderness (diffuse ). Absent: organomegaly - Extremities Exam Extremities exam: Present: normal inspection. Absent: pedal edema, tenderness - Neurological Exam Neurological exam: Present: oriented X3 - Psychiatric Psychiatric exam: Present: normal mood
== END 2017-02-03 11:18 | disposition other institution (70) | DRG 439 ==
LOC: EMEROO 04:59 → 2ANU 04:59 → SUATTDRO 06:38 → 2ANU 06:51
PROVIDERS: ADMIT Internal Medicine; ATTEND Internal Medicine

== ENCOUNTER 2017-05-22 15:48 | Inpatient (IN) ==
[2017-05-22] MEDS ORDERED: 0.9 % Sodium Chloride 1,000 ML ONE (16:06)
[2017-05-22] MEDS ORDERED: 0.9 % Sodium Chloride 1,000 ML IVC ONE (16:31)
[2017-05-22] MEDS ORDERED: Ondansetron 4 MG/2 ML VIAL IVP ONE ×2 (16:31→16:41)
[2017-05-22] MEDS ORDERED: SODIUM CHLORIDE 0.9% IVPB ONE (16:42)
[2017-05-22] MEDS ORDERED: KETAMINE IVPB ONE (16:42)
[2017-05-22 17:15] LABS: Albumin 6.7 g/dL (3.5-5.7); Albumin/Globulin Ratio 1.9 (1.1-2.2); Bilirubin,Direct 0.2 mg/dL (0.0-0.2); Bilirubin,Indirect 0.6 mg/dL (0.0-1.2); Bilirubin,Total 0.8 mg/dL (0.3-1.0); Calcium 11.7 mg/dL (8.6-10.3); Globulin 3.6 g/dL (2.4-3.5); Magnesium 1.9 mg/dL (1.6-2.6); Potassium 3.5 mEq/L (3.5-5.1); Total Protein 10.3 g/dL (6.4-8.9)
--- NOTE | 2017-05-22 17:36 | Emergency Department Note ---
Disposition Clinical Impression: Pancreatitis, acute Qualifiers: Pancreatitis type: other Acute pancreatitis complication: unspecified Qualified Code(s): K85.80 - Other acute pancreatitis without necrosis or infection Acute renal failure Qualifiers: Acute renal failure type: unspecified Qualified Code(s): N17.9 - Acute kidney failure, unspecified Disposition: Admitted As Inpatient Condition: Fair Time of Disposition: 17:46 Abdominal Pain HPI - General Chief Complaint: ED Abdominal Pain Stated Complaint: pancreatitis Time Seen by Provider: 05/22/17 16:25 Source: patient, family Mode of arrival: ambulatory Limitations: no limitations Nursing Notes Reviewed: Yes Vital Signs Reviewed: Yes - History of Present Illness HPI Narrative: Patient is a 47-year-old male who presents to [facility] ED with a chief complaint of epigastric abdominal pain. States he has a history of chronic pancreatitis from alcohol. He had stopped drinking for a while but then restarted and went on a drinking binge because his brother was diagnosed with cancer. Patient states he has had persistent nausea with vomiting, left upper quadrant and epigastric abdominal pain. He has also had muscular spasms. Pt Subjective Complaint: abdominal pain Onset (ago): hour(s) Consistency: constant, Worsening Location: LUQ, epigastric Pain Severity: severe Pain Scale: 7 Quality: stabbing Radiation: none Migration to: no migration Improves with: nothing Worsens with: nothing Associated symptoms: Reports: nausea, vomiting. Denies: fever, chills, constipation, dysuria Treatments prior to arrival: none - Related Data Home Medications Medication Instructions Recorded Confirmed Omeprazole [PriLOSEC] 40 mg PO BID #0 10/23/14 05/22/17 Gabapentin [Neurontin] 300 - 600 mg PO TID 02/07/15 05/22/17 Ondansetron HCl [Ondansetron HCl] 4 - 8 mg PO TID PRN 02/01/17 05/22/17 Amlodipine Besylate 10 mg PO DAILY 05/22/17 05/22/17 Carvedilol [Coreg] 25 mg PO BID 05/22/17 05/22/17 Cyanocobalamin (Vitamin B-12) 1,000 mcg PO AD 05/22/17 05/22/17 [Vitamin B12] Multivits,Ca,Min/Iron/FA/Lycop 1 each PO DAILY 05/22/17 05/22/17 [Centrum Men's Tablet] Allergies Allergy/AdvReac Type Severity Reaction Status Date / Time No Known Allergies Allergy Verified 05/22/17 15:49 All systems ED: reviewed and negative except as stated. Abdominal Pain PMH - Past Medical History Medical history: Reports: GERD, hypertension, other Male Surgical History: Reports: orthopedic, other Psychiatric history: Reports: anxiety - Social History Smoking status: Current some day smoker Alcohol use: Reports: occasionally Drug use: Reports: none Physical Exam - General Limitations: no limitations General appearance: alert, in no apparent distress - Head Head exam: atraumatic, normocephalic, normal inspection - Eye Eye exam: Present: normal appearance, EOMI - ENT ENT exam: normal exam, normal oropharynx, mucous membranes moist - Neck Neck exam: Present: normal inspection, full ROM, trachea midline - Chest Chest inspection: Present: normal inspection, symmetric chest wall rise - Respiratory Respiratory exam: Present: normal lung sounds bilaterally - Cardiovascular Cardiovascular exam: Present: regular rate, normal rhythm, normal heart sounds - Abdominal Exam Abdominal exam: Present: soft, tenderness, normal bowel sounds Abdominal tenderness: Present: LUQ, epigastrium, moderate - Extremities Exam Extremities exam: Present: normal inspection, full ROM. Absent: tenderness, pedal edema - Back Exam Back exam: Present: normal inspection, full ROM. Absent: tenderness - Neurological Exam Neurological exam: Present: alert, oriented X3 - Psychiatric Psychiatric exam: Present: normal affect, normal mood - Skin Skin exam: Present: warm, dry, intact, normal color Course Course Narrative: Patient seen and examined. Nausea vomiting along with history of pancreatitis. A BMP, magnesium level, lipase level ordered. States he is also having muscle cramping. CPK level ordered. 1 L of fluids as well as 8 mg Zofran ordered. A 0.2 mg/kg bolus of ketamine given to help with pain control. - Reevaluation(s) Reevaluation #1: Labwork shows acute renal failure with a creatinine of 3.9. Previously was 0.64. Patient also has some elevated LFTs as well as elevated lipase of 295. We will admit for pancreatitis and acute renal failure. Discussed with hospitalist Dr. Bee who has accepted patient for admission. Time: 17:46 Vital Signs Temperature 97.4 F L 05/22/17 15:49 Pulse Rate 86 05/22/17 15:49 Respiratory Rate 15 03/07/18 15:49 Blood Pressure 119/88 05/22/17 15:49 O2 Sat by Pulse Oximetry 93 05/22/17 15:49 Temperature 97.8 F 05/24/17 07:58 Pulse Rate 82 05/24/17 07:58 Respiratory Rate 16 05/24/17 07:58 Blood Pressure 118/79 05/24/17 07:58 O2 Sat by Pulse Oximetry 95 05/24/17 07:58 Oxygen Delivery Oxygen Delivery Room Air Abdominal Pain - Medical Records Medical records reviewed: Yes I reviewed the patient's medical records. - Lab Data Lab results reviewed: Yes I reviewed the patient's lab results. Result diagrams: 05/24/17 06:50 05/24/17 06:50 Lab Results 05/22/17 Range/Units 16:31 Sodium 139 (136-145) mEq/L Potassium 3.5 (3.5-5.1) mEq/L Chloride 87 L (98-107) mEq/L Carbon Dioxide 26 (23-29) mEq/L BUN 27 H (6-20) mg/dL Creatinine 3.95 H (0.70-1.30) mg/dL Est GFR ( Amer) 20 L (> 60) Est GFR (Non-Af Amer) 16 L (> 60) BUN/Creatinine Ratio 7 (6-26) Glucose 242 H (70-105) mg/dL Calculated Osmolality 301 H (280-300) Calcium 11.7 H (8.6-10.3) mg/dL Magnesium 1.9 (1.6-2.6) mg/dL Total Bilirubin 0.8 (0.3-1.0) mg/dL Direct Bilirubin 0.2 (0.0-0.2) mg/dL Indirect Bilirubin 0.6 (0.0-1.2) mg/dL AST 52 H (13-39) Units/L ALT 83 H (7-52) Units/L Alkaline Phosphatase 235 H (34-104) Units/L Creatine Kinase 84 (30-223) Units/L Serum Total Protein 10.3 H (6.4-8.9) g/dL Albumin 6.7 H (3.5-5.7) g/dL Globulin 3.6 H (2.4-3.5) g/dL Albumin/Globulin Ratio 1.9 (1.1-2.2) Lipase 298 H (11-82) Units/L Attestation Statement - Attestation Attestation: I examined this patient and my medical decision-making was reviewed with the Resident Physician. I agree with the documented findings, disposition and treatment plan as described except to the extent set forth below. Significant pain and nausea in ED, treated, persistent. Diffuse tenderness with voluntary guarding. Hemodynamically stable.
[2017-05-22] MEDS ORDERED: Ondansetron 4 MG/2 ML VIAL IVP PRN (17:58)
[2017-05-22] MEDS ORDERED: Naloxone 0.4 MG/ML INJ IVP PRN (17:59)
[2017-05-22] MEDS ORDERED: *HR* LORazepam 2 MG/ML VIAL IVP PRN ×3 (18:03)
[2017-05-22] MEDS ORDERED: Dextrose Gel 15 GM/37.5 ML TUBE PO PRN ×2 (18:04)
[2017-05-22] MEDS ORDERED: *HR* Dextrose 50 % in Water (Syg) 50 ML SYRINGE IVP PRN (18:04)
[2017-05-22] MEDS ORDERED: D5% in Water 1,000 ML IVC PRN (18:04)
[2017-05-22] MEDS ORDERED: Ondansetron 4 MG/2 ML VIAL IVP STA (18:11)
--- NOTE | 2017-05-22 18:12 | Internal Med History&Physical ---
<Franklin Webster - Last Filed: 05/22/17 18:06> Date of Encounter: 05/22/17 Time of Encounter: 18:06 Assessment and Plan (1) Acute on chronic pancreatitis Current visit: Yes Status: Acute The patient presents today with nausea, vomiting, dehydration and epigastric abdominal pain secondary to acute on chronic pancreatitis. Patient has a history of alcohol abuse and reports that although he decreased his alcohol intake since his last admission for pancreatitis he began to drink again recently due to life stressors. He has had N/V since Saturday evening and it has continued through this evening. He has transaminitis, hyperglycemia, elevated lipase. -IVF 0.9% NS at 150 ml/hr x4 more liters -pain management with fentanly -antiemetics -NPO -trend LFT's -lipase in the am -CBCD, BMP in the am -Continuous tele, and Spo2 monitoring (2) Intractable epigastric abdominal pain Current visit: Yes Status: Acute Plan above (3) Nausea & vomiting Current visit: Yes Status: Acute Intractable nausea and vomiting in the setting of acute pancreatitis See plan above Qualifiers: Vomiting type: unspecified Vomiting Intractability: intractable Qualified Code(s): R11.2 - Nausea with vomiting, unspecified (4) Hyperglycemia Current visit: Yes Status: Acute In the setting of acute on chronic pancreatitis. Serum blood glucose was 242 -Remain NPO -Q6HR Accucheck -Q6hr sliding scale coverage (5) EDUARDO (acute kidney injury) Current visit: Yes Status: Acute Acute kidney injury in the setting of nausea, vomiting, decreased oral intake, dehydration and pancreatitis. -IV fluid 0.07 normal saline at 150 mL per hour -Avoid nephrotoxins -Recheck serum creatinine in the morning (6) Dehydration Current visit: Yes Status: Resolved Dehydration in setting of acute pancreatitis with a decreased oral intake, nausea and vomiting. See plan above (7) Essential hypertension Current visit: Yes Status: Chronic Blood pressure is currently stable. He is nothing by mouth as of this time due to diagnosis of pancreatitis. I will refrain from adding antihypertensives at this time. However, should he develop hypertension I will consider placing patient on IV hypertensive medication. (8) History of alcoholism Current visit: Yes Status: Chronic Patient reports a history of alcoholism stating in the past he drank approximately 1 case per day. However, he reports that he decrease his alcohol intake over the last couple of months since his last admission for pancreatitis. He reports that he began drinking again after finding and his brother has had a neck cancer. He reports his last drink was Saturday. -CIWA protocol (9) Tobacco abuse Current visit: Yes Status: Acute Continues to be a daily smoker. Does not wish to quit at this time. (10) DVT prophylaxis Current visit: Yes Status: Acute Heparin 5000 units SC BID Internal Medicine - H&P: HPI Chief complaint: N/V, Dehydration, abdominal pain, pancreatitis Admitted From: Home Plans for Post Hospital Care: Home History of present illness: Mr. Howard is a 47 year old male with a PMH of GERD, and HTN. He presents to [facility] today with a CC of epigastric abdominal pain, nausea and vomiting. He has a h/o of ETOH abuse and multiple admission with pancreatitis. He mentions that he recently decreased the amount of his ETOH consumption since his last admission but he restarted this last week after finding out his brother has cancer. His last drink was on Saturday. He has had the epigastric abdominal pain , and N/V since yesterday evening and it has persisted into this afternoon. He denies any fevers, chills, night sweats, chest pain, shortness of breath, hematemesis, hematochezia, melena or diarrhea. He admits to intractable abominal pain for greater than 24 hours, cramps, and muscle spasms in his feet, legs and hands. Additionally he admits to a decrease in oral intake since Saturday. The workup in the ED reveal an elevated lipase of 298, hyperglycemia with serum glucose of 242, transaminitis and an EDUARDO. Past Med Surg Social Fam HX - Past Medical History Medical history: GERD, hypertension, other Psychiatric history: anxiety - Past Surgical History Surgical History: appendectomy, cholecystectomy, other - Social History Smoking Status: Current some day smoker Smokeless Tobacco Status: No Alcohol use: occasionally Drug use: none - Family History Mother Family Member Ethnicity: Non- Living Status: Hx Family Cardiac Disorders: Yes Hx Family Respiratory Disorders: Yes Hx Family Cancer: Yes Hx Family GI Disorders: Yes Hx Family Endocrine Disorder: No Hx Family Neuromuscular Disorders: No Hx Family Neurologic Disorders: No Hx Family HEENT Disorders: No Hx Family Autoimmune Disorders: No Brother Hx Family Cancer: Yes (Head and neck) Internal Medicine - H&P: Meds Omeprazole [PriLOSEC] 40 mg PO BID #0 10/23/14 [History] Gabapentin [Neurontin] 300 - 600 mg PO TID 02/07/15 [History] Ondansetron HCl [Ondansetron HCl] 4 - 8 mg PO TID PRN 02/01/17 [History] Amlodipine Besylate 10 mg PO DAILY 05/22/17 [History] Carvedilol [Coreg] 25 mg PO BID 05/22/17 [History] Cyanocobalamin (Vitamin B-12) [Vitamin B12] 1,000 mcg PO AD 05/22/17 [History] Multivits,Ca,Min/Iron/FA/Lycop [Centrum Men's Tablet] 1 each PO DAILY 05/22/17 [ History] 3 Allergy/AdvReac Type Severity Reaction Status Date / Time No Known Allergies Allergy Verified 05/22/17 15:49 All Systems PM: A 10-system review of systems was performed and is negative for pertinent findings except as documented above in the HPI. - Constitutional Constitutional: as per HPI - Cardiovascular Cardiovascular ROS IM: no chest pain, no diaphoresis, no dyspnea, no lightheadedness, no palpitations, no syncope - Respiratory Respiratory: no cough, no dyspnea, no wheezing, no excessive phlegm production - Gastrointestinal Gastrointestinal: as per HPI - Genitourinary Genitourinary ROS male: no difficulty urinating, no dysuria, no flank pain - Musculoskeletal Musculoskeletal ROS IM: as per HPI, muscle cramps, no numbness, no tingling - Integumentary Integumentary IM: no rash, no unusual bruising - Neurological Neurological ROS: no confusion, no convulsions, no focal weakness, no numbness, no tingling, no tremor(s) - Constitutional Vitals: Temp Pulse Resp BP Pulse Ox 97.4 F L 135 18 130/99 95 05/22/17 15:49 05/22/17 18:00 05/22/17 18:00 05/22/17 18:00 05/22/17 18:00 General appearance: Present: cooperative, mild distress, A&O X 3, answers questions appropriately - Eye Pupils: Present: PERRL - Respiratory Respiratory exam: Present: CTAB. Absent: accessory muscle use, rales, rhonchi, wheezes - Cardiovascular Cardiovascular exam: Present: RRR, +S1, +S2. Absent: diastolic murmur, gallop, rubs, systolic murmur - GI/Abdominal GI/Abdominal exam: Present: normal bowel sounds, soft. Absent: distended, firm , guarding, rebound, rigid, tenderness (mild epigastric tenderness) - Extremities Exam Extremities exam: Present: warm, radial pulses palpable and symmetrical. Absent : calf tenderness, cyanotic, pedal edema - Neurological Exam Neurological exam: Present: oriented X3. Absent: facial droop, speech deficit - Skin Skin exam: Present: dry, intact Internal Med - H&P Results - Labs CBC & Chem 7: 05/22/17 16:31 <Valorie Bee - Last Filed: 05/22/17 18:37> Date of Encounter: 05/22/17 Internal Medicine - H&P: HPI History of present illness: Mr. Howard is a 47 year old male All Systems PM: A 10-system review of systems was performed and is negative for pertinent findings except as documented above in the HPI. - Constitutional Vitals: Temp Pulse Resp BP Pulse Ox 97.4 F L 135 18 130/99 95 05/22/17 15:49 05/22/17 18:00 05/22/17 18:00 05/22/17 18:00 05/22/17 18:00 Internal Med - H&P Results - Labs CBC & Chem 7: 05/22/17 16:31 - Attending Attestation I have personally performed a face to face evaluation on this patient. I have reviewed and agree with the care plan provided by DAVID Webster. History and Exam by me shows: Mr. Howard is a 47 year old male with a PMH of GERD, Chronic pancreatitis, alcohol dependence and HTN pt presented to ER with intractable abodminal pain, nausea and vomiting developed after binge drinking. Gen: A, A< O x3 Chest: Diminished BS b/l Heart: S1S2 + Abd: Soft, Mild tender samuel umbelical region a/p 1. Acute on chronic pancreatitis - alcohol induced 2. Alcohol dependence 3. EDUARDO IV hydration NPO CIWA protocol
[2017-05-22] MEDS ORDERED: Ketamine *HR* 17 MG in 0.9 % Sodium Chloride 100 ML IVPB ONE (18:13)
[2017-05-22] MEDS: 0.9 % Sodium Chloride 1,000 ML IVC SCH (20:02)
[2017-05-22] MEDS: *HR* Heparin 5,000 UNIT/ML VIAL SQ SCH (20:02)
[2017-05-22] MEDS ORDERED: *HR* Promethazine 25 MG/ML VIAL IVP ONE (20:04)
[2017-05-22] MEDS: Nicotine 14 MG PATCH.TD24 TD SCH (21:36)
[2017-05-22] MEDS: *HR* FentaNYL (PF) 100 MCG/2 ML VIAL IVP PRN (21:43)
[2017-05-22] MEDS ORDERED: *HR* Metoprolol 5 MG/5 ML VIAL IVP ONE (22:36)
[2017-05-23] MEDS: Insulin LISPRO 300 UNITS/3 ML VIAL SQ SCH ×4 (00:12→17:23)
[2017-05-23] MEDS: *HR* Promethazine 25 MG/ML VIAL IVP PRN ×3 (00:49→17:36)
[2017-05-23] MEDS: 0.9 % Sodium Chloride 1,000 ML IVC SCH ×3 (01:21→10:59)
[2017-05-23 01:22] LABS: Hematocrit 51.8 % (37.5-50.1); Hemoglobin 18.2 g/dL (12.9-16.9); Mean Corpuscular HGB Conc 35.1 g/dL (31.6-35.5); Mean Corpuscular Hemoglobin 31.8 pg (28.0-33.3); Mean Corpuscular Volume 90.6 fL (83.0-100.0); Mean Platelet Volume 11.7 fL (9.4-12.4); Platelet Count 159 K/mcL (140-400); Red Blood Count 5.72 M/mcL (4.19-5.50); Red Cell Distribution Width 13.2 % (11.5-14.5)
[2017-05-23 01:47] LABS: Albumin 5.7 g/dL (3.5-5.7); Albumin/Globulin Ratio 1.8 (1.1-2.2); Bilirubin,Direct 0.2 mg/dL (0.0-0.2); Bilirubin,Indirect 0.5 mg/dL (0.0-1.2); Bilirubin,Total 0.7 mg/dL (0.3-1.0); Calcium 10.7 mg/dL (8.6-10.3); Globulin 3.2 g/dL (2.4-3.5); Potassium 3.2 mEq/L (3.5-5.1); Total Protein 8.9 g/dL (6.4-8.9)
[2017-05-23] MEDS: Pantoprazole 40 MG VIAL IVP SCH ×2 (04:19→17:22)
[2017-05-23] MEDS: *HR* FentaNYL (PF) 100 MCG/2 ML VIAL IVP PRN ×3 (04:23→17:32)
[2017-05-23] MEDS: *HR* Heparin 5,000 UNIT/ML VIAL SQ SCH ×2 (05:32→17:22)
[2017-05-23] MEDS ORDERED: Thiamine (B-1) 100 MG TABLET PO SCH (09:00)
[2017-05-23] MEDS ORDERED: Folic Acid 1 MG TABLET PO SCH (09:00)
[2017-05-23] MEDS ORDERED: Vitamin B Complex/Vit C/Vit E 1 EACH TABLET PO SCH (09:00)
--- NOTE | 2017-05-23 09:08 | Internal Med Progress Note ---
Date of Encounter: 05/23/17 Time of Encounter: 09:06 - Subjective Interval history: HPI: (from H&P) Mr. Howard is a 47 year old male with a PMH of GERD, and HTN. He presents to [facility] today with a CC of epigastric abdominal pain, nausea and vomiting. He has a h/o of ETOH abuse and multiple admission with pancreatitis. He mentions that he recently decreased the amount of his ETOH consumption since his last admission but he restarted this last week after finding out his brother has cancer. His last drink was on Saturday. He has had the epigastric abdominal pain , and N/V since yesterday evening and it has persisted into this afternoon. He denies any fevers, chills, night sweats, chest pain, shortness of breath, hematemesis, hematochezia, melena or diarrhea. He admits to intractable abominal pain for greater than 24 hours, cramps, and muscle spasms in his feet, legs and hands. Additionally he admits to a decrease in oral intake since Saturday. The workup in the ED reveal an elevated lipase of 298, hyperglycemia with serum glucose of 242, transaminitis and an EDUARDO. Interval changes: Still having N/V but abdominal pain improved Tremulous Assessment and Plan (1) Acute on chronic pancreatitis Associated with alcohol abuse NPO NS at 150 ml/hr Pain control Zofran for N/V Repeat lipase trending downward (2) Hyperglycemia -Remain NPO -Q6HR Accucheck -Q6hr sliding scale coverage (3) EDUARDO (acute kidney injury) Current visit: Yes Status: Acute Acute kidney injury in the setting of nausea, vomiting, decreased oral intake, dehydration and pancreatitis. -IV fluid 0.07 normal saline at 150 mL per hour -Avoid nephrotoxins -Recheck bmp (4) Dehydration Current visit: Yes Status: Resolved Dehydration in setting of acute pancreatitis with a decreased oral intake, nausea and vomiting. See plan above (5) Essential hypertension Stable BP Add PRN Hydralazine (6) History of alcoholism -CIWA protocol (7) Tobacco abuse Continues to be a daily smoker. Does not wish to quit at this time. - Constitutional Vitals: Temp Pulse Resp BP Pulse Ox 97.5 F L 128 14 135/94 95 05/23/17 06:36 05/23/17 06:36 05/23/17 06:36 05/23/17 06:36 05/23/17 06:36 General appearance: Present: cooperative, mild distress, A&O X 3, answers questions appropriately - Head Head exam: Present: atraumatic, normocephalic - Eye Eye exam: Present: PERRL, conjuntiva pink, sclera anicteric Pupils: Present: PERRL - Neck Neck exam general surgery: Present: supple, trachea midline. Absent: lymphadenopathy - Respiratory Respiratory exam: Present: CTAB. Absent: accessory muscle use, rales, rhonchi, wheezes - Cardiovascular Cardiovascular exam: Present: RRR, +S1, +S2. Absent: diastolic murmur, gallop, rubs, systolic murmur - GI/Abdominal GI/Abdominal exam: Present: guarding, normal bowel sounds, soft, no peritoneal signs. Absent: distended, firm, rebound, tenderness - Extremities Exam Extremities exam: Present: warm, radial pulses palpable and symmetrical. Absent : calf tenderness, cyanotic, pedal edema - Neurological Exam Neurological exam: Present: CN II-XII intact, oriented X3, no focal deficits. Absent: pronater drift, facial droop, speech deficit - Psychiatric Psychiatric exam: Present: normal affect, normal mood - Skin Skin exam: Present: dry, intact Internal Medicine: Result - Labs CBC & Chem 7: 05/23/17 01:05 05/23/17 01:05 Labs: Short CBC 05/23/17 Range/Units 01:05 WBC 11.7 H (4.3-11.1) K/mcL Hgb 18.2 H (12.9-16.9) g/dL Hct 51.8 H (37.5-50.1) % Plt Count 159 (140-400) K/mcL BMP 05/23/17 01:05 Sodium 138 Potassium 3.2 L Chloride 91 L Carbon Dioxide 26 BUN 36 H Creatinine 5.16 H Glucose 166 H Calcium 10.7 H Liver Function 05/23/17 Range/Units 01:05 Total Bilirubin 0.7 (0.3-1.0) mg/dL Direct Bilirubin 0.2 (0.0-0.2) mg/dL AST 36 (13-39) Units/L ALT 62 H (7-52) Units/L Alkaline Phosphatase 195 H (34-104) Units/L Albumin 5.7 (3.5-5.7) g/dL Consult Discharge Plan - Plan Referrals: Kalia Sheppard MD [Primary Care Provider] -
[2017-05-23] MEDS: Nicotine 14 MG PATCH.TD24 TD SCH (09:52)
[2017-05-23] MEDS: Thiamine (B-1) 100 MG, Folic Acid 1 MG, MVI, adult with vitamin K 10 ML in 0.9 % Sodi... IVPB SCH (17:22)
[2017-05-24] MEDS: *HR* FentaNYL (PF) 100 MCG/2 ML VIAL IVP PRN ×3 (00:38→12:09)
[2017-05-24] MEDS: *HR* Promethazine 25 MG/ML VIAL IVP PRN ×4 (00:39→20:44)
[2017-05-24] MEDS: Insulin LISPRO 300 UNITS/3 ML VIAL SQ SCH ×4 (05:35→17:41)
[2017-05-24] MEDS: Pantoprazole 40 MG VIAL IVP SCH ×2 (06:24→17:33)
[2017-05-24] MEDS: *HR* Heparin 5,000 UNIT/ML VIAL SQ SCH ×2 (06:24→17:33)
[2017-05-24 07:33] LABS: Mean Corpuscular Volume 93.1 fL (83.0-100.0)
[2017-05-24 07:35] LABS: Hematocrit 39.4 % (37.5-50.1); Hemoglobin 13.4 g/dL (12.9-16.9); Immature Platelets 8.9 % (1.1-6.1); Mean Corpuscular Hemoglobin 31.7 pg (28.0-33.3); Mean Platelet Volume 11.9 fL (9.4-12.4); Nucleated Red Blood Cells 0.6 /100 WBC (0); Red Blood Count 4.23 M/mcL (4.19-5.50); Red Cell Distribution Width 12.7 % (11.5-14.5)
[2017-05-24 07:45] LABS: BUN/Creatinine Ratio 30 (6-26); Blood Urea Nitrogen 29 mg/dL (6-20); Calcium 8.6 mg/dL (8.6-10.3); Carbon Dioxide 26 mEq/L (23-29); Chloride 104 mEq/L (98-107); Glucose 112 mg/dL (70-105); Osmolality,Calculated 293 (280-300); Potassium 2.9 mEq/L (3.5-5.1); Sodium 138 mEq/L (136-145); eGFR For African Americans > 60 (> 60); eGFR For Non-African Americans > 60 (> 60)
[2017-05-24] MEDS: Nicotine 14 MG PATCH.TD24 TD SCH (08:03)
[2017-05-24 08:43] LABS: Platelet Count 97 K/mcL (140-400)
[2017-05-24 12:37] LABS: Basophils # 0.1 K/mcL (0.0-0.2); Eosinophils # 0.1 K/mcL (0.0-0.6); Lymphocytes # 1.9 K/mcL (0.6-4.6); Monocytes # 0.6 K/mcL (0.0-1.3); Neutrophils # 4.4 K/mcL (1.6-8.9); Platelet Estimate Decreased (Normal); Toxic Granulation Present (Not Present)
--- NOTE | 2017-05-24 14:33 | Internal Med Progress Note ---
Date of Encounter: 05/24/17 Time of Encounter: 14:33 - Subjective Interval history: Pain imprved Hyokalemic today Diet advance to clear liquids HPI: (from H&P) Mr. Howard is a 47 year old male with a PMH of GERD, and HTN. He presents to [facility] today with a CC of epigastric abdominal pain, nausea and vomiting. He has a h/o of ETOH abuse and multiple admission with pancreatitis. He mentions that he recently decreased the amount of his ETOH consumption since his last admission but he restarted this last week after finding out his brother has cancer. His last drink was on Saturday. He has had the epigastric abdominal pain , and N/V since yesterday evening and it has persisted into this afternoon. He denies any fevers, chills, night sweats, chest pain, shortness of breath, hematemesis, hematochezia, melena or diarrhea. He admits to intractable abominal pain for greater than 24 hours, cramps, and muscle spasms in his feet, legs and hands. Additionally he admits to a decrease in oral intake since Saturday. The workup in the ED reveal an elevated lipase of 298, hyperglycemia with serum glucose of 242, transaminitis and an EDUARDO. Interval changes: Still having N/V but abdominal pain improved Tremulous Assessment and Plan (1) Acute on chronic pancreatitis Associated with alcohol abuse NPO NS at 150 ml/hr Pain control Zofran for N/V Repeat lipase trending downward Fentanyl changed to Oxycodone ER and IR (2) Hyperglycemia -Resolved. -Insulin d/c'd (3) EDUARDO (acute kidney injury) Acute kidney injury in the setting of nausea, vomiting, decreased oral intake, dehydration and pancreatitis. -NS at 150 mL per hour -Avoid nephrotoxins -Recheck bmp (4) Dehydration Dehydration in setting of acute pancreatitis with a decreased oral intake, nausea and vomiting. (5) Essential hypertension Stable BP Add PRN Hydralazine (6) History of alcoholism -CIWA protocol (7) Tobacco abuse Continues to be a daily smoker. Does not wish to quit at this time. - Constitutional Vitals: Temp Pulse Resp BP Pulse Ox 97.7 F 89 16 134/89 98 05/24/17 11:59 05/24/17 11:59 05/24/17 11:59 05/24/17 11:59 05/24/17 11:59 General appearance: Present: cooperative, mild distress, A&O X 3, answers questions appropriately - Head Head exam: Present: atraumatic, normocephalic - Eye Eye exam: Present: PERRL, conjuntiva pink, sclera anicteric Pupils: Present: PERRL - Neck Neck exam general surgery: Present: supple, trachea midline. Absent: lymphadenopathy - Respiratory Respiratory exam: Present: CTAB. Absent: accessory muscle use, rales, rhonchi, wheezes - Cardiovascular Cardiovascular exam: Present: RRR, +S1, +S2. Absent: diastolic murmur, gallop, rubs, systolic murmur - GI/Abdominal GI/Abdominal exam: Present: normal bowel sounds, soft, no peritoneal signs. Absent: distended, tenderness - Extremities Exam Extremities exam: Present: warm, radial pulses palpable and symmetrical. Absent : calf tenderness, cyanotic, pedal edema - Neurological Exam Neurological exam: Present: CN II-XII intact, oriented X3, no focal deficits. Absent: pronater drift, facial droop, speech deficit - Skin Skin exam: Present: dry, intact Internal Medicine: Result - Labs CBC & Chem 7: 05/24/17 06:50 05/24/17 06:50 Labs: Short CBC 05/24/17 Range/Units 06:50 WBC 7.1 (4.3-11.1) K/mcL Hgb 13.4 D (12.9-16.9) g/dL Hct 39.4 (37.5-50.1) % Plt Count 97 L (140-400) K/mcL Neutrophils # 4.4 (1.6-8.9) K/mcL BMP 05/24/17 06:50 Sodium 138 Potassium 2.9 L Chloride 104 Carbon Dioxide 26 BUN 29 H Creatinine 0.97 Glucose 112 H Calcium 8.6 Consult Discharge Plan - Plan Referrals: Kalia Sheppard MD [Primary Care Provider] -
[2017-05-24] MEDS ORDERED: *HR* OxyCODONE Immed Rel 5 MG TABLET PO PRN (14:35)
[2017-05-24] MEDS ORDERED: Potassium Chloride Elixir 20 MEQ/15 ML UDC PO ONE (14:39)
[2017-05-24] MEDS: Thiamine (B-1) 100 MG, Folic Acid 1 MG, MVI, adult with vitamin K 10 ML in 0.9 % Sodi... IVPB SCH (17:33)
[2017-05-24] MEDS: *HR* OxyCODONE ER (12 HR) 10 MG TABLET PO SCH (18:45)
[2017-05-25] MEDS: *HR* Promethazine 25 MG/ML VIAL IVP PRN ×2 (02:58→22:00)
[2017-05-25] MEDS: *HR* OxyCODONE ER (12 HR) 10 MG TABLET PO SCH ×3 (02:58→16:17)
[2017-05-25] MEDS: *HR* Heparin 5,000 UNIT/ML VIAL SQ SCH ×2 (06:06→16:17)
[2017-05-25] MEDS: Pantoprazole 40 MG VIAL IVP SCH ×2 (06:06→16:17)
[2017-05-25] MEDS: Nicotine 14 MG PATCH.TD24 TD SCH (08:10)
[2017-05-25 09:18] LABS: Immature Granulocytes % 0.4 % (0-4); Mean Platelet Volume 11.8 fL (9.4-12.4)
[2017-05-25 09:20] LABS: Basophils # 0.1 K/mcL (0.0-0.2); Basophils % 0.9 %; Eosinophils # 0.5 K/mcL (0.0-0.6); Eosinophils % 7.2 %; Hematocrit 37.3 % (37.5-50.1); Hemoglobin 12.9 g/dL (12.9-16.9); Immature Platelets 11.1 % (1.1-6.1); Lymphocytes # 1.6 K/mcL (0.6-4.6); Lymphocytes % 24.5 %; Mean Corpuscular HGB Conc 34.6 g/dL (31.6-35.5); Mean Corpuscular Hemoglobin 31.9 pg (28.0-33.3); Mean Corpuscular Volume 92.1 fL (83.0-100.0); Monocytes # 0.6 K/mcL (0.0-1.3); Monocytes % 9.1 %; Neutrophils # 3.9 K/mcL (1.6-8.9); Red Blood Count 4.05 M/mcL (4.19-5.50); Red Cell Distribution Width 12.4 % (11.5-14.5); Segmented Neutrophils % 57.9 %
[2017-05-25 09:24] LABS: Platelet Count 99 K/mcL (140-400)
[2017-05-25 09:26] LABS: BUN/Creatinine Ratio 14 (6-26); Blood Urea Nitrogen 11 mg/dL (6-20); Calcium 8.7 mg/dL (8.6-10.3); Carbon Dioxide 29 mEq/L (23-29); Chloride 103 mEq/L (98-107); Glucose 101 mg/dL (70-105); Osmolality,Calculated 282 (280-300); Potassium 3.3 mEq/L (3.5-5.1); Sodium 136 mEq/L (136-145); eGFR For African Americans > 60 (> 60); eGFR For Non-African Americans > 60 (> 60)
--- NOTE | 2017-05-25 14:56 | Internal Med Progress Note ---
Date of Encounter: 05/25/17 Time of Encounter: 14:54 - Subjective Interval history: Pain imprved Hyokalemic today Diet advance to clear liquids HPI: (from H&P) Mr. Howard is a 47 year old male with a PMH of GERD, and HTN. He presents to [facility] today with a CC of epigastric abdominal pain, nausea and vomiting. He has a h/o of ETOH abuse and multiple admission with pancreatitis. He mentions that he recently decreased the amount of his ETOH consumption since his last admission but he restarted this last week after finding out his brother has cancer. His last drink was on Saturday. He has had the epigastric abdominal pain , and N/V since yesterday evening and it has persisted into this afternoon. He denies any fevers, chills, night sweats, chest pain, shortness of breath, hematemesis, hematochezia, melena or diarrhea. He admits to intractable abominal pain for greater than 24 hours, cramps, and muscle spasms in his feet, legs and hands. Additionally he admits to a decrease in oral intake since Saturday. The workup in the ED reveal an elevated lipase of 298, hyperglycemia with serum glucose of 242, transaminitis and an EDUARDO. Interval changes: 05/24/17: Still having N/V but abdominal pain improved Tremulous 05/25/17: No longer tremulous Tolerating diet Pain improved No N/V Assessment and Plan (1) Acute on chronic pancreatitis Associated with alcohol abuse NPO NS at 150 ml/hr Pain control Zofran for N/V Repeat lipase trending downward Fentanyl changed to Oxycodone ER and IR (2) Hyperglycemia -Resolved. -Insulin d/c'd (3) EDUARDO (acute kidney injury) Acute kidney injury in the setting of nausea, vomiting, decreased oral intake, dehydration and pancreatitis. -NS at 150 mL per hour -Avoid nephrotoxins -Recheck bmp (4) Dehydration Dehydration in setting of acute pancreatitis with a decreased oral intake, nausea and vomiting. (5) Essential hypertension Stable BP Add PRN Hydralazine (6) History of alcoholism -CIWA protocol (7) Tobacco abuse Continues to be a daily smoker. Does not wish to quit at this time. - Constitutional Vitals: Temp Pulse Resp BP Pulse Ox 98.1 F 81 18 118/75 98 05/25/17 07:32 05/25/17 07:32 05/25/17 07:32 05/25/17 07:32 05/25/17 07:32 General appearance: Present: cooperative, mild distress, A&O X 3, answers questions appropriately - Head Head exam: Present: atraumatic, normocephalic - Eye Eye exam: Present: PERRL, conjuntiva pink, sclera anicteric Pupils: Present: PERRL - Neck Neck exam general surgery: Present: supple, trachea midline. Absent: lymphadenopathy - Respiratory Respiratory exam: Present: CTAB. Absent: accessory muscle use, rales, rhonchi, wheezes - Cardiovascular Cardiovascular exam: Present: RRR, +S1, +S2. Absent: diastolic murmur, gallop, rubs, systolic murmur - GI/Abdominal GI/Abdominal exam: Present: guarding, normal bowel sounds, soft, tenderness, no peritoneal signs. Absent: distended, rigid - Extremities Exam Extremities exam: Present: warm, radial pulses palpable and symmetrical. Absent : calf tenderness, cyanotic, pedal edema - Neurological Exam Neurological exam: Present: CN II-XII intact, oriented X3, no focal deficits. Absent: pronater drift, facial droop, speech deficit - Skin Skin exam: Present: dry, intact Internal Medicine: Result - Labs CBC & Chem 7: 05/25/17 08:02 05/25/17 08:02 Labs: Short CBC 05/25/17 Range/Units 08:02 WBC 6.7 (4.3-11.1) K/mcL Hgb 12.9 (12.9-16.9) g/dL Hct 37.3 L (37.5-50.1) % Plt Count 99 L (140-400) K/mcL Neutrophils # 3.9 (1.6-8.9) K/mcL BMP 05/25/17 08:02 Sodium 136 Potassium 3.3 L Chloride 103 Carbon Dioxide 29 BUN 11 Creatinine 0.77 Glucose 101 Calcium 8.7 Consult Discharge Plan - Plan Referrals: Kalia Sheppard MD [Primary Care Provider] -
[2017-05-25] MEDS: Thiamine (B-1) 100 MG, Folic Acid 1 MG, MVI, adult with vitamin K 10 ML in 0.9 % Sodi... IVPB SCH (16:17)
[2017-05-26] MEDS: *HR* OxyCODONE ER (12 HR) 10 MG TABLET PO SCH ×2 (00:13→09:20)
[2017-05-26 01:51] LABS: Basophils # 0.1 K/mcL (0.0-0.2); Basophils % 1.1 %; Eosinophils # 0.5 K/mcL (0.0-0.6); Eosinophils % 7.8 %; Hematocrit 37.4 % (37.5-50.1); Hemoglobin 12.9 g/dL (12.9-16.9); Immature Granulocytes % 0.3 % (0-4); Lymphocytes # 2.2 K/mcL (0.6-4.6); Lymphocytes % 33.5 %; Mean Corpuscular HGB Conc 34.5 g/dL (31.6-35.5); Mean Corpuscular Hemoglobin 31.4 pg (28.0-33.3); Mean Platelet Volume 11.3 fL (9.4-12.4); Monocytes # 0.6 K/mcL (0.0-1.3); Monocytes % 9.5 %; Neutrophils # 3.1 K/mcL (1.6-8.9); Platelet Count 126 K/mcL (140-400); Red Blood Count 4.11 M/mcL (4.19-5.50); Red Cell Distribution Width 12.2 % (11.5-14.5); Segmented Neutrophils % 47.8 %
[2017-05-26 03:13] LABS: BUN/Creatinine Ratio 9 (6-26); Blood Urea Nitrogen 6 mg/dL (6-20); Calcium 8.9 mg/dL (8.6-10.3); Carbon Dioxide 28 mEq/L (23-29); Chloride 103 mEq/L (98-107); Glucose 101 mg/dL (70-105); Lipase 54 Units/L (11-82); Osmolality,Calculated 282 (280-300); Potassium 3.4 mEq/L (3.5-5.1); Sodium 137 mEq/L (136-145); eGFR For African Americans > 60 (> 60); eGFR For Non-African Americans > 60 (> 60)
[2017-05-26] MEDS: Pantoprazole 40 MG VIAL IVP SCH (05:06)
[2017-05-26] MEDS: *HR* Heparin 5,000 UNIT/ML VIAL SQ SCH (05:06)
[2017-05-26] MEDS: Nicotine 14 MG PATCH.TD24 TD SCH (09:20)
[2017-05-26] MEDS: *HR* Promethazine 25 MG/ML VIAL IVP PRN (09:20)
--- NOTE | 2017-05-26 14:21 | Discharge Summary ---
Date of Encounter: 05/26/17 Time of Encounter: 14:00 Hospital course: Mr. Howard is a 47 year old male - Time Spent with Patient Total time spent providing and/or coordinating discharge services: - Discharge Medications Prescriptions: OxyCODONE ER (12 HR) [OxyCONTIN] 10 mg PO Q8HR 5 Days #15 tab.er.12h Nicotine Patch [Nicoderm] 14 mg TD DAILY 30 Days #30 patch.td24 Thiamine (B-1) [Vitamin B-1] 100 mg PO DAILY 30 Days #30 tablet Home Medications: Omeprazole [PriLOSEC] 40 mg PO BID #0 10/23/14 [History] Gabapentin [Neurontin] 300 - 600 mg PO TID 02/07/15 [History] Ondansetron HCl [Ondansetron HCl] 4 - 8 mg PO TID PRN 02/01/17 [History] Amlodipine Besylate 10 mg PO DAILY 05/22/17 [History] Carvedilol [Coreg] 25 mg PO BID 05/22/17 [History] Cyanocobalamin (Vitamin B-12) [Vitamin B12] 1,000 mcg PO AD 05/22/17 [History] Multivits,Ca,Min/Iron/FA/Lycop [Centrum Men's Tablet] 1 each PO DAILY 05/22/17 [ History] Folic Acid 1 mg PO DAILY 30 Days #0 tablet 05/26/17 [Rx] Nicotine Patch [Nicoderm] 14 mg TD DAILY 30 Days #30 patch.td24 05/26/17 [Rx] OxyCODONE ER (12 HR) [OxyCONTIN] 10 mg PO Q8HR 5 Days #15 tab.er.12h 05/26/17 [ Rx] Thiamine (B-1) [Vitamin B-1] 100 mg PO DAILY 30 Days #30 tablet 05/26/17 [Rx] Allergies/Adverse Reactions: 3 Allergy/AdvReac Type Severity Reaction Status Date / Time No Known Allergies Allergy Verified 05/22/17 15:49 Date of admission: 05/22/17 17:51 Primary care physician: Kalia Sheppard MD Consults: 05/23/17 13:45 Consult to [facility] [CONS] Routine Reason for SW Consult: Alcoholism/substance abuse - Constitutional Vitals: Temp Pulse Resp BP Pulse Ox 97.8 F 77 18 130/85 97 05/26/17 11:14 05/26/17 11:14 05/26/17 11:14 05/26/17 11:14 05/26/17 11:14 General appearance: Present: cooperative, mild distress, A&O X 3, answers questions appropriately - Patient Status Condition: Fair - Discharge Instructions Follow Up With: Kalia Sheppard MD [Primary Care Provider] -
--- NOTE | 2017-05-26 14:35 | Discharge Summary ---
Date of Encounter: 05/26/17 Time of Encounter: 14:31 Hospital course: Mr. Howard is a 47 year old male with a PMH of GERD, and HTN. He presented to [facility] today with a CC of epigastric abdominal pain, nausea and vomiting. He has a h/o of ETOH abuse and multiple admission with pancreatitis. He mentions that he recently decreased the amount of his ETOH consumption since his last admission but he restarted this last week after finding out his brother has cancer. He has had the epigastric abdominal pain, and N/V since yesterday evening and it has persisted into this afternoon. He denies any fevers, chills , night sweats, chest pain, shortness of breath, hematemesis, hematochezia, melena or diarrhea. He admits to intractable abominal pain for greater than 24 hours, cramps, and muscle spasms in his feet, legs and hands. Additionally he admits to a decrease in oral intake since Saturday. The workup in the ED reveal an elevated lipase of 298, hyperglycemia with serum glucose of 242, transaminitis and an EDUARDO. He was made NPO and treated with pain medications and IVF. His lipas trended downward to normal and he was able to tolerate his diet being advanced without N /V or worsening abdominal pain. He was given a PPI as well for his epigastric pain. He clinically improved and was discharged in stable condition. He will follow up with his PCP. He was given a short course of Oxycodon-IR (Oxycodone- ER was not prescribed. Med list list it in error). Discharge discussed with: patient, family, nurse Time spent discussing smoking cessation with patient: more than 10 minutes - Time Spent with Patient Total time spent providing and/or coordinating discharge services: Greater than 30 minutes - Discharge Medications Prescriptions: OxyCODONE Immed Rel [Roxicodone 5 MG] 5 mg PO Q4HR PRN 5 Days #30 tablet PRN Reason: Pain OxyCODONE ER (12 HR) [OxyCONTIN] 10 mg PO Q8HR 5 Days #15 tab.er.12h Nicotine Patch [Nicoderm] 14 mg TD DAILY 30 Days #30 patch.td24 Thiamine (B-1) [Vitamin B-1] 100 mg PO DAILY 30 Days #30 tablet Home Medications: Omeprazole [PriLOSEC] 40 mg PO BID #0 08/08/15 [History] Gabapentin [Neurontin] 300 - 600 mg PO TID 02/07/15 [History] Ondansetron HCl [Ondansetron HCl] 4 - 8 mg PO TID PRN 02/01/17 [History] Amlodipine Besylate 10 mg PO DAILY 05/22/17 [History] Carvedilol [Coreg] 25 mg PO BID 05/22/17 [History] Cyanocobalamin (Vitamin B-12) [Vitamin B12] 1,000 mcg PO AD 05/22/17 [History] Multivits,Ca,Min/Iron/FA/Lycop [Centrum Men's Tablet] 1 each PO DAILY 05/22/17 [ History] Folic Acid 1 mg PO DAILY 30 Days #0 tablet 05/26/17 [Rx] Nicotine Patch [Nicoderm] 14 mg TD DAILY 30 Days #30 patch.td24 05/26/17 [Rx] OxyCODONE ER (12 HR) [OxyCONTIN] 10 mg PO Q8HR 5 Days #15 tab.er.12h 05/26/17 [ Rx] OxyCODONE Immed Rel [Roxicodone 5 MG] 5 mg PO Q4HR PRN 5 Days #30 tablet [Rx] Thiamine (B-1) [Vitamin B-1] 100 mg PO DAILY 30 Days #30 tablet 05/26/17 [Rx] Allergies/Adverse Reactions: 3 Allergy/AdvReac Type Severity Reaction Status Date / Time No Known Allergies Allergy Verified 05/22/17 15:49 Date of admission: 05/22/17 17:51 Primary care physician: Kalia Sheppard MD Consults: 05/23/17 13:45 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 Absent: lymphadenopathy - Respiratory Respiratory exam: Present: CTAB. Absent: accessory muscle use, rales, rhonchi, wheezes - Cardiovascular Cardiovascular exam: Present: RRR, +S1, +S2. Absent: diastolic murmur, gallop, rubs, systolic murmur - GI/Abdominal GI/Abdominal exam: Present: normal bowel sounds, soft, no peritoneal signs. Absent: distended, firm, guarding, rebound, tenderness - Extremities Exam Extremities exam: Present: warm, radial pulses palpable and symmetrical. Absent : calf tenderness, cyanotic, pedal edema - Neurological Exam Neurological exam: Present: CN II-XII intact, oriented X3, no focal deficits. Absent: pronater drift, facial droop, speech deficit - Skin Skin exam: Present: dry, intact - Patient Status Disposition: Home, Self-Care Condition: Fair - Discharge Instructions Instructions: Pancreatitis (DC) Follow Up With: Kalia Sheppard MD [Primary Care Provider] -
[2017-05-26 15:29] VITALS: BP 150/90
== END 2017-05-26 15:46 | disposition home or self-care (01) | DRG 439 ==
LOC: EMEROO 15:48 → 3ANU 17:51 → 2NENU 19:50
PROVIDERS: ADMIT Family Medicine; ATTEND Internal Medicine

== ENCOUNTER 2017-08-07 13:41 | Inpatient (IN) ==
--- NOTE | 2017-08-07 14:19 | Emergency Department Note ---
Disposition Clinical Impression: Atrial fibrillation with rapid ventricular response, Transaminitis, Hyperbilirubinemia Abdominal pain Qualifiers: Abdominal location: epigastric Qualified Code(s): R10.13 - Epigastric pain Pancreatitis Qualifiers: Chronicity: acute Pancreatitis type: unspecified pancreatitis type Acute pancreatitis complication: unspecified Qualified Code(s): K85.90 - Acute pancreatitis without necrosis or infection, unspecified Disposition: Admitted As Inpatient Condition: Fair General Adult HPI - General Chief complaint: ED Abdominal Pain Stated complaint: ABD Pain Time Seen by Provider: 08/07/17 14:00 Source: patient Limitations: no limitations - History of Present Illness Pain Scale: 10 - Related Data Home Medications Medication Instructions Recorded Confirmed Ondansetron HCl [Ondansetron HCl] 4 - 8 mg PO TID PRN 02/01/17 08/07/17 Amlodipine Besylate 10 mg PO DAILY 05/22/17 08/07/17 Carvedilol [Coreg] 25 mg PO BID 05/22/17 08/07/17 Cyanocobalamin (Vitamin B-12) 1,000 mcg PO AD 05/22/17 08/07/17 [Vitamin B12] Multivits,Ca,Min/Iron/FA/Lycop 1 each PO DAILY 05/22/17 08/07/17 [Centrum Men's Tablet] Gabapentin [Neurontin] 300 - 600 mg PO TID 08/07/17 08/07/17 Omeprazole [PriLOSEC] 40 mg PO BID 08/07/17 08/07/17 hydrOXYzine pamoate [HydrOXYzine 25 mg PO DAILY 08/07/17 08/07/17 Pamoate] Previous Rx's Medication Instructions Recorded Folic Acid 1 mg PO DAILY 30 Days #0 tablet 05/26/17 Thiamine (B-1) [Vitamin B-1] 100 mg PO DAILY 30 Days #30 tablet 05/26/17 Allergies Allergy/AdvReac Type Severity Reaction Status Date / Time No Known Allergies Allergy Verified 08/07/17 16:53 Past Medical History - Past Medical History Medical history: Reports: GERD, hypertension, other Surgical history: Reports: appendectomy, cholecystectomy, other Psychiatric history: Reports: anxiety - Social History Smoking Status: Former smoker Smokeless Tobacco Status: No Alcohol use: Reports: occasionally Drug use: Reports: none Physical Exam - General Limitations: no limitations General appearance: alert, in no apparent distress Course Vital Signs Temperature 97.6 F 08/07/17 13:42 Pulse Rate 150 08/07/17 13:42 Respiratory Rate 18 08/07/17 13:42 Blood Pressure 123/71 08/07/17 13:42 O2 Sat by Pulse Oximetry 97 08/07/17 13:42 Temperature 97.8 F 08/07/17 18:10 Pulse Rate 95 08/07/17 18:10 Respiratory Rate 16 08/07/17 18:10 Blood Pressure 127/93 08/07/17 18:10 O2 Sat by Pulse Oximetry 96 08/07/17 18:10 Oxygen Delivery Oxygen Delivery Room Air Medical Decision Making - Lab Data Result diagrams: 08/07/17 14:12 08/07/17 14:12 Lab Results 08/07/17 08/07/17 08/07/17 Range/Units 14:12 14:12 14:17 WBC 10.5 (4.3-11.1) K/mcL RBC 5.56 H (4.19-5.50) M/mcL Hgb 17.7 H (12.9-16.9) g/dL Hct 50.6 H (37.5-50.1) % MCV 91.0 (83.0-100.0) fL MCH 31.8 (28.0-33.3) pg MCHC 35.0 (31.6-35.5) g/dL RDW 14.3 (11.5-14.5) % Plt Count 117 L (140-400) K/mcL MPV 11.3 (9.4-12.4) fL Immature Gran % 0.4 (0-4) % Seg Neutrophils % 77.8 % Lymphocytes % 15.3 % Monocytes % 6.0 % Eosinophils % 0.1 % Basophils % 0.4 % Neutrophils # 8.1 (1.6-8.9) K/mcL Lymphocytes # 1.6 (0.6-4.6) K/mcL Monocytes # 0.6 (0.0-1.3) K/mcL Eosinophils # 0.0 (0.0-0.6) K/mcL Basophils # 0.0 (0.0-0.2) K/mcL Sodium 139 (136-145) mEq/L Potassium 4.0 (3.5-5.1) mEq/L Chloride 95 L (98-107) mEq/L Carbon Dioxide 20 L (23-29) mEq/L BUN 14 (6-20) mg/dL Creatinine 1.13 (0.70-1.30) mg/dL Est GFR ( Amer) > 60 (> 60) Est GFR (Non-Af Amer) > 60 (> 60) BUN/Creatinine Ratio 12 (6-26) Glucose 180 H (70-105) mg/dL Calculated Osmolality 293 (280-300) Calcium 10.0 (8.6-10.3) mg/dL Total Bilirubin 2.5 H (0.3-1.0) mg/dL Direct Bilirubin 1.2 H (0.0-0.2) mg/dL Indirect Bilirubin 1.3 H (0.0-1.2) mg/dL AST 166 H (13-39) Units/L ALT 100 H (7-52) Units/L Alkaline Phosphatase 285 H (34-104) Units/L Troponin I < 0.03 (< 0.04) ng/mL Serum Total Protein 8.3 (6.4-8.9) g/dL Albumin 5.2 (3.5-5.7) g/dL Globulin 3.1 (2.4-3.5) g/dL Albumin/Globulin Ratio 1.7 (1.1-2.2) Lipase 1277 H (11-82) Units/L Urine Color [place] A (Yellow) Urine Clarity Cloudy A (Clear) Urine pH 6.0 (5.0-8.0) pH Units Ur Specific [place] 1.027 H (1.010-1.025) Urine Protein 100 H (Neg-Trace) mg/dL Urine Glucose (UA) Normal (Normal) mg/dL Urine Ketones >=160 H (Negative) mg/dL Urine Blood Negative (Negative) Urine Nitrite Positive A (Negative) Urine Bilirubin Moderate H (Negative) Urine Urobilinogen Normal (Normal) mg/dL Ur Leukocyte Esterase Small H (Negative) Urine Microscopic RBC 0-3 (0-3) per hpf Urine Microscopic WBC 0-3 (0-3) per hpf Ur Squamous Epith Cells Many H (None-Few) per lpf Amorphous Sediment Few (Few) Urine Bacteria None Seen (None-Few) per hpf Hyaline Casts Many H (None-Few) per lpf Urine Mucus Few (Few) Ur Culture Indicated? NO. A (NO) Critical Care Time Critical Care Time: Yes Total Critical Care Time: 30 Attestation: 30 minutes of critical care time were spent assessed patient with history as well as EKG interpretation as well as Cardizem bolus and drip and admission. Laboratory evaluation is in progress. Patiently watched on the vice president of advertising. 1419 Attestation Statement - Attestation Attestation: I examined this patient and my medical decision-making was reviewed with the CE[employer]/PA/Advanced Practice Nurse/Resident Physician. I agree with the documented findings, disposition and treatment plan as described except to the extent set forth below. I did see the patient upon arrival, he does have atrial fibrillation with a rapid ventricular response with a rate of 167 bpm. I do not see significant ischemic changes but some nonspecific ST changes. A she does not have a history of atrial fibrillation so will have an evaluation here as well as administration of Cardizem 20 mg bolus and then drip at 10 mg per hour and the patient will be admitted to the hospital. Critical care time: 30 minutes. 1419 Patient does have nitrite in the urine however the a few white blood cells and so culture will be done before antibiotics are started. Lipase is elevated indicating acute pancreatitis. Heart rate is well-controlled with heart rate of 110 bpm. The patient did have an ultrasound head-on with the pancreatitis to make sure there are no gallstones. CT scan is pending. [id number]
[2017-08-07 14:30] LABS: Basophils % 0.4 %; Eosinophils % 0.1 %; Hematocrit 50.6 % (37.5-50.1); Hemoglobin 17.7 g/dL (12.9-16.9); Immature Granulocytes % 0.4 % (0-4); Lymphocytes # 1.6 K/mcL (0.6-4.6); Lymphocytes % 15.3 %; Mean Corpuscular Hemoglobin 31.8 pg (28.0-33.3); Mean Platelet Volume 11.3 fL (9.4-12.4); Monocytes # 0.6 K/mcL (0.0-1.3); Neutrophils # 8.1 K/mcL (1.6-8.9); Platelet Count 117 K/mcL (140-400); Red Blood Count 5.56 M/mcL (4.19-5.50); Red Cell Distribution Width 14.3 % (11.5-14.5); Segmented Neutrophils % 77.8 %
[2017-08-07] MEDS ORDERED: *HR* FentaNYL (PF) 100 MCG/2 ML VIAL IVP ONE ×2 (14:35→15:58)
[2017-08-07] MEDS ORDERED: Ondansetron 4 MG/2 ML VIAL IVP ONE (14:36)
[2017-08-07 14:38] LABS: Bilirubin,Urine Moderate (Negative); Blood,Urine Negative (Negative); Clarity,Urine Cloudy (Clear); Color,Urine Orange (Yellow); Glucose,Urine (UA) Normal (Normal); Ketones,Urine >=160 mg/dL (Negative); Leukocyte Esterase,Urine Small (Negative); Nitrite,Urine Positive (Negative); Protein,Urine 100 mg/dL (Neg-Trace); Specific Gravity,Urine 1.027 (1.010-1.025); Urobilinogen,Urine Normal (Normal)
[2017-08-07 14:42] LABS: Bacteria,Urine None Seen per hpf (None-Few); RBC,Urine 0-3 per hpf (0-3); Squamous Epithelial Cell,Urine Many per lpf (None-Few); WBC,Urine 0-3 per hpf (0-3)
--- NOTE | 2017-08-07 14:45 | Emergency Department Note ---
Disposition Clinical Impression: Atrial fibrillation with rapid ventricular response, Transaminitis, Hyperbilirubinemia Abdominal pain Qualifiers: Abdominal location: epigastric Qualified Code(s): R10.13 - Epigastric pain Pancreatitis Qualifiers: Chronicity: acute Pancreatitis type: unspecified pancreatitis type Acute pancreatitis complication: unspecified Qualified Code(s): K85.90 - Acute pancreatitis without necrosis or infection, unspecified Disposition: Admitted As Inpatient Condition: Fair Time of Disposition: 16:56 General Adult HPI - General Chief complaint: ED Abdominal Pain Stated complaint: ABD Pain Time Seen by Provider: 08/07/17 14:00 Source: patient Limitations: no limitations Nursing Notes Reviewed: Yes Vital Signs Reviewed: Yes - History of Present Illness HPI Narrative: Patient is a 47-year-old male that presents emergency department with abdominal pain. States this is been ongoing for the past couple days. Patient states that his abdominal pain is located in the center of his upper abdomen in the epigastric region. States that he has had pain like this in the past and is had pancreatitis. He states that the pain radiates straight into his back and rates as a 10 out of 10. Patient states that he has had some associated nausea. Patient denies any chest pain or shortness of breath. Patient denies any history of cardiac arrhythmia or cardiac disease. Pain Scale: 10 - Related Data Home Medications Medication Instructions Recorded Confirmed Ondansetron HCl [Ondansetron HCl] 4 - 8 mg PO TID PRN 02/01/17 05/22/17 Amlodipine Besylate 10 mg PO DAILY 05/22/17 05/22/17 Carvedilol [Coreg] 25 mg PO BID 05/22/17 05/22/17 Cyanocobalamin (Vitamin B-12) 1,000 mcg PO AD 05/22/17 05/22/17 [Vitamin B12] Multivits,Ca,Min/Iron/FA/Lycop 1 each PO DAILY 05/22/17 05/22/17 [Centrum Men's Tablet] Gabapentin [Neurontin] 300 - 600 mg PO TID 08/07/17 08/07/17 Omeprazole [PriLOSEC] 40 mg PO BID 08/07/17 08/07/17 hydrOXYzine pamoate [HydrOXYzine 25 mg PO DAILY 08/07/17 08/07/17 Pamoate] Previous Rx's Medication Instructions Recorded Folic Acid 1 mg PO DAILY 30 Days #0 tablet 05/26/17 Thiamine (B-1) [Vitamin B-1] 100 mg PO DAILY 30 Days #30 tablet 05/26/17 Allergies Allergy/AdvReac Type Severity Reaction Status Date / Time No Known Allergies Allergy Verified 08/07/17 16:53 All systems ED: reviewed and negative except as stated. Constitutional: Denies: fever, chills Cardiovascular: Denies: chest pain Respiratory: Denies: dyspnea Gastrointestinal: Reports: abdominal pain, nausea, vomiting Past Medical History - Past Medical History Medical history: Reports: GERD, hypertension, other Surgical history: Reports: appendectomy, cholecystectomy, other Psychiatric history: Reports: anxiety - Social History Smoking Status: Former smoker Smokeless Tobacco Status: No Alcohol use: Reports: occasionally Drug use: Reports: none Physical Exam - General Limitations: no limitations General appearance: alert, in no apparent distress - Head Head exam: atraumatic, normocephalic - Eye Eye exam: Present: normal appearance, EOMI - Neck Neck exam: Present: normal inspection, full ROM, trachea midline - Respiratory Respiratory exam: Present: normal lung sounds bilaterally. Absent: respiratory distress, wheezes - Cardiovascular Cardiovascular exam: Present: normal rhythm, tachycardia, normal heart sounds, + S1, +S2 - Abdominal Exam Abdominal exam: Present: soft, tenderness, normal bowel sounds Abdominal tenderness: Present: epigastrium, moderate - Neurological Exam Neurological exam: Present: alert, oriented X3 - Psychiatric Psychiatric exam: Present: normal affect, normal mood - Skin Skin exam: Present: warm, dry, intact Course Vital Signs Temperature 97.6 F 08/07/17 13:42 Pulse Rate 150 08/07/17 13:42 Respiratory Rate 18 08/07/17 13:42 Blood Pressure 123/71 08/07/17 13:42 O2 Sat by Pulse Oximetry 97 08/07/17 13:42 Temperature 97.8 F 08/07/17 18:10 Pulse Rate 95 08/07/17 18:10 Respiratory Rate 16 08/07/17 18:10 Blood Pressure 127/93 08/07/17 18:10 O2 Sat by Pulse Oximetry 96 08/07/17 18:10 Oxygen Delivery Oxygen Delivery Room Air Medical Decision Making - MDM Narrative Medical decision making narrative: Due to the patient presenting with significant abdominal pain and epigastric tenderness with a history of pancreatitis we will obtain laboratory testing including a CBC, BMP, hepatic panel, troponin, chest x-ray EKG, lipase, urinalysis and a CT scan of the abdomen and pelvis. The patient was also found to have age fibrillation with rapid ventricular response on EKG. This is new onset atrial fibrillation. We will start the patient on diltiazem 20 mg bolus and a 10 mg drip after. Patient had an elevated lipase of 1277 consistent with the findings on CT scan of acute pancreatitis. Dr. Ren the attending spoke with the admitting hospitalist and the patient has been accepted for admission. Patient will be admitted to the hospital this time for further evaluation and management. - Lab Data Lab results reviewed: Yes I reviewed the patient's lab results. Result diagrams: 08/07/17 14:12 08/07/17 14:12 Lab Results 08/07/17 08/07/17 08/07/17 Range/Units 14:12 14:12 14:17 WBC 10.5 (4.3-11.1) K/mcL RBC 5.56 H (4.19-5.50) M/mcL Hgb 17.7 H (12.9-16.9) g/dL Hct 50.6 H (37.5-50.1) % MCV 91.0 (83.0-100.0) fL MCH 31.8 (28.0-33.3) pg MCHC 35.0 (31.6-35.5) g/dL RDW 14.3 (11.5-14.5) % Plt Count 117 L (140-400) K/mcL MPV 11.3 (9.4-12.4) fL Immature Gran % 0.4 (0-4) % Seg Neutrophils % 77.8 % Lymphocytes % 15.3 % Monocytes % 6.0 % Eosinophils % 0.1 % Basophils % 0.4 % Neutrophils # 8.1 (1.6-8.9) K/mcL Lymphocytes # 1.6 (0.6-4.6) K/mcL Monocytes # 0.6 (0.0-1.3) K/mcL Eosinophils # 0.0 (0.0-0.6) K/mcL Basophils # 0.0 (0.0-0.2) K/mcL Sodium 139 (136-145) mEq/L Potassium 4.0 (3.5-5.1) mEq/L Chloride 95 L (98-107) mEq/L Carbon Dioxide 20 L (23-29) mEq/L BUN 14 (6-20) mg/dL Creatinine 1.13 (0.70-1.30) mg/dL Est GFR ( Amer) > 60 (> 60) Est GFR (Non-Af Amer) > 60 (> 60) BUN/Creatinine Ratio 12 (6-26) Glucose 180 H (70-105) mg/dL Calculated Osmolality 293 (280-300) Calcium 10.0 (8.6-10.3) mg/dL Total Bilirubin 2.5 H (0.3-1.0) mg/dL Direct Bilirubin 1.2 H (0.0-0.2) mg/dL Indirect Bilirubin 1.3 H (0.0-1.2) mg/dL AST 166 H (13-39) Units/L ALT 100 H (7-52) Units/L Alkaline Phosphatase 285 H (34-104) Units/L Troponin I < 0.03 (< 0.04) ng/mL Serum Total Protein 8.3 (6.4-8.9) g/dL Albumin 5.2 (3.5-5.7) g/dL Globulin 3.1 (2.4-3.5) g/dL Albumin/Globulin Ratio 1.7 (1.1-2.2) Lipase 1277 H (11-82) Units/L Urine Color [place] A (Yellow) Urine Clarity Cloudy A (Clear) Urine pH 6.0 (5.0-8.0) pH Units Ur Specific [place] 1.027 H (1.010-1.025) Urine Protein 100 H (Neg-Trace) mg/dL Urine Glucose (UA) Normal (Normal) mg/dL Urine Ketones >=160 H (Negative) mg/dL Urine Blood Negative (Negative) Urine Nitrite Positive A (Negative) Urine Bilirubin Moderate H (Negative) Urine Urobilinogen Normal (Normal) mg/dL Ur Leukocyte Esterase Small H (Negative) Urine Microscopic RBC 0-3 (0-3) per hpf Urine Microscopic WBC 0-3 (0-3) per hpf Ur Squamous Epith Cells Many H (None-Few) per lpf Amorphous Sediment Few (Few) Urine Bacteria None Seen (None-Few) per hpf Hyaline Casts Many H (None-Few) per lpf Urine Mucus Few (Few) Ur Culture Indicated? NO. A (NO) - Radiology Data Radiology results reviewed: Yes I reviewed the patient's radiology results. Abdomen/Pelvis CT 08/07/17 14:01 IMPRESSION: 1. Acute recurrent pancreatitis causing secondary enteritis. 2. Unchanged 1.2 cm focal pancreatic duct dilatation versus pseudocyst. D/ / Ronn Barros MD / Ronn Barros MD Interpreting Provider: Ronn Barros MD - EKG Data EKG #1 EKG attestation: Yes I reviewed and interpreted this EKG. EKG results narrative: EKG showed atrial fibrillation with rapid ventricular response at a rate of 167 bpm, QRS duration 90, QTc of 350 with a normal axis. There is no evidence of STEMI on EKG.
[2017-08-07 14:52] LABS: Troponin I < 0.03 ng/mL (< 0.04)
[2017-08-07 14:54] LABS: Amorphous Sediment,Urine Few (Few); Hyaline Casts,Urine Many per lpf (None-Few); Mucus,Urine Few (Few)
[2017-08-07 15:21] LABS: Alanine Aminotransferase 100 Units/L (7-52); Albumin 5.2 g/dL (3.5-5.7); Albumin/Globulin Ratio 1.7 (1.1-2.2); Alkaline Phosphatase 285 Units/L (34-104); Aspartate Amino Transferase 166 Units/L (13-39); BUN/Creatinine Ratio 12 (6-26); Bilirubin,Direct 1.2 mg/dL (0.0-0.2); Bilirubin,Indirect 1.3 mg/dL (0.0-1.2); Bilirubin,Total 2.5 mg/dL (0.3-1.0); Blood Urea Nitrogen 14 mg/dL (6-20); Carbon Dioxide 20 mEq/L (23-29); Chloride 95 mEq/L (98-107); Globulin 3.1 g/dL (2.4-3.5); Glucose 180 mg/dL (70-105); Lipase 1277 Units/L (11-82); Osmolality,Calculated 293 (280-300); Sodium 139 mEq/L (136-145); Total Protein 8.3 g/dL (6.4-8.9); eGFR For African Americans > 60 (> 60); eGFR For Non-African Americans > 60 (> 60)
--- NOTE | 2017-08-07 17:17 | Internal Med History&Physical ---
Date of Encounter: 08/07/17 Internal Medicine - H&P: HPI History of present illness: Mr. Howard is a 47 year old male Past Med Surg Social Fam HX - Past Medical History Medical history: GERD, hypertension, other Psychiatric history: anxiety - Past Surgical History Surgical History: appendectomy, cholecystectomy, other - Social History Smoking Status: Former smoker Smokeless Tobacco Status: No Alcohol use: occasionally Drug use: none - Family History Mother Family Member Ethnicity: Non- Living Status: Hx Family Cardiac Disorders: Yes Hx Family Respiratory Disorders: Yes Hx Family Cancer: Yes Hx Family GI Disorders: Yes Hx Family Endocrine Disorder: No Hx Family Neuromuscular Disorders: No Hx Family Neurologic Disorders: No Hx Family HEENT Disorders: No Hx Family Autoimmune Disorders: No Brother Hx Family Cancer: Yes (Head and neck) Internal Medicine - H&P: Meds Ondansetron HCl [Ondansetron HCl] 4 - 8 mg PO TID PRN 02/01/17 [History] Amlodipine Besylate 10 mg PO DAILY 05/22/17 [History] Carvedilol [Coreg] 25 mg PO BID 05/22/17 [History] Cyanocobalamin (Vitamin B-12) [Vitamin B12] 1,000 mcg PO AD 05/22/17 [History] Multivits,Ca,Min/Iron/FA/Lycop [Centrum Men's Tablet] 1 each PO DAILY 05/22/17 [ History] Folic Acid 1 mg PO DAILY 30 Days #0 tablet 05/26/17 [Rx] Thiamine (B-1) [Vitamin B-1] 100 mg PO DAILY 30 Days #30 tablet 05/26/17 [Rx] Gabapentin [Neurontin] 300 - 600 mg PO TID 08/07/17 [History] Omeprazole [PriLOSEC] 40 mg PO BID 08/07/17 [History] hydrOXYzine pamoate [HydrOXYzine Pamoate] 25 mg PO DAILY 08/07/17 [History] 3 Allergy/AdvReac Type Severity Reaction Status Date / Time No Known Allergies Allergy Verified 08/07/17 16:53 All Systems PM: A 10-system review of systems was performed and is negative for pertinent findings except as documented above in the HPI. - Constitutional Vitals: Temp Pulse Resp BP Pulse Ox 97.6 F 111 18 127/93 94 08/07/17 13:42 08/07/17 16:27 08/07/17 16:27 08/07/17 16:27 08/07/17 16:27 Internal Med - H&P Results - Labs CBC & Chem 7: 08/07/17 14:12 08/07/17 14:12 - Time Spent With Patient Total time spent is greater than 50% in coordination of care (as documented) at patient's floor/unit and/or counseling patient:
[2017-08-07] MEDS ORDERED: Naloxone 0.4 MG/ML INJ IVP PRN (17:29)
[2017-08-07] MEDS ORDERED: OXYCODONE Oral CONC 10 MG/0.5 ML ORAL.SYG SL PRN (17:35)
--- NOTE | 2017-08-07 18:24 | Internal Med History&Physical ---
Date of Encounter: 08/07/17 Time of Encounter: 16:30 Internal Medicine - H&P: HPI Chief complaint: Abdominal pain Admitted From: Emergency Dept Plans for Post Hospital Care: Home History of present illness: Mr. Howard is a 47 year old male w/PMH of GERD, HTN, and past hx of several episodes of pancreatitis presents from the ED with CC of abdominal pain that began two days ago as generalized abdominal pain in the epigastric region. Associated sx: nausea, vomiting, SOB from epigastric pain. States that similar sx previously were pancreatitis. Pt. also reports atrial fibrillation/heart flutter over the past 2 days as well. Pt. denies any recent illness, fever, chills, changes in vision, CP, headache, unusual bleeding, diarrhea, constipation, dizziness, lightheadedness, numbness, tingling, pre-syncope, or syncope. Past Med Surg Social Fam HX - Past Medical History Source: patient, old records reviewed, obtained from family Medical history: GERD, hypertension, other Psychiatric history: anxiety - Past Surgical History Surgical History: appendectomy, cholecystectomy, other - Social History Smoking Status: Former smoker Smokeless Tobacco Status: No Alcohol use: occasionally Drug use: none Current living situation: Home, With Family Activity Level: Independent ambulation Recent Out of Country Travel Within the Last 8 Weeks: No Exposure or Possible Exposure to Illness During Travel: No - Family History Mother Race: Family Member Ethnicity: Non- Living Status: Age at : 72 Cause of : Colon cancer Hx Family Cancer: Yes (Colon) Hx Family HEENT Disorders: Yes (Blind @ 30 yo) Brother Race: Family Member Ethnicity: Non- Living Status: Still Living Hx Family Cancer: Yes (Head and neck) Father Race: Family Member Ethnicity: Non- Living Status: Age at : 90 Cause of : Lung cancer Hx Family Cardiac Disorders: Yes ([place]) Hx Family Cancer: Yes (Lung) Sister Race: Family Member Ethnicity: Non- Living Status: Still Living Hx Family Respiratory Disorders: Yes (COPD) Internal Medicine - H&P: Meds Ondansetron HCl [Ondansetron HCl] 4 - 8 mg PO TID PRN 02/01/17 [History] Amlodipine Besylate 10 mg PO DAILY 05/22/17 [History] Carvedilol [Coreg] 25 mg PO BID 05/22/17 [History] Cyanocobalamin (Vitamin B-12) [Vitamin B12] 1,000 mcg PO AD 05/22/17 [History] Multivits,Ca,Min/Iron/FA/Lycop [Centrum Men's Tablet] 1 each PO DAILY 05/22/17 [ History] Folic Acid 1 mg PO DAILY 30 Days #0 tablet 05/26/17 [Rx] Thiamine (B-1) [Vitamin B-1] 100 mg PO DAILY 30 Days #30 tablet 05/26/17 [Rx] Gabapentin [Neurontin] 300 - 600 mg PO TID 08/07/17 [History] Omeprazole [PriLOSEC] 40 mg PO BID 08/07/17 [History] hydrOXYzine pamoate [HydrOXYzine Pamoate] 25 mg PO DAILY 08/07/17 [History] 3 Allergy/AdvReac Type Severity Reaction Status Date / Time No Known Allergies Allergy Verified 08/07/17 16:53 All Systems PM: A 10-system review of systems was performed and is negative for pertinent findings except as documented above in the HPI. - Constitutional Constitutional: no chills, no fever(s), no night sweats - EENT Eyes: no change in vision, no discharge, no pain, no photophobia Ears: no ear discharge, no ear pain, no tinnitus Nose, mouth and throat: no dysphagia, no nasal discharge, no neck pain, no sore throat - Breasts Breasts: as per HPI - Cardiovascular Cardiovascular ROS IM: dyspnea (D/t epigastric pain), no chest pain, no diaphoresis, no lightheadedness, no palpitations, no syncope - Respiratory Respiratory: as per HPI, dyspnea (D/t epigastric pain), no cough, no wheezing, no excessive phlegm production - Gastrointestinal Gastrointestinal: as per HPI, abdominal pain, nausea, vomiting - Genitourinary Genitourinary ROS male: as per HPI - Musculoskeletal Musculoskeletal ROS IM: no numbness, no tingling - Integumentary Integumentary IM: no rash, no unusual bruising - Neurological Neurological ROS: no confusion, no convulsions, no focal weakness, no numbness, no tingling, no tremor(s) - Psychiatric Psychiatric: as per HPI, anxiety - Endocrine Endocrine IM: as per HPI - Hematologic/Lymphatic Hematologic/Lymphatic: no easy bruising - Allergic/Immunologic Allergic/Immunologic: as per HPI - Constitutional Vitals: Temp Pulse Resp BP Pulse Ox 97.8 F 95 16 139/101 96 08/07/17 18:10 08/07/17 18:10 08/07/17 18:10 08/07/17 18:10 08/07/17 18:10 General appearance: Present: cooperative, mild distress (Abdominal pain), A&O X 3, pleasant, answers questions appropriately - Head Head exam: Present: atraumatic, normocephalic - Eye Eye exam: Present: PERRL, conjuntiva pink, sclera anicteric Pupils: Present: PERRL - ENT ENT exam: Present: normal exam - Neck Neck exam general surgery: Present: normal inspection, supple, trachea midline. Absent: lymphadenopathy - Respiratory Respiratory exam: Present: CTAB. Absent: accessory muscle use, rales, rhonchi, wheezes - Cardiovascular Cardiovascular exam: Present: irregular rhythm. Absent: diastolic murmur, gallop, rubs, systolic murmur - GI/Abdominal GI/Abdominal exam: Present: normal bowel sounds, soft, tenderness, no peritoneal signs. Absent: distended - Rectal Rectal exam: Present: deferred - Additional comments: exam deferred. - Extremities Exam Extremities exam: Present: warm, radial pulses palpable and symmetrical. Absent : calf tenderness, cyanotic, pedal edema - Back Exam Back exam: Present: normal inspection - Neurological Exam Neurological exam: Present: CN II-XII intact, oriented X3, no focal deficits. Absent: pronater drift, facial droop, speech deficit - Psychiatric Psychiatric exam: Present: anxious - Skin Skin exam: Present: dry, intact Internal Med - H&P Results - Labs CBC & Chem 7: 08/07/17 14:12 08/07/17 14:12 - EKG Data EKG comments: 08/07/17 18:31 EKG dated 08/07/17 shows atrial fibrillation with RVR and minimal ST depression. - Diagnostic Studies CT scan - abdomen Additional comments: Impressions Abdomen/Pelvis CT 08/07/17 14:01 IMPRESSION: 1. Acute recurrent pancreatitis causing secondary enteritis. 2. Unchanged 1.2 cm focal pancreatic duct dilatation versus pseudocyst. D/ / Ronn Barros MD / Ronn Barros MD Interpreting Provider: Ronn Barros MD - Assessment and plan (1) Pancreatitis Current Visit: Yes Status: Acute Assessment and plan: Acute recurrent pancreatitis. CT of the abdomen/pelvis today shows acute recurrent pancreatitis causing secondary enteritis. Unchanged 1.2 cm focal pancreatic duct dilatation versus pseudocyst. NPO status. 0.9 NS IV fluids @ 125 mL/HR. IVP Zofran 4 mg Q4HR PRN to be alternated w/IVP Phenergan 12.5 mg Q4HR PRN for N/V control. Will hold pts. PO medications d/t current N/V and administer IVP Ativan for anxiety and IVP Hydralazine w/parameters for hypertension PRN. Monitor I&O and daily weight. SL oxycodone 5 mg Q6HR PRN for severe pain. Pt. discussed w/Dr. Oakes who agrees w/plan of care. Pt. is moderate risk for further morbidity d/t current sx, recurrent pancreatitis, hx of alcohol use, abnormal bilirubin and liver enzymes, hx, and risk factors. Observation. Qualifiers: Chronicity: acute Pancreatitis type: unspecified pancreatitis type Acute pancreatitis complication: unspecified Qualified Code(s): K85.90 - Acute pancreatitis without necrosis or infection, unspecified (2) Abdominal pain Current Visit: Yes Status: Acute Assessment and plan: Acute abdominal pain r/t current acute pancreatitis versus enteritis according to CT of the abdomen/pelvis. NPO status. IVP Zofran 4 mg Q4HR PRN for N/V to be alternated w/IVP Phenergan 12.5 mg Q4HR PRN for N/V. IVP Protonix 40 mg BID. Monitor I&O and daily weight. Qualifiers: Abdominal location: epigastric Qualified Code(s): R10.13 - Epigastric pain (3) Nausea & vomiting Current Visit: Yes Status: Acute Assessment and plan: Acute N/V for the past two days. CT of the abdomen/pelvis shows acute recurrent pancreatitis causing secondary enteritis. Unchanged 1.2 cm focal pancreatic duct dilatation versus pseudocyst. NPO status. IVP Zofran 4 mg Q4HR PRN for N/V to be alternated w/IVP Phenergan 12.5 mg Q4HR PRN for N/V. IVP Protonix 40 mg BID. Monitor I&O and daily weight. Qualifiers: Vomiting type: unspecified Vomiting Intractability: intractable Qualified Code(s): R11.2 - Nausea with vomiting, unspecified (4) Atrial fibrillation with rapid ventricular response Current Visit: Yes Status: Acute Assessment and plan: Acute on chronic atrial fibrillation on admission. Pt. placed on Cardizem drip per Cardiology in ED which we will continue. Continuous cardiac telemetry. Consider Echocardiogram when pts. N/V is more controlled. Monitor pt. closely for return to sinus rhythm. (5) Hyperbilirubinemia Current Visit: Yes Status: Acute Assessment and plan: Acute hyperbilirubinemia w/direct bilirubin of 1.2 and indirect bilirubin of 1.3 on admission. AST 166 and ALT 100 on admission. Pt. has hx of alcohol use. Monitor f/u labs. (6) Anxiety disorder Current Visit: Yes Status: Chronic Assessment and plan: Hx of chronic anxiety disorder. Will hold pts. Hydroxyzine pamoate d/t NPO status and administer Ativan Q6HR PRN. Qualifiers: Anxiety disorder type: unspecified anxiety disorder Qualified Code(s): F41.9 - Anxiety disorder, unspecified (7) DVT prophylaxis Current Visit: Yes Status: Acute Assessment and plan: Heparin 5000 units SQ every 8 for DVT prophylaxis. Monitor patient for signs of bleeding. - Time Spent With Patient Total time spent is greater than 50% in coordination of care (as documented) at patient's floor/unit and/or counseling patient: Greater than 35 minutes
[2017-08-07] MEDS: Pantoprazole 40 MG VIAL IVP SCH (18:36)
[2017-08-07] MEDS: 0.9 % Sodium Chloride 1,000 ML IVC SCH (18:36)
[2017-08-07] MEDS: *HR* LORazepam 2 MG/ML VIAL IVP PRN ×2 (19:06→20:47)
[2017-08-07] MEDS: *HR* Promethazine 25 MG/ML VIAL IVP PRN (19:08)
[2017-08-07] MEDS: Ondansetron 4 MG/2 ML VIAL IVP SCH (19:50)
[2017-08-07] MEDS ORDERED: *HR* LORazepam 2 MG/ML VIAL IVP PRN (19:57)
[2017-08-08] MEDS: *HR* Heparin 5,000 UNIT/ML VIAL SQ SCH ×4 (00:34→22:47)
[2017-08-08] MEDS: OXYCODONE Oral CONC 10 MG/0.5 ML ORAL.SYG SL PRN ×3 (00:34→19:17)
[2017-08-08] MEDS: *HR* Promethazine 25 MG/ML VIAL IVP PRN ×2 (00:36→08:38)
[2017-08-08] MEDS: Ondansetron 4 MG/2 ML VIAL IVP SCH ×2 (00:41→04:53)
[2017-08-08] MEDS: 0.9 % Sodium Chloride 1,000 ML IVC SCH ×2 (02:16→07:07)
[2017-08-08] MEDS: *HR* LORazepam 2 MG/ML VIAL IVP PRN ×4 (02:16→15:21)
[2017-08-08] MEDS ORDERED: *HR* Metoprolol 5 MG/5 ML VIAL IVP ONE ×2 (03:15→03:19)
[2017-08-08] MEDS ORDERED: 0.9 % Sodium Chloride 500 ML IVC ONE (03:16)
[2017-08-08] MEDS: Pantoprazole 40 MG VIAL IVP SCH ×2 (04:57→17:39)
[2017-08-08] MEDS ORDERED: *HR* LORazepam 2 MG/ML VIAL IVP ONE (05:31)
[2017-08-08 06:47] LABS: Hematocrit 43.7 % (37.5-50.1); Mean Corpuscular Volume 91.2 fL (83.0-100.0); Red Blood Count 4.79 M/mcL (4.19-5.50)
[2017-08-08 06:49] LABS: Basophils % 0.2 %; Immature Granulocytes % 0.5 % (0-4); Immature Platelets 10.1 % (1.1-6.1); Lymphocytes # 1.6 K/mcL (0.6-4.6); Lymphocytes % 16.5 %; Mean Corpuscular HGB Conc 36.6 g/dL (31.6-35.5); Mean Corpuscular Hemoglobin 33.4 pg (28.0-33.3); Monocytes # 0.7 K/mcL (0.0-1.3); Monocytes % 7.7 %; Red Cell Distribution Width 14.6 % (11.5-14.5); Segmented Neutrophils % 75.1 %
[2017-08-08] MEDS ORDERED: diazePAM 10 MG/2 ML SYRINGE IVP ONE (07:00)
[2017-08-08 07:13] LABS: Alanine Aminotransferase 139 Units/L (7-52); Albumin 4.5 g/dL (3.5-5.7); Albumin/Globulin Ratio 1.7 (1.1-2.2); Alkaline Phosphatase 349 Units/L (34-104); Aspartate Amino Transferase 359 Units/L (13-39); BUN/Creatinine Ratio 21 (6-26); Bilirubin,Total 4.9 mg/dL (0.3-1.0); Blood Urea Nitrogen 20 mg/dL (6-20); Calcium 9.3 mg/dL (8.6-10.3); Carbon Dioxide 27 mEq/L (23-29); Chloride 101 mEq/L (98-107); Chol/HDL Ratio 1.7 (0-4.9); Cholesterol 185 mg/dL (< 200); Globulin 2.7 g/dL (2.4-3.5); Glucose 160 mg/dL (70-105); HDL Cholesterol 112 mg/dL (40-59); LDL Cholesterol,Calculated 63 mg/dL (0-99); Magnesium 1.6 mg/dL (1.6-2.6); Osmolality,Calculated 296 (280-300); Potassium 3.3 mEq/L (3.5-5.1); Sodium 140 mEq/L (136-145); Total Protein 7.2 g/dL (6.4-8.9); Triglycerides 52 mg/dL (< 150); eGFR For African Americans > 60 (> 60); eGFR For Non-African Americans > 60 (> 60)
[2017-08-08 07:55] LABS: Neutrophils # 7.1 K/mcL (1.6-8.9); Platelet Count 92 K/mcL (140-400)
[2017-08-08] MEDS ORDERED: 0.9 % Sodium Chloride 1,000 ML IVC SCH (07:56)
[2017-08-08] MEDS ORDERED: *HR* Metoprolol 5 MG/5 ML VIAL IVP PRN (07:58)
[2017-08-08] MEDS ORDERED: *HR* Dextrose 50 % in Water (Syg) 50 ML SYRINGE IVP PRN (08:03)
[2017-08-08] MEDS ORDERED: D5% in Water 1,000 ML IVC PRN (08:03)
[2017-08-08] MEDS ORDERED: Dextrose Gel 15 GM/37.5 ML TUBE PO PRN ×2 (08:03)
--- NOTE | 2017-08-08 08:08 | Internal Med Progress Note ---
Date of Encounter: 08/08/17 Time of Encounter: 08:05 - Assessment and plan (1) Acute hyperactive alcohol withdrawal delirium Current Visit: Yes Status: Acute Assessment and plan: Good milligrams 3 times a day and taper, hold if sedated Use Ativan IV per [facility] protocol Banana bag Consider Precedex drip and transfer to 2 N or ICU when beds become available ( currently full) (2) Pancreatitis Current Visit: Yes Status: Acute Assessment and plan: Severe dehydration secondary to Acute recurrent pancreatitis alcohol-related. Normal saline with 10 mEq of potassium at 200 mL/h nothing by mouth. Qualifiers: Chronicity: acute Pancreatitis type: unspecified pancreatitis type Acute pancreatitis complication: unspecified Qualified Code(s): K85.90 - Acute pancreatitis without necrosis or infection, unspecified (3) Nausea & vomiting Current Visit: Yes Status: Acute Assessment and plan: Secondary to acute pancreatitis CT of the abdomen/pelvis shows acute recurrent pancreatitis causing secondary enteritis. Unchanged 1.2 cm focal pancreatic duct dilatation versus pseudocyst. NPO IVP Zofran 4 mg Q4HR PRN Protonix 40 mg IV BID. Qualifiers: Vomiting type: unspecified Vomiting Intractability: intractable Qualified Code(s): R11.2 - Nausea with vomiting, unspecified (4) Atrial fibrillation with rapid ventricular response Current Visit: Yes Status: Acute Assessment and plan: Likely related to dehydration and alcohol withdrawal Acute on chronic atrial fibrillation on admission. Pt. placed on Cardizem drip per Cardiology in ED Takes Coreg at home Use IV Lopressor as needed. Continue telemetry. (5) Hyperbilirubinemia Current Visit: Yes Status: Acute Assessment and plan: Acute hyperbilirubinemia w/direct bilirubin Pt. has hx of alcohol use. (6) Anxiety disorder Current Visit: Yes Status: Chronic Assessment and plan: Hx of chronic anxiety disorder. Takes Hydroxyzine pamoate at home Qualifiers: Anxiety disorder type: unspecified anxiety disorder Qualified Code(s): F41.9 - Anxiety disorder, unspecified (7) Hypokalemia Current Visit: No Status: Acute Assessment and plan: Replete as needed (8) Tobacco abuse Current Visit: No Status: Acute - Time Spent With Patient Total time spent is greater than 50% in coordination of care (as documented) at patient's floor/unit and/or counseling patient: - Subjective Interval history: Incoherent, not making sense, complaining of abdominal pain, unable to complete review of systems - Constitutional Vitals: Temp Pulse Resp BP Pulse Ox 98.7 F 125 18 139/106 94 08/08/17 05:39 08/08/17 05:39 08/08/17 05:39 08/08/17 05:39 08/08/17 05:39 General appearance: Present: cooperative, A&O X 1, mild distress (Abdominal pain ), pleasant, answers questions appropriately - Head Head exam: Present: atraumatic, normocephalic - Eye Eye exam: Present: PERRL, conjuntiva pink, sclera anicteric Pupils: Present: PERRL - Neck Neck exam general surgery: Present: supple, trachea midline. Absent: lymphadenopathy - Respiratory Respiratory exam: Present: CTAB. Absent: accessory muscle use, rales, rhonchi, wheezes - Cardiovascular Cardiovascular exam: Present: irregular rhythm, RRR, +S1, +S2, tachycardia. Absent: diastolic murmur, gallop, rubs, systolic murmur - GI/Abdominal GI/Abdominal exam: Present: hypoactive bowel sounds, soft, tenderness, no peritoneal signs. Absent: distended, normal bowel sounds - Extremities Exam Extremities exam: Present: warm, radial pulses palpable and symmetrical. Absent : calf tenderness, cyanotic, pedal edema - Neurological Exam Neurological exam: Present: CN II-XII intact, no focal deficits. Absent: oriented X3, pronater drift, facial droop, speech deficit - Skin Skin exam: Present: dry, intact Internal Medicine: Result - Labs CBC & Chem 7: 08/08/17 05:33 08/08/17 05:33 Labs: Short CBC 08/08/17 Range/Units 05:33 WBC 9.4 (4.3-11.1) K/mcL Hgb 16.0 D (12.9-16.9) g/dL Hct 43.7 (37.5-50.1) % Plt Count 92 L (140-400) K/mcL Neutrophils # 7.1 (1.6-8.9) K/mcL BMP 08/08/17 05:33 Sodium 140 Potassium 3.3 L Chloride 101 Carbon Dioxide 27 BUN 20 Creatinine 0.97 Glucose 160 H Calcium 9.3 Liver Function 08/08/17 Range/Units 05:33 Total Bilirubin 4.9 H (0.3-1.0) mg/dL AST 359 H (13-39) Units/L ALT 139 H (7-52) Units/L Alkaline Phosphatase 349 H (34-104) Units/L Albumin 4.5 (3.5-5.7) g/dL Consult Discharge Plan - Plan Referrals: Kalia Sheppard MD [Primary Care Provider] -
[2017-08-08] MEDS ORDERED: Ondansetron 4 MG/2 ML VIAL IVP PRN (09:11)
[2017-08-08] MEDS: Levofloxacin 750 MG/150 ML 750 MG/150 ML BAG IVPB SCH ×2 (09:11→09:25)
[2017-08-08] MEDS: Gabapentin 300 MG CAPSULE PO SCH ×3 (09:26→20:16)
[2017-08-08 10:11] LABS: Estimated Average Glucose 100 mg/dl; Hemoglobin A1C 5.1 %
[2017-08-08] MEDS: Insulin LISPRO 300 UNITS/3 ML VIAL SQ SCH ×2 (15:20→17:38)
--- NOTE | 2017-08-08 15:51 | Electrocardiograph Report ---
[place] [address] Test Date: 2017-08-08 Pat Name: Erin Howard Department: 111 Room: 2NE20 Gender: M [employer] Associate: [id number] : 1970 Requested By: Estrellita Capellan Order Number: [id number] Reading MD: Viridiana Solano Measurements Intervals [place] Rate: 121 P: [place]: 0 QRS: 39 QRSD: 102 T: 75 QT: 329 QTc: 401 Interpretive Statements ATRIAL FIBRILLATION WITH RAPID VENTRICULAR RESPONSE SEPTAL MYOCARDIAL INFARCTION, PROBABLY OLD Electronically Signed On 08-08-2017 15:49:37 EDT by Viridiana Solano
--- NOTE | 2017-08-08 16:05 | Electrocardiograph Report ---
[address] [address] Test Date: 2017-08-07 Pat Name: Erin Howard Department: 104 Room: 2NE20 Gender: M [employer]: : 1970 Requested By: Alex Arechiga Order Number: [id number] Reading MD: Viridiana Solano Measurements Intervals [place] Rate: 167 P: NM: 0 QRS: 15 QRSD: 90 T: 79 QT: 259 QTc: 350 Interpretive Statements ATRIAL FIBRILLATION WITH RAPID VENTRICULAR RESPONSE MINIMAL ST DEPRESSION ABNORMAL RHYTHM ECG Electronically Signed On 08-08-2017 16:04:02 EDT by Viridiana Solano
[2017-08-08] MEDS: Thiamine (B-1) 100 MG, Folic Acid 1 MG, MVI, adult with vitamin K 10 ML in 0.9 % Sodi... IVPB SCH (18:07)
[2017-08-09] MEDS: Insulin LISPRO 300 UNITS/3 ML VIAL SQ SCH ×4 (01:07→18:42)
[2017-08-09] MEDS: *HR* LORazepam 2 MG/ML VIAL IVP PRN (02:03)
[2017-08-09] MEDS: OXYCODONE Oral CONC 10 MG/0.5 ML ORAL.SYG SL PRN ×3 (02:20→19:26)
[2017-08-09] MEDS: Pantoprazole 40 MG VIAL IVP SCH ×2 (05:36→17:22)
[2017-08-09] MEDS: *HR* Heparin 5,000 UNIT/ML VIAL SQ SCH ×3 (05:36→21:18)
[2017-08-09] MEDS: *HR* Promethazine 25 MG/ML VIAL IVP PRN (05:47)
[2017-08-09 06:08] LABS: Basophils % 0.6 %
[2017-08-09 06:10] LABS: Hematocrit 35.6 % (37.5-50.1); Hemoglobin 12.3 g/dL (12.9-16.9); Immature Platelets 9.2 % (1.1-6.1); Lymphocytes % 34.4 %; Mean Corpuscular HGB Conc 34.6 g/dL (31.6-35.5); Mean Corpuscular Volume 95.4 fL (83.0-100.0); Monocytes # 0.2 K/mcL (0.0-1.3); Monocytes % 5.5 %; Nucleated Red Blood Cells 0.6 /100 WBC (0); Red Blood Count 3.73 M/mcL (4.19-5.50); Red Cell Distribution Width 15.1 % (11.5-14.5); Segmented Neutrophils % 59.5 %
[2017-08-09 06:16] LABS: Lymphocytes # 1.2 K/mcL (0.6-4.6); Neutrophils # 2.1 K/mcL (1.6-8.9); Platelet Count 64 K/mcL (140-400)
[2017-08-09 06:29] LABS: Alanine Aminotransferase 105 Units/L (7-52); Albumin 3.4 g/dL (3.5-5.7); Albumin/Globulin Ratio 1.6 (1.1-2.2); Alkaline Phosphatase 200 Units/L (34-104); Aspartate Amino Transferase 117 Units/L (13-39); BUN/Creatinine Ratio 32 (6-26); Bilirubin,Total 1.6 mg/dL (0.3-1.0); Blood Urea Nitrogen 21 mg/dL (6-20); Calcium 7.7 mg/dL (8.6-10.3); Carbon Dioxide 25 mEq/L (23-29); Chloride 111 mEq/L (98-107); Globulin 2.1 g/dL (2.4-3.5); Glucose 124 mg/dL (70-105); Osmolality,Calculated 300 (280-300); Potassium 3.8 mEq/L (3.5-5.1); Sodium 143 mEq/L (136-145); Total Protein 5.5 g/dL (6.4-8.9); eGFR For African Americans > 60 (> 60); eGFR For Non-African Americans > 60 (> 60)
[2017-08-09 06:40] LABS: Platelet Estimate Decreased (Normal)
--- NOTE | 2017-08-09 09:27 | Internal Med Progress Note ---
Date of Encounter: 08/09/17 Time of Encounter: 09:22 - Assessment and plan (1) Sepsis Current Visit: Yes Status: Acute Assessment and plan: Acute hypoxic respiratory failure due to Sepsis secondary to aspiration pneumonia present upon admission Stop Levaquin and start Unasyn IV Continue IV fluids White blood cell count decreased down to 3.6 Oxygen therapy, start Solu-Medrol next Aspiration precautions Blood cultures and sputum cultures Chest x-ray showed: New heterogeneous airspace disease throughout the left lung , possibly at the right lung base, could be compatible with pneumonitis in the setting of reported recent aspiration. Qualifiers: Sepsis type: sepsis due to unspecified organism Qualified Code(s): A41.9 - Sepsis, unspecified organism (2) Aspiration pneumonia Current Visit: No Status: Acute Qualifiers: Aspiration pneumonia type: due to vomit Laterality: bilateral Lung location: lower lobe of lung Qualified Code(s): J69.0 - Pneumonitis due to inhalation of food and vomit (3) Acute hyperactive alcohol withdrawal delirium Current Visit: Yes Status: Acute Assessment and plan: Taper Librium , hold if sedated, may need to stop it if WBC keeps dropping Use Ativan IV per CIWA protocol Banana bag Consider Precedex drip and transfer to 2 N or ICU when beds become available ( currently full) (4) Pancreatitis Current Visit: Yes Status: Acute Assessment and plan: Severe dehydration secondary to Acute recurrent pancreatitis alcohol-related. Normal saline with 10 mEq of potassium at 200 mL/h nothing by mouth. Qualifiers: Chronicity: acute Pancreatitis type: unspecified pancreatitis type Acute pancreatitis complication: unspecified Qualified Code(s): K85.90 - Acute pancreatitis without necrosis or infection, unspecified (5) Nausea & vomiting Current Visit: Yes Status: Acute Assessment and plan: Secondary to acute pancreatitis CT of the abdomen/pelvis shows acute recurrent pancreatitis causing secondary enteritis. Unchanged 1.2 cm focal pancreatic duct dilatation versus pseudocyst. NPO IVP Zofran 4 mg Q4HR PRN Protonix 40 mg IV BID. Qualifiers: Vomiting type: unspecified Vomiting Intractability: intractable Qualified Code(s): R11.2 - Nausea with vomiting, unspecified (6) Atrial fibrillation with rapid ventricular response Current Visit: Yes Status: Acute Assessment and plan: Likely related to dehydration and alcohol withdrawal Acute on chronic atrial fibrillation on admission. Pt. placed on Cardizem drip per Cardiology in ED Takes Coreg at home Use IV Lopressor as needed. Continue telemetry. (7) Hyperbilirubinemia Current Visit: Yes Status: Acute Assessment and plan: Acute hyperbilirubinemia w/direct bilirubin Pt. has hx of alcohol use. (8) Anxiety disorder Current Visit: Yes Status: Chronic Assessment and plan: Hx of chronic anxiety disorder. Takes Hydroxyzine pamoate at home Qualifiers: Anxiety disorder type: unspecified anxiety disorder Qualified Code(s): F41.9 - Anxiety disorder, unspecified (9) Hypokalemia Current Visit: No Status: Acute Assessment and plan: Replete as needed (10) Tobacco abuse Current Visit: No Status: Acute (11) Anemia Current Visit: Yes Status: Acute Assessment and plan: anemia likely related to hemodilution due to initial dehydration Hemoglobin was 17.7 and has dropped to 12.3 Order Hemoccult, monitor H&H and consider transfusions Continue Protonix IV Qualifiers: Anemia type: unspecified type Qualified Code(s): D64.9 - Anemia, unspecified - Time Spent With Patient Total time spent is greater than 50% in coordination of care (as documented) at patient's floor/unit and/or counseling patient: - Subjective Interval history: Incoherent, not making sense, oriented in person and place only, complaining of abdominal pain, unable to complete review of systems - Constitutional Vitals: Temp Pulse Resp BP Pulse Ox 100.9 F H 92 18 111/66 95 08/09/17 07:53 08/09/17 07:53 08/09/17 07:53 08/09/17 07:53 08/09/17 07:53 General appearance: Present: cooperative, A&O X 2, mild distress (Abdominal pain ), pleasant, answers questions appropriately Exam: - Head Head exam: Present: atraumatic, normocephalic - Eye Eye exam: Present: PERRL, conjuntiva pink, sclera anicteric Pupils: Present: PERRL - Neck Neck exam general surgery: Present: supple, trachea midline. Absent: lymphadenopathy - Respiratory Respiratory exam: Present: CTAB. Absent: accessory muscle use, rales, rhonchi, wheezes - Cardiovascular Cardiovascular exam: Present: irregular rhythm, RRR, +S1, +S2, tachycardia. Absent: diastolic murmur, gallop, rubs, systolic murmur - GI/Abdominal GI/Abdominal exam: Present: hypoactive bowel sounds, soft, tenderness, no peritoneal signs. Absent: distended, normal bowel sounds - Extremities Exam Extremities exam: Present: warm, radial pulses palpable and symmetrical. Absent : calf tenderness, cyanotic, pedal edema - Neurological Exam Neurological exam: Present: CN II-XII intact, no focal deficits. Absent: oriented X3, pronater drift, facial droop, speech deficit - Skin Skin exam: Present: dry, intact Internal Medicine: Result - Labs CBC & Chem 7: 08/09/17 05:16 08/09/17 05:16 Labs: Short CBC 08/09/17 Range/Units 05:16 WBC 3.6 L D (4.3-11.1) K/mcL Hgb 12.3 L D (12.9-16.9) g/dL Hct 35.6 L (37.5-50.1) % Plt Count 64 L (140-400) K/mcL Neutrophils # 2.1 (1.6-8.9) K/mcL BMP 08/09/17 05:16 Sodium 143 Potassium 3.8 Chloride 111 H Carbon Dioxide 25 BUN 21 H Creatinine 0.65 L Glucose 124 H Calcium 7.7 L Liver Function 08/09/17 Range/Units 05:16 Total Bilirubin 1.6 H (0.3-1.0) mg/dL AST 117 H (13-39) Units/L ALT 105 H (7-52) Units/L Alkaline Phosphatase 200 H (34-104) Units/L Albumin 3.4 L (3.5-5.7) g/dL - Impressions Impressions Chest X-Ray 08/08/17 11:40 IMPRESSION: New heterogeneous airspace disease throughout the left lung, possibly at the right lung base, could be compatible with pneumonitis in the setting of reported recent aspiration. D/ / Jeremy Benavides / Jeremy Benavides Interpreting Provider: Jeremy Benavides Consult Discharge Plan - Plan Referrals: Kalia Sheppard MD [Primary Care Provider] -
[2017-08-09] MEDS: Ampicillin/Sulbactam 3,000 MG in 0.9 % Sodium Chloride Mini Bag 100 ML IVPB SCH ×4 (11:15→23:44)
[2017-08-09] MEDS: MethylPREDNISolone 40 MG/ML VIAL IVP SCH ×3 (11:32→23:35)
[2017-08-09] MEDS: Gabapentin 300 MG CAPSULE PO SCH ×3 (11:32→21:18)
[2017-08-09] MEDS: Thiamine (B-1) 100 MG, Folic Acid 1 MG, MVI, adult with vitamin K 10 ML in 0.9 % Sodi... IVPB SCH (18:54)
[2017-08-10] MEDS: Insulin LISPRO 300 UNITS/3 ML VIAL SQ SCH ×4 (01:05→18:24)
[2017-08-10] MEDS: OXYCODONE Oral CONC 10 MG/0.5 ML ORAL.SYG SL PRN ×3 (03:38→18:27)
[2017-08-10] MEDS: Ampicillin/Sulbactam 3,000 MG in 0.9 % Sodium Chloride Mini Bag 100 ML IVPB SCH ×3 (05:12→17:34)
[2017-08-10] MEDS: *HR* Heparin 5,000 UNIT/ML VIAL SQ SCH ×3 (05:14→20:28)
[2017-08-10] MEDS: *HR* LORazepam 2 MG/ML VIAL IVP PRN ×9 (05:14→22:40)
[2017-08-10] MEDS: *HR* Promethazine 25 MG/ML VIAL IVP PRN (05:14)
[2017-08-10] MEDS: Pantoprazole 40 MG VIAL IVP SCH ×2 (05:15→17:34)
[2017-08-10 06:29] LABS: Red Blood Count 3.42 M/mcL (4.19-5.50)
[2017-08-10 06:32] LABS: Hematocrit 33.5 % (37.5-50.1); Hemoglobin 11.3 g/dL (12.9-16.9); Immature Platelets 10.7 % (1.1-6.1); Lymphocytes # 0.4 K/mcL (0.6-4.6); Mean Corpuscular HGB Conc 33.7 g/dL (31.6-35.5); Mean Platelet Volume 12.8 fL (9.4-12.4); Monocytes # 0.1 K/mcL (0.0-1.3); Monocytes % 4.1 %; Nucleated Red Blood Cells 1.2 /100 WBC (0); Segmented Neutrophils % 79.9 %
[2017-08-10 06:51] LABS: BUN/Creatinine Ratio 36 (6-26); Blood Urea Nitrogen 20 mg/dL (6-20); Calcium 7.4 mg/dL (8.6-10.3); Carbon Dioxide 20 mEq/L (23-29); Chloride 114 mEq/L (98-107); Glucose 178 mg/dL (70-105); Osmolality,Calculated 305 (280-300); Potassium 4.1 mEq/L (3.5-5.1); Sodium 144 mEq/L (136-145); eGFR For African Americans > 60 (> 60); eGFR For Non-African Americans > 60 (> 60)
[2017-08-10 06:59] LABS: Neutrophils # 1.9 K/mcL (1.6-8.9)
[2017-08-10 07:00] LABS: Platelet Count 61 K/mcL (140-400)
[2017-08-10 07:14] LABS: Platelet Estimate Decreased (Normal)
[2017-08-10] MEDS: MethylPREDNISolone 40 MG/ML VIAL IVP SCH (07:46)
[2017-08-10] MEDS: Gabapentin 300 MG CAPSULE PO SCH ×3 (07:46→20:28)
--- NOTE | 2017-08-10 10:22 | Internal Med Progress Note ---
Date of Encounter: 08/10/17 Time of Encounter: 10:20 - Assessment and plan (1) Sepsis Current Visit: Yes Status: Acute Assessment and plan: Acute hypoxic respiratory failure due to Sepsis secondary to aspiration pneumonia present upon admission Stopped Levaquin Continue Unasyn IV day #2 Continue IV fluids White blood cell count decreased down to 2.4 Oxygen therapy, decrease dose of Solu-Medrol Aspiration precautions Blood cultures and sputum cultures Chest x-ray showed: New heterogeneous airspace disease throughout the left lung , possibly at the right lung base, could be compatible with pneumonitis in the setting of reported recent aspiration. Qualifiers: Sepsis type: sepsis due to unspecified organism Qualified Code(s): A41.9 - Sepsis, unspecified organism (2) Acute hyperactive alcohol withdrawal delirium Current Visit: Yes Status: Acute Assessment and plan: Taper Librium , hold if sedated, may need to stop it if WBC keeps dropping Use Ativan IV per [facility] protocol Banana bag Consider Precedex drip and transfer to 2 N or ICU when beds become available ( currently full) (3) Aspiration pneumonia Current Visit: No Status: Acute Qualifiers: Aspiration pneumonia type: due to vomit Laterality: bilateral Lung location: lower lobe of lung Qualified Code(s): J69.0 - Pneumonitis due to inhalation of food and vomit (4) Pancreatitis Current Visit: Yes Status: Acute Assessment and plan: Severe dehydration secondary to Acute recurrent pancreatitis alcohol-related. Decrease IV fluids May start clear liquids. Qualifiers: Chronicity: acute Pancreatitis type: unspecified pancreatitis type Acute pancreatitis complication: unspecified Qualified Code(s): K85.90 - Acute pancreatitis without necrosis or infection, unspecified (5) Nausea & vomiting Current Visit: Yes Status: Acute Assessment and plan: Secondary to acute pancreatitis CT of the abdomen/pelvis shows acute recurrent pancreatitis causing secondary enteritis. Unchanged 1.2 cm focal pancreatic duct dilatation versus pseudocyst. IVP Zofran 4 mg Q4HR PRN Protonix Qualifiers: Vomiting type: unspecified Vomiting Intractability: intractable Qualified Code(s): R11.2 - Nausea with vomiting, unspecified (6) Atrial fibrillation with rapid ventricular response Current Visit: Yes Status: Acute Assessment and plan: Likely related to dehydration and alcohol withdrawal Acute on chronic atrial fibrillation on admission. Pt. placed on Cardizem drip per Cardiology in ED Stop Cardizem drip and start oral Cardizem Takes Coreg at home Use IV Lopressor as needed. Continue telemetry. (7) Hyperbilirubinemia Current Visit: Yes Status: Acute Assessment and plan: Acute hyperbilirubinemia w/direct bilirubin Pt. has hx of alcohol use. (8) Anxiety disorder Current Visit: Yes Status: Chronic Assessment and plan: Hx of chronic anxiety disorder. Takes Hydroxyzine pamoate at home Qualifiers: Anxiety disorder type: unspecified anxiety disorder Qualified Code(s): F41.9 - Anxiety disorder, unspecified (9) Hypokalemia Current Visit: No Status: Acute Assessment and plan: Replete as needed (10) Tobacco abuse Current Visit: No Status: Acute (11) Anemia Current Visit: Yes Status: Acute Assessment and plan: anemia likely related to hemodilution due to initial dehydration Hemoglobin was 17.7 and has dropped to 11.3 Order Hemoccult, monitor H&H and consider transfusions Continue Protonix IV Qualifiers: Anemia type: unspecified type Qualified Code(s): D64.9 - Anemia, unspecified - Time Spent With Patient Total time spent is greater than 50% in coordination of care (as documented) at patient's floor/unit and/or counseling patient: - Subjective Interval history: More awake today, disoriented in time at times, complains of epigastric pain 5 out of 10 in intensity, no chest pain, mild shortness of breath, no dysuria or diarrhea. No fevers - Constitutional Vitals: Temp Pulse Resp BP Pulse Ox 97.8 F 76 17 104/87 97 08/10/17 07:00 08/10/17 07:00 08/10/17 07:00 08/10/17 07:00 08/10/17 02:36 General appearance: Present: cooperative, A&O X 2, mild distress (Abdominal pain ), pleasant, answers questions appropriately - Head Head exam: Present: atraumatic, normocephalic - Eye Eye exam: Present: PERRL, conjuntiva pink, sclera anicteric Pupils: Present: PERRL - Neck Neck exam general surgery: Present: supple, trachea midline. Absent: lymphadenopathy - Respiratory Respiratory exam: Present: CTAB, rales (Crackles on the left side). Absent: accessory muscle use, rhonchi, wheezes - Cardiovascular Cardiovascular exam: Present: RRR, +S1, +S2. Absent: diastolic murmur, gallop, rubs, systolic murmur, tachycardia - GI/Abdominal GI/Abdominal exam: Present: normal bowel sounds, soft, tenderness (Epigastric tenderness), no peritoneal signs. Absent: distended - Extremities Exam Extremities exam: Present: warm, radial pulses palpable and symmetrical. Absent : calf tenderness, cyanotic, pedal edema - Neurological Exam Neurological exam: Present: CN II-XII intact, oriented X3 (Disoriented in time ( not all the time)), no focal deficits. Absent: pronater drift, facial droop, speech deficit - Skin Skin exam: Present: dry, intact Internal Medicine: Result - Labs CBC & Chem 7: 08/10/17 05:10 08/10/17 05:10 Labs: Short CBC 08/10/17 Range/Units 05:10 WBC 2.4 L (4.3-11.1) K/mcL Hgb 11.3 L (12.9-16.9) g/dL Hct 33.5 L (37.5-50.1) % Plt Count 61 L (140-400) K/mcL Neutrophils # 1.9 (1.6-8.9) K/mcL BMP 08/10/17 05:10 Sodium 144 Potassium 4.1 Chloride 114 H Carbon Dioxide 20 L BUN 20 Creatinine 0.55 L Glucose 178 H Calcium 7.4 L Consult Discharge Plan - Plan Referrals: Kalia Sheppard MD [Primary Care Provider] -
[2017-08-10] MEDS: 0.9 % Sodium Chloride 1,000 ML IVC SCH (10:40)
[2017-08-10] MEDS: Thiamine (B-1) 100 MG, Folic Acid 1 MG, MVI, adult with vitamin K 10 ML in 0.9 % Sodi... IVPB SCH (17:49)
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
[2017-08-11] MEDS: *HR* LORazepam 2 MG/ML VIAL IVP PRN ×6 (00:56→13:47)
[2017-08-11] MEDS: Insulin LISPRO 300 UNITS/3 ML VIAL SQ SCH ×4 (01:48→17:05)
[2017-08-11] MEDS: Ampicillin/Sulbactam 3,000 MG in 0.9 % Sodium Chloride Mini Bag 100 ML IVPB SCH ×5 (01:50→23:54)
[2017-08-11] MEDS ORDERED: Haloperidol Lactate 5 MG/ML VIAL IVP ONE ×3 (03:29→16:14)
[2017-08-11] MEDS ORDERED: Haloperidol Lactate 5 MG/ML VIAL ONE (03:32)
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
[2017-08-11 04:32] LABS: Mean Platelet Volume 11.6 fL (9.4-12.4)
[2017-08-11 04:34] LABS: Hematocrit 35.1 % (37.5-50.1); Mean Corpuscular HGB Conc 34.2 g/dL (31.6-35.5); Mean Corpuscular Hemoglobin 32.2 pg (28.0-33.3); Mean Corpuscular Volume 94.1 fL (83.0-100.0); Red Blood Count 3.73 M/mcL (4.19-5.50); Red Cell Distribution Width 14.6 % (11.5-14.5)
[2017-08-11 04:52] LABS: BUN/Creatinine Ratio 19 (6-26); Blood Urea Nitrogen 12 mg/dL (6-20); Calcium 8.3 mg/dL (8.6-10.3); Carbon Dioxide 26 mEq/L (23-29); Chloride 105 mEq/L (98-107); Glucose 193 mg/dL (70-105); Osmolality,Calculated 293 (280-300); Potassium 3.2 mEq/L (3.5-5.1); Sodium 139 mEq/L (136-145); eGFR For African Americans > 60 (> 60); eGFR For Non-African Americans > 60 (> 60)
[2017-08-11] MEDS: 0.9 % Sodium Chloride 1,000 ML IVC SCH (05:00)
[2017-08-11] MEDS: Dexmedetomidine HCl 400 MCG/100 ML MLS IVC SCH ×4 (05:00→20:01)
[2017-08-11] MEDS: Gabapentin 300 MG CAPSULE PO SCH ×3 (08:01→20:02)
[2017-08-11] MEDS: *HR* Heparin 5,000 UNIT/ML VIAL SQ SCH ×3 (08:02→21:00)
[2017-08-11] MEDS: Pantoprazole 40 MG VIAL IVP SCH ×2 (08:03→17:05)
[2017-08-11] MEDS ORDERED: MethylPREDNISolone 40 MG/ML VIAL IVP SCH (09:00)
[2017-08-11] MEDS ORDERED: Folic Acid 1 MG TABLET PO SCH (09:00)
--- NOTE | 2017-08-11 09:01 | Internal Med Progress Note ---
Date of Encounter: 08/11/17 Time of Encounter: 08:58 - Assessment and plan (1) Sepsis Current Visit: Yes Status: Acute Assessment and plan: Acute hypoxic respiratory failure due to Sepsis secondary to aspiration pneumonia present upon admission Stopped Levaquin Continue Unasyn IV day #3 Continue IV fluids White blood cell count decreased down to 2.4 but improved Oxygen therapy, continue Solu-Medrol Aspiration precautions Blood cultures and sputum cultures Chest x-ray showed: New heterogeneous airspace disease throughout the left lung , possibly at the right lung base, could be compatible with pneumonitis in the setting of reported recent aspiration. Qualifiers: Sepsis type: sepsis due to unspecified organism Qualified Code(s): A41.9 - Sepsis, unspecified organism (2) Acute hyperactive alcohol withdrawal delirium Current Visit: Yes Status: Acute Assessment and plan: Increase Librium to wean off Precedex Use Ativan IV per [facility] protocol Banana bag (3) Aspiration pneumonia Current Visit: No Status: Acute Qualifiers: Aspiration pneumonia type: due to vomit Laterality: bilateral Lung location: lower lobe of lung Qualified Code(s): J69.0 - Pneumonitis due to inhalation of food and vomit (4) Pancreatitis Current Visit: Yes Status: Acute Assessment and plan: Severe dehydration secondary to Acute recurrent pancreatitis alcohol-related. Decrease IV fluids clear liquids when awake. Qualifiers: Chronicity: acute Pancreatitis type: unspecified pancreatitis type Acute pancreatitis complication: unspecified Qualified Code(s): K85.90 - Acute pancreatitis without necrosis or infection, unspecified (5) Nausea & vomiting Current Visit: Yes Status: Acute Assessment and plan: Secondary to acute pancreatitis CT of the abdomen/pelvis shows acute recurrent pancreatitis causing secondary enteritis. Unchanged 1.2 cm focal pancreatic duct dilatation versus pseudocyst. IVP Zofran 4 mg Q4HR PRN Protonix Qualifiers: Vomiting type: unspecified Vomiting Intractability: intractable Qualified Code(s): R11.2 - Nausea with vomiting, unspecified (6) Atrial fibrillation with rapid ventricular response Current Visit: Yes Status: Acute Assessment and plan: Likely related to dehydration and alcohol withdrawal Acute on chronic atrial fibrillation on admission. Pt. placed on Cardizem drip per Cardiology in ED Stopped Cardizem drip on 08/10/17 Continue oral Cardizem Takes Coreg at home Use IV Lopressor as needed. Continue telemetry. (7) Hyperbilirubinemia Current Visit: Yes Status: Acute Assessment and plan: Acute hyperbilirubinemia w/direct bilirubin Pt. has hx of alcohol use. (8) Anxiety disorder Current Visit: Yes Status: Chronic Assessment and plan: Hx of chronic anxiety disorder. Takes Hydroxyzine pamoate at home Qualifiers: Anxiety disorder type: unspecified anxiety disorder Qualified Code(s): F41.9 - Anxiety disorder, unspecified (9) Hypokalemia Current Visit: No Status: Acute Assessment and plan: Replete as needed (10) Tobacco abuse Current Visit: No Status: Acute (11) Anemia Current Visit: Yes Status: Acute Assessment and plan: anemia likely related to hemodilution due to initial dehydration Hemoglobin was 17.7 and has dropped to 11.3 now stable Continue Protonix IV Qualifiers: Anemia type: unspecified type Qualified Code(s): D64.9 - Anemia, unspecified - Time Spent With Patient Total time spent is greater than 50% in coordination of care (as documented) at patient's floor/unit and/or counseling patient: - Subjective Interval history: Sedated with Precedex, Unable to complete ROS. No fevers - Constitutional Vitals: Temp Pulse Resp BP Pulse Ox 98 F 98 18 148/111 90 08/11/17 05:04 08/11/17 06:27 08/11/17 06:27 08/11/17 06:27 08/11/17 06:27 General appearance: Present: A&O X 0, cooperative, pleasant, answers questions appropriately Exam: - Head Head exam: Present: atraumatic, normocephalic - Eye Eye exam: Present: PERRL, conjuntiva pink, sclera anicteric Pupils: Present: PERRL - Neck Neck exam general surgery: Present: supple, trachea midline. Absent: lymphadenopathy - Respiratory Respiratory exam: Present: CTAB, rales (Crackles on the left side). Absent: accessory muscle use, rhonchi, wheezes - Cardiovascular Cardiovascular exam: Present: RRR, +S1, +S2. Absent: diastolic murmur, gallop, rubs, systolic murmur, tachycardia - GI/Abdominal GI/Abdominal exam: Present: normal bowel sounds, soft, tenderness (Epigastric tenderness), no peritoneal signs. Absent: distended - Extremities Exam Extremities exam: Present: warm, radial pulses palpable and symmetrical. Absent : calf tenderness, cyanotic, pedal edema - Neurological Exam Neurological exam: Present: CN II-XII intact, oriented X0, no focal deficits. Absent: pronater drift, facial droop, speech deficit - Skin Skin exam: Present: dry, intact Internal Medicine: Result - Labs CBC & Chem 7: 08/11/17 04:20 08/11/17 04:20 Labs: Short CBC 08/11/17 Range/Units 04:20 WBC 6.9 D (4.3-11.1) K/mcL Hgb 12.0 L (12.9-16.9) g/dL Hct 35.1 L (37.5-50.1) % Plt Count 92 L D (140-400) K/mcL BMP 08/11/17 04:20 Sodium 139 Potassium 3.2 L Chloride 105 Carbon Dioxide 26 BUN 12 Creatinine 0.64 L Glucose 193 H Calcium 8.3 L - Impressions Impressions Hip X-Ray 08/11/17 00:00 IMPRESSION: No fracture or malalignment. D/ / Aneesh López MD / Aneesh López MD Interpreting Provider: Aneesh López MD Ribs X-Ray 08/11/17 00:00 IMPRESSION: No pneumothorax or definite acute rib fracture. D/ / Aneesh López MD / Aneesh López MD Interpreting Provider: Aneesh López MD Consult Discharge Plan - Plan Referrals: Kalia Sheppard MD [Primary Care Provider] -
[2017-08-11] MEDS ORDERED: *HR* LORazepam 2 MG/ML VIAL IVP ONE (14:33)
[2017-08-11] MEDS ORDERED: *HR* LORazepam 2 MG/ML VIAL IVP PRN ×6 (15:05→17:02)
[2017-08-11 15:46] LABS: ABG Base Excess 6 mEq/L (-2 to 3); ABG HCO3 30 mEq/L (21-27); ABG Oxygen Saturation 96 % (95-98); ABG PCO2 40 mmHg (35-45); ABG PH 7.49 pH Units (7.32-7.45); ABG PO2 74 mmHg (85-104); ABG TCO2 31 mEq/L (20-26)
[2017-08-11] MEDS ORDERED: *HR* Dextrose 50 % in Water (Syg) 50 ML SYRINGE IVP PRN (16:14)
[2017-08-11] MEDS ORDERED: D5% in Water 1,000 ML IVC PRN (16:14)
[2017-08-11] MEDS ORDERED: *HR* Promethazine 25 MG/ML VIAL IVP PRN (16:14)
[2017-08-11] MEDS ORDERED: Dextrose Gel 15 GM/37.5 ML TUBE PO PRN ×2 (16:14)
[2017-08-11] MEDS ORDERED: Ondansetron 4 MG/2 ML VIAL IVP PRN (16:14)
[2017-08-11] MEDS ORDERED: Naloxone 0.4 MG/ML INJ IVP PRN (16:14)
[2017-08-12] MEDS: Insulin LISPRO 300 UNITS/3 ML VIAL SQ SCH ×4 (00:05→18:08)
[2017-08-12 02:32] LABS: Hematocrit 43.2 % (37.5-50.1); Hemoglobin 15.6 g/dL (12.9-16.9); Mean Corpuscular HGB Conc 36.1 g/dL (31.6-35.5); Mean Corpuscular Hemoglobin 33.3 pg (28.0-33.3); Mean Corpuscular Volume 92.1 fL (83.0-100.0); Mean Platelet Volume 11.3 fL (9.4-12.4); Platelet Count 117 K/mcL (140-400); Red Blood Count 4.69 M/mcL (4.19-5.50); Red Cell Distribution Width 14.1 % (11.5-14.5)
[2017-08-12 02:44] LABS: BUN/Creatinine Ratio 13 (6-26); Blood Urea Nitrogen 7 mg/dL (6-20); Calcium 9.1 mg/dL (8.6-10.3); Carbon Dioxide 30 mEq/L (23-29); Chloride 103 mEq/L (98-107); Glucose 164 mg/dL (70-105); Osmolality,Calculated 300 (280-300); Potassium 2.8 mEq/L (3.5-5.1); Sodium 144 mEq/L (136-145); eGFR For African Americans > 60 (> 60); eGFR For Non-African Americans > 60 (> 60)
[2017-08-12] MEDS: Dexmedetomidine HCl 400 MCG/100 ML MLS IVC SCH ×3 (03:39→13:08)
[2017-08-12] MEDS: Ampicillin/Sulbactam 3,000 MG in 0.9 % Sodium Chloride Mini Bag 100 ML IVPB SCH ×4 (05:00→22:46)
[2017-08-12] MEDS: *HR* Heparin 5,000 UNIT/ML VIAL SQ SCH ×3 (05:01→22:47)
[2017-08-12] MEDS: Pantoprazole 40 MG VIAL IVP SCH ×2 (05:01→17:46)
--- NOTE | 2017-08-12 09:58 | Internal Med Progress Note ---
<Nathanael Gale - Last Filed: 08/12/17 10:07> Date of Encounter: 08/12/17 Time of Encounter: 08:40 - Assessment and plan (1) Acute hyperactive alcohol withdrawal delirium Current Visit: Yes Status: Acute Assessment and plan: Increase Librium to wean off Precedex, however still currently maxed on librium Use Ativan IV per [facility] protocol Banana bag (2) Sepsis Current Visit: Yes Status: Acute Assessment and plan: Acute hypoxic respiratory failure due to Sepsis secondary to aspiration pneumonia present upon admission Stopped Levaquin Continue Unasyn IV day #4 Continue IV fluids White blood cell count decreased down to 2.4 but improved to 6.4 Oxygen therapy, continue Solu-Medrol Aspiration precautions Blood cultures and sputum cultures Chest x-ray showed: No consolidation, effusion or pneumothorax. Stable cardiomediastinal silhouette. No evidence of pulmonary edema. Qualifiers: Sepsis type: sepsis due to unspecified organism Qualified Code(s): A41.9 - Sepsis, unspecified organism (3) Aspiration pneumonia Current Visit: No Status: Acute Assessment and plan: Aspiration pneumonia seen on CXR Currently on appropriate antibiotic therapy. Qualifiers: Aspiration pneumonia type: due to vomit Laterality: bilateral Lung location: lower lobe of lung Qualified Code(s): J69.0 - Pneumonitis due to inhalation of food and vomit (4) Pancreatitis Current Visit: Yes Status: Acute Assessment and plan: Severe dehydration secondary to Acute recurrent pancreatitis alcohol-related. Decrease IV fluids clear liquids when awake. Qualifiers: Chronicity: acute Pancreatitis type: unspecified pancreatitis type Acute pancreatitis complication: unspecified Qualified Code(s): K85.90 - Acute pancreatitis without necrosis or infection, unspecified (5) Atrial fibrillation with rapid ventricular response Current Visit: Yes Status: Acute Assessment and plan: Likely related to dehydration and alcohol withdrawal Acute on chronic atrial fibrillation on admission. Pt. placed on Cardizem drip per Cardiology in ED Stopped Cardizem drip on 08/10/17 Continue oral Cardizem Takes Coreg at home Use IV Lopressor as needed. Continue telemetry. (6) Hypokalemia Current Visit: No Status: Acute Assessment and plan: Replete as needed (7) Tobacco abuse Current Visit: No Status: Acute (8) Nausea & vomiting Current Visit: Yes Status: Acute Assessment and plan: Secondary to acute pancreatitis CT of the abdomen/pelvis shows acute recurrent pancreatitis causing secondary enteritis. Unchanged 1.2 cm focal pancreatic duct dilatation versus pseudocyst. IVP Zofran 4 mg Q4HR PRN Protonix Currently inactive Qualifiers: Vomiting type: unspecified Vomiting Intractability: intractable Qualified Code(s): R11.2 - Nausea with vomiting, unspecified (9) Hyperbilirubinemia Current Visit: Yes Status: Acute Assessment and plan: Acute hyperbilirubinemia w/direct bilirubin Pt. has hx of alcohol use. (10) Anxiety disorder Current Visit: Yes Status: Chronic Assessment and plan: Hx of chronic anxiety disorder. Takes Hydroxyzine pamoate at home Qualifiers: Anxiety disorder type: unspecified anxiety disorder Qualified Code(s): F41.9 - Anxiety disorder, unspecified (11) Anemia Current Visit: Yes Status: Acute Assessment and plan: anemia likely related to hemodilution due to initial dehydration Hemoglobin was 17.7 and has dropped to 11.3 now stable Continue Protonix IV Qualifiers: Anemia type: unspecified type Qualified Code(s): D64.9 - Anemia, unspecified - Time Spent With Patient Total time spent is greater than 50% in coordination of care (as documented) at patient's floor/unit and/or counseling patient: - Subjective Interval history: The patient is maxed on precedex, receiving scheduled librium and ativan PRN for alcohol withdrawal. He was highly agitated yesterday, and required increased doses of sedative medication. He has relaxed significantly now, and is resting comfortably. - Constitutional Vitals: Temp Pulse Resp BP Pulse Ox 98.5 F 112 20 134/92 93 08/12/17 07:43 08/12/17 08:00 08/12/17 08:00 08/12/17 08:00 08/12/17 08:00 General appearance: Present: A&O X 0, cooperative, pleasant, answers questions appropriately Exam: - Head Head exam: Present: atraumatic, normocephalic - Eye Eye exam: Present: PERRL, conjuntiva pink, sclera anicteric Pupils: Present: PERRL - Neck Neck exam general surgery: Present: supple, trachea midline. Absent: lymphadenopathy - Respiratory Respiratory exam: Present: CTAB, rales (Crackles on the left side). Absent: accessory muscle use, rhonchi, wheezes - Cardiovascular Cardiovascular exam: Present: RRR, +S1, +S2. Absent: diastolic murmur, gallop, rubs, systolic murmur, tachycardia - GI/Abdominal GI/Abdominal exam: Present: normal bowel sounds, soft, tenderness (Epigastric tenderness), no peritoneal signs. Absent: distended - Extremities Exam Extremities exam: Present: warm, radial pulses palpable and symmetrical. Absent : calf tenderness, cyanotic, pedal edema - Neurological Exam Neurological exam: Present: CN II-XII intact, oriented X0, no focal deficits. Absent: pronater drift, facial droop, speech deficit Currently sedated - Skin Skin exam: Present: dry, intact Internal Medicine: Result - Labs CBC & Chem 7: 08/12/17 01:47 08/12/17 01:47 Labs: Short CBC 08/12/17 Range/Units 01:47 WBC 6.4 (4.3-11.1) K/mcL Hgb 15.6 D (12.9-16.9) g/dL Hct 43.2 (37.5-50.1) % Plt Count 117 L (140-400) K/mcL BMP 08/12/17 01:47 Sodium 144 Potassium 2.8 L Chloride 103 Carbon Dioxide 30 H BUN 7 Creatinine 0.55 L Glucose 164 H Calcium 9.1 - ABG Interpretation ABG results: ABG ABG pH 7.49 pH Units (7.32-7.45) H 08/11/17 15:34 ABG pCO2 40 mmHg (35-45) 08/11/17 15:34 ABG pO2 74 mmHg (85-104) L 08/11/17 15:34 ABG O2 Saturation 96 % (95-98) 08/11/17 15:34 - Impressions Impressions Chest X-Ray 08/11/17 15:04 IMPRESSION: Stable chest with no new acute process. D/ / Michael Pruitt MD / Michael Pruitt MD Interpreting Provider: Michael Pruitt MD Consult Discharge Plan - Plan Referrals: Kalia Sheppard MD [Primary Care Provider] - <Channing Muñiz H - Last Filed: 08/12/17 10:35> Date of Encounter: 08/12/17 - Assessment and plan (1) Anxiety disorder Current Visit: Yes Status: Chronic Qualifiers: Anxiety disorder type: unspecified anxiety disorder Qualified Code(s): F41.9 - Anxiety disorder, unspecified (2) Pancreatitis Current Visit: Yes Status: Acute Qualifiers: Chronicity: acute Pancreatitis type: unspecified pancreatitis type Acute pancreatitis complication: unspecified Qualified Code(s): K85.90 - Acute pancreatitis without necrosis or infection, unspecified (3) Hypokalemia Current Visit: No Status: Acute (4) Tobacco abuse Current Visit: No Status: Acute (5) Aspiration pneumonia Current Visit: No Status: Acute Qualifiers: Aspiration pneumonia type: due to vomit Laterality: bilateral Lung location: lower lobe of lung Qualified Code(s): J69.0 - Pneumonitis due to inhalation of food and vomit (6) Nausea & vomiting Current Visit: Yes Status: Acute Qualifiers: Vomiting type: unspecified Vomiting Intractability: intractable Qualified Code(s): R11.2 - Nausea with vomiting, unspecified (7) Atrial fibrillation with rapid ventricular response Current Visit: Yes Status: Acute (8) Hyperbilirubinemia Current Visit: Yes Status: Acute (9) Acute hyperactive alcohol withdrawal delirium Current Visit: Yes Status: Acute (10) Sepsis Current Visit: Yes Status: Acute Qualifiers: Sepsis type: sepsis due to unspecified organism Qualified Code(s): A41.9 - Sepsis, unspecified organism (11) Anemia Current Visit: Yes Status: Acute Qualifiers: Anemia type: unspecified type Qualified Code(s): D64.9 - Anemia, unspecified - Time Spent With Patient Total time spent is greater than 50% in coordination of care (as documented) at patient's floor/unit and/or counseling patient: - Constitutional Vitals: Temp Pulse Resp BP Pulse Ox 98.5 F 112 20 134/92 93 08/12/17 07:43 08/12/17 08:00 08/12/17 08:00 08/12/17 08:00 08/12/17 08:00 Internal Medicine: Result - Labs CBC & Chem 7: 08/12/17 01:47 08/12/17 01:47 Labs: Short CBC 08/12/17 Range/Units 01:47 WBC 6.4 (4.3-11.1) K/mcL Hgb 15.6 D (12.9-16.9) g/dL Hct 43.2 (37.5-50.1) % Plt Count 117 L (140-400) K/mcL BMP 08/12/17 01:47 Sodium 144 Potassium 2.8 L Chloride 103 Carbon Dioxide 30 H BUN 7 Creatinine 0.55 L Glucose 164 H Calcium 9.1 - ABG Interpretation ABG results: ABG ABG pH 7.49 pH Units (7.32-7.45) H 08/11/17 15:34 ABG pCO2 40 mmHg (35-45) 08/11/17 15:34 ABG pO2 74 mmHg (85-104) L 08/11/17 15:34 ABG O2 Saturation 96 % (95-98) 08/11/17 15:34 - Impressions Impressions Chest X-Ray 08/11/17 15:04 IMPRESSION: Stable chest with no new acute process. D/ / Michael Pruitt MD / Michael Pruitt MD Interpreting Provider: Michael Pruitt MD - Attending Attestation Acute alcohol withdrawal Weaning off Precedex, continue Librium and taper Acute pancreatitis May continue clear liquids when possible Acute hypoxic respiratory failure secondary to sepsis due to aspiration pneumonia present upon admission Continue Unasyn day #4 Oxygen therapy I examined this patient and my medical decision-making was reviewed with the Resident Physician. I agree with the documented findings, disposition and treatment plan as described except to the extent set forth below.
[2017-08-12] MEDS: Folic Acid 1 MG TABLET PO SCH (10:30)
[2017-08-12] MEDS: Gabapentin 300 MG CAPSULE PO SCH ×3 (10:30→19:50)
[2017-08-12] MEDS: MethylPREDNISolone 40 MG/ML VIAL IVP SCH (10:34)
--- NOTE | 2017-08-12 18:55 | Event Note ---
Date of Encounter: 08/12/17 Time of Encounter: 18:45 Call from ICU nurse regarding patient's status and initially an ashen status more than baseline. Hr 95-120s, irregular. This event happened after patient awoke. At the same time his blood pressure dropped from 120/80s to 70-80/50-60s check on both arms. Manual bp 112/72. EKG with afib rvr in rate of 114, no acute changes. Heart Irregular tachy, lungs ctab, no acute distress, abd soft nontender nondistended, no chest pain on palpation, alert and oriented x 3, satting well, skin ashen at baseline and mildly jaundiced, no diaphoresis. Will get urgent limited Echo, and order Metoprolol 12.5mg bid, and ABG. Hr elevation may be related to early alcohol withdrawal vs acute PE. Signed out to night resident team.
[2017-08-12 19:00] LABS: ABG Base Excess 3 mEq/L (-2 to 3); ABG HCO3 25 mEq/L (21-27); ABG Oxygen Saturation 98 % (95-98); ABG PCO2 33 mmHg (35-45); ABG PO2 89 mmHg (85-104); ABG TCO2 26 mEq/L (20-26)
[2017-08-13] MEDS: Insulin LISPRO 300 UNITS/3 ML VIAL SQ SCH ×5 (00:02→23:48)
[2017-08-13] MEDS: OXYCODONE Oral CONC 10 MG/0.5 ML ORAL.SYG SL PRN ×4 (02:00→21:16)
[2017-08-13] MEDS: Dexmedetomidine HCl 400 MCG/100 ML MLS IVC SCH (03:26)
[2017-08-13] MEDS: *HR* Heparin 5,000 UNIT/ML VIAL SQ SCH ×3 (05:14→21:15)
[2017-08-13] MEDS: Pantoprazole 40 MG VIAL IVP SCH (05:14)
[2017-08-13] MEDS: Ampicillin/Sulbactam 3,000 MG in 0.9 % Sodium Chloride Mini Bag 100 ML IVPB SCH ×4 (05:14→23:49)
[2017-08-13 05:29] LABS: Alanine Aminotransferase 95 Units/L (7-52); Albumin 3.3 g/dL (3.5-5.7); Alkaline Phosphatase 167 Units/L (34-104); Aspartate Amino Transferase 84 Units/L (13-39); BUN/Creatinine Ratio 19 (6-26); Bilirubin,Total 1.4 mg/dL (0.3-1.0); Blood Urea Nitrogen 16 mg/dL (6-20); Carbon Dioxide 26 mEq/L (23-29); Chloride 106 mEq/L (98-107); Glucose 114 mg/dL (70-105); Osmolality,Calculated 296 (280-300); Potassium 2.9 mEq/L (3.5-5.1); Sodium 142 mEq/L (136-145); Total Protein 5.5 g/dL (6.4-8.9); eGFR For African Americans > 60 (> 60); eGFR For Non-African Americans > 60 (> 60)
[2017-08-13 05:30] LABS: Albumin/Globulin Ratio 1.5 (1.1-2.2); Globulin 2.2 g/dL (2.4-3.5)
[2017-08-13] MEDS ORDERED: Potassium Chloride Elixir 20 MEQ/15 ML UDC PO ONE (05:40)
[2017-08-13] MEDS: MethylPREDNISolone 40 MG/ML VIAL IVP SCH (07:58)
[2017-08-13] MEDS: Gabapentin 300 MG CAPSULE PO SCH ×3 (07:59→21:15)
[2017-08-13] MEDS: Folic Acid 1 MG TABLET PO SCH (07:59)
[2017-08-13 08:10] LABS: Magnesium 1.5 mg/dL (1.6-2.6)
[2017-08-13] MEDS: Thiamine (B-1) 100 MG TABLET PO SCH (10:44)
[2017-08-13] MEDS: Multivit/Ca/Min/Fe/FA 1 TAB TABLET PO SCH (10:44)
[2017-08-13] MEDS ORDERED: Magnesium Sulfate 2 GM in D5% in Water 100 ML IVPB ONE (11:00)
[2017-08-13] MEDS: *HR* Metoprolol 5 MG/5 ML VIAL IVP PRN ×2 (14:32→17:32)
[2017-08-13] MEDS: *HR* LORazepam 2 MG/ML VIAL IVP PRN ×2 (15:34→23:38)
--- NOTE | 2017-08-13 17:55 | Internal Med Progress Note ---
Date of Encounter: 08/13/17 Time of Encounter: 17:55 - Assessment and plan (1) Sepsis Current Visit: Yes Status: Ruled-out Assessment and plan: had tachycardia, tachypnea and hypoxia, all of which are likely related to alcohol withdrawal; now improved; Qualifiers: Sepsis type: sepsis due to unspecified organism Qualified Code(s): A41.9 - Sepsis, unspecified organism (2) Hypokalemia Current Visit: Yes Status: Acute Assessment and plan: continues to have hypokalemia and hypomagnesemia due to alcoholism; supplement with PO KCl and IV MgSO4 and monitor closely; (3) Pancreatitis Current Visit: Yes Status: Acute Assessment and plan: CT abdomen/pelvis showed acute recurrent pancreatitis causing secondary enteritis; has multiple admissions due to similar complaints of alcoholic pancreatitis; continue pain control with PRN PO Oxycodone, diet as tolerated, PRN antiemetics; Qualifiers: Chronicity: acute Pancreatitis type: alcohol induced Acute pancreatitis complication: no infection or necrosis Qualified Code(s): K85.20 - Alcohol induced acute pancreatitis without necrosis or infection (4) Anxiety disorder Current Visit: Yes Status: Chronic Assessment and plan: continue PRN IV Ativan; Qualifiers: Anxiety disorder type: unspecified anxiety disorder Qualified Code(s): F41.9 - Anxiety disorder, unspecified (5) Tobacco abuse Current Visit: Yes Status: Chronic (6) Aspiration pneumonia Current Visit: Yes Status: Suspected Assessment and plan: chest XRay showed possible aspiration pneumonitis; improving clinically; continue IV Unasyn and supplemental o2 and supportive care; Qualifiers: Aspiration pneumonia type: due to vomit Laterality: bilateral Lung location: lower lobe of lung Qualified Code(s): J69.0 - Pneumonitis due to inhalation of food and vomit (7) Atrial fibrillation with rapid ventricular response Current Visit: Yes Status: Acute Assessment and plan: new onset atrial fibrillation; HR now better controlled; to change Coreg to Metoprolol due to borderline low BP; started Cardizem; f/up TTE; continue Telemetry; (8) Acute hyperactive alcohol withdrawal delirium Current Visit: Yes Status: Acute Assessment and plan: patient was in alcohol withdrawal requiring IV Precedex drip for agitation; will discontinue the drip today; patient is much better now; continue CIWA protocol with PRN IV Ativan; continue Thiamine and Folate supplements; social human services assistants consulted; he also has elevated LFTs both due to alcohol use and pancreatitis; now improving; supportive care; (9) Anemia Current Visit: Yes Status: Chronic Qualifiers: Anemia type: unspecified type Qualified Code(s): D64.9 - Anemia, unspecified - Time Spent With Patient Total time spent is greater than 50% in coordination of care (as documented) at patient's floor/unit and/or counseling patient: - Subjective Interval history: Reports feeling well; continues to have epigastric abdominal pain; no nausea, vomiting, anxiety, tremors; improving HR and BP; noted to have persistent a.fib with rapid rate overnight; - Constitutional Vitals: Temp Pulse Resp BP Pulse Ox 98.4 F 120 14 114/82 93 08/13/17 16:00 08/13/17 16:00 08/13/17 16:00 08/13/17 16:00 08/13/17 16:00 General appearance: Present: A&O X 3, answers questions appropriately - Respiratory Respiratory exam: Present: CTAB, rales (bibasal crackles). Absent: accessory muscle use, rhonchi, wheezes - Cardiovascular Cardiovascular exam: Present: RRR, +S1, +S2. Absent: diastolic murmur, gallop, rubs, systolic murmur - GI/Abdominal GI/Abdominal exam: Present: normal bowel sounds, soft, no peritoneal signs. Absent: distended, tenderness - Extremities Exam Extremities exam: Present: full ROM, warm, radial pulses palpable and symmetrical. Absent: calf tenderness, cyanotic, pedal edema - Neurological Exam Neurological exam: Present: CN II-XII intact, oriented X3, no focal deficits. Absent: pronater drift, facial droop, speech deficit Internal Medicine: Result - Labs CBC & Chem 7: 08/12/17 01:47 08/14/17 05:11 Labs: BMP 08/13/17 03:54 Sodium 142 Potassium 2.9 L Chloride 106 Carbon Dioxide 26 BUN 16 Creatinine 0.84 Glucose 114 H Calcium 8.0 L Liver Function 08/13/17 Range/Units 03:54 Total Bilirubin 1.4 H (0.3-1.0) mg/dL AST 84 H (13-39) Units/L ALT 95 H (7-52) Units/L Alkaline Phosphatase 167 H (34-104) Units/L Albumin 3.3 L (3.5-5.7) g/dL - ABG Interpretation ABG results: ABG ABG pH 7.50 pH Units (7.32-7.45) H 08/12/17 18:54 ABG pCO2 33 mmHg (35-45) L 08/12/17 18:54 ABG pO2 89 mmHg (85-104) 08/12/17 18:54 ABG O2 Saturation 98 % (95-98) 08/12/17 18:54 - Impressions Impressions Echocardiogram 08/12/17 18:55 Impressions: LVEF 50%. Normal LV chamber size and low normal LV function. Mild concentric left ventricular hypertrophy. Indeterminate diastolic function. Normal right ventricular structure and function. No evidence of pulmonary hypertension. No significant valvular dysfunction. Left Ventricular Wall Motion: Rest Echo Findings All wall segments showed normal motion. Findings: Study Quality * Technically sub-optimal due to poor echocardiographic windows. ECG Findings * Atrial fibrillation. Left Ventricle * LVEF 50%. * Normal LV chamber size and low normal LV function. * Mild concentric left ventricular hypertrophy. * Indeterminate diastolic function. Right Ventricle * Normal right ventricular structure and function. Left Atrium * Mildly dilated left atrium. Right Atrium * Normal right atrial size. Aortic Valve * Aortic valve not well visualized. * No aortic regurgitation. * No aortic stenosis. Mitral Valve * Normal mitral valve structure and function. * No mitral regurgitation. * No mitral stenosis. Tricuspid Valve * Normal tricuspid valve structure and function. * Trace tricuspid regurgitation. * No evidence of pulmonary hypertension. Pulmonic Valve * Pulmonic valve not well visualized. Aorta * Normally sized aortic root. Pericardium * The pericardium appears normal. IVC * The IVC is not well evaluated. Pulmonary Artery * Pulmonary artery not well visualized. Consult Discharge Plan - Plan Additional Instructions: F/up with PCP in 1-2 weeks Referrals: Kalia Sheppard MD [Primary Care Provider] - Prescriptions: Amoxicillin/Clavulanate [Augmentin] 875 mg PO BIDWM #8 tablet Chlordiazepoxide [Librium] 25 mg PO BID 2 Days #3 capsule Diltiazem CD (24hr) [Cardizem CD] 120 mg PO DAILY #20 cap.er.24h Metoprolol XL (24 HR) Succ [Toprol Xl] 25 mg PO DAILY #30 tab.er.24h Oxycodone HCl 5 mg PO Q8H PRN 5 Days #10 tablet PRN Reason: Severe Pain
[2017-08-14] MEDS: OXYCODONE Oral CONC 10 MG/0.5 ML ORAL.SYG SL PRN ×2 (03:04→15:10)
[2017-08-14 06:01] LABS: Alanine Aminotransferase 84 Units/L (7-52); Albumin 3.2 g/dL (3.5-5.7); Albumin/Globulin Ratio 1.5 (1.1-2.2); Alkaline Phosphatase 190 Units/L (34-104); Aspartate Amino Transferase 41 Units/L (13-39); BUN/Creatinine Ratio 15 (6-26); Bilirubin,Total 0.8 mg/dL (0.3-1.0); Blood Urea Nitrogen 11 mg/dL (6-20); Carbon Dioxide 28 mEq/L (23-29); Chloride 105 mEq/L (98-107); Globulin 2.1 g/dL (2.4-3.5); Glucose 111 mg/dL (70-105); Magnesium 1.5 mg/dL (1.6-2.6); Osmolality,Calculated 288 (280-300); Phosphorous 3.2 mg/dL (2.7-4.5); Sodium 139 mEq/L (136-145); Total Protein 5.3 g/dL (6.4-8.9); eGFR For African Americans > 60 (> 60); eGFR For Non-African Americans > 60 (> 60)
[2017-08-14] MEDS: *HR* Heparin 5,000 UNIT/ML VIAL SQ SCH ×2 (06:34→15:09)
[2017-08-14] MEDS: Ampicillin/Sulbactam 3,000 MG in 0.9 % Sodium Chloride Mini Bag 100 ML IVPB SCH ×2 (06:35→11:32)
[2017-08-14] MEDS: Insulin LISPRO 300 UNITS/3 ML VIAL SQ SCH ×2 (07:04→11:38)
--- NOTE | 2017-08-14 07:53 | Electrocardiograph Report ---
[address] [address] Test Date: 2017-08-12 Pat Name: Erin Howard Department: 109 Room: [facility] Gender: M Iron Assorter: : 1970 Requested By: Henrry Osborn Order Number: [id number] Reading MD: Aris Blackburn Measurements Intervals [place] Rate: 114 P: [place]: 0 QRS: -10 QRSD: 106 T: 15 QT: 349 QTc: 416 Interpretive Statements ATRIAL FIBRILLATION WITH RAPID VENTRICULAR RESPONSE ABNORMAL RHYTHM ECG Electronically Signed On 08-14-2017 7:52:06 EDT by Aris Blackburn
[2017-08-14] MEDS: Thiamine (B-1) 100 MG TABLET PO SCH (08:21)
[2017-08-14] MEDS: Multivit/Ca/Min/Fe/FA 1 TAB TABLET PO SCH (08:21)
[2017-08-14] MEDS: Folic Acid 1 MG TABLET PO SCH (08:21)
[2017-08-14] MEDS: Gabapentin 300 MG CAPSULE PO SCH ×2 (08:21→15:09)
[2017-08-14] MEDS: *HR* LORazepam 2 MG/ML VIAL IVP PRN (08:22)
[2017-08-14] MEDS ORDERED: predniSONE 20 MG TABLET PO SCH (09:00)
[2017-08-14 11:36] VITALS: BP 128/77
--- NOTE | 2017-08-14 14:34 | Discharge Summary ---
- NOTES TO OUTPATIENT PROVIDER Notes to Outpatient Provider: Acute alcoholic pancreatitis, alcohol withdrawal, paroxysmal a.fib- started on Cardizem CD and Metoprolol; Date of Encounter: 08/14/17 Time of Encounter: 14:32 - Discharge Diagnosis (1) Anxiety disorder Priority: Secondary Status: Chronic Qualifiers: Anxiety disorder type: unspecified anxiety disorder Qualified Code(s): F41.9 - Anxiety disorder, unspecified (2) Pancreatitis Priority: Primary Status: Acute Qualifiers: Chronicity: acute Pancreatitis type: alcohol induced Acute pancreatitis complication: no infection or necrosis Qualified Code(s): K85.20 - Alcohol induced acute pancreatitis without necrosis or infection (3) Hypokalemia Priority: Primary Status: Acute (4) Tobacco abuse Priority: Secondary Status: Chronic (5) Aspiration pneumonia Priority: Primary Status: Suspected Qualifiers: Aspiration pneumonia type: due to vomit Laterality: bilateral Lung location: lower lobe of lung Qualified Code(s): J69.0 - Pneumonitis due to inhalation of food and vomit (6) Atrial fibrillation with rapid ventricular response Priority: Primary Status: Acute (7) Acute hyperactive alcohol withdrawal delirium Priority: Primary Status: Acute (8) Sepsis Priority: Primary Status: Ruled-out Qualifiers: Sepsis type: sepsis due to unspecified organism Qualified Code(s): A41.9 - Sepsis, unspecified organism (9) Anemia Priority: Secondary Status: Chronic Qualifiers: Anemia type: unspecified type Qualified Code(s): D64.9 - Anemia, unspecified Hospital course: Mr. Howard is a 47 year old male Discharge discussed with: patient, nurse - Time Spent with Patient Total time spent providing and/or coordinating discharge services: Greater than 30 minutes (45 min) - Discharge Medications Prescriptions: Amoxicillin/Clavulanate [Augmentin] 875 mg PO BIDWM #8 tablet Chlordiazepoxide [Librium] 25 mg PO BID 2 Days #3 capsule Diltiazem CD (24hr) [Cardizem CD] 120 mg PO DAILY #20 cap.er.24h Metoprolol XL (24 HR) Succ [Toprol Xl] 25 mg PO DAILY #30 tab.er.24h Home Medications: Ondansetron HCl 4 - 8 mg PO TID PRN 02/01/17 [History] Amlodipine Besylate 10 mg PO DAILY 05/22/17 [History] Cyanocobalamin (Vitamin B-12) [Vitamin B12] 1,000 mcg PO AD 05/22/17 [History] Multivits,Ca,Min/Iron/FA/Lycop [Centrum Men's Tablet] 1 each PO DAILY 05/22/17 [ History] Folic Acid 1 mg PO DAILY 30 Days #0 tablet 05/26/17 [Rx] Thiamine (B-1) [Vitamin B-1] 100 mg PO DAILY 30 Days #30 tablet 05/26/17 [Rx] Gabapentin [Neurontin] 300 - 600 mg PO TID 08/07/17 [History] Omeprazole [PriLOSEC] 40 mg PO BID 08/07/17 [History] hydrOXYzine pamoate [HydrOXYzine Pamoate] 25 mg PO DAILY 08/07/17 [History] Amoxicillin/Clavulanate [Augmentin] 875 mg PO BIDWM #8 tablet 08/14/17 [Rx] Chlordiazepoxide [Librium] 25 mg PO BID 2 Days #3 capsule 08/14/17 [Rx] Diltiazem CD (24hr) [Cardizem CD] 120 mg PO DAILY #20 cap.er.24h 08/14/17 [Rx] Metoprolol XL (24 HR) Succ [Toprol Xl] 25 mg PO DAILY #30 tab.er.24h 08/14/17 [ Rx] Allergies/Adverse Reactions: 3 Allergy/AdvReac Type Severity Reaction Status Date / Time No Known Allergies Allergy Verified 08/07/17 16:53 Date of admission: 08/08/17 08:04 Primary care physician: Kalia Sheppard MD Consults: 08/13/17 18:32 Consult to Physical Therapy [CONS] Routine Comment: Evaluate, develop and implement POC Reason for Consult: recent falls Does patient have active BEDREST order?: No Is patient medically & hemodynamically stable?: Yes Discharging clinician: Eva Garcia Anticipated date of discharge: 08/14/17 - Constitutional Vitals: Temp Pulse Resp BP Pulse Ox 98.8 F 82 18 128/77 92 08/14/17 11:35 08/14/17 11:35 08/14/17 11:35 08/14/17 11:35 08/14/17 11:35 General appearance: Present: A&O X 3, answers questions appropriately - Cardiovascular Cardiovascular exam: Present: RRR, +S1, +S2. Absent: diastolic murmur, gallop, rubs, systolic murmur - Patient Status Disposition: Home, Self-Care Condition: Fair Functional capacity at discharge: independent ambulation Overall status at discharge: patient is progressing back to baseline - Discharge Instructions Follow Up With: Kalia Sheppard MD [Primary Care Provider] - Additional Instructions: F/up with PCP in 1-2 weeks - Diet and Activity Activity: resume usual activities as tolerated Diet: low fat, low cholesterol, low salt diet (alcohol abstinence)
[2017-08-14] MEDS ORDERED: Potassium Chloride Elixir 20 MEQ/15 ML UDC PO ONE (14:40)
== END 2017-08-14 17:21 | disposition home or self-care (01) | DRG 438 ==
LOC: EMEROO 13:41 → 2NENU 13:41 → SUATTDRO 08-08 08:04 → 2NNU 08-11 04:34 → ICNU 08-11 16:09 → 3NENU 08-13 20:26
PROVIDERS: ADMIT Internal Medicine Nephrology; ATTEND Internal Medicine

== ENCOUNTER 2017-12-28 09:06 | Observation (INO) ==
[2017-12-28] MEDS ORDERED: Ondansetron 4 MG/2 ML VIAL IVP ONE (09:11)
[2017-12-28] MEDS ORDERED: 0.9 % Sodium Chloride 1,000 ML IVC ONE ×2 (09:11→10:19)
[2017-12-28] MEDS ORDERED: *HR* Morphine 2 MG/ML SYRINGE IVP ONE (09:11)
[2017-12-28] MEDS ORDERED: *HR* FentaNYL (PF) 100 MCG/2 ML VIAL IVP ONE ×2 (09:13→10:16)
--- NOTE | 2017-12-28 09:14 | Emergency Department Note ---
Disposition Clinical Impression: Pancreatitis, Transaminitis, Elevated bilirubin Disposition: Admitted As Inpatient Condition: Fair General Adult HPI - General Chief complaint: ED Abdominal Pain Stated complaint: abd pain Time Seen by Provider: 12/28/17 09:09 - History of Present Illness Pain Scale: 10 - Related Data Home Medications Medication Instructions Recorded Confirmed Ondansetron HCl 4 - 8 mg PO TID PRN 02/01/17 08/07/17 Amlodipine Besylate 10 mg PO DAILY 05/22/17 08/07/17 Cyanocobalamin (Vitamin B-12) 1,000 mcg PO AD 05/22/17 08/07/17 [Vitamin B12] Multivits,Ca,Min/Iron/FA/Lycop 1 each PO DAILY 05/22/17 08/07/17 [Centrum Men's Tablet] Gabapentin [Neurontin] 300 - 600 mg PO TID 08/07/17 08/07/17 Omeprazole [PriLOSEC] 40 mg PO BID 08/07/17 08/07/17 hydrOXYzine pamoate [HydrOXYzine 25 mg PO DAILY 08/07/17 08/07/17 Pamoate] Previous Rx's Medication Instructions Recorded Folic Acid 1 mg PO DAILY 30 Days #0 tablet 05/26/17 Thiamine (B-1) [Vitamin B-1] 100 mg PO DAILY 30 Days #30 tablet 05/26/17 Amoxicillin/Clavulanate [Augmentin] 875 mg PO BIDWM #8 tablet 08/14/17 Chlordiazepoxide [Librium] 25 mg PO BID 2 Days #3 capsule 08/14/17 Diltiazem CD (24hr) [Cardizem CD] 120 mg PO DAILY #20 cap.er.24h 08/14/17 Metoprolol XL (24 HR) Succ [Toprol 25 mg PO DAILY #30 tab.er.24h 08/14/17 Xl] Oxycodone HCl 5 mg PO Q8H PRN 5 Days #10 tablet 08/14/17 OxyCODONE/APAP 5/325 [Percocet 1 each PO Q6HR PRN 2 Days #8 tablet 11/25/17 5/325 MG] Allergies Allergy/AdvReac Type Severity Reaction Status Date / Time No Known Allergies Allergy Verified 08/07/17 16:53 Past Medical History - Past Medical History Medical history: Reports: GERD, hypertension, other Surgical history: Reports: appendectomy, cholecystectomy, other Psychiatric history: Reports: anxiety - Social History Smoking Status: Former smoker Smokeless Tobacco Status: No Alcohol use: Reports: occasionally Drug use: Reports: none Course Vital Signs Temperature 97.6 F 12/28/17 09:07 Pulse Rate 132 12/28/17 09:07 Respiratory Rate 22 12/28/17 09:07 Blood Pressure 167/108 12/28/17 09:07 O2 Sat by Pulse Oximetry 99 12/28/17 09:07 Temperature 97.6 F 12/28/17 09:19 Pulse Rate 106 12/28/17 10:00 Respiratory Rate 20 12/28/17 10:00 Blood Pressure 177/109 12/28/17 10:00 O2 Sat by Pulse Oximetry 99 12/28/17 10:00 Oxygen Delivery Oxygen Delivery Room Air Medical Decision Making - Lab Data Result diagrams: 12/28/17 09:28 12/28/17 09:28 Lab Results 12/28/17 12/28/17 12/28/17 Range/Units 09:28 09:28 09:28 WBC 8.8 (4.3-11.1) K/mcL RBC 5.12 (4.19-5.50) M/mcL Hgb 16.5 (12.9-16.9) g/dL Hct 46.3 (37.5-50.1) % MCV 90.4 (83.0-100.0) fL MCH 32.2 (28.0-33.3) pg MCHC 35.6 H (31.6-35.5) g/dL RDW 12.9 (11.5-14.5) % Plt Count 111 L (140-400) K/mcL MPV 11.1 (9.4-12.4) fL Immature Gran % 0.3 (0-4) % Seg Neutrophils % 82.7 % Lymphocytes % 12.4 % Monocytes % 4.3 % Eosinophils % 0.0 % Basophils % 0.3 % Neutrophils # 7.2 (1.6-8.9) K/mcL Lymphocytes # 1.1 (0.6-4.6) K/mcL Monocytes # 0.4 (0.0-1.3) K/mcL Eosinophils # 0.0 (0.0-0.6) K/mcL Basophils # 0.0 (0.0-0.2) K/mcL PT 12.4 H (9.4-12.1) Seconds INR 1.1 Sodium 136 (136-145) mEq/L Potassium 3.8 (3.5-5.1) mEq/L Chloride 93 L (98-107) mEq/L Carbon Dioxide 22 L (23-29) mEq/L BUN 7 (6-20) mg/dL Creatinine 0.83 (0.70-1.30) mg/dL Est GFR ( Amer) > 60 (> 60) Est GFR (Non-Af Amer) > 60 (> 60) BUN/Creatinine Ratio 8 (6-26) Glucose 147 H (70-105) mg/dL Calculated Osmolality 283 (280-300) Calcium 9.9 (8.6-10.3) mg/dL Total Bilirubin 5.5 H (0.3-1.0) mg/dL Direct Bilirubin 3.9 H (0.0-0.2) mg/dL Indirect Bilirubin 1.6 H (0.0-1.2) mg/dL AST 322 H (13-39) Units/L ALT 150 H (7-52) Units/L Alkaline Phosphatase 409 H (34-104) Units/L Serum Total Protein 7.9 (6.4-8.9) g/dL Albumin 5.2 (3.5-5.7) g/dL Globulin 2.7 (2.4-3.5) g/dL Albumin/Globulin Ratio 1.9 (1.1-2.2) Lipase 1230 H (11-82) Units/L Ur Specimen Adequacy Urine Color (Yellow) Urine Clarity (Clear) Urine pH (5.0-8.0) pH Units Ur Specific [place] (1.010-1.025) Urine Protein (Neg-Trace) mg/dL Urine Glucose (UA) (Normal) mg/dL Urine Ketones (Negative) mg/dL Urine Blood (Negative) Urine Nitrite (Negative) Urine Bilirubin (Negative) Urine Urobilinogen (Normal) mg/dL Ur Leukocyte Esterase (Negative) Urine Microscopic RBC (0-3) per hpf Urine Microscopic WBC (0-3) per hpf Ur Squamous Epith Cells (None-Few) per lpf Urine Bacteria (None-Few) per hpf Hyaline Casts (None-Few) per lpf Ur Culture Indicated? (NO) Acetaminophen (10-20) mcg/mL Specimen Rejected 12/28/17 12/28/17 12/28/17 Range/Units 09:48 10:32 10:36 WBC (4.3-11.1) K/mcL RBC (4.19-5.50) M/mcL Hgb (12.9-16.9) g/dL Hct (37.5-50.1) % MCV (83.0-100.0) fL MCH (28.0-33.3) pg MCHC (31.6-35.5) g/dL RDW (11.5-14.5) % Plt Count (140-400) K/mcL MPV (9.4-12.4) fL Immature Gran % (0-4) % Seg Neutrophils % % Lymphocytes % % Monocytes % % Eosinophils % % Basophils % % Neutrophils # (1.6-8.9) K/mcL Lymphocytes # (0.6-4.6) K/mcL Monocytes # (0.0-1.3) K/mcL Eosinophils # (0.0-0.6) K/mcL Basophils # (0.0-0.2) K/mcL PT (9.4-12.1) Seconds INR Sodium (136-145) mEq/L Potassium (3.5-5.1) mEq/L Chloride (98-107) mEq/L Carbon Dioxide (23-29) mEq/L BUN (6-20) mg/dL Creatinine (0.70-1.30) mg/dL Est GFR ( Amer) (> 60) Est GFR (Non-Af Amer) (> 60) BUN/Creatinine Ratio (6-26) Glucose (70-105) mg/dL Calculated Osmolality (280-300) Calcium (8.6-10.3) mg/dL Total Bilirubin (0.3-1.0) mg/dL Direct Bilirubin (0.0-0.2) mg/dL Indirect Bilirubin (0.0-1.2) mg/dL AST (13-39) Units/L ALT (7-52) Units/L Alkaline Phosphatase (34-104) Units/L Serum Total Protein (6.4-8.9) g/dL Albumin (3.5-5.7) g/dL Globulin (2.4-3.5) g/dL Albumin/Globulin Ratio (1.1-2.2) Lipase (11-82) Units/L Ur Specimen Adequacy Urine Color [place] A (Yellow) Urine Clarity Clear (Clear) Urine pH 6.0 (5.0-8.0) pH Units Ur Specific [place] 1.023 (1.010-1.025) Urine Protein 100 H (Neg-Trace) mg/dL Urine Glucose (UA) Normal (Normal) mg/dL Urine Ketones 80 H (Negative) mg/dL Urine Blood Negative (Negative) Urine Nitrite Negative (Negative) Urine Bilirubin Small H (Negative) Urine Urobilinogen Normal (Normal) mg/dL Ur Leukocyte Esterase Trace H (Negative) Urine Microscopic RBC 0-3 (0-3) per hpf Urine Microscopic WBC 0-3 (0-3) per hpf Ur Squamous Epith Cells None Seen (None-Few) per lpf Urine Bacteria None Seen (None-Few) per hpf Hyaline Casts None Seen (None-Few) per lpf Ur Culture Indicated? YES A (NO) Acetaminophen < 10 L (10-20) mcg/mL Specimen Rejected Miscellaneous Attestation Statement - Attestation Attestation: I examined this patient and my medical decision-making was reviewed with the Resident Physician. I agree with the documented findings, disposition and treatment plan as described except to the extent set forth below. [id number] time provided Patient presents with epigastric abdominal pain. History of recurrent alcohol- induced pancreatitis. He has remote history of cholecystectomy. Appears uncomfortable on exam. He is pale and tachycardic
--- NOTE | 2017-12-28 09:41 | Emergency Department Note ---
Disposition Clinical Impression: Transaminitis, Elevated bilirubin Pancreatitis Qualifiers: Chronicity: acute Pancreatitis type: alcohol induced Acute pancreatitis complication: unspecified Qualified Code(s): K85.20 - Alcohol induced acute pancreatitis without necrosis or infection Disposition: Admitted As Inpatient Condition: Fair Abdominal Pain HPI - General Chief Complaint: ED Abdominal Pain Stated Complaint: abd pain Time Seen by Provider: 12/28/17 09:09 Source: patient Mode of arrival: private vehicle Limitations: no limitations Nursing Notes Reviewed: Yes Vital Signs Reviewed: Yes - History of Present Illness HPI Narrative: 47-year-old male history of chronic alcohol abuse says he drinks every couple of days, recurrent pancreatitis presents to the ER with abdominal pain. Began yesterday. States he drank several beers the day prior to that. Feels like his prior pancreatitis. Reports nausea with several episodes of vomiting. Past surgical history of cholecystectomy. Denies any fevers, chest pain, shortness of breath. No bowel changes. No urinary symptoms. States he has required medications for "shakes" when he does not drink. No other complaints. Pt Subjective Complaint: abdominal pain Onset (ago): day(s) Consistency: constant Location: epigastric Pain Severity: severe Pain Scale: 10 Radiation: none Migration to: no migration Improves with: nothing Worsens with: nothing (He) Context: history of similar episodes Associated symptoms: Reports: nausea, vomiting. Denies: diarrhea, fever, dysuria, hematuria Treatments prior to arrival: none - Related Data Home Medications Medication Instructions Recorded Confirmed RX: Ondansetron HCl 4 - 8 mg PO TID PRN 02/01/17 08/07/17 RX: Amlodipine Besylate 10 mg PO DAILY 05/22/17 08/07/17 RX: Cyanocobalamin (Vitamin B-12) 1,000 mcg PO AD 05/22/17 08/07/17 [Vitamin B12] RX: Multivits,Ca,Min/Iron/FA/Lycop 1 each PO DAILY 05/22/17 08/07/17 [Centrum Men's Tablet] RX: Gabapentin [Neurontin] 300 - 600 mg PO TID 08/07/17 08/07/17 RX: Omeprazole [PriLOSEC] 40 mg PO BID 08/07/17 08/07/17 RX: hydrOXYzine pamoate 25 mg PO DAILY 05/23/18 05/23/18 [HydrOXYzine Pamoate] Previous Rx's Medication Instructions Recorded RX: Folic Acid 1 mg PO DAILY 30 Days #0 tablet 05/26/17 RX: Thiamine (B-1) [Vitamin B-1] 100 mg PO DAILY 30 Days #30 tablet 05/26/17 Amoxicillin/Clavulanate [Augmentin] 875 mg PO BIDWM #8 tablet 08/14/17 Diltiazem CD (24hr) [Cardizem CD] 120 mg PO DAILY #20 cap.er.24h 08/14/17 RX: Chlordiazepoxide [Librium] 25 mg PO BID 2 Days #3 capsule 08/14/17 RX: Metoprolol XL (24 HR) Succ 25 mg PO DAILY #30 tab.er.24h 08/14/17 [Toprol Xl] RX: Oxycodone HCl 5 mg PO Q8H PRN 5 Days #10 tablet 08/14/17 OxyCODONE/APAP 5/325 [Percocet 1 each PO Q6HR PRN 2 Days #8 tablet 11/25/17 5/325 MG] Allergies Allergy/AdvReac Type Severity Reaction Status Date / Time No Known Allergies Allergy Verified 08/07/17 16:53 All systems ED: reviewed and negative except as stated. Constitutional: Denies: fever Gastrointestinal: Reports: abdominal pain, nausea, vomiting. Denies: diarrhea Genitourinary: Denies: dysuria, hematuria Abdominal Pain PMH - Past Medical History Medical history: Reports: GERD, hypertension, other Male Surgical History: Reports: appendectomy, cholecystectomy, orthopedic, other Psychiatric history: Reports: anxiety - Social History Smoking status: Never smoker Alcohol use: Reports: occasionally Drug use: Reports: none Physical Exam - General Limitations: no limitations General appearance: alert, anxious - Head Head exam: atraumatic, normocephalic - Eye Eye exam: Present: normal appearance - ENT ENT exam: normal exam - Neck Neck exam: Present: normal inspection - Chest Chest inspection: Present: normal inspection, symmetric chest wall rise - Respiratory Respiratory exam: Present: normal lung sounds bilaterally - Cardiovascular Cardiovascular exam: Present: normal rhythm, tachycardia, normal heart sounds - Abdominal Exam Abdominal exam: Present: soft, tenderness (Diffuse tenderness however most focal in the epigastric area. The patient demonstrates voluntary guarding.). Absent: distention, rigidity - Extremities Exam Extremities exam: Present: normal inspection, full ROM - Expanded Upper Extremity Exam Shoulder exam: Present: normal inspection, full ROM Arm exam: Present: normal inspection, full ROM Elbow exam: Present: normal inspection, full ROM Forearm/Wrist exam: Present: normal inspection, full ROM Hand exam: Present: normal inspection, full ROM - Expanded Lower Extremity Exam Hip/Pelvis exam: Present: normal inspection, full ROM Upper leg exam: Present: normal inspection, full ROM Knee exam: Present: normal inspection, full ROM Lower leg exam: Present: normal inspection, full ROM Ankle exam: Present: normal inspection, full ROM Foot/toe exam: Present: normal inspection, full ROM - Skin Skin exam: Present: warm, dry Course Course Narrative: Patient seen and examined. Vital signs reviewed. He is noted to be post hypertensive and tachycardic. Consideration if this is from pain or for potential early withdrawal. Reviewed his past medical history demonstrating multiple admissions for pancreatitis. Plan to check labs, urinalysis, IV fluids , pain meds and nausea meds. He will likely require admission for intolerance of oral intake - Reevaluation(s) Reevaluation #1: Labs consistent with pancreatitis. He is noted to have a transaminitis and elevated bilirubins. He is status post cholecystectomy. Additional testing for acetaminophen, hepatitis profile and INR. Patient given an additional liter of fluids and pain meds. Vital Signs Temperature 97.6 F 12/28/17 09:07 Pulse Rate 132 12/28/17 09:07 Respiratory Rate 22 12/28/17 09:07 Blood Pressure 167/108 12/28/17 09:07 O2 Sat by Pulse Oximetry 99 12/28/17 09:07 Temperature 97.6 F 12/28/17 09:19 Pulse Rate 106 12/28/17 10:00 Respiratory Rate 20 12/28/17 10:00 Blood Pressure 177/109 12/28/17 10:00 O2 Sat by Pulse Oximetry 99 12/28/17 10:00 Oxygen Delivery Oxygen Delivery Room Air Abdominal Pain - MDM Narrative Medical decision making narrative: 47-year-old male presenting with pancreatitis in the setting of chronic alcohol abuse. Lipase is noted to be elevated here. He does have a transaminitis and elevated bilirubin. No jaundice. Previous cholecystectomy. Patient given 2 L of IV fluids as well as 2 doses of fentanyl and Zofran. Plan to obtain MRCP to evaluate for obstruction. The patient is admitted to the hospitalist service for further management of his acute pancreatitis. - Medical Records Medical records reviewed: Yes I reviewed the patient's medical records. - Lab Data Lab results reviewed: Yes I reviewed the patient's lab results. Result diagrams: 12/28/17 09:28 12/28/17 09:28 Lab Results 12/28/17 12/28/17 12/28/17 Range/Units 09:28 09:28 09:28 WBC 8.8 (4.3-11.1) K/mcL RBC 5.12 (4.19-5.50) M/mcL Hgb 16.5 (12.9-16.9) g/dL Hct 46.3 (37.5-50.1) % MCV 90.4 (83.0-100.0) fL MCH 32.2 (28.0-33.3) pg MCHC 35.6 H (31.6-35.5) g/dL RDW 12.9 (11.5-14.5) % Plt Count 111 L (140-400) K/mcL MPV 11.1 (9.4-12.4) fL Immature Gran % 0.3 (0-4) % Seg Neutrophils % 82.7 % Lymphocytes % 12.4 % Monocytes % 4.3 % Eosinophils % 0.0 % Basophils % 0.3 % Neutrophils # 7.2 (1.6-8.9) K/mcL Lymphocytes # 1.1 (0.6-4.6) K/mcL Monocytes # 0.4 (0.0-1.3) K/mcL Eosinophils # 0.0 (0.0-0.6) K/mcL Basophils # 0.0 (0.0-0.2) K/mcL PT 12.4 H (9.4-12.1) Seconds INR 1.1 Sodium 136 (136-145) mEq/L Potassium 3.8 (3.5-5.1) mEq/L Chloride 93 L (98-107) mEq/L Carbon Dioxide 22 L (23-29) mEq/L BUN 7 (6-20) mg/dL Creatinine 0.83 (0.70-1.30) mg/dL Est GFR ( Amer) > 60 (> 60) Est GFR (Non-Af Amer) > 60 (> 60) BUN/Creatinine Ratio 8 (6-26) Glucose 147 H (70-105) mg/dL Calculated Osmolality 283 (280-300) Calcium 9.9 (8.6-10.3) mg/dL Total Bilirubin 5.5 H (0.3-1.0) mg/dL Direct Bilirubin 3.9 H (0.0-0.2) mg/dL Indirect Bilirubin 1.6 H (0.0-1.2) mg/dL AST 322 H (13-39) Units/L ALT 150 H (7-52) Units/L Alkaline Phosphatase 409 H (34-104) Units/L Serum Total Protein 7.9 (6.4-8.9) g/dL Albumin 5.2 (3.5-5.7) g/dL Globulin 2.7 (2.4-3.5) g/dL Albumin/Globulin Ratio 1.9 (1.1-2.2) Lipase 1230 H (11-82) Units/L Ur Specimen Adequacy Urine Color (Yellow) Urine Clarity (Clear) Urine pH (5.0-8.0) pH Units Ur Specific [place] (1.010-1.025) Urine Protein (Neg-Trace) mg/dL Urine Glucose (UA) (Normal) mg/dL Urine Ketones (Negative) mg/dL Urine Blood (Negative) Urine Nitrite (Negative) Urine Bilirubin (Negative) Urine Urobilinogen (Normal) mg/dL Ur Leukocyte Esterase (Negative) Urine Microscopic RBC (0-3) per hpf Urine Microscopic WBC (0-3) per hpf Ur Squamous Epith Cells (None-Few) per lpf Urine Bacteria (None-Few) per hpf Hyaline Casts (None-Few) per lpf Ur Culture Indicated? (NO) Acetaminophen (10-20) mcg/mL Specimen Rejected 12/28/17 12/28/17 12/28/17 Range/Units 09:48 10:32 10:36 WBC (4.3-11.1) K/mcL RBC (4.19-5.50) M/mcL Hgb (12.9-16.9) g/dL Hct (37.5-50.1) % MCV (83.0-100.0) fL MCH (28.0-33.3) pg MCHC (31.6-35.5) g/dL RDW (11.5-14.5) % Plt Count (140-400) K/mcL MPV (9.4-12.4) fL Immature Gran % (0-4) % Seg Neutrophils % % Lymphocytes % % Monocytes % % Eosinophils % % Basophils % % Neutrophils # (1.6-8.9) K/mcL Lymphocytes # (0.6-4.6) K/mcL Monocytes # (0.0-1.3) K/mcL Eosinophils # (0.0-0.6) K/mcL Basophils # (0.0-0.2) K/mcL PT (9.4-12.1) Seconds INR Sodium (136-145) mEq/L Potassium (3.5-5.1) mEq/L Chloride (98-107) mEq/L Carbon Dioxide (23-29) mEq/L BUN (6-20) mg/dL Creatinine (0.70-1.30) mg/dL Est GFR ( Amer) (> 60) Est GFR (Non-Af Amer) (> 60) BUN/Creatinine Ratio (6-26) Glucose (70-105) mg/dL Calculated Osmolality (280-300) Calcium (8.6-10.3) mg/dL Total Bilirubin (0.3-1.0) mg/dL Direct Bilirubin (0.0-0.2) mg/dL Indirect Bilirubin (0.0-1.2) mg/dL AST (13-39) Units/L ALT (7-52) Units/L Alkaline Phosphatase (34-104) Units/L Serum Total Protein (6.4-8.9) g/dL Albumin (3.5-5.7) g/dL Globulin (2.4-3.5) g/dL Albumin/Globulin Ratio (1.1-2.2) Lipase (11-82) Units/L Ur Specimen Adequacy Urine Color [place] A (Yellow) Urine Clarity Clear (Clear) Urine pH 6.0 (5.0-8.0) pH Units Ur Specific [place] 1.023 (1.010-1.025) Urine Protein 100 H (Neg-Trace) mg/dL Urine Glucose (UA) Normal (Normal) mg/dL Urine Ketones 80 H (Negative) mg/dL Urine Blood Negative (Negative) Urine Nitrite Negative (Negative) Urine Bilirubin Small H (Negative) Urine Urobilinogen Normal (Normal) mg/dL Ur Leukocyte Esterase Trace H (Negative) Urine Microscopic RBC 0-3 (0-3) per hpf Urine Microscopic WBC 0-3 (0-3) per hpf Ur Squamous Epith Cells None Seen (None-Few) per lpf Urine Bacteria None Seen (None-Few) per hpf Hyaline Casts None Seen (None-Few) per lpf Ur Culture Indicated? YES A (NO) Acetaminophen < 10 L (10-20) mcg/mL Specimen Rejected Miscellaneous - EKG Data EKG attestation: Yes I reviewed and interpreted this EKG. EKG results narrative: EKG demonstrates sinus tachycardia with a rate of 113. Normal axis. Normal intervals. Normal R-wave progression. No gross ST elevations or depressions. No acute ischemic findings. No significant changes from previous EKG dated 08/12. Ez - Ez Situation: Demographics, MOA Background: Presenting Complaint, Relevant PMH, Meds, & Allergies Assessment: Course and respsone to treatment, Exam Concerns, Patient/Family Expectation, Pertinant Lab Results Recommendation: Barrier(s) to disposition, Recommendation based on pending studies, treatments, or consults Ez Report Given to: Hospitalist Ez Repor Time: 10:26
[2017-12-28 09:47] LABS: Basophils % 0.3 %; Hematocrit 46.3 % (37.5-50.1); Hemoglobin 16.5 g/dL (12.9-16.9); Immature Granulocytes % 0.3 % (0-4); Lymphocytes # 1.1 K/mcL (0.6-4.6); Lymphocytes % 12.4 %; Mean Corpuscular HGB Conc 35.6 g/dL (31.6-35.5); Mean Corpuscular Hemoglobin 32.2 pg (28.0-33.3); Mean Corpuscular Volume 90.4 fL (83.0-100.0); Mean Platelet Volume 11.1 fL (9.4-12.4); Monocytes # 0.4 K/mcL (0.0-1.3); Monocytes % 4.3 %; Neutrophils # 7.2 K/mcL (1.6-8.9); Platelet Count 111 K/mcL (140-400); Red Blood Count 5.12 M/mcL (4.19-5.50); Red Cell Distribution Width 12.9 % (11.5-14.5); Segmented Neutrophils % 82.7 %
[2017-12-28 09:58] LABS: Bilirubin,Urine Small (Negative); Blood,Urine Negative (Negative); Clarity,Urine Clear (Clear); Color,Urine Orange (Yellow); Glucose,Urine (UA) Normal (Normal); Ketones,Urine 80 mg/dL (Negative); Leukocyte Esterase,Urine Trace (Negative); Nitrite,Urine Negative (Negative); Protein,Urine 100 mg/dL (Neg-Trace); Specific Gravity,Urine 1.023 (1.010-1.025); Urobilinogen,Urine Normal (Normal)
[2017-12-28 10:00] LABS: Bacteria,Urine None Seen per hpf (None-Few); Hyaline Casts,Urine None Seen per lpf (None-Few); RBC,Urine 0-3 per hpf (0-3); Squamous Epithelial Cell,Urine None Seen per lpf (None-Few); WBC,Urine 0-3 per hpf (0-3)
[2017-12-28 10:14] LABS: Alanine Aminotransferase 150 Units/L (7-52); Albumin 5.2 g/dL (3.5-5.7); Albumin/Globulin Ratio 1.9 (1.1-2.2); Alkaline Phosphatase 409 Units/L (34-104); Aspartate Amino Transferase 322 Units/L (13-39); BUN/Creatinine Ratio 8 (6-26); Bilirubin,Direct 3.9 mg/dL (0.0-0.2); Bilirubin,Indirect 1.6 mg/dL (0.0-1.2); Bilirubin,Total 5.5 mg/dL (0.3-1.0); Blood Urea Nitrogen 7 mg/dL (6-20); Calcium 9.9 mg/dL (8.6-10.3); Carbon Dioxide 22 mEq/L (23-29); Chloride 93 mEq/L (98-107); Globulin 2.7 g/dL (2.4-3.5); Glucose 147 mg/dL (70-105); Lipase 1230 Units/L (11-82); Osmolality,Calculated 283 (280-300); Potassium 3.8 mEq/L (3.5-5.1); Sodium 136 mEq/L (136-145); Total Protein 7.9 g/dL (6.4-8.9); eGFR For Non-African Americans > 60 (> 60)
[2017-12-28 10:36] LABS: INR 1.1; Prothrombin Time 12.4 Seconds (9.4-12.1)
[2017-12-28] MEDS ORDERED: *HR* LORazepam 2 MG/ML VIAL IVP PRN ×3 (10:36)
[2017-12-28] MEDS ORDERED: Naloxone 0.4 MG/ML INJ IVP PRN (10:37)
[2017-12-28] MEDS ORDERED: *HR* Morphine 2 MG/ML SYRINGE IVP PRN ×2 (10:41→15:35)
--- NOTE | 2017-12-28 10:41 | Internal Med History&Physical ---
Date of Encounter: 12/28/17 Time of Encounter: 10:33 Internal Medicine - H&P: HPI Chief complaint: abdominal pain Admitted From: Home Plans for Post Hospital Care: Home History of present illness: Mr. Howard is a 47 year old male with history of alcohol use disorder, alcohol withdrawal seizures, and multiple admissions for pancreatitis presented to the emergency department with complaint of abdominal pain. He reports that his pain started yesterday evening as he was sitting and watching TV. The pain as located in the epigastric area radiating to the back, 8 out of 10 on severity, sharp, constant and aggravated by oral intake. The pain is associated with nausea and non-bloody vomiting. He has had multiple episodes of pancreatitis which he was admitted to the hospital for and reports that his symptoms are similar to the symptoms that he had when he was diagnosed with pancreatitis. As per [id number] at bedside he has had admissions for alcohol withdraw seizures. Reports that he is compliant with his medications however he cannot recall his medications. He reports that he is drinking alcohol last intake was about 2 days ago. He drinks beers more than 5. Currently denies fever, chills, chest pain, dictations, shortness of breath, nausea, vomiting, diarrhea, dysuria, syncope, loss of consciousness, seizure- like activity. In the ED he was found to have transaminitis, with elevated lipase and was endorsed for admission for acute pancreatitis. Past Med Surg Social Fam HX - Past Medical History Medical history: GERD, hypertension, other Additional medical history: Htn. GERD. Tobacco use. rotator cuff tear. acromioclavicular joint arthritis. pancreatisis Psychiatric history: anxiety - Past Surgical History Surgical History: appendectomy, cholecystectomy, other Additional surgical history: Right leg - Social History Smoking Status: Never smoker Smokeless Tobacco Status: No Alcohol use: occasionally Drug use: none - Family History Mother Family Member Ethnicity: Non- Living Status: Hx Family Cardiac Disorders: Yes Hx Family Respiratory Disorders: Yes Hx Family Cancer: Yes (Colon) Hx Family GI Disorders: Yes Hx Family Endocrine Disorder: No Hx Family Neuromuscular Disorders: No Hx Family Neurologic Disorders: No Hx Family HEENT Disorders: Yes (Blind @ 30 yo) Hx Family Autoimmune Disorders: No Brother Family Member Ethnicity: Non- Living Status: Still Living Hx Family Cancer: Yes (Head and neck) Father Family Member Ethnicity: Non- Living Status: Hx Family Cardiac Disorders: Yes (GA) Hx Family Cancer: Yes (Lung) Sister Family Member Ethnicity: Non- Living Status: Still Living Hx Family Respiratory Disorders: Yes (COPD) Internal Medicine - H&P: Meds Ondansetron HCl 4 - 8 mg PO TID PRN 02/01/17 [History] Amlodipine Besylate 10 mg PO DAILY 05/22/17 [History] Cyanocobalamin (Vitamin B-12) [Vitamin B12] 1,000 mcg PO AD 05/22/17 [History] Multivits,Ca,Min/Iron/FA/Lycop [Centrum Men's Tablet] 1 each PO DAILY 05/22/17 [ History] Folic Acid 1 mg PO DAILY 30 Days #0 tablet 05/26/17 [Rx] Thiamine (B-1) [Vitamin B-1] 100 mg PO DAILY 30 Days #30 tablet 05/26/17 [Rx] Gabapentin [Neurontin] 300 - 600 mg PO TID 08/07/17 [History] Omeprazole [PriLOSEC] 40 mg PO BID 08/07/17 [History] hydrOXYzine pamoate [HydrOXYzine Pamoate] 25 mg PO DAILY 08/07/17 [History] Amoxicillin/Clavulanate [Augmentin] 875 mg PO BIDWM #8 tablet 08/14/17 [Rx] Chlordiazepoxide [Librium] 25 mg PO BID 2 Days #3 capsule 08/14/17 [Rx] Diltiazem CD (24hr) [Cardizem CD] 120 mg PO DAILY #20 cap.er.24h 08/14/17 [Rx] Metoprolol XL (24 HR) Succ [Toprol Xl] 25 mg PO DAILY #30 tab.er.24h 08/14/17 [ Rx] Oxycodone HCl 5 mg PO Q8H PRN 5 Days #10 tablet 08/14/17 [Rx] OxyCODONE/APAP 5/325 [Percocet 5/325 MG] 1 each PO Q6HR PRN 2 Days #8 tablet 01/02 [Rx] 3 Allergy/AdvReac Type Severity Reaction Status Date / Time No Known Allergies Allergy Verified 08/07/17 16:53 All Systems PM: review of systems was performed and is negative for pertinent findings except as documented above in the HPI. - Constitutional Vitals: Temp Pulse Resp BP Pulse Ox 97.6 F 106 20 177/109 99 12/28/17 09:19 12/28/17 10:00 12/28/17 10:00 12/28/17 10:00 12/28/17 10:00 Exam: General: Patient is alert, oriented, no acute distress, jaundiced, speaks in full sentences Head: atraumatic, normocephalic, Eye: normal appearance, PERRL, icterus, no conjunctival injection ENT: mucous membranes moist, normal external ear exam Neck: normal inspection, trachea midline, full ROM, no carotid bruits Chest: normal inspection, symmetric chest rise Respiratory: Good respiratory effort. Bilateral breath sounds are clear without wheezing, crackles, or rhonchi. Cardiovascular: Regular rate and rhythm. s1 and s2 No clicks, rubs, gallops, or murmors. Abdomen: Bowel sounds present normoactive x-4 quadrants. Abdomen is soft, nondistended. Positive for epigastric tenderness,. No guarding or rebound. No organomegaly noted musculoskeletal: Spontaneously moving all extremities. no edema, no calf tenderness Skin: warm, dry, intact. Neuro: Alert and oriented x4. Sensation light touch intact. Cranial nerves 2- 12 is intact. Not aphasic, rapid hand movements intact, [id number] intact, bilateral tremors of the hands on outstretched arms Psych: Patient's affect is normal Internal Med - H&P Results - Labs CBC & Chem 7: 12/28/17 09:28 12/28/17 09:28 Labs: Short CBC 12/28/17 Range/Units 09:28 WBC 8.8 (4.3-11.1) K/mcL Hgb 16.5 (12.9-16.9) g/dL Hct 46.3 (37.5-50.1) % Plt Count 111 L (140-400) K/mcL Neutrophils # 7.2 (1.6-8.9) K/mcL BMP 12/28/17 09:28 Sodium 136 Potassium 3.8 Chloride 93 L Carbon Dioxide 22 L BUN 7 Creatinine 0.83 Glucose 147 H Calcium 9.9 Liver Function 12/28/17 Range/Units 09:28 Total Bilirubin 5.5 H (0.3-1.0) mg/dL Direct Bilirubin 3.9 H (0.0-0.2) mg/dL AST 322 H (13-39) Units/L ALT 150 H (7-52) Units/L Alkaline Phosphatase 409 H (34-104) Units/L Albumin 5.2 (3.5-5.7) g/dL Urine 12/28/17 Range/Units 09:48 Urine Color [place] A (Yellow) Urine Clarity Clear (Clear) Urine pH 6.0 (5.0-8.0) pH Units Ur Specific [place] 1.023 (1.010-1.025) Urine Protein 100 H (Neg-Trace) mg/dL Urine Glucose (UA) Normal (Normal) mg/dL - Assessment and plan (1) Acute pancreatitis Current Visit: Yes Status: Acute Assessment and plan: Acute on chronic pancreatitis most likely secondary to alcohol use rule out obstruction ASt 322, ALT 150 likely related to alcohol use Alkaline phosphatase elevated at 409, bilirubin elevated at 5.5 Lipase 1230 MRCP ordered by the ED physician will follow results Received 2 L of normal saline in the ED Start LR at 150 mL per hour Nothing by mouth Morphine 2 mg every 6 hours for pain when necessary Dulcolax suppositories for constipation Serial abdominal exam Thiamine folic acid zofran PRN for N/v protonix IV daily Was counseled on importance of alcohol abstinence Consider GI consult Qualifiers: Pancreatitis type: unspecified pancreatitis type Acute pancreatitis complication: unspecified Qualified Code(s): K85.90 - Acute pancreatitis without necrosis or infection, unspecified (2) Transaminitis Current Visit: Yes Status: Acute Assessment and plan: Most likely secondary to alcohol use will rule out obstruction as above Hepatitis panel Was counseled on alcohol abstinence We will follow MRCP Resident management as per above We will trend LFTs and coags (3) Alcohol withdrawal Current Visit: Yes Status: Acute Assessment and plan: Started on CIWA protocol Thiamine, folic acid Was counseled on alcohol abstinence utox ordered fall, seizure, aspiration precaution SW consult EKG stat Qualifiers: Complication of substance-induced condition: uncomplicated Qualified Code(s ): F10.230 - Alcohol dependence with withdrawal, uncomplicated (4) Alcohol use disorder Current Visit: Yes Status: Acute Assessment and plan: Management same as above (5) UTI (urinary tract infection) Current Visit: Yes Status: Acute Assessment and plan: We will start him on ceftriaxone Follow urine cultures Qualifiers: Urinary tract infection type: acute cystitis Hematuria presence: without hematuria Qualified Code(s): N30.00 - Acute cystitis without hematuria (6) Hypertension Current Visit: Yes Status: Acute Assessment and plan: We will start home medication once verified if not contraindicated Qualifiers: Hypertension type: essential hypertension Qualified Code(s): I10 - Essential (primary) hypertension (7) Thrombocytopenia Current Visit: Yes Status: Acute Assessment and plan: Most likely secondary to chronic alcohol use We will continue to monitor platelets Coags ordered we will follow (8) Tobacco chew use Current Visit: Yes Status: Acute Assessment and plan: Was counseled on cessation (9) DVT prophylaxis Current Visit: No Status: Acute Assessment and plan: Heparin subcutaneous while the platelets are above 100,000 Consider starting SCDs if platelets trended below 100,000 - Time Spent With Patient Total time spent is greater than 50% in coordination of care (as documented) at patient's floor/unit and/or counseling patient:
[2017-12-28] MEDS ORDERED: Bisacodyl 10 MG RECTAL SUPPOSITORY RC PRN (10:42)
[2017-12-28] MEDS ORDERED: Ringers Solution, Lactated 1,000 ML IVC SCH (10:45)
[2017-12-28] MEDS ORDERED: Ondansetron 4 MG/2 ML VIAL IVP PRN (10:56)
[2017-12-28] MEDS ORDERED: Pantoprazole 40 MG VIAL IVP SCH (11:00)
[2017-12-28] MEDS ORDERED: Folic Acid 1 MG in D5% in Water 50 ML IVPB ONE (11:00)
[2017-12-28] MEDS ORDERED: cefTRIAXone 2,000 MG in 0.9 % Sodium Chloride Mini Bag 100 ML IVPB SCH (11:00)
[2017-12-28] MEDS ORDERED: Thiamine (B-1) 100 MG in D5% in Water 50 ML IVPB SCH (11:00)
[2017-12-28 13:06] LABS: Chol/HDL Ratio 1.5 (0-4.9); Magnesium 1.5 mg/dL (1.6-2.6); Phosphorous 3.4 mg/dL (2.7-4.5)
[2017-12-28] MEDS ORDERED: *HR* Heparin 5,000 UNIT/ML VIAL SQ SCH (14:00)
--- NOTE | 2017-12-28 15:00 | Discharge Summary ---
Orders not resulted at time of discharge: Pending orders 12/28/17 12:23 Hepatitis A Antibody IgM Stat Hepatitis B Core Ab Total Stat Hepatitis B Core IgM Stat Hepatitis B Surface Antibody Stat Hepatitis B Surface Antigen Stat Hepatitis C Virus Antibody Stat Hgb A1C Stat Date of Encounter: 12/28/17 Time of Encounter: 14:47 - Discharge Diagnosis (1) Acute pancreatitis Priority: Primary Status: Acute Qualifiers: Pancreatitis type: unspecified pancreatitis type Acute pancreatitis complication: unspecified Qualified Code(s): K85.90 - Acute pancreatitis without necrosis or infection, unspecified (2) Transaminitis Priority: Secondary Status: Acute (3) Alcohol withdrawal Priority: Secondary Status: Acute Qualifiers: Complication of substance-induced condition: uncomplicated Qualified Code(s ): F10.230 - Alcohol dependence with withdrawal, uncomplicated (4) Alcohol use disorder Priority: Secondary Status: Acute (5) UTI (urinary tract infection) Priority: Secondary Status: Acute Qualifiers: Urinary tract infection type: acute cystitis Hematuria presence: without hematuria Qualified Code(s): N30.00 - Acute cystitis without hematuria (6) Hypertension Priority: Secondary Status: Acute Qualifiers: Hypertension type: essential hypertension Qualified Code(s): I10 - Essential (primary) hypertension (7) Thrombocytopenia Priority: Secondary Status: Acute (8) Tobacco chew use Priority: Secondary Status: Acute (9) DVT prophylaxis Priority: Secondary Status: Acute (10) Hypomagnesemia Priority: Secondary Status: Acute Hospital course: Mr. Howard is a 47 year old male with history of alcohol use disorder, alcohol withdrawal seizures, and multiple admissions for pancreatitis presented to the emergency department with complaint of abdominal pain. He reports that his pain started yesterday evening as he was sitting and watching TV. The pain as located in the epigastric area radiating to the back, 8 out of 10 on severity, sharp, constant and aggravated by oral intake. The pain is associated with nausea and non-bloody vomiting. He has had multiple episodes of pancreatitis which he was admitted to the hospital for and reports that his symptoms are similar to the symptoms that he had when he was diagnosed with pancreatitis. As per [id number] at bedside he has had admissions for alcohol withdraw seizures. Reports that he is compliant with his medications however he cannot recall his medications. He reports that he is drinking alcohol last intake was about 2 days ago. He drinks beers more than 5. Currently denies fever, chills, chest pain, dictations, shortness of breath, nausea, vomiting, diarrhea, dysuria, syncope, loss of consciousness, seizure- like activity. In the ED he was found to have transaminitis, with elevated lipase and was endorsed for admission for acute pancreatitis. MRCP performed findings, below. [facility] transfer center called and i Discusssed the MRCP findings. he is for transfer for further management at [facility]. I discussed the MRCP findings with the patient, he is in agreement to be transferred to [facility]. nursing staff aware of transfer MRCP: IMPRESSION: 1. Acute pancreatitis. 2. Increased focal dilation of the main pancreatic duct near the junction of the pancreatic neck and body with normal caliber both upstream and downstream. Additionally, there is increased moderate to marked intrahepatic and mild extrahepatic biliary dilation with normal common bile duct caliber in the pancreatic head. This appearance could be related to strictures in the region of the pancreatic head and neck and (in the case of the pancreatic duct dilation) in the pancreatic body. However, there could be an obstructing ampullary or pancreatic mass. Additionally, the pancreatic duct dilation could be related to a main duct intraductal papillary mucinous neoplasm, although extension to the ampulla would be expected. Recommend further evaluation with pancreas protocol CT. 3. Edematous wall thickening in the proximal duodenum most likely related to pancreatitis. 4. Trace ascites is likely reactive. 5. Severe hepatic steatosis. Discharge discussed with: patient, nurse - Time Spent with Patient Total time spent providing and/or coordinating discharge services: Less than 30 minutes - Discharge Medications Home Medications: Ondansetron HCl 4 - 8 mg PO TID PRN 02/01/17 [History] Amlodipine Besylate 10 mg PO DAILY 05/22/17 [History] Cyanocobalamin (Vitamin B-12) [Vitamin B12] 1,000 mcg PO AD 05/22/17 [History] Multivits,Ca,Min/Iron/FA/Lycop [Centrum Men's Tablet] 1 each PO DAILY 05/22/17 [ History] Folic Acid 1 mg PO DAILY 30 Days #0 tablet 05/26/17 [Rx] Thiamine (B-1) [Vitamin B-1] 100 mg PO DAILY 30 Days #30 tablet 05/26/17 [Rx] Gabapentin [Neurontin] 300 - 600 mg PO TID 08/07/17 [History] Omeprazole [PriLOSEC] 40 mg PO BID 08/07/17 [History] hydrOXYzine pamoate [HydrOXYzine Pamoate] 25 mg PO DAILY 08/07/17 [History] Amoxicillin/Clavulanate [Augmentin] 875 mg PO BIDWM #8 tablet 08/14/17 [Rx] Chlordiazepoxide [Librium] 25 mg PO BID 2 Days #3 capsule 08/14/17 [Rx] Diltiazem CD (24hr) [Cardizem CD] 120 mg PO DAILY #20 cap.er.24h 08/14/17 [Rx] Metoprolol XL (24 HR) Succ [Toprol Xl] 25 mg PO DAILY #30 tab.er.24h 08/14/17 [ Rx] Oxycodone HCl 5 mg PO Q8H PRN 5 Days #10 tablet 08/14/17 [Rx] OxyCODONE/APAP 5/325 [Percocet 5/325 MG] 1 each PO Q6HR PRN 2 Days #8 tablet 01/02 [Rx] Allergies/Adverse Reactions: 3 Allergy/AdvReac Type Severity Reaction Status Date / Time No Known Allergies Allergy Verified 08/07/17 16:53 Date of admission: 12/28/17 10:42 Primary care physician: PCP NONE - Constitutional Vitals: Temp Pulse Resp BP Pulse Ox 97.9 F 115 15 170/116 95 12/28/17 12:11 12/28/17 12:11 12/28/17 12:11 12/28/17 12:11 12/28/17 12:11 Exam: General: Patient is alert, oriented, no acute distress, jaundiced, speaks in full sentences Head: atraumatic, normocephalic, Eye: normal appearance, PERRL, icterus, no conjunctival injection ENT: mucous membranes moist, normal external ear exam Neck: normal inspection, trachea midline, full ROM, no carotid bruits Chest: normal inspection, symmetric chest rise Respiratory: Good respiratory effort. Bilateral breath sounds are clear without wheezing, crackles, or rhonchi. Cardiovascular: Regular rate and rhythm. s1 and s2 No clicks, rubs, gallops, or murmors. Abdomen: Bowel sounds present normoactive x-4 quadrants. Abdomen is soft, nondistended. Positive for epigastric tenderness,. No guarding or rebound. No organomegaly noted musculoskeletal: Spontaneously moving all extremities. no edema, no calf tenderness Skin: warm, dry, intact. Neuro: Alert and oriented x4. Sensation light touch intact. Cranial nerves 2- 12 is intact. Not aphasic, rapid hand movements intact, [id number] intact, bilateral tremors of the hands on outstretched arms Psych: Patient's affect is normal - Patient Status Disposition: Transfer Other Condition: Undetermined Functional capacity at discharge: independent ambulation - Discharge Instructions Follow Up With: NONE,PCP [Primary Care Provider] - - Diet and Activity Diet: other (npo )
[2017-12-28] MEDS ORDERED: Metoprolol XL (24 HR) Succ 25 MG TAB.ER.24H PO SCH (15:30)
[2017-12-28] MEDS ORDERED: amLODIPine 5 MG TABLET PO SCH (15:30)
[2017-12-28 16:28] VITALS: BP 153/97
[2017-12-29 09:55] LABS: Estimated Average Glucose 108 mg/dl; Hemoglobin A1C 5.4 %
[2017-12-30 00:30] LABS: Hepatitis A Antibody IgM Nonreactive (Nonreactive); Hepatitis B Core IgM Nonreactive (Nonreactive); Hepatitis B Surface Antigen Nonreactive (Nonreactive); Hepatitis C Virus Antibody Nonreactive (Nonreactive)
[2017-12-30 00:36] LABS: Hepatitis A Antibody IgM Nonreactive (Nonreactive); Hepatitis B Core IgM Nonreactive (Nonreactive); Hepatitis B Surface Antigen Nonreactive (Nonreactive); Hepatitis C Virus Antibody Nonreactive (Nonreactive)
--- NOTE | 2017-12-30 13:09 | Electrocardiograph Report ---
[address] [place], [place] [address] Test Date: 2017-12-28 Pat Name: Erin Howard Department: EXAM6 Room: 3A44 Gender: M Housing Liaison: : 1970 Requested By: Deep Brian Order Number: [id number] Reading MD: Viridiana Solano Measurements Intervals [place] Rate: 113 P: 52 PA: 157 QRS: 51 QRSD: 93 T: 45 QT: 328 QTc: 450 Interpretive Statements Sinus tachycardia Atrial premature complex Anteroseptal infarct, old Electronically Signed On 12-30-2017 13:08:08 EDT by Viridiana Solano
== END 2017-12-28 17:15 | disposition other institution (70) ==
LOC: 3ANU 09:06 → EMEROOARM 09:06 → 3ANU 10:52
PROVIDERS: ADMIT Internal Medicine; ATTEND Internal Medicine

== ENCOUNTER 2019-01-11 23:54 | Inpatient (IN) ==
[2019-01-12] MEDS ORDERED: Isovue-370 500 ML BOTTLE IVP ONE (00:13)
[2019-01-12] MEDS ORDERED: Ondansetron ODT 4 MG TAB.RAPDIS SL STA ×2 (00:16→02:09)
[2019-01-12] MEDS ORDERED: *HR* HYDROmorphone (PF) 1 MG/ML SYRINGE IVP ONE ×3 (00:29→03:30)
[2019-01-12 01:00] LABS: Basophils % 0.3 %; Hematocrit 45.9 % (37.5-50.1); Hemoglobin 16.1 g/dL (12.9-16.9); Immature Granulocytes % 0.2 % (0-4); Lymphocytes % 8.4 %; Mean Corpuscular HGB Conc 35.1 g/dL (31.6-35.5); Mean Corpuscular Volume 91.3 fL (83.0-100.0); Mean Platelet Volume 10.4 fL (9.4-12.4); Monocytes # 0.8 K/mcL (0.0-1.3); Monocytes % 6.4 %; Neutrophils # 10.3 K/mcL (1.6-8.9); Platelet Count 181 K/mcL (140-400); Red Blood Count 5.03 M/mcL (4.19-5.50); Red Cell Distribution Width 12.9 % (11.5-14.5); Segmented Neutrophils % 84.7 %; White Blood Count 12.1 K/mcL (4.3-11.1)
[2019-01-12 01:20] LABS: Alanine Aminotransferase 130 Units/L (7-52); Albumin 4.8 g/dL (3.5-5.7); Albumin/Globulin Ratio 1.8 (1.1-2.2); Alkaline Phosphatase 115 Units/L (34-104); Aspartate Amino Transferase 176 Units/L (13-39); Bilirubin,Direct 0.4 mg/dL (0.0-0.2); Bilirubin,Total 1.4 mg/dL (0.3-1.0); Globulin 2.6 g/dL (2.4-3.5); Total Protein 7.4 g/dL (6.4-8.9)
[2019-01-12 01:21] LABS: Troponin I < 0.03 ng/mL (< 0.04)
[2019-01-12 01:33] LABS: BUN/Creatinine Ratio 12 (6-26); Blood Urea Nitrogen 10 mg/dL (6-20); Carbon Dioxide 17 mEq/L (23-29); Chloride 97 mEq/L (98-107); Glucose 115 mg/dL (70-105); Lipase 704 Units/L (11-82); Osmolality,Calculated 282 (280-300); Potassium 4.6 mEq/L (3.5-5.1); Sodium 136 mEq/L (136-145); eGFR For African Americans > 60 (> 60); eGFR For Non-African Americans > 60 (> 60)
[2019-01-12] MEDS ORDERED: 0.9 % Sodium Chloride 1,000 ML IVC ONE (02:09)
[2019-01-12] MEDS ORDERED: Ondansetron 4 MG/2 ML VIAL IVP PRN (03:57)
[2019-01-12] MEDS ORDERED: Naloxone 0.4 MG/ML INJ IVP PRN (03:59)
[2019-01-12] MEDS ORDERED: *HR* LORazepam 2 MG/ML VIAL IVP PRN ×3 (04:00)
[2019-01-12 04:31] LABS: INR 1.2; Prothrombin Time 13.2 Seconds (9.4-12.1)
[2019-01-12 04:34] LABS: Activated Partial Thrombo Time 29.4 Seconds (26.0-36.0)
[2019-01-12] MEDS: *HR* Heparin 5,000 UNIT/ML VIAL SQ SCH ×3 (04:35→22:05)
[2019-01-12] MEDS: Ringers Solution, Lactated 1,000 ML IVC SCH ×2 (04:36→13:12)
[2019-01-12] MEDS ORDERED: Pantoprazole 40 MG VIAL IVP SCH (06:00)
[2019-01-12] MEDS ORDERED: *HR* Labetalol 20 MG/4 ML SYRINGE IVP PRN (07:30)
[2019-01-12] MEDS: Pantoprazole 40 MG VIAL IVP SCH (09:06)
[2019-01-12] MEDS: Thiamine (B-1) 100 MG, Folic Acid 1 MG, MVI, adult with vitamin K 10 ML in 0.9 % Sodi... IVPB SCH (17:58)
[2019-01-13] MEDS: *HR* Heparin 5,000 UNIT/ML VIAL SQ SCH ×3 (06:15→22:27)
[2019-01-13 07:00] LABS: Red Cell Distribution Width 12.7 % (11.5-14.5)
[2019-01-13 07:01] LABS: Basophils % 0.5 %
[2019-01-13 07:03] LABS: Eosinophils # 0.1 K/mcL (0.0-0.6); Eosinophils % 1.5 %; Hematocrit 39.1 % (37.5-50.1); Hemoglobin 13.6 g/dL (12.9-16.9); Immature Granulocytes % 0.4 % (0-4); Lymphocytes # 1.6 K/mcL (0.6-4.6); Lymphocytes % 28.3 %; Mean Corpuscular HGB Conc 34.8 g/dL (31.6-35.5); Mean Corpuscular Hemoglobin 31.6 pg (28.0-33.3); Mean Corpuscular Volume 90.7 fL (83.0-100.0); Mean Platelet Volume 10.9 fL (9.4-12.4); Monocytes # 0.3 K/mcL (0.0-1.3); Monocytes % 4.9 %; Neutrophils # 3.5 K/mcL (1.6-8.9); Red Blood Count 4.31 M/mcL (4.19-5.50); Segmented Neutrophils % 64.4 %; White Blood Count 5.5 K/mcL (4.3-11.1)
[2019-01-13 07:04] LABS: Platelet Count 85 K/mcL (140-400)
[2019-01-13 08:03] LABS: Alanine Aminotransferase 186 Units/L (7-52); Albumin/Globulin Ratio 1.8 (1.1-2.2); Alkaline Phosphatase 143 Units/L (34-104); Aspartate Amino Transferase 368 Units/L (13-39); BUN/Creatinine Ratio 13 (6-26); Bilirubin,Total 2.3 mg/dL (0.3-1.0); Blood Urea Nitrogen 8 mg/dL (6-20); Calcium 8.6 mg/dL (8.6-10.3); Carbon Dioxide 31 mEq/L (23-29); Chloride 96 mEq/L (98-107); Globulin 2.2 g/dL (2.4-3.5); Glucose 115 mg/dL (70-105); Osmolality,Calculated 281 (280-300); Potassium 3.5 mEq/L (3.5-5.1); Sodium 136 mEq/L (136-145); Total Protein 6.2 g/dL (6.4-8.9); eGFR For African Americans > 60 (> 60); eGFR For Non-African Americans > 60 (> 60)
[2019-01-13] MEDS: Pantoprazole 40 MG VIAL IVP SCH (09:04)
[2019-01-13] MEDS: Thiamine (B-1) 100 MG, Folic Acid 1 MG, MVI, adult with vitamin K 10 ML in 0.9 % Sodi... IVPB SCH (17:29)
[2019-01-14 01:46] LABS: Mean Corpuscular Hemoglobin 31.8 pg (28.0-33.3)
[2019-01-14 01:47] LABS: Hematocrit 39.3 % (37.5-50.1); Immature Platelets 8.7 % (1.1-6.1); Mean Corpuscular HGB Conc 35.6 g/dL (31.6-35.5); Mean Corpuscular Volume 89.3 fL (83.0-100.0); Mean Platelet Volume 11.8 fL (9.4-12.4); Red Blood Count 4.4 M/mcL (4.19-5.50); Red Cell Distribution Width 12.3 % (11.5-14.5); White Blood Count 5.7 K/mcL (4.3-11.1)
[2019-01-14 01:52] LABS: Alanine Aminotransferase 235 Units/L (7-52); Albumin 4.1 g/dL (3.5-5.7); Albumin/Globulin Ratio 1.8 (1.1-2.2); Alkaline Phosphatase 177 Units/L (34-104); Aspartate Amino Transferase 369 Units/L (13-39); BUN/Creatinine Ratio 10 (6-26); Bilirubin,Total 2.5 mg/dL (0.3-1.0); Blood Urea Nitrogen 6 mg/dL (6-20); Calcium 8.6 mg/dL (8.6-10.3); Carbon Dioxide 28 mEq/L (23-29); Chloride 93 mEq/L (98-107); Globulin 2.3 g/dL (2.4-3.5); Glucose 110 mg/dL (70-105); Osmolality,Calculated 268 (280-300); Sodium 130 mEq/L (136-145); Total Protein 6.4 g/dL (6.4-8.9); eGFR For African Americans > 60 (> 60); eGFR For Non-African Americans > 60 (> 60)
[2019-01-14] MEDS: *HR* Heparin 5,000 UNIT/ML VIAL SQ SCH (05:25)
[2019-01-14] MEDS: Pantoprazole 40 MG VIAL IVP SCH (07:38)
[2019-01-14] MEDS ORDERED: Potassium Chloride Elixir 20 MEQ/15 ML UDC PO SCH (07:45)
[2019-01-14] MEDS ORDERED: Ringers Solution, Lactated 1,000 ML ONE (11:35)
[2019-01-14] MEDS: Ringers Solution, Lactated 1,000 ML IVC SCH (11:50)
[2019-01-14] MEDS ORDERED: Potassium Chloride Elixir 20 MEQ/15 ML UDC PO ONE (13:00)
[2019-01-14] MEDS: Thiamine (B-1) 100 MG, Folic Acid 1 MG, MVI, adult with vitamin K 10 ML in 0.9 % Sodi... IVPB SCH (18:09)
[2019-01-15 04:43] LABS: Basophils % 0.6 %; Immature Granulocytes % 0.2 % (0-4)
[2019-01-15 04:45] LABS: Eosinophils # 0.2 K/mcL (0.0-0.6); Eosinophils % 4.5 %; Hematocrit 38.2 % (37.5-50.1); Hemoglobin 13.6 g/dL (12.9-16.9); Immature Platelets 9.2 % (1.1-6.1); Lymphocytes # 1.7 K/mcL (0.6-4.6); Lymphocytes % 36.7 %; Mean Corpuscular HGB Conc 35.6 g/dL (31.6-35.5); Mean Corpuscular Hemoglobin 32.3 pg (28.0-33.3); Mean Corpuscular Volume 90.7 fL (83.0-100.0); Mean Platelet Volume 11.7 fL (9.4-12.4); Monocytes # 0.3 K/mcL (0.0-1.3); Monocytes % 6.4 %; Neutrophils # 2.4 K/mcL (1.6-8.9); Red Blood Count 4.21 M/mcL (4.19-5.50); Red Cell Distribution Width 12.3 % (11.5-14.5); Segmented Neutrophils % 51.6 %; White Blood Count 4.7 K/mcL (4.3-11.1)
[2019-01-15 04:48] LABS: Platelet Count 72 K/mcL (140-400)
[2019-01-15] MEDS: Ringers Solution, Lactated 1,000 ML IVC SCH (04:53)
[2019-01-15 05:12] LABS: Alanine Aminotransferase 240 Units/L (7-52); Albumin 3.9 g/dL (3.5-5.7); Albumin/Globulin Ratio 1.4 (1.1-2.2); Alkaline Phosphatase 214 Units/L (34-104); Aspartate Amino Transferase 266 Units/L (13-39); BUN/Creatinine Ratio 11 (6-26); Blood Urea Nitrogen 7 mg/dL (6-20); Calcium 8.8 mg/dL (8.6-10.3); Carbon Dioxide 27 mEq/L (23-29); Chloride 98 mEq/L (98-107); Globulin 2.7 g/dL (2.4-3.5); Glucose 127 mg/dL (70-105); Osmolality,Calculated 280 (280-300); Potassium 3.3 mEq/L (3.5-5.1); Sodium 135 mEq/L (136-145); Total Protein 6.6 g/dL (6.4-8.9); eGFR For African Americans > 60 (> 60); eGFR For Non-African Americans > 60 (> 60)
[2019-01-15] MEDS: Potassium Chloride Elixir 20 MEQ/15 ML UDC PO SCH ×2 (09:30→12:05)
[2019-01-15] MEDS: Pantoprazole 40 MG VIAL IVP SCH (09:30)
[2019-01-16 06:01] LABS: Hematocrit 38.7 % (37.5-50.1); Red Cell Distribution Width 12.8 % (11.5-14.5)
[2019-01-16 06:03] LABS: Hemoglobin 13.8 g/dL (12.9-16.9); Immature Platelets 8.7 % (1.1-6.1); Mean Corpuscular HGB Conc 35.7 g/dL (31.6-35.5); Mean Corpuscular Hemoglobin 32.2 pg (28.0-33.3); Mean Corpuscular Volume 90.4 fL (83.0-100.0); Mean Platelet Volume 11.1 fL (9.4-12.4); Red Blood Count 4.28 M/mcL (4.19-5.50); White Blood Count 5.3 K/mcL (4.3-11.1)
[2019-01-16 06:22] LABS: Alanine Aminotransferase 203 Units/L (7-52); Albumin 4.1 g/dL (3.5-5.7); Albumin/Globulin Ratio 1.5 (1.1-2.2); Alkaline Phosphatase 215 Units/L (34-104); Aspartate Amino Transferase 130 Units/L (13-39); BUN/Creatinine Ratio 9 (6-26); Bilirubin,Total 1.5 mg/dL (0.3-1.0); Blood Urea Nitrogen 6 mg/dL (6-20); Calcium 9.2 mg/dL (8.6-10.3); Carbon Dioxide 27 mEq/L (23-29); Chloride 99 mEq/L (98-107); Globulin 2.7 g/dL (2.4-3.5); Glucose 128 mg/dL (70-105); Osmolality,Calculated 279 (280-300); Potassium 3.6 mEq/L (3.5-5.1); Sodium 135 mEq/L (136-145); Total Protein 6.8 g/dL (6.4-8.9); eGFR For African Americans > 60 (> 60); eGFR For Non-African Americans > 60 (> 60)
[2019-01-16 07:00] VITALS: BP 144/88
[2019-01-16] MEDS: Pantoprazole 40 MG VIAL IVP SCH (07:54)
== END 2019-01-16 11:33 | disposition home or self-care (01) | DRG 438 ==
LOC: EMEROOARM 23:54 → 3ANU 23:54 → SUATTDRO 01-12 03:31 → 3ANU 01-12 04:13
PROVIDERS: ADMIT Internal Medicine; ATTEND Internal Medicine

== ENCOUNTER 2019-04-15 17:50 | Inpatient (IN) ==
[2019-04-15 18:16] LABS: Basophils # 0.1 K/mcL (0.0-0.2); Basophils % 0.9 %; Eosinophils # 0.2 K/mcL (0.0-0.6); Eosinophils % 3.3 %; Hematocrit 42.9 % (37.5-50.1); Hemoglobin 15.3 g/dL (12.9-16.9); Immature Granulocytes % 0.1 % (0-4); Lymphocytes % 29.2 %; Mean Corpuscular HGB Conc 35.7 g/dL (31.6-35.5); Mean Corpuscular Hemoglobin 32.7 pg (28.0-33.3); Mean Corpuscular Volume 91.7 fL (83.0-100.0); Mean Platelet Volume 10.4 fL (9.4-12.4); Monocytes # 0.7 K/mcL (0.0-1.3); Neutrophils # 3.9 K/mcL (1.6-8.9); Platelet Count 155 K/mcL (140-400); Red Blood Count 4.68 M/mcL (4.19-5.50); Red Cell Distribution Width 13.1 % (11.5-14.5); Segmented Neutrophils % 56.5 %; White Blood Count 6.9 K/mcL (4.3-11.1)
[2019-04-15 18:16] LABS: Bilirubin,Urine Negative (Negative); Blood,Urine Negative (Negative); Clarity,Urine Clear (Clear); Color,Urine Dark Yellow (Yellow); Glucose,Urine (UA) Normal (Normal); Ketones,Urine Negative (Negative); Leukocyte Esterase,Urine Negative (Negative); Nitrite,Urine Negative (Negative); PH,Urine 6.5 pH Units (5.0-8.0); Protein,Urine 30 mg/dL (Neg-Trace); Specific Gravity,Urine 1.024 (1.010-1.025); Urobilinogen,Urine Normal (Normal)
[2019-04-15 18:18] LABS: Bacteria,Urine None Seen per hpf (None-Few); Hyaline Casts,Urine None Seen per lpf (None-Few); RBC,Urine 0-3 per hpf (0-3); Squamous Epithelial Cell,Urine Few per lpf (None-Few); WBC,Urine 0-3 per hpf (0-3)
[2019-04-15 18:37] LABS: Alanine Aminotransferase 38 Units/L (7-52); Albumin 4.6 g/dL (3.5-5.7); Albumin/Globulin Ratio 1.5 (1.1-2.2); Alkaline Phosphatase 97 Units/L (34-104); Amylase 119 Units/L (29-103); Aspartate Amino Transferase 25 Units/L (13-39); BUN/Creatinine Ratio 7 (6-26); Bilirubin,Direct 0.2 mg/dL (0.0-0.2); Bilirubin,Indirect 0.3 mg/dL (0.0-1.0); Bilirubin,Total 0.5 mg/dL (0.3-1.0); Blood Urea Nitrogen 6 mg/dL (6-20); Calcium 9.4 mg/dL (8.6-10.3); Carbon Dioxide 30 mEq/L (23-29); Chloride 97 mEq/L (98-107); Glucose 138 mg/dL (70-105); Lipase 224 Units/L (11-82); Osmolality,Calculated 282 (280-300); Sodium 136 mEq/L (136-145); Total Protein 7.6 g/dL (6.4-8.9); eGFR For African Americans > 60 (> 60); eGFR For Non-African Americans > 60 (> 60)
[2019-04-15] MEDS ORDERED: Ondansetron 4 MG/2 ML VIAL IVP ONE (20:27)
[2019-04-15] MEDS ORDERED: *HR* HYDROmorphone 2 MG/ML SYRINGE IVP STA (20:27)
[2019-04-15] MEDS: 0.9 % Sodium Chloride 1,000 ML IVC SCH ×3 (21:04→23:05)
[2019-04-15] MEDS ORDERED: Ondansetron 4 MG/2 ML VIAL IVP PRN (22:00)
[2019-04-15] MEDS ORDERED: Naloxone 0.4 MG/ML INJ IVP PRN (22:00)
[2019-04-16] MEDS: *HR* HYDROmorphone (PF) 1 MG/ML SYRINGE IVP PRN ×6 (01:21→23:56)
[2019-04-16 04:11] LABS: Basophils # 0.1 K/mcL (0.0-0.2); Basophils % 1.2 %; Eosinophils # 0.2 K/mcL (0.0-0.6); Hematocrit 38.6 % (37.5-50.1); Immature Granulocytes % 0.2 % (0-4); Lymphocytes # 2.2 K/mcL (0.6-4.6); Lymphocytes % 42.8 %; Mean Corpuscular HGB Conc 33.7 g/dL (31.6-35.5); Mean Corpuscular Hemoglobin 32.2 pg (28.0-33.3); Mean Corpuscular Volume 95.5 fL (83.0-100.0); Mean Platelet Volume 10.5 fL (9.4-12.4); Monocytes # 0.6 K/mcL (0.0-1.3); Monocytes % 10.9 %; Neutrophils # 2.1 K/mcL (1.6-8.9); Platelet Count 110 K/mcL (140-400); Red Blood Count 4.04 M/mcL (4.19-5.50); Red Cell Distribution Width 12.9 % (11.5-14.5); Segmented Neutrophils % 40.9 %; White Blood Count 5.1 K/mcL (4.3-11.1)
[2019-04-16 04:33] LABS: Alanine Aminotransferase 51 Units/L (7-52); Albumin 3.8 g/dL (3.5-5.7); Albumin/Globulin Ratio 1.7 (1.1-2.2); Alkaline Phosphatase 170 Units/L (34-104); Aspartate Amino Transferase 95 Units/L (13-39); BUN/Creatinine Ratio 7 (6-26); Bilirubin,Total 0.6 mg/dL (0.3-1.0); Blood Urea Nitrogen 5 mg/dL (6-20); Calcium 8.4 mg/dL (8.6-10.3); Carbon Dioxide 27 mEq/L (23-29); Chloride 104 mEq/L (98-107); Chol/HDL Ratio 1.9 (0-4.9); Cholesterol 104 mg/dL (< 200); Ethanol < 10 mg/dL (Less than 10); Globulin 2.3 g/dL (2.4-3.5); Glucose 114 mg/dL (70-105); HDL Cholesterol 55 mg/dL (40-59); LDL Cholesterol,Calculated 40 mg/dL (0-99); Lipase 183 Units/L (11-82); Magnesium 1.5 mg/dL (1.6-2.6); Osmolality,Calculated 286 (280-300); Phosphorous 3.3 mg/dL (2.7-4.5); Potassium 3.5 mEq/L (3.5-5.1); Sodium 139 mEq/L (136-145); Total Protein 6.1 g/dL (6.4-8.9); Triglycerides 45 mg/dL (< 150); eGFR For African Americans > 60 (> 60); eGFR For Non-African Americans > 60 (> 60)
[2019-04-16] MEDS: *HR* Heparin 5,000 UNIT/ML VIAL SQ SCH ×3 (05:10→22:14)
[2019-04-16] MEDS: 0.9 % Sodium Chloride 1,000 ML IVC SCH ×13 (05:11→22:45)
[2019-04-17 04:35] LABS: Hematocrit 39.4 % (37.5-50.1); Hemoglobin 14.1 g/dL (12.9-16.9); Mean Corpuscular HGB Conc 35.8 g/dL (31.6-35.5); Mean Corpuscular Hemoglobin 32.3 pg (28.0-33.3); Mean Corpuscular Volume 90.4 fL (83.0-100.0); Mean Platelet Volume 11.1 fL (9.4-12.4); Platelet Count 142 K/mcL (140-400); Red Blood Count 4.36 M/mcL (4.19-5.50); Red Cell Distribution Width 12.6 % (11.5-14.5); White Blood Count 5.1 K/mcL (4.3-11.1)
[2019-04-17 04:55] LABS: Alanine Aminotransferase 200 Units/L (7-52); Albumin 4.2 g/dL (3.5-5.7); Albumin/Globulin Ratio 1.6 (1.1-2.2); Alkaline Phosphatase 392 Units/L (34-104); Aspartate Amino Transferase 341 Units/L (13-39); BUN/Creatinine Ratio 8 (6-26); Bilirubin,Total 0.6 mg/dL (0.3-1.0); Blood Urea Nitrogen 6 mg/dL (6-20); Calcium 8.8 mg/dL (8.6-10.3); Carbon Dioxide 28 mEq/L (23-29); Chloride 99 mEq/L (98-107); Globulin 2.7 g/dL (2.4-3.5); Glucose 119 mg/dL (70-105); Osmolality,Calculated 283 (280-300); Potassium 3.6 mEq/L (3.5-5.1); Sodium 137 mEq/L (136-145); Total Protein 6.9 g/dL (6.4-8.9); eGFR For African Americans > 60 (> 60); eGFR For Non-African Americans > 60 (> 60)
[2019-04-17] MEDS: *HR* HYDROmorphone (PF) 1 MG/ML SYRINGE IVP PRN ×2 (04:59→10:25)
[2019-04-17] MEDS: *HR* Heparin 5,000 UNIT/ML VIAL SQ SCH ×3 (06:17→21:22)
[2019-04-17 07:44] LABS: Lipase 180 Units/L (11-82)
[2019-04-17] MEDS: carvediloL 6.25 MG TABLET PO SCH ×2 (13:44→18:19)
[2019-04-18] MEDS: *HR* Heparin 5,000 UNIT/ML VIAL SQ SCH ×2 (04:38→14:12)
[2019-04-18 07:00] LABS: Hematocrit 42.6 % (37.5-50.1); Hemoglobin 14.9 g/dL (12.9-16.9); Mean Corpuscular Hemoglobin 32.3 pg (28.0-33.3); Mean Corpuscular Volume 92.4 fL (83.0-100.0); Mean Platelet Volume 11.3 fL (9.4-12.4); Platelet Count 154 K/mcL (140-400); Red Blood Count 4.61 M/mcL (4.19-5.50); Red Cell Distribution Width 12.6 % (11.5-14.5); White Blood Count 4.7 K/mcL (4.3-11.1)
[2019-04-18 07:27] LABS: Alanine Aminotransferase 227 Units/L (7-52); Albumin 4.1 g/dL (3.5-5.7); Albumin/Globulin Ratio 1.4 (1.1-2.2); Alkaline Phosphatase 399 Units/L (34-104); Aspartate Amino Transferase 187 Units/L (13-39); BUN/Creatinine Ratio 8 (6-26); Bilirubin,Total 0.8 mg/dL (0.3-1.0); Blood Urea Nitrogen 6 mg/dL (6-20); Carbon Dioxide 25 mEq/L (23-29); Chloride 101 mEq/L (98-107); Globulin 2.9 g/dL (2.4-3.5); Glucose 130 mg/dL (70-105); Osmolality,Calculated 281 (280-300); Potassium 3.7 mEq/L (3.5-5.1); Sodium 136 mEq/L (136-145); eGFR For African Americans > 60 (> 60); eGFR For Non-African Americans > 60 (> 60)
[2019-04-18] MEDS: carvediloL 6.25 MG TABLET PO SCH (07:50)
[2019-04-18 10:53] VITALS: BP 127/84
[2019-04-18] MEDS ORDERED: *HR* OxyCODONE Immed Rel 5 MG TABLET PO PRN (13:41)
== END 2019-04-18 15:56 | disposition home or self-care (01) | DRG 440 ==
LOC: EMEROOARM 17:50 → 3ANU 17:50 → SUATTDRO 22:19
PROVIDERS: ADMIT Student in an Organized Health Care Education/Training Program; ATTEND Family Medicine

== ENCOUNTER 2019-04-19 13:22 | Observation (INO) ==
[2019-04-19] MEDS ORDERED: 0.9 % Sodium Chloride 1,000 ML ONE (13:55)
[2019-04-19] MEDS ORDERED: Isovue-370 500 ML BOTTLE IVP ONE (14:02)
[2019-04-19] MEDS ORDERED: Ondansetron 4 MG/2 ML VIAL IVP STA ×2 (14:05→15:28)
[2019-04-19] MEDS ORDERED: 0.9 % Sodium Chloride 1,000 ML IVC STA (14:05)
[2019-04-19] MEDS ORDERED: *HR* FentaNYL (PF) 100 MCG/2 ML VIAL IVP ONE (14:06)
[2019-04-19 14:59] LABS: Alanine Aminotransferase 240 Units/L (7-52); Albumin 5.1 g/dL (3.5-5.7); Albumin/Globulin Ratio 1.3 (1.1-2.2); Alkaline Phosphatase 443 Units/L (34-104); Aspartate Amino Transferase 102 Units/L (13-39); BUN/Creatinine Ratio 7 (6-26); Bilirubin,Direct 0.3 mg/dL (0.0-0.2); Bilirubin,Indirect 0.4 mg/dL (0.0-1.0); Bilirubin,Total 0.7 mg/dL (0.3-1.0); Blood Urea Nitrogen 20 mg/dL (6-20); Calcium 10.7 mg/dL (8.6-10.3); Carbon Dioxide 34 mEq/L (23-29); Chloride 86 mEq/L (98-107); Globulin 3.9 g/dL (2.4-3.5); Glucose 276 mg/dL (70-105); Lipase 236 Units/L (11-82); Osmolality,Calculated 302 (280-300); Potassium 3.5 mEq/L (3.5-5.1); Sodium 140 mEq/L (136-145); eGFR For African Americans 30 (> 60); eGFR For Non-African Americans 25 (> 60)
[2019-04-19 15:09] LABS: Troponin I 0.06 ng/mL (< 0.04)
[2019-04-19] MEDS ORDERED: *HR* HYDROmorphone (PF) 1 MG/ML SYRINGE IVP STA (15:28)
[2019-04-19 16:00] LABS: Basophils % 0.3 %; Eosinophils % 0.1 %; Hematocrit 49.2 % (37.5-50.1); Immature Granulocytes % 0.3 % (0-4); Lymphocytes # 1.1 K/mcL (0.6-4.6); Mean Corpuscular HGB Conc 36.6 g/dL (31.6-35.5); Mean Corpuscular Hemoglobin 31.7 pg (28.0-33.3); Mean Corpuscular Volume 86.6 fL (83.0-100.0); Mean Platelet Volume 11.1 fL (9.4-12.4); Monocytes # 0.8 K/mcL (0.0-1.3); Monocytes % 7.4 %; Platelet Count 332 K/mcL (140-400); Red Blood Count 5.68 M/mcL (4.19-5.50); Red Cell Distribution Width 12.9 % (11.5-14.5); Segmented Neutrophils % 81.9 %; White Blood Count 11.2 K/mcL (4.3-11.1)
[2019-04-19 16:13] LABS: Neutrophils # 9.2 K/mcL (1.6-8.9)
[2019-04-19 16:25] LABS: Ethanol < 10 mg/dL (Less than 10)
[2019-04-19] MEDS ORDERED: Tetracaine/Benzocaine/Butamben 1 SPRAY AEROSOL MM ONE (16:40)
[2019-04-19] MEDS ORDERED: Ondansetron 4 MG/2 ML VIAL IVP PRN (16:46)
[2019-04-19] MEDS ORDERED: Naloxone 0.4 MG/ML INJ IVP PRN (16:46)
[2019-04-19] MEDS ORDERED: *HR* Promethazine 25 MG/ML VIAL IVP PRN (16:46)
[2019-04-19] MEDS ORDERED: 0.9 % Sodium Chloride 1,000 ML IVC SCH (17:00)
[2019-04-19] MEDS ORDERED: Pantoprazole 40 MG VIAL IVP SCH (18:00)
[2019-04-19 18:14] LABS: Hematocrit 47.5 % (37.5-50.1); Hemoglobin 17.5 g/dL (12.9-16.9)
[2019-04-19 19:11] VITALS: BP 109/77
== END 2019-04-19 20:20 | disposition short-term general hospital (02) ==
LOC: EMEROOARM 13:22 → 3ANU 13:22
PROVIDERS: ADMIT Internal Medicine; ATTEND Internal Medicine

== ENCOUNTER 2019-09-02 20:32 | Inpatient (IN) ==
[2019-09-02] MEDS ORDERED: Ondansetron 4 MG/2 ML VIAL IVP ONE (21:17)
[2019-09-02] MEDS ORDERED: Morphine Sulfate 2 MG/ML SYRINGE IVP ONE (21:17)
[2019-09-02] MEDS ORDERED: 0.9 % Sodium Chloride 1,000 ML IVC ONE (21:17)
[2019-09-02 21:43] LABS: Basophils # 0.1 K/mcL (0.0-0.2); Basophils % 0.6 %; Eosinophils # 0.1 K/mcL (0.0-0.6); Eosinophils % 1.1 %; Hemoglobin 19.4 g/dL (12.9-16.9); Immature Granulocytes % 0.5 % (0-4); Lymphocytes # 2.3 K/mcL (0.6-4.6); Lymphocytes % 18.6 %; Mean Corpuscular HGB Conc 34.8 g/dL (31.6-35.5); Mean Corpuscular Hemoglobin 31.8 pg (28.0-33.3); Mean Corpuscular Volume 91.3 fL (83.0-100.0); Mean Platelet Volume 11.1 fL (9.4-12.4); Monocytes # 0.6 K/mcL (0.0-1.3); Monocytes % 4.8 %; Neutrophils # 9.1 K/mcL (1.6-8.9); Platelet Count 154 K/mcL (140-400); Red Blood Count 6.11 M/mcL (4.19-5.50); Red Cell Distribution Width 13.7 % (11.5-14.5); Segmented Neutrophils % 74.4 %; White Blood Count 12.2 K/mcL (4.3-11.1)
[2019-09-02 21:44] LABS: Hematocrit 55.8 % (37.5-50.1)
[2019-09-02 21:49] LABS: Prothrombin Time 11.3 Seconds (9.4-12.1)
[2019-09-02 22:07] LABS: Alanine Aminotransferase 184 Units/L (7-52); Albumin 5.7 g/dL (3.5-5.7); Albumin/Globulin Ratio 1.5 (1.1-2.2); Alkaline Phosphatase 263 Units/L (34-104); Amylase 158 Units/L (29-103); Aspartate Amino Transferase 127 Units/L (13-39); BUN/Creatinine Ratio 7 (6-26); Bilirubin,Direct 0.5 mg/dL (0.0-0.2); Bilirubin,Total 1.5 mg/dL (0.3-1.0); Blood Urea Nitrogen 14 mg/dL (6-20); Carbon Dioxide 27 mEq/L (23-29); Chloride 85 mEq/L (98-107); Globulin 3.8 g/dL (2.4-3.5); Glucose 186 mg/dL (70-105); Lipase 399 Units/L (11-82); Osmolality,Calculated 289 (280-300); Potassium 3.2 mEq/L (3.5-5.1); Sodium 137 mEq/L (136-145); Total Protein 9.5 g/dL (6.4-8.9); Troponin I < 0.03 ng/mL (< 0.04); eGFR For African Americans 45 (> 60); eGFR For Non-African Americans 37 (> 60)
[2019-09-03] MEDS ORDERED: *HR* HYDROmorphone (PF) 1 MG/ML SYRINGE IVP ONE (00:41)
[2019-09-03] MEDS ORDERED: Ondansetron 4 MG/2 ML VIAL IVP PRN (01:28)
[2019-09-03] MEDS ORDERED: Naloxone 0.4 MG/ML INJ IVP PRN (01:28)
[2019-09-03] MEDS: 0.9 % Sodium Chloride 1,000 ML IVC SCH ×2 (01:29→09:47)
[2019-09-03] MEDS ORDERED: *HR* Dextrose 50 % in Water (Syg) 50 ML SYRINGE IVP PRN (01:34)
[2019-09-03] MEDS ORDERED: D5% in Water 1,000 ML IVC PRN (01:34)
[2019-09-03] MEDS ORDERED: Dextrose Gel 15 GM/37.5 ML TUBE PO PRN ×2 (01:34)
[2019-09-03] MEDS ORDERED: Morphine Sulfate 2 MG/ML SYRINGE IVP PRN (01:38)
[2019-09-03] MEDS ORDERED: Potassium Chloride 40 MEQ, Lidocaine 1% 2 ML in 0.9 % Sodium Chloride 500 ML IVPB ONE (01:51)
[2019-09-03] MEDS: 0.9 % Sodium Chloride w KCl 20 MEQ/1,000 ML MLS IVC SCH ×2 (02:30→06:41)
[2019-09-03 03:23] LABS: Albumin 5.1 g/dL (3.5-5.7); Albumin/Globulin Ratio 1.5 (1.1-2.2); Calcium 10.2 mg/dL (8.6-10.3); Globulin 3.3 g/dL (2.4-3.5); Magnesium 1.4 mg/dL (1.6-2.6); Phosphorous 6.1 mg/dL (2.7-4.5); Potassium 3.2 mEq/L (3.5-5.1); Total Protein 8.4 g/dL (6.4-8.9)
[2019-09-03] MEDS: *HR* HYDROmorphone (PF) 1 MG/ML SYRINGE IVP PRN ×5 (04:35→23:06)
[2019-09-03] MEDS: *HR* Heparin 5,000 UNIT/ML VIAL SQ SCH ×3 (05:46→21:16)
[2019-09-03] MEDS: Pantoprazole 40 MG VIAL IVP SCH ×2 (05:46→17:14)
[2019-09-03 09:26] LABS: Estimated Average Glucose 128 mg/dl
[2019-09-03 09:35] LABS: Eosinophils % 0.6 %; Immature Granulocytes % 0.3 % (0-4); Red Cell Distribution Width 13.6 % (11.5-14.5)
[2019-09-03 09:37] LABS: Basophils % 0.3 %; Eosinophils # 0.1 K/mcL (0.0-0.6); Hematocrit 43.8 % (37.5-50.1); Hemoglobin 14.8 g/dL (12.9-16.9); Immature Platelets 9.7 % (1.1-6.1); Lymphocytes # 1.7 K/mcL (0.6-4.6); Lymphocytes % 19.8 %; Mean Corpuscular HGB Conc 33.8 g/dL (31.6-35.5); Mean Corpuscular Hemoglobin 31.6 pg (28.0-33.3); Mean Corpuscular Volume 93.6 fL (83.0-100.0); Mean Platelet Volume 11.5 fL (9.4-12.4); Monocytes # 0.6 K/mcL (0.0-1.3); Monocytes % 6.8 %; Platelet Count 103 K/mcL (140-400); Red Blood Count 4.68 M/mcL (4.19-5.50); Segmented Neutrophils % 72.2 %; White Blood Count 8.8 K/mcL (4.3-11.1)
[2019-09-03] MEDS: Insulin LISPRO 300 UNITS/3 ML VIAL SQ SCH ×3 (09:46→17:07)
[2019-09-03 09:51] LABS: Neutrophils # 6.4 K/mcL (1.6-8.9)
[2019-09-03] MEDS ORDERED: 0.9 % Sodium Chloride 1,000 ML IVC SCH (12:00)
[2019-09-03] MEDS ORDERED: Magnesium Sulfate 1 GM/102 ML PIGGYBACK IVPB ONE (12:17)
[2019-09-03 12:55] LABS: Potassium 3.3 mEq/L (3.5-5.1)
[2019-09-03] MEDS ORDERED: Ringers Solution, Lactated 1,000 ML IVC SCH (15:15)
[2019-09-03 15:23] LABS: Chol/HDL Ratio 1.8 (0-4.9)
[2019-09-03] MEDS: Ringers Solution, Lactated 1,000 ML IVC SCH ×2 (15:36→23:09)
[2019-09-03 16:37] LABS: Bacteria,Urine Few per hpf (None-Few); Bilirubin,Urine Negative (Negative); Blood,Urine Negative (Negative); Clarity,Urine Turbid (Clear); Color,Urine Yellow (Yellow); Glucose,Urine (UA) Normal (Normal); Granular Casts,Urine Few per lpf (None Seen); Hyaline Casts,Urine Few per lpf (None Seen); Ketones,Urine 40 mg/dL (Negative); Leukocyte Esterase,Urine Negative (Negative); Mucus,Urine Few per lpf (None-Few); Nitrite,Urine Negative (Negative); Protein,Urine 50 mg/dL (Neg-Trace); RBC,Urine 0-3 per hpf (0-3); Specific Gravity,Urine 1.028 (1.010-1.025); Squamous Epithelial Cell,Urine Few per hpf (None-Few); Transitional Epi Cells,Urine Few per hpf (None-Few); WBC,Urine 0-3 per hpf (0-3)
[2019-09-03 16:49] LABS: Sodium, Urine 19.3 mEq/L
[2019-09-04] MEDS: Insulin LISPRO 300 UNITS/3 ML VIAL SQ SCH ×4 (02:01→17:08)
[2019-09-04 02:17] LABS: Eosinophils % 3.9 %; Red Cell Distribution Width 13.2 % (11.5-14.5)
[2019-09-04 02:18] LABS: Basophils % 0.6 %; Eosinophils # 0.3 K/mcL (0.0-0.6); Hematocrit 37.1 % (37.5-50.1); Hemoglobin 12.6 g/dL (12.9-16.9); Immature Granulocytes % 0.6 % (0-4); Immature Platelets 9.5 % (1.1-6.1); Lymphocytes # 2.6 K/mcL (0.6-4.6); Lymphocytes % 35.3 %; Mean Corpuscular Hemoglobin 31.6 pg (28.0-33.3); Mean Platelet Volume 11.6 fL (9.4-12.4); Monocytes # 0.5 K/mcL (0.0-1.3); Monocytes % 6.5 %; Neutrophils # 3.9 K/mcL (1.6-8.9); Red Blood Count 3.99 M/mcL (4.19-5.50); Segmented Neutrophils % 53.1 %; White Blood Count 7.3 K/mcL (4.3-11.1)
[2019-09-04 02:21] LABS: Platelet Count 85 K/mcL (140-400)
[2019-09-04 02:42] LABS: Alanine Aminotransferase 82 Units/L (7-52); Albumin 3.6 g/dL (3.5-5.7); Albumin/Globulin Ratio 1.7 (1.1-2.2); Alkaline Phosphatase 118 Units/L (34-104); Aspartate Amino Transferase 52 Units/L (13-39); BUN/Creatinine Ratio 21 (6-26); Bilirubin,Total 0.9 mg/dL (0.3-1.0); Blood Urea Nitrogen 14 mg/dL (6-20); Calcium 7.4 mg/dL (8.6-10.3); Carbon Dioxide 26 mEq/L (23-29); Chloride 95 mEq/L (98-107); Globulin 2.1 g/dL (2.4-3.5); Glucose 89 mg/dL (70-105); Magnesium 1.2 mg/dL (1.6-2.6); Osmolality,Calculated 274 (280-300); Phosphorous 1.7 mg/dL (2.7-4.5); Potassium 3.5 mEq/L (3.5-5.1); Sodium 132 mEq/L (136-145); Total Protein 5.7 g/dL (6.4-8.9); eGFR For African Americans > 60 (> 60); eGFR For Non-African Americans > 60 (> 60)
[2019-09-04] MEDS: *HR* HYDROmorphone (PF) 1 MG/ML SYRINGE IVP PRN ×5 (03:59→22:19)
[2019-09-04] MEDS: Ringers Solution, Lactated 1,000 ML IVC SCH ×5 (04:00→19:47)
[2019-09-04] MEDS: *HR* Heparin 5,000 UNIT/ML VIAL SQ SCH ×3 (05:53→19:47)
[2019-09-04] MEDS: Pantoprazole 40 MG VIAL IVP SCH ×2 (05:53→16:50)
[2019-09-04] MEDS ORDERED: Magnesium Sulfate 1 GM/102 ML PIGGYBACK IVPB ONE (08:41)
[2019-09-05] MEDS: Ringers Solution, Lactated 1,000 ML IVC SCH ×4 (01:06→19:37)
[2019-09-05] MEDS: *HR* HYDROmorphone (PF) 1 MG/ML SYRINGE IVP PRN ×5 (03:47→22:15)
[2019-09-05 03:56] LABS: Hemoglobin 12.3 g/dL (12.9-16.9); Immature Granulocytes % 0.3 % (0-4); Red Cell Distribution Width 12.9 % (11.5-14.5)
[2019-09-05 03:59] LABS: Eosinophils # 0.2 K/mcL (0.0-0.6); Eosinophils % 4.2 %; Hematocrit 35.7 % (37.5-50.1); Immature Platelets 7.9 % (1.1-6.1); Lymphocytes # 1.5 K/mcL (0.6-4.6); Lymphocytes % 39.4 %; Mean Corpuscular HGB Conc 34.5 g/dL (31.6-35.5); Mean Corpuscular Hemoglobin 31.6 pg (28.0-33.3); Mean Corpuscular Volume 91.8 fL (83.0-100.0); Mean Platelet Volume 11.5 fL (9.4-12.4); Monocytes # 0.4 K/mcL (0.0-1.3); Monocytes % 9.1 %; Neutrophils # 1.8 K/mcL (1.6-8.9); Red Blood Count 3.89 M/mcL (4.19-5.50); White Blood Count 3.8 K/mcL (4.3-11.1)
[2019-09-05 04:03] LABS: Platelet Count 88 K/mcL (140-400)
[2019-09-05 04:14] LABS: Alanine Aminotransferase 71 Units/L (7-52); Albumin 3.7 g/dL (3.5-5.7); Albumin/Globulin Ratio 1.7 (1.1-2.2); Alkaline Phosphatase 129 Units/L (34-104); Aspartate Amino Transferase 40 Units/L (13-39); BUN/Creatinine Ratio 9 (6-26); Bilirubin,Total 0.8 mg/dL (0.3-1.0); Blood Urea Nitrogen 5 mg/dL (6-20); Carbon Dioxide 30 mEq/L (23-29); Chloride 96 mEq/L (98-107); Globulin 2.2 g/dL (2.4-3.5); Glucose 127 mg/dL (70-105); Lipase 208 Units/L (11-82); Osmolality,Calculated 275 (280-300); Potassium 3.5 mEq/L (3.5-5.1); Sodium 133 mEq/L (136-145); Total Protein 5.9 g/dL (6.4-8.9); eGFR For African Americans > 60 (> 60); eGFR For Non-African Americans > 60 (> 60)
[2019-09-05] MEDS: *HR* Heparin 5,000 UNIT/ML VIAL SQ SCH ×3 (05:32→20:53)
[2019-09-05] MEDS: Pantoprazole 40 MG VIAL IVP SCH ×2 (05:32→17:41)
[2019-09-05] MEDS: Insulin LISPRO 300 UNITS/3 ML VIAL SQ SCH ×3 (07:16→17:31)
[2019-09-05] MEDS ORDERED: Magnesium Sulfate 1 GM/102 ML PIGGYBACK IVPB ONE (15:39)
[2019-09-06] MEDS: Ringers Solution, Lactated 1,000 ML IVC SCH (02:25)
[2019-09-06] MEDS: *HR* HYDROmorphone (PF) 1 MG/ML SYRINGE IVP PRN ×2 (02:25→08:04)
[2019-09-06 03:31] LABS: Eosinophils # 0.2 K/mcL (0.0-0.6); Eosinophils % 5.4 %; Hematocrit 38.8 % (37.5-50.1); Hemoglobin 13.5 g/dL (12.9-16.9); Immature Granulocytes % 0.2 % (0-4); Lymphocytes % 49.6 %; Mean Corpuscular HGB Conc 34.8 g/dL (31.6-35.5); Mean Corpuscular Hemoglobin 32.1 pg (28.0-33.3); Mean Corpuscular Volume 92.2 fL (83.0-100.0); Mean Platelet Volume 11.2 fL (9.4-12.4); Monocytes # 0.4 K/mcL (0.0-1.3); Monocytes % 9.8 %; Neutrophils # 1.4 K/mcL (1.6-8.9); Platelet Count 112 K/mcL (140-400); Red Blood Count 4.21 M/mcL (4.19-5.50); Red Cell Distribution Width 13.2 % (11.5-14.5); White Blood Count 4.1 K/mcL (4.3-11.1)
[2019-09-06 03:46] LABS: Alanine Aminotransferase 63 Units/L (7-52); Albumin 3.9 g/dL (3.5-5.7); Albumin/Globulin Ratio 1.6 (1.1-2.2); Alkaline Phosphatase 123 Units/L (34-104); Aspartate Amino Transferase 38 Units/L (13-39); BUN/Creatinine Ratio 6 (6-26); Bilirubin,Total 0.6 mg/dL (0.3-1.0); Blood Urea Nitrogen 4 mg/dL (6-20); Calcium 8.6 mg/dL (8.6-10.3); Carbon Dioxide 29 mEq/L (23-29); Chloride 99 mEq/L (98-107); Globulin 2.5 g/dL (2.4-3.5); Glucose 106 mg/dL (70-105); Magnesium 1.6 mg/dL (1.6-2.6); Osmolality,Calculated 277 (280-300); Phosphorous 2.7 mg/dL (2.7-4.5); Potassium 3.6 mEq/L (3.5-5.1); Sodium 135 mEq/L (136-145); Total Protein 6.4 g/dL (6.4-8.9); eGFR For African Americans > 60 (> 60); eGFR For Non-African Americans > 60 (> 60)
[2019-09-06] MEDS: *HR* Heparin 5,000 UNIT/ML VIAL SQ SCH (05:12)
[2019-09-06] MEDS: Pantoprazole 40 MG VIAL IVP SCH (05:13)
[2019-09-06] MEDS ORDERED: carvediloL 25 MG TABLET PO SCH (08:00)
[2019-09-06] MEDS ORDERED: NON-FORMULARY MEDICATION 1 EACH EACH (Omeprazole [Prilosec] 40 MG) PO SCH (09:00)
[2019-09-06] MEDS ORDERED: Gabapentin 300 MG CAPSULE PO SCH ×2 (09:00→21:00)
[2019-09-06] MEDS: Insulin LISPRO 300 UNITS/3 ML VIAL SQ SCH (09:37)
[2019-09-06] MEDS ORDERED: *HR* OxyCODONE Immed Rel 5 MG TABLET PO PRN (11:15)
[2019-09-06 12:10] VITALS: BP 142/96
== END 2019-09-06 13:00 | disposition home or self-care (01) | DRG 439 ==
LOC: 3BNU 20:32 → EMEROOARM 20:32 → 3BNU 09-03 01:40
PROVIDERS: ADMIT Student in an Organized Health Care Education/Training Program; ATTEND Student in an Organized Health Care Education/Training Program

== ENCOUNTER 2019-10-10 19:51 | Inpatient (IN) ==
[2019-10-10] MEDS ORDERED: 0.9 % Sodium Chloride 1,000 ML IVC ONE ×3 (20:04→22:53)
[2019-10-10] MEDS ORDERED: Isovue-370 500 ML BOTTLE IVP ONE (20:04)
[2019-10-10] MEDS ORDERED: Ondansetron 4 MG/2 ML VIAL IVP ONE (20:18)
[2019-10-10] MEDS ORDERED: *HR* HYDROmorphone (PF) 1 MG/ML SYRINGE IVP ONE ×2 (20:18→22:20)
[2019-10-10 20:31] LABS: Immature Granulocytes % 0.3 % (0-4); Red Cell Distribution Width 14.4 % (11.5-14.5)
[2019-10-10 20:33] LABS: Basophils % 0.1 %; Hematocrit 49.8 % (37.5-50.1); Hemoglobin 17.5 g/dL (12.9-16.9); Immature Platelets 7.6 % (1.1-6.1); Lymphocytes % 8.5 %; Mean Corpuscular HGB Conc 35.1 g/dL (31.6-35.5); Mean Corpuscular Hemoglobin 32.6 pg (28.0-33.3); Mean Corpuscular Volume 92.7 fL (83.0-100.0); Mean Platelet Volume 10.8 fL (9.4-12.4); Monocytes # 0.4 K/mcL (0.0-1.3); Monocytes % 3.3 %; Neutrophils # 10.1 K/mcL (1.6-8.9); Platelet Count 114 K/mcL (140-400); Red Blood Count 5.37 M/mcL (4.19-5.50); Segmented Neutrophils % 87.8 %; White Blood Count 11.5 K/mcL (4.3-11.1)
[2019-10-10 20:51] LABS: Alanine Aminotransferase 98 Units/L (7-52); Albumin 5.1 g/dL (3.5-5.7); Albumin/Globulin Ratio 1.8 (1.1-2.2); Alkaline Phosphatase 125 Units/L (34-104); Aspartate Amino Transferase 119 Units/L (13-39); BUN/Creatinine Ratio 9 (6-26); Bilirubin,Total 2.1 mg/dL (0.3-1.0); Blood Urea Nitrogen 8 mg/dL (6-20); Calcium 9.7 mg/dL (8.6-10.3); Carbon Dioxide 20 mEq/L (23-29); Chloride 94 mEq/L (98-107); Globulin 2.9 g/dL (2.4-3.5); Glucose 122 mg/dL (70-105); Lipase 518 Units/L (11-82); Osmolality,Calculated 286 (280-300); Potassium 3.9 mEq/L (3.5-5.1); Sodium 138 mEq/L (136-145); eGFR For African Americans > 60 (> 60); eGFR For Non-African Americans > 60 (> 60)
[2019-10-10 20:52] LABS: Platelet Estimate Slight Decrease (Normal)
[2019-10-10 21:01] LABS: Lactate Dehydrogenase 268 Units/L (140-271)
[2019-10-10 21:02] LABS: Troponin I 0.03 ng/mL (< 0.04)
[2019-10-10 23:11] LABS: Bacteria,Urine Few per hpf (None-Few); Bilirubin,Urine Small (Negative); Blood,Urine Small (Negative); Clarity,Urine Turbid (Clear); Color,Urine Light-Orange (Yellow); Glucose,Urine (UA) 50 mg/dL (Normal); Hyaline Casts,Urine Many per lpf (None Seen); Ketones,Urine 60 mg/dL (Negative); Leukocyte Esterase,Urine Negative (Negative); Mucus,Urine Many per lpf (None-Few); Nitrite,Urine Negative (Negative); Protein,Urine >=300 mg/dL (Neg-Trace); RBC,Urine 0-3 per hpf (0-3); Specific Gravity,Urine 1.027 (1.010-1.025); Squamous Epithelial Cell,Urine Few per hpf (None-Few); Urobilinogen,Urine Normal (Normal); WBC,Urine 0-3 per hpf (0-3)
[2019-10-10] MEDS ORDERED: Naloxone 0.4 MG/ML INJ IVP PRN (23:57)
[2019-10-11] MEDS: 0.9 % Sodium Chloride 1,000 ML IVC SCH ×2 (00:56→08:52)
[2019-10-11] MEDS: Ondansetron 4 MG/2 ML VIAL IVP PRN ×2 (00:57→12:26)
[2019-10-11] MEDS ORDERED: *HR* LORazepam 2 MG/ML VIAL IVP PRN ×3 (06:01)
[2019-10-11] MEDS: Thiamine (B-1) 100 MG, Folic Acid 1 MG, MVI, adult with vitamin K 10 ML in 0.9 % Sodi... IVPB SCH (06:10)
[2019-10-11 09:20] LABS: Red Cell Distribution Width 14.5 % (11.5-14.5)
[2019-10-11 09:22] LABS: Hematocrit 41.9 % (37.5-50.1); Hemoglobin 14.3 g/dL (12.9-16.9); Immature Platelets 9.6 % (1.1-6.1); Mean Corpuscular HGB Conc 34.1 g/dL (31.6-35.5); Mean Corpuscular Hemoglobin 32.3 pg (28.0-33.3); Mean Corpuscular Volume 94.6 fL (83.0-100.0); Mean Platelet Volume 10.8 fL (9.4-12.4); Red Blood Count 4.43 M/mcL (4.19-5.50); White Blood Count 7.4 K/mcL (4.3-11.1)
[2019-10-11 09:27] LABS: INR 1.3; Prothrombin Time 15.1 Seconds (9.4-12.1)
[2019-10-11 09:40] LABS: Alanine Aminotransferase 65 Units/L (7-52); Albumin 3.9 g/dL (3.5-5.7); Albumin/Globulin Ratio 1.9 (1.1-2.2); Alkaline Phosphatase 90 Units/L (34-104); Aspartate Amino Transferase 94 Units/L (13-39); BUN/Creatinine Ratio 14 (6-26); Bilirubin,Total 2.7 mg/dL (0.3-1.0); Blood Urea Nitrogen 9 mg/dL (6-20); Calcium 7.7 mg/dL (8.6-10.3); Carbon Dioxide 28 mEq/L (23-29); Chloride 100 mEq/L (98-107); Globulin 2.1 g/dL (2.4-3.5); Glucose 116 mg/dL (70-105); Magnesium 1.2 mg/dL (1.6-2.6); Osmolality,Calculated 284 (280-300); Phosphorous 1.7 mg/dL (2.7-4.5); Potassium 3.5 mEq/L (3.5-5.1); Sodium 137 mEq/L (136-145); eGFR For African Americans > 60 (> 60); eGFR For Non-African Americans > 60 (> 60)
[2019-10-11] MEDS ORDERED: Magnesium Sulfate 1 GM/102 ML PIGGYBACK IVPB ONE (12:50)
[2019-10-11] MEDS ORDERED: Potassium Phosphate 44 MEQ in 0.9 % Sodium Chloride 250 ML IVPB ONE (12:50)
[2019-10-11] MEDS: *HR* Heparin 5,000 UNIT/ML VIAL SQ SCH (16:37)
[2019-10-12] MEDS ORDERED: *HR* Labetalol 20 MG/4 ML SYRINGE IVP ONE (00:30)
[2019-10-12 02:33] LABS: Mean Corpuscular Volume 95.6 fL (83.0-100.0)
[2019-10-12 02:35] LABS: Basophils % 0.2 %; Hemoglobin 14.7 g/dL (12.9-16.9); Immature Granulocytes % 0.5 % (0-4); Immature Platelets 10.1 % (1.1-6.1); Lymphocytes # 0.9 K/mcL (0.6-4.6); Lymphocytes % 13.5 %; Mean Corpuscular HGB Conc 34.2 g/dL (31.6-35.5); Mean Corpuscular Hemoglobin 32.7 pg (28.0-33.3); Mean Platelet Volume 12.2 fL (9.4-12.4); Monocytes # 0.3 K/mcL (0.0-1.3); Monocytes % 4.6 %; Neutrophils # 5.4 K/mcL (1.6-8.9); Red Cell Distribution Width 14.1 % (11.5-14.5); Segmented Neutrophils % 81.2 %; White Blood Count 6.6 K/mcL (4.3-11.1)
[2019-10-12 02:36] LABS: Platelet Count 64 K/mcL (140-400)
[2019-10-12 02:57] LABS: Alanine Aminotransferase 101 Units/L (7-52); Albumin 3.9 g/dL (3.5-5.7); Albumin/Globulin Ratio 1.7 (1.1-2.2); Alkaline Phosphatase 131 Units/L (34-104); Aspartate Amino Transferase 218 Units/L (13-39); BUN/Creatinine Ratio 11 (6-26); Blood Urea Nitrogen 7 mg/dL (6-20); Calcium 7.6 mg/dL (8.6-10.3); Carbon Dioxide 29 mEq/L (23-29); Chloride 94 mEq/L (98-107); Globulin 2.3 g/dL (2.4-3.5); Glucose 115 mg/dL (70-105); Osmolality,Calculated 275 (280-300); Potassium 3.4 mEq/L (3.5-5.1); Sodium 133 mEq/L (136-145); Total Protein 6.2 g/dL (6.4-8.9); eGFR For African Americans > 60 (> 60); eGFR For Non-African Americans > 60 (> 60)
[2019-10-12 03:00] LABS: Magnesium 1.5 mg/dL (1.6-2.6)
[2019-10-12] MEDS: *HR* Heparin 5,000 UNIT/ML VIAL SQ SCH ×2 (05:17→17:01)
[2019-10-12] MEDS: Ondansetron 4 MG/2 ML VIAL IVP PRN (08:21)
[2019-10-12] MEDS ORDERED: Ringers Solution, Lactated 500 ML IVC SCH (08:30)
[2019-10-12] MEDS ORDERED: Magnesium Sulfate 1 GM/102 ML PIGGYBACK IVPB ONE ×2 (09:58→14:06)
[2019-10-12 10:20] LABS: Chol/HDL Ratio 1.5 (0-4.9)
[2019-10-12] MEDS: carvediloL 25 MG TABLET PO SCH (14:01)
[2019-10-12] MEDS: Ringers Solution, Lactated 500 ML IVC SCH (17:02)
[2019-10-12] MEDS: Thiamine (B-1) 100 MG, Folic Acid 1 MG, MVI, adult with vitamin K 10 ML in 0.9 % Sodi... IVPB SCH (18:53)
[2019-10-12] MEDS ORDERED: Acetaminophen IV 1,000 MG/100 ML BAG IVPB ONE (23:17)
[2019-10-12] MEDS ORDERED: Ringers Solution, Lactated 500 ML IVC ONE (23:45)
[2019-10-12] MEDS: Ringers Solution, Lactated 1,000 ML IVC SCH (23:51)
[2019-10-13] MEDS: Ringers Solution, Lactated 500 ML IVC SCH ×4 (00:27→00:30)
[2019-10-13] MEDS: Ringers Solution, Lactated 1,000 ML IVC SCH ×5 (03:53→20:46)
[2019-10-13 04:10] LABS: Mean Corpuscular Volume 96.4 fL (83.0-100.0)
[2019-10-13 04:12] LABS: Hematocrit 35.2 % (37.5-50.1); Hemoglobin 11.9 g/dL (12.9-16.9); Mean Corpuscular HGB Conc 33.8 g/dL (31.6-35.5); Mean Corpuscular Hemoglobin 32.6 pg (28.0-33.3); Mean Platelet Volume 11.6 fL (9.4-12.4); Red Blood Count 3.65 M/mcL (4.19-5.50); Red Cell Distribution Width 13.5 % (11.5-14.5); White Blood Count 7.7 K/mcL (4.3-11.1)
[2019-10-13 04:13] LABS: INR 1.2; Prothrombin Time 13.9 Seconds (9.4-12.1)
[2019-10-13 04:31] LABS: Alanine Aminotransferase 75 Units/L (7-52); Albumin 3.2 g/dL (3.5-5.7); Albumin/Globulin Ratio 1.5 (1.1-2.2); Alkaline Phosphatase 110 Units/L (34-104); Aspartate Amino Transferase 83 Units/L (13-39); BUN/Creatinine Ratio 20 (6-26); Bilirubin,Total 2.5 mg/dL (0.3-1.0); Blood Urea Nitrogen 10 mg/dL (6-20); Calcium 7.2 mg/dL (8.6-10.3); Carbon Dioxide 27 mEq/L (23-29); Chloride 96 mEq/L (98-107); Globulin 2.1 g/dL (2.4-3.5); Glucose 124 mg/dL (70-105); Osmolality,Calculated 274 (280-300); Potassium 3.3 mEq/L (3.5-5.1); Sodium 132 mEq/L (136-145); Total Protein 5.3 g/dL (6.4-8.9); eGFR For African Americans > 60 (> 60); eGFR For Non-African Americans > 60 (> 60)
[2019-10-13] MEDS: *HR* Heparin 5,000 UNIT/ML VIAL SQ SCH ×2 (06:13→17:42)
[2019-10-13] MEDS: Ondansetron 4 MG/2 ML VIAL IVP PRN (07:53)
[2019-10-13] MEDS: carvediloL 25 MG TABLET PO SCH (07:54)
[2019-10-13] MEDS: Thiamine (B-1) 100 MG, Folic Acid 1 MG, MVI, adult with vitamin K 10 ML in 0.9 % Sodi... IVPB SCH (18:38)
[2019-10-13] MEDS ORDERED: Ibuprofen 600 MG TABLET PO ONE (23:44)
[2019-10-14] MEDS: Ringers Solution, Lactated 1,000 ML IVC SCH ×4 (01:12→20:20)
[2019-10-14 07:04] LABS: Alanine Aminotransferase 93 Units/L (7-52); Albumin 3.2 g/dL (3.5-5.7); Albumin/Globulin Ratio 1.5 (1.1-2.2); Alkaline Phosphatase 156 Units/L (34-104); Aspartate Amino Transferase 123 Units/L (13-39); BUN/Creatinine Ratio 18 (6-26); Bilirubin,Total 2.8 mg/dL (0.3-1.0); Blood Urea Nitrogen 8 mg/dL (6-20); Calcium 7.6 mg/dL (8.6-10.3); Carbon Dioxide 28 mEq/L (23-29); Chloride 96 mEq/L (98-107); Globulin 2.2 g/dL (2.4-3.5); Glucose 110 mg/dL (70-105); Osmolality,Calculated 275 (280-300); Potassium 3.1 mEq/L (3.5-5.1); Sodium 133 mEq/L (136-145); Total Protein 5.4 g/dL (6.4-8.9); eGFR For African Americans > 60 (> 60); eGFR For Non-African Americans > 60 (> 60)
[2019-10-14] MEDS: carvediloL 25 MG TABLET PO SCH (07:44)
[2019-10-14 08:18] LABS: Basophils % 0.3 %; Hemoglobin 11.8 g/dL (12.9-16.9); Mean Platelet Volume 10.5 fL (9.4-12.4); Red Cell Distribution Width 13.1 % (11.5-14.5)
[2019-10-14 08:20] LABS: Eosinophils # 0.1 K/mcL (0.0-0.6); Eosinophils % 0.7 %; Hematocrit 34.2 % (37.5-50.1); Immature Granulocytes % 0.3 % (0-4); Immature Platelets 7.4 % (1.1-6.1); Lymphocytes # 0.8 K/mcL (0.6-4.6); Lymphocytes % 10.8 %; Mean Corpuscular HGB Conc 34.5 g/dL (31.6-35.5); Mean Corpuscular Hemoglobin 32.7 pg (28.0-33.3); Mean Corpuscular Volume 94.7 fL (83.0-100.0); Monocytes # 0.8 K/mcL (0.0-1.3); Monocytes % 11.4 %; Neutrophils # 5.6 K/mcL (1.6-8.9); Red Blood Count 3.61 M/mcL (4.19-5.50); Segmented Neutrophils % 76.5 %; White Blood Count 7.3 K/mcL (4.3-11.1)
[2019-10-14 08:24] LABS: Platelet Count 77 K/mcL (140-400)
[2019-10-14] MEDS ORDERED: diazePAM 10 MG/2 ML SYRINGE IVP ONE (12:06)
[2019-10-14] MEDS ORDERED: Dexmedetomidine HCl 400 MCG/100 ML MLS IVC SCH (12:30)
[2019-10-14] MEDS ORDERED: *HR* Heparin 5,000 UNIT/ML VIAL SQ SCH (14:00)
[2019-10-14] MEDS: Dexmedetomidine HCl 400 MCG/100 ML MLS IVC SCH ×2 (17:26→23:24)
[2019-10-14] MEDS ORDERED: hydrALAZINE 10 MG TABLET PO PRN (23:31)
[2019-10-15 02:51] LABS: Mean Platelet Volume 10.7 fL (9.4-12.4); Platelet Count 100 K/mcL (140-400)
[2019-10-15 02:53] LABS: Basophils % 0.5 %; Eosinophils # 0.1 K/mcL (0.0-0.6); Eosinophils % 1.3 %; Hematocrit 36.2 % (37.5-50.1); Hemoglobin 12.4 g/dL (12.9-16.9); Immature Granulocytes % 0.8 % (0-4); Immature Platelets 7.3 % (1.1-6.1); Lymphocytes # 0.8 K/mcL (0.6-4.6); Lymphocytes % 13.3 %; Mean Corpuscular HGB Conc 34.3 g/dL (31.6-35.5); Mean Corpuscular Hemoglobin 32.5 pg (28.0-33.3); Monocytes # 0.9 K/mcL (0.0-1.3); Monocytes % 13.7 %; Red Blood Count 3.81 M/mcL (4.19-5.50); Red Cell Distribution Width 13.2 % (11.5-14.5); Segmented Neutrophils % 70.4 %; White Blood Count 6.3 K/mcL (4.3-11.1)
[2019-10-15 02:54] LABS: Neutrophils # 4.4 K/mcL (1.6-8.9)
[2019-10-15 03:07] LABS: Albumin 3.4 g/dL (3.5-5.7); Albumin/Globulin Ratio 1.4 (1.1-2.2); BUN/Creatinine Ratio 16 (6-26); Bilirubin,Direct 0.6 mg/dL (0.0-0.2); Bilirubin,Indirect 0.8 mg/dL (0.0-1.0); Bilirubin,Total 1.4 mg/dL (0.3-1.0); Blood Urea Nitrogen 7 mg/dL (6-20); Calcium 8.7 mg/dL (8.6-10.3); Carbon Dioxide 28 mEq/L (23-29); Chloride 99 mEq/L (98-107); Globulin 2.4 g/dL (2.4-3.5); Glucose 135 mg/dL (70-105); Magnesium 1.6 mg/dL (1.6-2.6); Osmolality,Calculated 282 (280-300); Potassium 2.9 mEq/L (3.5-5.1); Sodium 136 mEq/L (136-145); Total Protein 5.8 g/dL (6.4-8.9); eGFR For African Americans > 60 (> 60); eGFR For Non-African Americans > 60 (> 60)
[2019-10-15] MEDS: Dexmedetomidine HCl 400 MCG/100 ML MLS IVC SCH (04:25)
[2019-10-15] MEDS: Ringers Solution, Lactated 1,000 ML IVC SCH ×4 (04:25→20:53)
[2019-10-15] MEDS: Nicotine 14 MG PATCH.TD24 TD SCH (08:04)
[2019-10-15] MEDS: carvediloL 25 MG TABLET PO SCH (08:04)
[2019-10-15] MEDS ORDERED: Potassium Chloride 40 MEQ, Lidocaine 1% 2 ML in 0.9 % Sodium Chloride 500 ML IVPB ONE (08:05)
[2019-10-15] MEDS ORDERED: *HR* LORazepam 0.5 MG TABLET PO SCH (09:15)
[2019-10-15] MEDS: *HR* LORazepam 0.5 MG TABLET PO SCH ×3 (09:20→20:53)
[2019-10-16] MEDS: Ringers Solution, Lactated 1,000 ML IVC SCH ×3 (03:38→19:57)
[2019-10-16] MEDS: Dexmedetomidine HCl 400 MCG/100 ML MLS IVC SCH ×3 (03:40→20:24)
[2019-10-16 05:46] LABS: Basophils % 0.2 %; Eosinophils # 0.1 K/mcL (0.0-0.6); Eosinophils % 0.7 %; Hematocrit 35.9 % (37.5-50.1); Hemoglobin 12.8 g/dL (12.9-16.9); Immature Granulocytes % 0.4 % (0-4); Lymphocytes # 1.4 K/mcL (0.6-4.6); Lymphocytes % 15.6 %; Mean Corpuscular HGB Conc 35.7 g/dL (31.6-35.5); Mean Corpuscular Volume 95.2 fL (83.0-100.0); Mean Platelet Volume 10.4 fL (9.4-12.4); Monocytes # 1.5 K/mcL (0.0-1.3); Neutrophils # 6.2 K/mcL (1.6-8.9); Platelet Count 154 K/mcL (140-400); Red Blood Count 3.77 M/mcL (4.19-5.50); Red Cell Distribution Width 13.2 % (11.5-14.5); Segmented Neutrophils % 67.1 %; White Blood Count 9.2 K/mcL (4.3-11.1)
[2019-10-16 06:08] LABS: Albumin 3.1 g/dL (3.5-5.7); Albumin/Globulin Ratio 1.3 (1.1-2.2); Bilirubin,Direct 1.2 mg/dL (0.0-0.2); Bilirubin,Indirect 1.1 mg/dL (0.0-1.0); Bilirubin,Total 2.3 mg/dL (0.3-1.0); Globulin 2.4 g/dL (2.4-3.5); Total Protein 5.5 g/dL (6.4-8.9)
[2019-10-16 06:15] LABS: Large Platelets Present (Not Present); Platelet Estimate Normal (Normal)
[2019-10-16 06:19] LABS: BUN/Creatinine Ratio 9 (6-26); Blood Urea Nitrogen 5 mg/dL (6-20); Calcium 7.8 mg/dL (8.6-10.3); Carbon Dioxide 29 mEq/L (23-29); Chloride 92 mEq/L (98-107); Glucose 133 mg/dL (70-105); Magnesium 1.3 mg/dL (1.6-2.6); Osmolality,Calculated 267 (280-300); Potassium 2.5 mEq/L (3.5-5.1); Sodium 129 mEq/L (136-145); eGFR For African Americans > 60 (> 60); eGFR For Non-African Americans > 60 (> 60)
[2019-10-16] MEDS ORDERED: Potassium Chloride 40 MEQ, Lidocaine 1% 2 ML in 0.9 % Sodium Chloride 500 ML IVPB ONE ×2 (06:22→18:41)
[2019-10-16] MEDS: carvediloL 25 MG TABLET PO SCH (08:02)
[2019-10-16] MEDS: Nicotine 14 MG PATCH.TD24 TD SCH (08:02)
[2019-10-16] MEDS: *HR* LORazepam 0.5 MG TABLET PO SCH ×3 (08:02→20:03)
[2019-10-16 10:38] LABS: BUN/Creatinine Ratio 12 (6-26); Blood Urea Nitrogen 6 mg/dL (6-20); Calcium 7.4 mg/dL (8.6-10.3); Carbon Dioxide 29 mEq/L (23-29); Chloride 94 mEq/L (98-107); Glucose 192 mg/dL (70-105); Magnesium 1.3 mg/dL (1.6-2.6); Osmolality,Calculated 269 (280-300); Potassium 2.9 mEq/L (3.5-5.1); Sodium 128 mEq/L (136-145); eGFR For African Americans > 60 (> 60); eGFR For Non-African Americans > 60 (> 60)
[2019-10-16] MEDS: carvediloL 6.25 MG TABLET PO SCH (16:16)
[2019-10-16] MEDS: Thiamine (B-1) 100 MG TABLET PO SCH (16:17)
[2019-10-16 17:12] LABS: BUN/Creatinine Ratio 15 (6-26); Blood Urea Nitrogen 8 mg/dL (6-20); Calcium 7.8 mg/dL (8.6-10.3); Carbon Dioxide 28 mEq/L (23-29); Chloride 95 mEq/L (98-107); Glucose 170 mg/dL (70-105); Magnesium 1.8 mg/dL (1.6-2.6); Osmolality,Calculated 272 (280-300); Phosphorous 2.2 mg/dL (2.7-4.5); Potassium 2.9 mEq/L (3.5-5.1); Sodium 130 mEq/L (136-145); eGFR For African Americans > 60 (> 60); eGFR For Non-African Americans > 60 (> 60)
[2019-10-16 20:11] LABS: Potassium,Urine 18.4 mEq/L; Sodium, Urine 93.3 mEq/L
[2019-10-17 06:57] LABS: Basophils % 0.6 %; Eosinophils # 0.2 K/mcL (0.0-0.6); Eosinophils % 3.4 %; Hematocrit 34.1 % (37.5-50.1); Hemoglobin 11.7 g/dL (12.9-16.9); Immature Granulocytes % 0.1 % (0-4); Lymphocytes # 1.3 K/mcL (0.6-4.6); Lymphocytes % 19.1 %; Mean Corpuscular HGB Conc 34.3 g/dL (31.6-35.5); Mean Corpuscular Hemoglobin 33.1 pg (28.0-33.3); Mean Corpuscular Volume 96.3 fL (83.0-100.0); Mean Platelet Volume 10.6 fL (9.4-12.4); Monocytes # 0.9 K/mcL (0.0-1.3); Monocytes % 12.6 %; Neutrophils # 4.4 K/mcL (1.6-8.9); Platelet Count 172 K/mcL (140-400); Red Blood Count 3.54 M/mcL (4.19-5.50); Red Cell Distribution Width 13.1 % (11.5-14.5); Segmented Neutrophils % 64.2 %; White Blood Count 6.9 K/mcL (4.3-11.1)
[2019-10-17 07:18] LABS: BUN/Creatinine Ratio 12 (6-26); Blood Urea Nitrogen 6 mg/dL (6-20); Calcium 7.6 mg/dL (8.6-10.3); Carbon Dioxide 30 mEq/L (23-29); Chloride 98 mEq/L (98-107); Glucose 174 mg/dL (70-105); Magnesium 1.8 mg/dL (1.6-2.6); Osmolality,Calculated 282 (280-300); Phosphorous 2.8 mg/dL (2.7-4.5); Potassium 2.9 mEq/L (3.5-5.1); Sodium 135 mEq/L (136-145); eGFR For African Americans > 60 (> 60); eGFR For Non-African Americans > 60 (> 60)
[2019-10-17] MEDS: Folic Acid 1 MG TABLET PO SCH (08:49)
[2019-10-17] MEDS: carvediloL 6.25 MG TABLET PO SCH ×2 (08:50→16:36)
[2019-10-17] MEDS: *HR* LORazepam 0.5 MG TABLET PO SCH ×3 (08:50→20:55)
[2019-10-17] MEDS: Multivit/Ca/Min/Fe/FA 1 TAB TABLET PO SCH (08:50)
[2019-10-17] MEDS: Nicotine 14 MG PATCH.TD24 TD SCH (08:51)
[2019-10-17] MEDS: Thiamine (B-1) 100 MG TABLET PO SCH (12:47)
[2019-10-17 15:54] LABS: BUN/Creatinine Ratio 15 (6-26); Blood Urea Nitrogen 7 mg/dL (6-20); Calcium 7.5 mg/dL (8.6-10.3); Carbon Dioxide 29 mEq/L (23-29); Chloride 99 mEq/L (98-107); Glucose 145 mg/dL (70-105); Osmolality,Calculated 277 (280-300); Potassium 3.5 mEq/L (3.5-5.1); Sodium 133 mEq/L (136-145); eGFR For African Americans > 60 (> 60); eGFR For Non-African Americans > 60 (> 60)
[2019-10-17] MEDS: *HR* Heparin 5,000 UNIT/ML VIAL SQ SCH (20:54)
[2019-10-18 02:32] LABS: Basophils # 0.1 K/mcL (0.0-0.2); Basophils % 0.8 %; Eosinophils # 0.3 K/mcL (0.0-0.6); Eosinophils % 3.6 %; Hematocrit 33.7 % (37.5-50.1); Hemoglobin 11.5 g/dL (12.9-16.9); Immature Granulocytes % 0.3 % (0-4); Lymphocytes # 1.9 K/mcL (0.6-4.6); Lymphocytes % 26.6 %; Mean Corpuscular HGB Conc 34.1 g/dL (31.6-35.5); Mean Corpuscular Hemoglobin 33.2 pg (28.0-33.3); Mean Corpuscular Volume 97.4 fL (83.0-100.0); Mean Platelet Volume 10.7 fL (9.4-12.4); Monocytes # 0.9 K/mcL (0.0-1.3); Neutrophils # 4.1 K/mcL (1.6-8.9); Platelet Count 232 K/mcL (140-400); Red Blood Count 3.46 M/mcL (4.19-5.50); Red Cell Distribution Width 12.8 % (11.5-14.5); Segmented Neutrophils % 56.7 %; White Blood Count 7.3 K/mcL (4.3-11.1)
[2019-10-18 02:34] LABS: BUN/Creatinine Ratio 13 (6-26); Blood Urea Nitrogen 7 mg/dL (6-20); Calcium 8.1 mg/dL (8.6-10.3); Carbon Dioxide 28 mEq/L (23-29); Chloride 98 mEq/L (98-107); Glucose 117 mg/dL (70-105); Magnesium 1.6 mg/dL (1.6-2.6); Osmolality,Calculated 275 (280-300); Potassium 3.2 mEq/L (3.5-5.1); Sodium 133 mEq/L (136-145); eGFR For African Americans > 60 (> 60); eGFR For Non-African Americans > 60 (> 60)
[2019-10-18 02:36] LABS: Albumin 3.1 g/dL (3.5-5.7); Albumin/Globulin Ratio 1.2 (1.1-2.2); Bilirubin,Direct 0.4 mg/dL (0.0-0.2); Bilirubin,Indirect 0.4 mg/dL (0.0-1.0); Bilirubin,Total 0.8 mg/dL (0.3-1.0); Globulin 2.5 g/dL (2.4-3.5); Total Protein 5.6 g/dL (6.4-8.9)
[2019-10-18] MEDS: *HR* Heparin 5,000 UNIT/ML VIAL SQ SCH (06:19)
[2019-10-18] MEDS: Multivit/Ca/Min/Fe/FA 1 TAB TABLET PO SCH (08:55)
[2019-10-18] MEDS: *HR* LORazepam 0.5 MG TABLET PO SCH (08:55)
[2019-10-18] MEDS: carvediloL 6.25 MG TABLET PO SCH (08:55)
[2019-10-18] MEDS: Nicotine 14 MG PATCH.TD24 TD SCH (08:55)
[2019-10-18] MEDS: Folic Acid 1 MG TABLET PO SCH (08:55)
[2019-10-18] MEDS: Thiamine (B-1) 100 MG TABLET PO SCH (08:55)
[2019-10-18 10:12] VITALS: BP 120/77
[2019-10-18] MEDS ORDERED: *HR* LORazepam 0.5 MG TABLET PO PRN (14:35)
== END 2019-10-18 14:00 | disposition home or self-care (01) | DRG 439 ==
LOC: EMEROOARM 19:51 → 3ANU 19:51 → SUATTDRO 23:29 → 3ANU 23:52 → SUATTDRO 10-12 20:07 → 2NNU 10-14 12:34 → 3ANU 10-15 15:11
PROVIDERS: ADMIT Family Medicine; ATTEND Pharmacist